=== PATIENT | female | born 1940 | race Caucasian/White ===

== ENCOUNTER 2021-07-04 08:37 | Emergency (ER) | payer MEDICARE, SELFPAY ==
[2021-07-04 08:49] VITALS: BP 135/69; PULSE 94; RESP 12; TEMP 37.2; O2SAT 96; BMI 29.0
[2021-07-04 09:03] VITALS: BP 148/67; O2SAT 93
--- NOTE | 2021-07-04 09:13 | XRR_ITS ---
PROCEDURE INFORMATION: Exam: XR Left Ribs Exam date and time: 07/04/2021 9:27 AM Age: 80 years old Clinical indication: Pain and injury or trauma; Rib area; Blunt trauma (contusions or hematomas); Chest wall pain; Injury date: 07/04/21; Injury details: Fall this morning in the bathtub, large skin tear on left forearm. Pain in left side ribs at level of axilla; Additional info: Fall, rib pain TECHNIQUE: Imaging protocol: XR Left ribs. Views: 2 views. COMPARISON: No relevant prior studies available. FINDINGS: Bones/joints: There are multiple old healed left rib fractures. No acute fractures are seen. Soft tissues: Normal. XR/XR ribs LT mn 3V w CXR1V [id number] IMPRESSION: Multiple old healed left rib fractures. No acute abnormality.
--- NOTE | 2021-07-04 09:13 | XRR_ITS ---
PROCEDURE INFORMATION: Exam: XR Left Forearm Exam date and time: 07/04/2021 9:22 AM Age: 80 years old Clinical indication: Injury or trauma; Blunt trauma (contusions or hematomas); Arm, lower; Injury date: 07/04/21; Injury details: Fall this morning in the bathtub, large skin tear on left forearm. Pain in left side ribs at level of axilla TECHNIQUE: Imaging protocol: XR Left forearm. Views: 2 views. COMPARISON: No relevant prior studies available. FINDINGS: Bones/joints: No fracture or other acute abnormalities are seen. Chronic degenerative changes are present in the elbow with spurring on the proximal radius. Soft tissues: Normal. XR/XR forearm LT 2V [id number] IMPRESSION: No acute bony abnormality.
--- NOTE | 2021-07-04 09:14 | ED_ITS ---
Documented by User: RONN Pearson 07/05/21 07:03 HPI - Fall General: Chief Complaint: Fall Stated Complaint: fall/Left arm injury Time Seen by Provider: 07/04/21 08:38 Source: patient and family () Mode of arrival: wheelchair Limitations: no limitations History of Present Illness: Patient is a 80-year-old female who presents to ED today along with her for evaluation following a fall. Patient states she had finished using the restroom and when she stood up she became dizzy and fell onto her left side. She states she struck her left forearm and sustained a skin tear there. She is also having some minor pain to her left ribs. states he heard the fall and went in to check on his . He states she was on the ground but was alert and oriented. Patient denies striking her head or LOC. She is not having any dizziness currently. She denies chest pain, shortness of breath, difficulty breathing. 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 states this does affect her gait however she normally does not experience episodes of dizziness. Patient denies CAMARENA, neck pain, back pain. MD complaint: fall Onset (ago): hour(s) Fall from: standing Fall witnessed: no Place fall occurred: home Loss of consciousness: None Prolonged down time: no Symptoms prior to fall: dizziness Associated symptoms-after fall: Reports chest pain (L lateral rib pain); Denies abdominal pain, headache(s) or neck pain Review of Systems Const: Denies: fever(s), chills or body aches Eyes: Denies: change in vision Card: Reports: chest pain (L lateral rib pain); Denies: palpitations, irregular heart rhythm, edema, swelling of feet/ankles, syncope, dyspnea on exertion or orthopnea Resp: Denies: dyspnea GI: Denies: abdominal pain, nausea, vomiting or diarrhea : Denies: flank pain, difficulty voiding or dysuria Musc: Reports: extremity pain (L forearm skin tear); Denies: neck pain, back pain, extremity swelling, joint pain or joint swelling Skin/Breast: Reports: other (skin tear left forearm) Neuro: Reports: dizziness (subsided now); Denies: headache(s), numbness in extremities, weakness in extremities or sensory changes Physical Exam Const: COMMON NORMALS: no acute distress, patient oriented x3, no limitations, alert and well nourished GENERAL APPEARANCE: cooperative ORIENTATION/CONSCIOUSNESS: Yes awake and Yes oriented to person OTHER: at mental baseline per ; slurred speech and expressive aphasia normal per HENMT: COMMON NORMALS: normocephalic and atraumatic HEAD & SCALP: normal to inspection, normocephalic and atraumatic FACE & SINUS: normal facial exam Eye: GENERAL EYE: appearance normal, both eyes and all related structures Neck/C-Spine: COMMON NORMALS: full ROM CERVICAL SPINE: Yes cervical ROM normal, No pain with cervical ROM, No Cervical spine tenderness, No step off deformity and No Paracervical muscle tenderness Chest: COMMONS NORMALS: normal inspection of the chest OTHER: mild pain along L lateral ribs; no crepitus or ecchymosis noted Resp: COMMON NORMALS: normal respiratory effort and clear to auscultation bilaterally AUSCULTATION: clear to auscultation bilaterally Cardio: COMMON NORMALS: regular rate and regular rhythm RATE: regular rate RHYTHM: regular rhythm GI: COMMON NORMALS: Normal to inspection, nondistended, normoactive bowel sounds present, Soft to palpation, non-tender, No hepatosplenomegaly present and no masses PALPATION: Yes Soft to palpation and Yes No hepatosplenomegaly present Back/Pelvis: COMMON NORMALS: thoracic and lumbar spine normal to inspection, no thoracic nor lumbar tenderness and thoraco-lumbar ROM normal Extremity: COMMON NORMALS: full ROM and capillary refill normal GENERAL: Yes normal exam except as noted LEFT UPPER EXTREMITY: Yes lower arm (L dorsal forearm skin tear) Neuro: EVA COMA SCALE: document GCS findings [place] coma scale eye opening: Spontaneous Eva coma scale verbal response: Orientated Eva coma scale motor response: Obey commands Eva coma scale total score: 15 COMMON NORMALS: patient oriented x3 and moves all extremities SENSORIUM/ORIENTATION: Yes alert and Yes oriented to person OTHER: chronic R sided deficits from previous CVA Skin: NARRATIVE SKIN EXAM: skin tear to L forearm; otherwise normal skin exam Course ED course: Care transferred to EDDI Ríos. Patient's XRs are negative. Skin tear has been cleansed and repaired. Pending lab work results. Vital Signs: Vital signs: Vital Signs Temperature 98.9 F 07/04/21 08:49 Pulse Rate 94 07/04/21 08:49 Respiratory Rate 12 07/04/21 08:49 Blood Pressure 148/76 07/04/21 11:30 Pulse Oximetry 95 07/04/21 11:30 MDM - Fall Lab Data : 07/04/21 11:50 07/04/21 11:50 Radiology Impressions Forearm X-Ray 07/04/21 09:13 IMPRESSION: No acute bony abnormality. Ribs X-Ray 07/04/21 09:13 IMPRESSION: Multiple old healed left rib fractures. No acute abnormality. Laboratory Results WBC 3.6 10^3/uL (4.0-10.0) L 07/04/21 11:50 Corrected WBC Cancelled 07/04/21 10:25 RBC 3.79 10^6/uL (4.1-5.3) L 07/04/21 11:50 Hgb 11.6 g/dL (11.5-15.3) 07/04/21 11:50 Hct 36.3 % (37.0-47.0) L 07/04/21 11:50 MCV 95.8 fl (81-99) 07/04/21 11:50 MCH 30.6 pg (28.0-34.0) 07/04/21 11:50 MCHC 32.0 g/dL (30.0-36.0) 07/04/21 11:50 RDW 14.5 % (12.1-15.1) 07/04/21 11:50 Plt Count 90 10^3/cmm (130-400) L 07/04/21 11:50 MPV 10.4 fL (7.4-10.4) 07/04/21 11:50 Gran % Cancelled 07/04/21 10:25 Neut % (Auto) 56.1 % 07/04/21 11:50 Lymph % (Auto) 29.2 % 07/04/21 11:50 [place] % (Auto) 10.5 % 07/04/21 11:50 Eos % (Auto) 3.3 % 07/04/21 11:50 Baso % (Auto) 0.3 % 07/04/21 11:50 Neut # (Auto) 2.04 10^3/uL (1.8-7.7) 07/04/21 11:50 Lymph # (Auto) 1.1 10^3/uL (0.8-4.8) 07/04/21 11:50 [place] # (Auto) 0.4 10^3/uL (0.2-0.9) 07/04/21 11:50 Eos # (Auto) 0.1 10^3/uL (0.0-0.8) 07/04/21 11:50 Baso # (Auto) 0.0 10^3/uL (0.0-0.1) 07/04/21 11:50 Absolute Gran (auto) Cancelled 07/04/21 10:25 Nucleated RBC % (auto) 0 % 07/04/21 11:50 Nucleated RBCs # 0.0 /100WBC 07/04/21 11:50 Sodium 137 mmol/L (136-145) 07/04/21 11:50 Potassium 3.9 mmol/L (3.5-5.1) 07/04/21 11:50 Chloride 101 mmol/L (98-107) 07/04/21 11:50 Carbon Dioxide 24 mmol/L (22-29) 07/04/21 11:50 Anion Gap 15.9 (5-19) 07/04/21 11:50 BUN 11 mg/dL (8-23) 07/04/21 11:50 Creatinine 0.3 mg/dL (0.5-0.9) L 07/04/21 11:50 GFR Calculation Not Reportable 07/04/21 11:50 Glucose 146 mg/dL (65-115) H 07/04/21 11:50 Calculated Osmolality 286 mOsm/kg (285-295) 07/04/21 11:50 Calcium 8.3 mg/dL (8.5-10.5) L 07/04/21 11:50 Total Bilirubin 0.8 mg/dL (0.15-1.2) 07/04/21 11:50 AST 30 U/L (0-32) 07/04/21 11:50 ALT 19 U/L (0-33) 07/04/21 11:50 Alkaline Phosphatase 49 IU/L (35-105) 07/04/21 11:50 Troponin T Baseline 13 ng/L (0-10) H 07/04/21 11:50 Troponin T 120 Minute 12.12 ng/L (0-10) H 07/04/21 13:40 Delta Troponin T -0.88 ABS# (0-10) L 07/04/21 13:40 Total Protein 6.5 g/dL (6.6-8.7) L 07/04/21 11:50 Albumin 3.7 g/dL (3.5-5.2) 07/04/21 11:50 Globulin 2.8 g/dL (1.3-4.6) 07/04/21 11:50 Urine Color Yellow (Yellow) 07/04/21 11:17 Urine Appearance Clear (CLEAR) 07/04/21 11:17 Urine pH 7 (5-7) 07/04/21 11:17 Ur Specific Carrier 1.010 (1.005-1.030) 07/04/21 11:17 Urine Protein Neg (Negative) 07/04/21 11:17 Urine Glucose (UA) Norm (Normal) 07/04/21 11:17 Urine Ketones Negative (Negative) 07/04/21 11:17 Urine Blood Neg (Negative) 07/04/21 11:17 Urine Nitrate Positive (Negative) H 07/04/21 11:17 Urine Bilirubin Neg (Negative) 07/04/21 11:17 Urine Urobilinogen 1 mg/dL (Negative) H 07/04/21 11:17 Ur Leukocyte Esterase Negative (Negative) 07/04/21 11:17 Urine RBC 0-4 /hpf (0-2) H 07/04/21 11:17 Urine WBC 0-4 /hpf (0-5) H 07/04/21 11:17 Ur Squamous Epith Cells 0-4 /hpf (0-5) H 07/04/21 11:17 Amorphous Sediment Not Reportable 07/04/21 11:17 Urine Bacteria 4+ /hpf (NONE) H 07/04/21 11:17 Urine Mucus None /hpf 07/04/21 11:17 Discharge Plan Discharge Patient Disposition: Home Clinical Impression: Acute UTI Condition: Stable Prescriptions: New Macrobid 100 mg capsule 100 mg PO BID 5 Days Qty: 10 0RF Rx Instructions: must administer with a meal/food No Action multivitamin Tablet 1 tab PO DAILY 0RF metformin 500 mg Tablet 1,000 mg PO BID 0RF pravastatin 40 mg Tablet 40 mg PO QPM 0RF Fosamax 70 mg Tablet 70 mg PO Q7D 0RF Rx Instructions: on sat Prilosec 40 mg Capsule,Delayed Release(Dr/Ec) 40 mg PO DAILY 0RF levothyroxine 100 mcg Tablet 100 mcg PO QAM 0RF amitriptyline 25 mg Tablet 25 mg PO BEDTIME 0RF Calcium 500 500 mg calcium (1,250 mg) Tablet 1,000 mg PO DAILY 0RF prednisone 1 mg Tablet See Rx Instructions .ROUTE .COMPLEX 0RF Rx Instructions: 3mg po qam and 2mg po at 13:00 iron 325 mg (65 mg iron) Tablet 325 mg PO DAILY 0RF desmopressin 0.1 mg Tablet 0.1 mg PO BID 0RF Lima 3 Capsule 1,000 mg PO DAILY 0RF PreserVision AREDS-2 250-90-40-1 mg Capsule 1 tab PO BID 0RF Discharge Orders: Discharge ED (Routine); Ordered 07/04/21 Ordered By: Vanessa Campos Patient Instructions: Opioid Safety Activity Restrictions/Additional Instructions: Follow up with PCP within the next 2 days Sign Out Sign Out Data: Patient Sign Out occurred on 07/04/21 at 12:41. Patient's care was discussed, and care was transferred from to Vanessa Campos. Coding Level of Care Code ED Solid State Tester for Chg Fwd Exam Comprehensive Documented by User: Vanessa Campos 07/04/21 15:12 HPI - Fall General: Chief Complaint: Fall Stated Complaint: fall/Left arm injury Time Seen by Provider: 07/04/21 08:38 Physical Exam Neuro: EVA COMA SCALE: document GCS findings [place] coma scale total score: 15 Course Vital Signs: Vital signs: Vital Signs Temperature 98.9 F 07/04/21 08:49 Pulse Rate 94 07/04/21 08:49 Respiratory Rate 12 07/04/21 08:49 Blood Pressure 148/76 07/04/21 11:30 Pulse Oximetry 95 07/04/21 11:30 MDM - Fall Medical Decision Making Pt UA positive nitrates. Pt trop is not trending up. She is eating well and we will proceed with DC with tx with oral antibx and close follow up with PCP. Lab Data : 07/04/21 11:50 07/04/21 11:50 Radiology Impressions Forearm X-Ray 07/04/21 09:13 IMPRESSION: No acute bony abnormality. Ribs X-Ray 07/04/21 09:13 IMPRESSION: Multiple old healed left rib fractures. No acute abnormality. Laboratory Results WBC 3.6 10^3/uL (4.0-10.0) L 07/04/21 11:50 Corrected WBC Cancelled 07/04/21 10:25 RBC 3.79 10^6/uL (4.1-5.3) L 07/04/21 11:50 Hgb 11.6 g/dL (11.5-15.3) 07/04/21 11:50 Hct 36.3 % (37.0-47.0) L 07/04/21 11:50 MCV 95.8 fl (81-99) 07/04/21 11:50 MCH 30.6 pg (28.0-34.0) 07/04/21 11:50 MCHC 32.0 g/dL (30.0-36.0) 07/04/21 11:50 RDW 14.5 % (12.1-15.1) 07/04/21 11:50 Plt Count 90 10^3/cmm (130-400) L 07/04/21 11:50 MPV 10.4 fL (7.4-10.4) 07/04/21 11:50 Gran % Cancelled 07/04/21 10:25 Neut % (Auto) 56.1 % 07/04/21 11:50 Lymph % (Auto) 29.2 % 07/04/21 11:50 [place] % (Auto) 10.5 % 07/04/21 11:50 Eos % (Auto) 3.3 % 07/04/21 11:50 Baso % (Auto) 0.3 % 07/04/21 11:50 Neut # (Auto) 2.04 10^3/uL (1.8-7.7) 07/04/21 11:50 Lymph # (Auto) 1.1 10^3/uL (0.8-4.8) 07/04/21 11:50 [place] # (Auto) 0.4 10^3/uL (0.2-0.9) 07/04/21 11:50 Eos # (Auto) 0.1 10^3/uL (0.0-0.8) 07/04/21 11:50 Baso # (Auto) 0.0 10^3/uL (0.0-0.1) 07/04/21 11:50 Absolute Gran (auto) Cancelled 07/04/21 10:25 Nucleated RBC % (auto) 0 % 07/04/21 11:50 Nucleated RBCs # 0.0 /100WBC 07/04/21 11:50 Sodium 137 mmol/L (136-145) 07/04/21 11:50 Potassium 3.9 mmol/L (3.5-5.1) 07/04/21 11:50 Chloride 101 mmol/L (98-107) 07/04/21 11:50 Carbon Dioxide 24 mmol/L (22-29) 07/04/21 11:50 Anion Gap 15.9 (5-19) 07/04/21 11:50 BUN 11 mg/dL (8-23) 07/04/21 11:50 Creatinine 0.3 mg/dL (0.5-0.9) L 07/04/21 11:50 GFR Calculation Not Reportable 07/04/21 11:50 Glucose 146 mg/dL (65-115) H 07/04/21 11:50 Calculated Osmolality 286 mOsm/kg (285-295) 07/04/21 11:50 Calcium 8.3 mg/dL (8.5-10.5) L 07/04/21 11:50 Total Bilirubin 0.8 mg/dL (0.15-1.2) 07/04/21 11:50 AST 30 U/L (0-32) 07/04/21 11:50 ALT 19 U/L (0-33) 07/04/21 11:50 Alkaline Phosphatase 49 IU/L (35-105) 07/04/21 11:50 Troponin T Baseline 13 ng/L (0-10) H 07/04/21 11:50 Troponin T 120 Minute 12.12 ng/L (0-10) H 07/04/21 13:40 Delta Troponin T -0.88 ABS# (0-10) L 07/04/21 13:40 Total Protein 6.5 g/dL (6.6-8.7) L 07/04/21 11:50 Albumin 3.7 g/dL (3.5-5.2) 07/04/21 11:50 Globulin 2.8 g/dL (1.3-4.6) 07/04/21 11:50 Urine Color Yellow (Yellow) 07/04/21 11:17 Urine Appearance Clear (CLEAR) 07/04/21 11:17 Urine pH 7 (5-7) 07/04/21 11:17 Ur Specific Carrier 1.010 (1.005-1.030) 07/04/21 11:17 Urine Protein Neg (Negative) 07/04/21 11:17 Urine Glucose (UA) Norm (Normal) 07/04/21 11:17 Urine Ketones Negative (Negative) 07/04/21 11:17 Urine Blood Neg (Negative) 07/04/21 11:17 Urine Nitrate Positive (Negative) H 07/04/21 11:17 Urine Bilirubin Neg (Negative) 07/04/21 11:17 Urine Urobilinogen 1 mg/dL (Negative) H 07/04/21 11:17 Ur Leukocyte Esterase Negative (Negative) 07/04/21 11:17 Urine RBC 0-4 /hpf (0-2) H 07/04/21 11:17 Urine WBC 0-4 /hpf (0-5) H 07/04/21 11:17 Ur Squamous Epith Cells 0-4 /hpf (0-5) H 07/04/21 11:17 Amorphous Sediment Not Reportable 07/04/21 11:17 Urine Bacteria 4+ /hpf (NONE) H 07/04/21 11:17 Urine Mucus None /hpf 07/04/21 11:17 Discharge Plan Discharge Patient Disposition: Home Clinical Impression: Acute UTI Condition: Stable Prescriptions: New Macrobid 100 mg capsule 100 mg PO BID 5 Days Qty: 10 0RF Rx Instructions: must administer with a meal/food No Action multivitamin Tablet 1 tab PO DAILY 0RF metformin 500 mg Tablet 1,000 mg PO BID 0RF pravastatin 40 mg Tablet 40 mg PO QPM 0RF Fosamax 70 mg Tablet 70 mg PO Q7D 0RF Rx Instructions: on sat Prilosec 40 mg Capsule,Delayed Release(Dr/Ec) 40 mg PO DAILY 0RF levothyroxine 100 mcg Tablet 100 mcg PO QAM 0RF amitriptyline 25 mg Tablet 25 mg PO BEDTIME 0RF Calcium 500 500 mg calcium (1,250 mg) Tablet 1,000 mg PO DAILY 0RF prednisone 1 mg Tablet See Rx Instructions .ROUTE .COMPLEX 0RF Rx Instructions: 3mg po qam and 2mg po at 13:00 iron 325 mg (65 mg iron) Tablet 325 mg PO DAILY 0RF desmopressin 0.1 mg Tablet 0.1 mg PO BID 0RF Lima 3 Capsule 1,000 mg PO DAILY 0RF PreserVision AREDS-2 250-90-40-1 mg Capsule 1 tab PO BID 0RF Discharge Orders: Discharge ED (Routine); Ordered 07/04/21 Ordered By: Vanessa Campos Patient Instructions: Opioid Safety Activity Restrictions/Additional Instructions: Follow up with PCP within the next 2 days Sign Out Sign Out Data: Patient Sign Out occurred on 07/04/21 at 12:41. Patient's care was discussed, and care was transferred from to Vanessa Campos. Coding Level of Care Code ED Solid State Tester for Hoda Fwd Exam Comprehensive
--- NOTE | 2021-07-04 09:14 | ECG_ITS ---
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 Measurements Intervals [place] Rate: 84 P: -3 MD: 155 QRS: -41 QRSD: 105 T: 61 QT: 395 QTc: 468 Interpretive Statements SINUS RHYTHM WITH OCCASIONAL SUPRAVENTRICULAR PREMATURE COMPLEXES LEFT AXIS DEVIATION [QRS AXIS < -30] LOW QRS VOLTAGE IN PRECORDIAL LEADS [QRS DEFLECTION < 1.0 mV IN CHEST LEADS] ANTEROSEPTAL MYOCARDIAL INFARCTION , PROBABLY OLD [40+ ms Q WAVE IN V1-V4] No previous ECG available for comparison Electronically Signed On 07-04-2021 17:12:32 CDT by Dusty French M.D. [id number]
[2021-07-04] MEDS: tetanus-diphtheria tox (adult) 0.5 mL SDV IM (10:02)
--- NOTE | 2021-07-04 11:14 | ECG_ITS ---
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 Measurements Intervals [place] Rate: 82 P: 22 MT: 167 QRS: -38 QRSD: 113 T: 59 QT: 415 QTc: 488 Interpretive Statements SINUS RHYTHM WITH MARKED SINUS ARRHYTHMIA LEFT AXIS DEVIATION [QRS AXIS < -30] LOW QRS VOLTAGE IN PRECORDIAL LEADS [QRS DEFLECTION < 1.0 mV IN CHEST LEADS] ANTEROSEPTAL MYOCARDIAL INFARCTION , PROBABLY OLD [40+ ms Q WAVE IN V1-V4] Compared to ECG 07/04/2021 09:46:48 No significant changes Electronically Signed On 07-04-2021 17:15:52 CDT by Dusty French M.D. [id number]
[2021-07-04 11:30] VITALS: BP 148/76; O2SAT 95
[2021-07-04 11:44] LABS: Blood Urine Neg (Negative); Glucose Urine UA Norm (Normal); Ketones Urine Negative (Negative); Nitrate Urine Positive (Negative); Protein Urine Neg (Negative); Urine Appearance Clear (CLEAR); Urine Color Yellow (Yellow); pH Urine 7 (5-7)
[2021-07-04 11:45] LABS: Add Urine Microscopic? YES; Bilirubin Urine Neg (Negative); Leukocyte Esterase Urine Negative (Negative); Urobilinogen Urine 1 mg/dL (Negative)
[2021-07-04 11:48] LABS: RBC Urine 0-4 /hpf (0-2)
[2021-07-04 11:49] LABS: Add Urine Culture? Yes; Bacteria Urine 4+ /hpf; Squamous Epithelial Cell Urine 0-4 /hpf (0-5); WBC Urine 0-4 /hpf (0-5)
[2021-07-04 12:13] LABS: Basophils % 0.3 %; Eosinophils # 0.1 10^3/uL (0.0-0.8); Eosinophils % 3.3 %; Hematocrit 36.3 % (37.0-47.0); Hemoglobin 11.6 g/dL (11.5-15.3); Lymphocytes # 1.1 10^3/uL (0.8-4.8); Lymphocytes % 29.2 %; Mean Corpuscular Hemoglobin 30.6 pg (28.0-34.0); Mean Corpuscular Volume 95.8 fl (81-99); Mean Platelet Volume 10.4 fL (7.4-10.4); Monocytes # 0.4 10^3/uL (0.2-0.9); Monocytes % 10.5 %; Neutrophils # 2.04 10^3/uL (1.8-7.7); Neutrophils % 56.1 %; Nucleated Red Blood Cells % 0 %; Platelet Count 90 10^3/cmm (130-400); Red Blood Count 3.79 10^6/uL (4.1-5.3); Red Cell Distribution Width 14.5 % (12.1-15.1); White Blood Count 3.6 10^3/uL (4.0-10.0)
[2021-07-04 12:31] LABS: Troponin(5th) Baseline 13 ng/L (0-10)
[2021-07-04 12:32] LABS: Alanine Aminotransferase 19 U/L (0-33); Albumin Level 3.7 g/dL (3.5-5.2); Alkaline Phosphatase 49 IU/L (35-105); Anion Gap 15.9 (5-19); Aspartate Amino Transferase 30 U/L (0-32); Blood Urea Nitrogen 11 mg/dL (8-23); Calcium 8.3 mg/dL (8.5-10.5); Carbon Dioxide 24 mmol/L (22-29); Chloride 101 mmol/L (98-107); Globulin 2.8 g/dL (1.3-4.6); Glucose 146 mg/dL (65-115); Osmolality Calculated 286 mOsm/kg (285-295); Potassium 3.9 mmol/L (3.5-5.1); Sodium 137 mmol/L (136-145); Total Bilirubin 0.8 mg/dL (0.15-1.2); Total Protein 6.5 g/dL (6.6-8.7)
[2021-07-04] MEDS: nitrofurantoin SR (BID) 100 mg Capsule PO (14:00)
[2021-07-04 14:13] LABS: Troponin 5 2HR 12.12 ng/L (0-10)
[2021-07-04 14:18] LABS: Troponin 5 2HR Delta -0.88 ABS# (0-10)
== END 2021-07-04 15:36 | disposition home or self-care (01) ==
PROVIDERS: Physician Assistant; Emergency Provider Nurse Practitioner Family
DX: S51.812A Laceration without foreign body of left forearm, initial encounter (principal); W19.XXXA Unspecified fall, initial encounter; N39.0 Urinary tract infection, site not specified; R07.81 Pleurodynia; R42 Dizziness and giddiness; Z23 Encounter for immunization
CPT/HCPCS: 71101; 73090; 80053; 81001; 84484; 85025; 87077; 87086; 87186; 90471; 90714; 93005; 99284

== ENCOUNTER → 2021-08-22 15:15 | Outpatient (BNVA) | payer MEDICARE, SELFPAY | PROVIDERS: Referring Provider Family Medicine; Visit Provider Internal Medicine | DX: E23.2 Diabetes insipidus (principal); E23.7 Disorder of pituitary gland, unspecified; M81.0 Age-related osteoporosis without current pathological fracture; E03.9 Hypothyroidism, unspecified; Z79.84 Long term (current) use of oral hypoglycemic drugs | CPT/HCPCS: 99204 ==

== ENCOUNTER 2021-08-28 11:39 | Outpatient (CLI) | payer MEDICARE, SELFPAY ==
[2021-08-28 13:20] LABS: Anion Gap 20.8 (5-19); Blood Urea Nitrogen 11 mg/dL (8-23); Calcium 8.3 mg/dL (8.5-10.5); Carbon Dioxide 20 mmol/L (22-29); Chloride 99 mmol/L (98-107); Free T4 Free Thyroxine 1.25 ng/dL (0.82-1.77); Glucose 239 mg/dL (65-115); Osmolality Calculated 289 mOsm/kg (285-295); Potassium 3.8 mmol/L (3.5-5.1); Sodium 136 mmol/L (136-145)
[2021-08-31 22:23] LABS: Adrenocorticotropic Hormone <5 pg/mL (6-50)
== END 2021-08-28 11:40 | disposition home or self-care (01) ==
PROVIDERS: PCP Family Medicine; Visit Provider Internal Medicine
DX: E23.7 Disorder of pituitary gland, unspecified (principal); E11.9 Type 2 diabetes mellitus without complications
CPT/HCPCS: 80048; 82024; 84439

== ENCOUNTER 2021-09-26 11:42 | Outpatient (RCR) | payer MEDICARE, SELFPAY | END 2021-10-18 23:59 | disposition home or self-care (01) | LOC: SPT 11:42 | PROVIDERS: PCP Family Medicine; Referring Provider Family Medicine; Visit Provider Family Medicine | DX: R26.81 Unsteadiness on feet (principal) | CPT/HCPCS: 97110; 97161; 97530 ==

== ENCOUNTER → 2021-09-28 10:30 | Outpatient (BNVA) | payer MEDICARE, SELFPAY | PROVIDERS: PCP Family Medicine; Visit Provider Podiatrist Foot & Ankle Surgery | DX: B35.1 Tinea unguium (principal); M79.671 Pain in right foot; M79.672 Pain in left foot; E11.8 Type 2 diabetes mellitus with unspecified complications; Z79.84 Long term (current) use of oral hypoglycemic drugs | CPT/HCPCS: 11721; 99203 ==

== ENCOUNTER → 2021-10-02 11:28 | Outpatient (BNVA) | payer MEDICARE, SELFPAY | PROVIDERS: PCP Family Medicine; Referring Provider Family Medicine; Visit Provider Specialist | DX: I69.351 Hemiplegia and hemiparesis following cerebral infarction affecting right dominant side (principal); G31.83 Neurocognitive disorder with Lewy bodies; F02.80 Dementia in other diseases classified elsewhere, unspecified severity, without behavioral disturbance, psychotic disturbance, mood disturbance, and anxiety; E27.49 Other adrenocortical insufficiency; E24.0 Pituitary-dependent Cushing's disease; Z98.2 Presence of cerebrospinal fluid drainage device | CPT/HCPCS: 36415; 82607; 82746; 99204; 99205 ==

== ENCOUNTER → 2021-10-04 14:48 | Outpatient (BNVA) | payer MEDICARE, SELFPAY | PROVIDERS: PCP Family Medicine; Referring Provider Specialist; Visit Provider Specialist | DX: G31.83 Neurocognitive disorder with Lewy bodies (principal); F02.80 Dementia in other diseases classified elsewhere, unspecified severity, without behavioral disturbance, psychotic disturbance, mood disturbance, and anxiety | CPT/HCPCS: 95816 ==

== ENCOUNTER 2021-10-19 06:00 | Outpatient (RCR) | payer MEDICARE, SELFPAY | END 2021-10-19 23:59 | disposition home or self-care (01) | LOC: SPT 06:00 | PROVIDERS: PCP Family Medicine; Visit Provider Family Medicine | DX: R26.81 Unsteadiness on feet (principal) | CPT/HCPCS: 97110 ==

== ENCOUNTER 2021-10-26 14:06 | Outpatient (CLI) | payer MEDICARE, SELFPAY ==
--- NOTE | 2021-10-26 14:30 | XR_ITS ---
WS: [id number] DEXA (DUAL ENERGY X-RAY ABSORPTIOMETRY) Bone mineral density was performed using a Finario machine. HISTORY: osteoporosis COMPARISON: None available. Lumbar spine BMD (L1-L4): 1.377 g/cm2 T score: 1.6 Z score: 2.9 Total hip BMD: Left: 0.881 g/cm2. T score: -1.0 Z score: 0.6 Right: 0.866 g/cm2. T score: -1.1 Z score: 0.5 10 year probability of a major osteoporotic fracture is 33.3%. Advanced degenerative changes in the lumbar spine. Sclerosis in the endplates most significant at L2 and L3 with degenerative disc space narrowing. XR/XR DEXA axial skeleton* [id number] IMPRESSION: OSTEOPENIA based upon the WHO classification for females.
== END 2021-10-26 14:07 | disposition home or self-care (01) ==
LOC: RAD 14:08
PROVIDERS: PCP Family Medicine; Visit Provider Internal Medicine
DX: M81.0 Age-related osteoporosis without current pathological fracture (principal)
CPT/HCPCS: 77080

== ENCOUNTER → 2021-11-29 15:13 | Outpatient (BNVA) | payer MEDICARE, SELFPAY | PROVIDERS: PCP Family Medicine; Visit Provider Specialist | DX: G31.83 Neurocognitive disorder with Lewy bodies (principal); Z98.2 Presence of cerebrospinal fluid drainage device; I69.320 Aphasia following cerebral infarction; F02.82 Dementia in other diseases classified elsewhere, unspecified severity, with psychotic disturbance; Z91.81 History of falling; E89.3 Postprocedural hypopituitarism; Z86.79 Personal history of other diseases of the circulatory system | CPT/HCPCS: 99214 ==

== ENCOUNTER 2021-12-06 18:15 | Emergency (ER) | payer MEDICARE, SELFPAY ==
[2021-12-06 18:50] VITALS: BP 96/57; PULSE 74; RESP 16; TEMP 36.7; O2SAT 93; BMI 28.3
--- NOTE | 2021-12-06 20:30 | CTR_ITS ---
PROCEDURE INFORMATION: Exam: CT Cervical Spine Without Contrast Exam date and time: 12/06/2021 8:43 PM Age: 81 years old Clinical indication: Injury or trauma; Fall; Blunt trauma TECHNIQUE: Imaging protocol: Computed tomography of the cervical spine without contrast. Radiation optimization: All CT scans at this facility use at least one of these dose optimization techniques: automated exposure control; mA and/or kV adjustment per patient size (includes targeted exams where dose is matched to clinical indication); or iterative reconstruction. COMPARISON: CT head wo con* [id number] 12/06/2021 8:39 PM RADIATION DOSE METRICS: Total DLP (mGy-cm): 270.07 FINDINGS: Bones/joints: Spinal alignment is normal. Vertebral body height is maintained. There is moderate degenerative disc disease in the cervical spine. There is mild multilevel facet spondylosis. There is moderate multilevel spinal canal stenosis. Lungs: Lung apices are clear. Vasculature: There is moderate atherosclerotic disease of the carotid arteries bilaterally. Soft tissues: Unremarkable. CT/CT cervical spin wo con* [id number] IMPRESSION: No acute findings.
--- NOTE | 2021-12-06 20:30 | CTR_ITS ---
PROCEDURE INFORMATION: Exam: CT Head Without Contrast Exam date and time: 12/06/2021 8:39 PM Age: 81 years old Clinical indication: Injury or trauma; Fall; Blunt trauma (contusions or hematomas); Without loss of consciousness; Prior surgery; Surgery date: 6+ months; Surgery type: Shunt and aneurysm TECHNIQUE: Imaging protocol: Computed tomography of the head without contrast. Radiation optimization: All CT scans at this facility use at least one of these dose optimization techniques: automated exposure control; mA and/or kV adjustment per patient size (includes targeted exams where dose is matched to clinical indication); or iterative reconstruction. COMPARISON: No relevant prior studies available. RADIATION DOSE METRICS: Total DLP (mGy-cm): 1277.38 FINDINGS: Tubes, catheters and devices: There is a right parietal approach ventriculostomy catheter. The catheter extends across midline. The tip is located in the left lateral ventricle just above the foramen of Monro. Ventricular size is normal. Brain: There is focal encephalomalacia in the left insula, frontal and temporal operculum. There is diffuse cerebral atrophy and chronic microvascular white matter disease. There is a focal hypodensity in the left caudate nucleus suggesting a chronic lacunar infarct. There is no acute intracranial hemorrhage. Cerebral ventricles: There is no significant ventricular dilation. The basal cisterns are patent. There is an aneurysm clip in the suprasellar cistern. Paranasal sinuses: The paranasal sinuses are clear. Mastoid air cells: The mastoid air cells are clear. Bones/joints: Right frontotemporal craniotomy noted. No calvarial fracture. Soft tissues: The visible extracranial soft tissues are unremarkable. CT/CT head wo con* [id number] IMPRESSION: 1. No acute intracranial abnormality. 2. Normal size ventricles with ventriculostomy catheter in the left lateral ventricle. 3. Chronic infarction in the left middle cerebral artery territory. 4. 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
--- NOTE | 2021-12-06 20:30 | XRR_ITS ---
PROCEDURE INFORMATION: Exam: XR Right Ribs with PA Chest Exam date and time: 12/06/2021 8:34 PM Age: 81 years old Clinical indication: Pain; Other: RT. Ribs; Additional info: Fall TECHNIQUE: Imaging protocol: Radiologic exam of the Right ribs with PA chest. Views: 3 views COMPARISON: No relevant prior studies available. FINDINGS: Lungs: Unremarkable. No consolidation. Pleural spaces: Unremarkable. No pleural effusion. No pneumothorax. Heart/Mediastinum: Right ventricular peritoneal shunt. Cardiomegaly. Bones/joints: Unremarkable. XR/XR ribs RT mn 3V w CXR1V [id number] IMPRESSION: 1. Negative for fracture or dislocation. 2. Right ventricular peritoneal shunt. 3. Cardiomegaly.
--- NOTE | 2021-12-06 22:35 | ED_ITS ---
HPI - Fall General: Chief Complaint: Fall Stated Complaint: fall, back pain Time Seen by Provider: 12/06/21 19:29 History of Present Illness: 81 yo female patient had a fall earlier today landing on close rack. Pt c/o right sided rib pain. Pt denies hitting her head and denies any neck pain. Pt did not have an LOC and is not on blood thinners. Pt denies SOB states it does hurt to take deep breath. Pt denies any chest pain other than right lower rib cage. Associated symptoms-after fall: Denies abdominal pain, chest pain, confusion, difficulty walking, headache(s), hematuria, lightheadedness, neck pain or vertigo Review of Systems Const: Denies: fever(s), chills, body aches, change in appetite, change in weight, fatigue, malaise or diaphoresis Eyes: Denies: change in vision, blurry vision, blind spots, photophobia, eye discomfort, eye discharge, eye redness, floaters or seeing flashes ENMT: Denies: throat pain, uvular edema, enlarged tonsils, odynophagia, hoarseness, mouth pain, swelling of lips/tongue, oral sores, bleeding gums, dental pain, dry mouth, ear or mastoid pain, ear discharge, change in hearing, tinnitus, disequilibrium, nasal discharge, nasal congestion, post nasal drip or sinus pain Card: Denies: chest pain, palpitations, irregular heart rhythm, edema, swelling of feet/ankles, lightheadedness, syncope, pre-syncope, dyspnea on exertion, orthopnea, leg pain with exertion or acrocyanosis Resp: Denies: dyspnea, productive cough, non-productive cough, wheezing, stridor, pain on inspiration, change in phlegm color, hemoptysis or chest congestion GI: Denies: abdominal pain, nausea, vomiting, hematemesis, dysphagia, diarrhea, constipation, GI cramping, change in bowel habits or rectal pain : Denies: flank pain, difficulty voiding, dysuria, urinary frequency, urinary urgency, urinary hesitancy or hematuria Musc: Denies: neck pain, back pain, extremity pain, extremity swelling, joint pain, joint swelling, joint redness, joint warmth or deformity Skin/Breast: Denies: rash, pruritus, erythema, sores, new lesions, changes in skin color or dry skin Neuro: Denies: headache(s), numbness in extremities, weakness in extremities, sensory changes, lack of coordination, difficulty walking, frequent falls, dizziness, vertigo, confusion, behavioral changes, Slurred speech present, difficulty communicating thoughts or seizure-like activity Psych: Denies: anxiety, depression, suicidal ideation or homicidal ideation Endo: Denies: polyuria, polydipsia, tired all the time, cold intolerance, excessive sweating, flushing, hot flashes or heat intolerance Braden/Lymph: Denies: easy bruising, easy bleeding, petechiae, purpura, enlarged lymph nodes or tender lymph nodes All/Imm: Denies: urticaria, throat swelling, tongue swelling, facial swelling, acute wheezing or itchy eyes PFSH ED PFSH: Medical History Aphasia Family history of aneurysm of blood vessel of brain History of hemorrhagic stroke with residual hemiparesis 1995 JACEK (obstructive sleep apnea) Pituitary Cushings syndrome Secondary adrenal insufficiency Type 2 diabetes mellitus, without long-term current use of insulin Surgical History History of brain shunt History of hysterectomy History of pituitary surgery Family History Other Cancer Dementia Denies family history of Diabetes CAD (coronary artery disease) Clotting disorder Hyperlipidemia Psychiatric illness Chronic kidney disease (CKD) Suicide Anesthesia complication Bleeding disorder Family history of premature coronary artery disease Lung disease Hypertension Stroke Social History Smoking and tobacco status: never smoked Alcohol intake: current Alcohol intake frequency: 0-2 Drinks per Day Alcohol type: wine Adopted: No Caregiver/support person: No Lives independently: Yes Household members: spouse Housing: House Marital status: Physical Exam Const: COMMON NORMALS: no acute distress, patient oriented x3, healthy appearing, alert and well nourished GENERAL APPEARANCE: cooperative, comfortable, well kempt and well developed; not ill appearing ORIENTATION/CONSCIOUSNESS: Yes awake, Yes oriented to person, Yes oriented to place and Yes oriented to time HENMT: COMMON NORMALS: normocephalic, atraumatic, hearing grossly normal bilaterally, external ears normal, EAC's normal, TM's normal bilaterally, Normal external nose present, Normal nasal mucous membranes and turbinates present and moist oral mucous membranes HEAD & SCALP: normal to inspection, normocephalic and atraumatic FACE & SINUS: normal facial exam, sinuses nontender and face symmetric NOSE: Normal external nose present, Normal nares present, Normal nasal mucous membranes and turbinates present, No nasal discharge present and Abnormal external nose present EXTERNAL EAR: Yes external ears normal and Yes mastoids normal EXTERNAL AUDITORY CANAL: EAC's normal TYMPANIC MEMBRANE: TM's normal bilaterally MOUTH: Normal oral and palatal mucosa present, lip normal, tongue normal and Normal salivary glands and ducts present THROAT: no uvular edema Eye: COMMON NORMALS: EOMs intact bilaterally Neck/C-Spine: COMMON NORMALS: full ROM, no lymphadenopathy, supple, no meningeal signs, no JVD and Thyroid normal GENERAL: Yes normal visual inspection and Yes trachea midline THYROID: Thyroid normal CERVICAL SPINE: Yes cervical ROM normal Lymph: LYMPHATIC: no lymphadenopathy noted and no lymphedema noted Chest: COMMONS NORMALS: normal inspection of the chest Resp: COMMON NORMALS: normal respiratory effort, No retractions, No use of accessory muscles and clear to auscultation bilaterally EFFORT & INSPECTION: Yes able to speak in complete sentences and Yes symmetric chest movement AUSCULTATION: clear to auscultation bilaterally Cardio: COMMON NORMALS: no JVD, regular rate and regular rhythm RATE: regular rate RHYTHM: regular rhythm Back/Pelvis: COMMON NORMALS: thoracic and lumbar spine normal to inspection, no thoracic nor lumbar tenderness, thoraco-lumbar ROM normal and straight leg raise negative bilaterally THORACIC SPINE/UPPER BACK: Yes normal to inspection LUMBAR SPINE/LOWER BACK: Yes normal to inspection Extremity: COMMON NORMALS: normal to inspection, full ROM and capillary refill normal GENERAL: Yes normal exam except as noted Neuro: COMMON NORMALS: patient oriented x3, CN's II-XII intact bilaterally, moves all extremities, no focal motor deficits, no sensory deficits noted and gait normal SENSORIUM/ORIENTATION: Yes alert, Yes oriented to person, Yes oriented to place and Yes oriented to time MENINGEAL SIGNS: Yes no meningeal signs CRANIAL NERVES: Yes CN normal except as noted SPEECH: speech normal GAIT: Yes Normal gait present SENSORY EXAM: Yes extremities MOTOR EXAM: 5/5 motor strength present throughout Psych: COMMON NORMALS: mental status grossly normal, Normal thought process present, cooperative, normal affect, speech normal, activity/motor behavior normal, denies hallucinations, denies homicidal ideation and denies suicidal ideation APPEARANCE: Yes grossly normal and Yes well kempt ATTITUDE: Yes calm ACTIVITY/MOTOR BEHAVIOR: Yes appropriate eye contact SPEECH: Yes normal speech THOUGHT PROCESS: Normal thought process present THOUGHT CONTENT: Yes Normal thought content present ATTENTION/CONCENTRATION: Yes attention grossly intact MEMORY/COGNITION: Yes memory grossly intact INSIGHT: Good insight present (Psych) JUDGEMENT: Good judgement present (P sych) Skin: COMMON NORMALS: no rashes or lesions noted, no wounds, turgor normal, no jaundice, no petechiae and no mottling GENERAL SKIN EXAM: no rashes or lesions noted and turgor normal Course Vital Signs: Vital signs: Vital Signs Temperature 98.1 F 12/06/21 18:50 Pulse Rate 74 12/06/21 18:50 Respiratory Rate 16 12/06/21 18:50 Blood Pressure 96/57 12/06/21 18:50 Pulse Oximetry 93 12/06/21 18:50 Oxygen Delivery Me thod 12/06/21 18:50 MDM - Fall Medical Decision Making Patient is well appeairng non toxic and in no acute distress. 81 yo female patient had a fall earlier today landing on close rack. Pt c/o right sided rib pain. Pt denies hitting her head and denies any neck pain. Pt did not have an LOC and is not on blood thinners. Pt denies SOB states it does hurt to take deep breath. Pt denies any chest pain other than right lower rib cage. CT head and cervical spine negative for any acute findings. chest/rib xray negative for any acute findings. 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 VSS. Lungs CTA Lab Data Radiology Impressions Cervical Spine CT 12/06/21 20:30 IMPRESSION: No acute findings. Head CT 12/06/21 20:30 IMPRESSION: 1. No acute intracranial abnormality. 2. Normal size ventricles with ventriculostomy catheter in the left lateral ventricle. 3. Chronic infarction in the left middle cerebral artery territory. 4. 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 Ribs X-Ray 12/06/21 20:30 IMPRESSION: 1. Negative for fracture or dislocation. 2. Right ventricular peritoneal shunt. 3. Cardiomegaly. Discharge Plan Discharge Patient Disposition: Home Clinical Impression: Contusion of rib Condition: Stable Prescriptions: No Action sulfamethoxazole-trimethoprim [Bactrim DS] 800-160 mg tablet 1 tab PO BID 10 Days Qty: 20 0RF mupirocin 2 % ointment 1 applic topical BID Qty: 22 0RF escitalopram oxalate 20 mg tablet 20 mg PO DAILY loratadine 10 mg tablet 10 mg PO DAILY quetiapine 100 mg tablet 100 mg PO DAILY Qty: 60 3RF quetiapine [Seroquel] 25 mg tablet 25 mg PO BID 90 Days Qty: 180 0RF Rx Instructions: Take 1-2 tablets at 8pm metformin 500 mg tablet extended release 24hr 1,000 mg PO BID 90 Days Qty: 360 3RF omeprazole 40 mg capsule,delayed release(DR/EC) 40 mg PO DAILY Qty: 90 0RF pravastatin 40 mg tablet 40 mg PO QPM Qty: 90 0RF (DME) CPAP and supplies See Rx Instructions .Route .MEDSUPPLY Qty: 1 0RF Rx Instructions: 5 cm H20 multivitamin Tablet 1 tab PO DAILY Fosamax 70 mg Tablet 70 mg PO Q7D Rx Instructions: on sat levothyroxine 100 mcg Tablet 100 mcg PO QAM amitriptyline 25 mg Tablet 25 mg PO BEDTIME Calcium 500 500 mg calcium (1,250 mg) Tablet 1,000 mg PO DAILY prednisone 1 mg Tablet See Rx Instructions .ROUTE .COMPLEX Rx Instructions: 3mg po qam and 2mg po at 13:00 iron 325 mg (65 mg iron) Tablet 325 mg PO DAILY desmopressin 0.1 mg Tablet 0.1 mg PO BID [place] 3 Capsule 1,000 mg PO DAILY PreserVision AREDS-2 250-90-40-1 mg Capsule 1 tab PO BID Discharge Orders: Discharge ED (Routine); Ordered 12/06/21 Ordered By: Ann Dobson Referrals: Zuri Castorena DO [Primary Care Provider] - Discharge Diet: Advance as tolerated Discharge Activity: Increase activity as tolerated Patient Instructions: Opioid Safety, Pain Management Activity Restrictions/Additional Instructions: PLease return to the ER with any worsening of symptoms Please splint your side and take deep breaths Continue to take Tylenol for pain if needed per label directions Coding Level of Care Code ED Service Shop Foreman for Hoda Redman
== END 2021-12-06 22:05 | disposition home or self-care (01) ==
PROVIDERS: Emergency Provider Registered Nurse; PCP Family Medicine
DX: S20.211A Contusion of right front wall of thorax, initial encounter (principal); Z79.84 Long term (current) use of oral hypoglycemic drugs; E11.9 Type 2 diabetes mellitus without complications; W19.XXXA Unspecified fall, initial encounter
CPT/HCPCS: 70450; 71101; 72125; 99284

== ENCOUNTER 2021-12-12 14:23 | Outpatient (CLI) | payer MEDICARE, SELFPAY | END 2021-12-12 14:24 | disposition home or self-care (01) | LOC: SPT 14:24 | PROVIDERS: PCP Family Medicine; Visit Provider Podiatrist Foot & Ankle Surgery | DX: Z46.89 Encounter for fitting and adjustment of other specified devices (principal); M25.572 Pain in left ankle and joints of left foot; I73.9 Peripheral vascular disease, unspecified; B35.1 Tinea unguium; M77.41 Metatarsalgia, right foot; M77.42 Metatarsalgia, left foot; M20.41 Other hammer toe(s) (acquired), right foot; M20.42 Other hammer toe(s) (acquired), left foot; M19.172 Post-traumatic osteoarthritis, left ankle and foot | CPT/HCPCS: 11721; 97760; 99213; L1902 ==

== ENCOUNTER 2021-12-14 06:00 | Outpatient (RCR) | payer MEDICARE, SELFPAY | END 2021-12-18 23:59 | disposition home or self-care (01) | LOC: SST 06:00 | PROVIDERS: PCP Family Medicine; Visit Provider Family Medicine | DX: R41.841 Cognitive communication deficit (principal) | CPT/HCPCS: 92507; 92523 ==

== ENCOUNTER 2021-12-19 06:00 | Outpatient (RCR) | payer MEDICARE, SELFPAY ==
[2021-12-22 15:55] LABS: Vitamin B12 918 pg/mL (232-1245)
== END 2022-01-17 23:59 | disposition home or self-care (01) ==
LOC: SST 06:00
PROVIDERS: PCP Family Medicine; Visit Provider Family Medicine
DX: R41.841 Cognitive communication deficit (principal)
CPT/HCPCS: 92507

== ENCOUNTER → 2021-12-21 11:41 | Outpatient (BNVA) | payer MEDICARE, SELFPAY | PROVIDERS: PCP Family Medicine; Visit Provider Family Medicine | DX: E11.9 Type 2 diabetes mellitus without complications (principal) | CPT/HCPCS: 80053; 80061; 82607; 85025 ==

== ENCOUNTER 2022-01-18 06:00 | Outpatient (RCR) | payer MEDICARE, SELFPAY | END 2022-02-17 23:59 | disposition home or self-care (01) | LOC: SST 06:00 | PROVIDERS: PCP Family Medicine; Visit Provider Family Medicine | DX: R41.841 Cognitive communication deficit (principal) | CPT/HCPCS: 92507 ==

== ENCOUNTER → 2022-02-16 10:12 | Outpatient (BNVA) | payer MEDICARE, SELFPAY | PROVIDERS: PCP Family Medicine; Visit Provider Podiatrist Foot & Ankle Surgery | DX: B35.1 Tinea unguium (principal); M77.41 Metatarsalgia, right foot; M77.42 Metatarsalgia, left foot; M20.41 Other hammer toe(s) (acquired), right foot; M20.42 Other hammer toe(s) (acquired), left foot; M19.172 Post-traumatic osteoarthritis, left ankle and foot; I73.9 Peripheral vascular disease, unspecified | CPT/HCPCS: 11721 ==

== ENCOUNTER 2022-02-18 06:00 | Outpatient (RCR) | payer MEDICARE, SELFPAY | END 2022-03-20 23:59 | disposition home or self-care (01) | LOC: SST 06:00 | PROVIDERS: PCP Family Medicine; Visit Provider Family Medicine | DX: R41.841 Cognitive communication deficit (principal) | CPT/HCPCS: 92507 ==

== ENCOUNTER → 2022-02-21 14:33 | Outpatient (BNVA) | payer MEDICARE, SELFPAY | PROVIDERS: PCP Family Medicine; Visit Provider Internal Medicine | DX: E11.9 Type 2 diabetes mellitus without complications (principal); E23.7 Disorder of pituitary gland, unspecified; M81.0 Age-related osteoporosis without current pathological fracture; F02.80 Dementia in other diseases classified elsewhere, unspecified severity, without behavioral disturbance, psychotic disturbance, mood disturbance, and anxiety; Z79.890 Hormone replacement therapy; Z79.84 Long term (current) use of oral hypoglycemic drugs | CPT/HCPCS: 80053; 82306; 82310; 83970; 84305; 84439; 99214 ==

== ENCOUNTER → 2022-02-27 15:18 | Outpatient (BNVA) | payer MEDICARE, SELFPAY | PROVIDERS: PCP Family Medicine; Visit Provider Specialist | DX: G31.83 Neurocognitive disorder with Lewy bodies (principal); R26.81 Unsteadiness on feet; Z98.2 Presence of cerebrospinal fluid drainage device; G47.33 Obstructive sleep apnea (adult) (pediatric); F02.82 Dementia in other diseases classified elsewhere, unspecified severity, with psychotic disturbance; Z86.73 Personal history of transient ischemic attack (TIA), and cerebral infarction without residual deficits | CPT/HCPCS: 99214 ==

== ENCOUNTER → 2022-04-23 11:13 | Outpatient (BNVA) | payer MEDICARE, SELFPAY | PROVIDERS: PCP Family Medicine; Visit Provider Podiatrist Foot & Ankle Surgery | DX: B35.1 Tinea unguium (principal); M77.41 Metatarsalgia, right foot; M77.42 Metatarsalgia, left foot; M20.41 Other hammer toe(s) (acquired), right foot; M20.42 Other hammer toe(s) (acquired), left foot; M19.172 Post-traumatic osteoarthritis, left ankle and foot; I73.9 Peripheral vascular disease, unspecified | CPT/HCPCS: 11721 ==

== ENCOUNTER → 2022-06-14 13:54 | Outpatient (BNVA) | payer MEDICARE, SELFPAY | PROVIDERS: PCP Family Medicine; Visit Provider Specialist | DX: G31.83 Neurocognitive disorder with Lewy bodies (principal); F02.811 Dementia in other diseases classified elsewhere, unspecified severity, with agitation; I69.320 Aphasia following cerebral infarction; I69.351 Hemiplegia and hemiparesis following cerebral infarction affecting right dominant side | CPT/HCPCS: 99214 ==

== ENCOUNTER → 2022-07-09 10:50 | Outpatient (BNVA) | payer MEDICARE, SELFPAY | PROVIDERS: PCP Family Medicine; Visit Provider Podiatrist Foot & Ankle Surgery | DX: B35.1 Tinea unguium (principal); I73.9 Peripheral vascular disease, unspecified; E11.9 Type 2 diabetes mellitus without complications; Z79.84 Long term (current) use of oral hypoglycemic drugs | CPT/HCPCS: 11721 ==

== ENCOUNTER → 2022-07-17 09:04 | Outpatient (BNVA) | payer MEDICARE, SELFPAY | PROVIDERS: PCP Family Medicine; Visit Provider Internal Medicine | DX: E23.7 Disorder of pituitary gland, unspecified (principal); M81.0 Age-related osteoporosis without current pathological fracture; E11.9 Type 2 diabetes mellitus without complications | CPT/HCPCS: 80053; 82306; 82310; 83970; 84305; 84439 ==

== ENCOUNTER → 2022-07-23 10:37 | Outpatient (BNVA) | payer MEDICARE, SELFPAY | PROVIDERS: PCP Family Medicine; Visit Provider Internal Medicine | DX: E11.9 Type 2 diabetes mellitus without complications (principal); M81.0 Age-related osteoporosis without current pathological fracture; E23.7 Disorder of pituitary gland, unspecified; Z79.84 Long term (current) use of oral hypoglycemic drugs; Z79.890 Hormone replacement therapy; E03.9 Hypothyroidism, unspecified | CPT/HCPCS: 99214 ==

== ENCOUNTER → 2022-09-17 09:59 | Outpatient (BNVA) | payer MEDICARE, SELFPAY | PROVIDERS: PCP Family Medicine; Visit Provider Podiatrist Foot & Ankle Surgery | DX: B35.1 Tinea unguium (principal); L60.8 Other nail disorders; I73.9 Peripheral vascular disease, unspecified | CPT/HCPCS: 11721 ==

== ENCOUNTER → 2022-09-25 10:41 | Outpatient (BNVA) | payer MEDICARE, SELFPAY | PROVIDERS: PCP Family Medicine; Visit Provider Specialist | DX: Z98.2 Presence of cerebrospinal fluid drainage device; I69.320 Aphasia following cerebral infarction; G31.83 Neurocognitive disorder with Lewy bodies; F02.82 Dementia in other diseases classified elsewhere, unspecified severity, with psychotic disturbance; I69.351 Hemiplegia and hemiparesis following cerebral infarction affecting right dominant side | CPT/HCPCS: 99214 ==

== ENCOUNTER 2022-11-24 15:00 | Emergency (ER) | payer MEDICARE, SELFPAY ==
[2022-11-24 15:11] VITALS: BP 164/70; PULSE 91; TEMP 36.7; O2SAT 95; BMI 29.2
--- NOTE | 2022-11-24 15:19 | ECG_ITS ---
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 Measurements Intervals [place] Rate: 83 P: 43 OH: 151 QRS: -49 QRSD: 109 T: 67 QT: 397 QTc: 467 Interpretive Statements SINUS RHYTHM WITH OCCASIONAL SUPRAVENTRICULAR PREMATURE COMPLEXES LEFT ANTERIOR FASCICULAR BLOCK [QRS AXIS <= -45, QR IN I, RS IN II] LEFT VENTRICULAR HYPERTROPHY AND ST-T CHANGE [VOLTAGE CRITERIA PLUS ST/T ABNORMALITY] POSSIBLE ANTEROSEPTAL MYOCARDIAL INFARCTION , OF INDETERMINATE AGE [30 ms Q WAVE IN V1-V4] Compared to ECG 07/04/2021 11:22:38 Left anterior fascicular block now present Left ventricular hypertrophy now present ST (T wave) deviation now present Sinus arrhythmia no longer present Left-axis deviation no longer present Myocardial infarct finding still present Electronically Signed On 11-25-2022 22:54:02 CDT by Dusty French M.D. [id number]
--- NOTE | 2022-11-24 15:28 | W.ED.ARRPALP ---
HPI - Arrhythmia/Palpitations General: Chief Complaint: Arrhythmia/Palpitations Stated Complaint: heart issues sent by Maikol Time Seen by Provider: 11/24/22 15:26 Source: patient Mode of arrival: ambulatory History of Present Illness: 82-year-old female with a history of dementia presented to outpatient clinic there is a concern about atrial fibrillation she was referred to the ER.. She showed sinus rhythm with PVCs some EKG changes associated with LVH but did not have any atrial fibrillation at any point. is with her. It is difficult to get credible history from her. states she has no known history of coronary disease she denies any chest pain or shortness of breath at this time MD complaint: rapid heart beat, heart racing and skipped beats Onset (ago): hour(s) Duration: intermittent Severity: mild Context: occurred during rest Associated symptoms: Deny nausea, sense of impending doom, short of breath, syncope or vomiting Review of Systems Const: Reports: fever(s); Denies: chills Card: Denies: syncope Resp: Denies: dyspnea GI: Denies: nausea or vomiting : Denies: dysuria Musc: Denies: neck pain or back pain Skin/Breast: Denies: pruritus Neuro: Denies: headache(s) PFSH ED PFSH: Medical History Aphasia Family history of aneurysm of blood vessel of brain History of hemorrhagic stroke with residual hemiparesis 1995 JACEK (obstructive sleep apnea) Pituitary Cushings syndrome Secondary adrenal insufficiency Type 2 diabetes mellitus, without long-term current use of insulin Surgical History History of brain shunt History of colonoscopy History of hysterectomy History of pituitary surgery Family History Other Cancer Dementia Denies family history of Diabetes CAD (coronary artery disease) Clotting disorder Hyperlipidemia Psychiatric illness Chronic kidney disease (CKD) Suicide Anesthesia complication Bleeding disorder Family history of premature coronary artery disease Lung disease Hypertension Stroke Social History Smoking and tobacco status: never smoked Alcohol intake: current Alcohol intake frequency: 0-2 Drinks per Day Alcohol type: wine Substance/Drug Use: never Adopted: No Caregiver/support person: No Lives independently: Yes Household members: spouse Housing: House Marital status: Physical Exam Const: COMMON NORMALS: no acute distress GENERAL APPEARANCE: cooperative and comfortable ORIENTATION/CONSCIOUSNESS: Yes awake, Yes oriented to person, Yes oriented to place and Yes oriented to time HENMT: COMMON NORMALS: normocephalic, atraumatic and hearing grossly normal bilaterally HEAD & SCALP: normocephalic and atraumatic Resp: COMMON NORMALS: normal respiratory effort, No retractions, No use of accessory muscles and clear to auscultation bilaterally AUSCULTATION: clear to auscultation bilaterally Cardio: COMMON NORMALS: regular rate, regular rhythm and No murmurs present (Cardio) RATE: regular rate RHYTHM: regular rhythm GI: COMMON NORMALS: Soft to palpation and No hepatosplenomegaly present AUSCULTATION: Yes normoactive bowel sounds PALPATION: Yes Soft to palpation, No Tenderness to palpation present (GI), No Guarding due to palpation present (GI) and Yes No hepatosplenomegaly present Extremity: COMMON NORMALS: normal to inspection, capillary refill normal, no clubbing, cyanosis or edema, no calf tenderness and no pedal edema Neuro: SENSORIUM/ORIENTATION: Yes oriented to person, Yes oriented to place and Yes oriented to time Skin: COMMON NORMALS: no rashes or lesions noted GENERAL SKIN EXAM: no rashes or lesions noted Course Vital Signs: Vital signs: Vital Signs Temperature 98.0 F 11/24/22 15:11 Pulse Rate 83 11/24/22 17:23 Respiratory Rate 18 11/24/22 17:23 Blood Pressure 141/83 11/24/22 17:23 Pulse Oximetry 94 11/24/22 17:23 Oxygen Delivery Me thod Room Air 11/24/22 17:21 MDM - Arrhythmia/Palpitations Medical Decision Making No atrial fibrillation noted while in the emergency room she did have a lot of PVCs and sinus arrhythmia. We will discharge patient on 48-hour Holter. Additionally incidental finding of cystitis which was treated with Macrobid. Patient does have anemia states is a chronic known issue which is reflected by her indices as well. Encouraged him to follow-up with his primary care doctor regarding this should she have atrial fibrillation that may become a concern as there is consideration of anticoagulation. Follow-up with primary care regarding the Holter monitor. Medical Records I reviewed the patient's medical records. Lab Data I reviewed the patient's lab results. 11/24/22 15:50 11/24/22 15:50 Laboratory Results WBC 4.71 10^3/uL (3.29-11.43) 11/24/22 15:50 RBC 3.55 10^6/uL (3.85-5.65) L 11/24/22 15:50 Hgb 8.40 g/dL (11.27-16.99) L 11/24/22 15:50 Hct 29.8 % (36-47) L 11/24/22 15:50 MCV 83.9 fl (85-98) L 11/24/22 15:50 MCH 23.7 pg (27-33) L 11/24/22 15:50 MCHC 28.2 g/dL (30-55) L 11/24/22 15:50 RDW 16.7 % (12.1-15.1) H 11/24/22 15:50 Plt Count 84 10^3/cmm (157-399) L 11/24/22 15:50 MPV 10.3 fL (7.4-10.4) 11/24/22 15:50 Neut % (Auto) 58.7 % 11/24/22 15:50 Lymph % (Auto) 27.8 % 11/24/22 15:50 [place] % (Auto) 10.2 % 11/24/22 15:50 Eos % (Auto) 2.5 % 11/24/22 15:50 Baso % (Auto) 0.4 % 11/24/22 15:50 Neut # (Auto) 2.76 10^3/uL (1.8-7.7) 11/24/22 15:50 Lymph # (Auto) 1.3 10^3/uL (0.8-4.8) 11/24/22 15:50 [place] # (Auto) 0.5 10^3/uL (0.2-0.9) 11/24/22 15:50 Eos # (Auto) 0.1 10^3/uL (0.0-0.8) 11/24/22 15:50 Baso # (Auto) 0.0 10^3/uL (0.0-0.1) 11/24/22 15:50 Nucleated RBC % (auto) 0 % 11/24/22 15:50 Nucleated RBCs # 0.0 /100WBC 11/24/22 15:50 Sodium 141 mmol/L (136-145) 11/24/22 15:50 Potassium 3.9 mmol/L (3.5-5.1) 11/24/22 15:50 Chloride 100 mmol/L (98-107) 11/24/22 15:50 Carbon Dioxide 28 mmol/L (22-29) 11/24/22 15:50 Anion Gap 16.9 (5-19) 11/24/22 15:50 BUN 13 mg/dL (8-23) 11/24/22 15:50 Creatinine 0.4 mg/dL (0.5-0.9) L 11/24/22 15:50 GFR Calculation Not Reportable 11/24/22 15:50 Glucose 187 mg/dL (65-115) H 11/24/22 15:50 Calculated Osmolality 297 mOsm/kg (285-295) H 11/24/22 15:50 Calcium 8.8 mg/dL (8.5-10.5) 11/24/22 15:50 Total Bilirubin 0.4 mg/dL (0.15-1.2) 11/24/22 15:50 AST 36 U/L (0-32) H 11/24/22 15:50 ALT 26 U/L (0-33) 11/24/22 15:50 Alkaline Phosphatase 44 U/L (35-105) 11/24/22 15:50 Total Protein 6.9 g/dL (6.6-8.7) 11/24/22 15:50 Albumin 4.0 g/dL (3.5-5.2) 11/24/22 15:50 Globulin 2.9 g/dL (1.3-4.6) 11/24/22 15:50 TSH 1.39 uIU/mL (0.27-4.20) 11/24/22 15:50 Urine Color Yellow (Yellow) 11/24/22 15:10 Urine Appearance Clear (CLEAR) 11/24/22 15:10 Urine pH 7 (5-7) 11/24/22 15:10 Ur Specific [place] 1.005 (1.005-1.030) 11/24/22 15:10 Urine Protein Neg (Negative) 11/24/22 15:10 Urine Glucose (UA) 2+ (Normal) H 11/24/22 15:10 Urine Ketones Negative (Negative) 11/24/22 15:10 Urine Blood Neg (Negative) 11/24/22 15:10 Urine Nitrate Negative (Negative) 11/24/22 15:10 Urine Bilirubin Neg (Negative) 11/24/22 15:10 Urine Urobilinogen 1 mg/dL (Negative) H 11/24/22 15:10 Ur Leukocyte Esterase Trace (Negative) H 11/24/22 15:10 Urine RBC 0-4 /hpf (0-2) H 11/24/22 15:10 Urine WBC 5-10 /hpf (0-5) H 11/24/22 15:10 Ur Squamous Epith Cells 0-4 /hpf (0-5) H 11/24/22 15:10 Amorphous Sediment Not Reportable 11/24/22 15:10 Urine Bacteria Trace /hpf (NONE) 11/24/22 15:10 No radiology studies performed this visit Discharge Plan Discharge Patient Disposition: Home Clinical Impression: Palpitations, Anemia, Cystitis Condition: Stable Prescriptions: New Macrobid 100 mg capsule 100 mg PO BID 7 Days Qty: 14 0RF Rx Instructions: must administer with a meal/food No Action Fosamax 70 mg tablet 70 mg PO Q7D Qty: 180 3RF Rx Instructions: on sat levothyroxine 100 mcg tablet 100 mcg PO QAM Qty: 180 3RF pravastatin 40 mg tablet 40 mg PO QPM Qty: 90 3RF loratadine 10 mg tablet 10 mg PO QAM galantamine 4 mg tablet 4 mg PO BID 90 Days Qty: 180 3RF Rx Instructions: administer with AM and PM meals (DME) CPAP and supplies See Rx Instructions .Route .MEDSUPPLY Qty: 1 0RF Rx Instructions: 5 cm H20 (DME) OneTouch Verio test strips Strip See Rx Instructions .Route Qty: 100 2RF Rx Instructions: Test Blood sugar up to twice a day E11.9 (DME) blood-glucose meter [OneTouch Verio Meter] Misc See Rx Instructions .Route Qty: 1 0RF Rx Instructions: As directed E11.9 desmopressin 0.1 mg tablet 0.1 mg PO BID Qty: 180 2RF multivitamin Tablet 1 tab PO QAM calcium carbonate [Calcium 500] 500 mg calcium (1,250 mg) Tablet 1,000 mg PO QAM ferrous sulfate [iron] 325 mg (65 mg iron) Tablet 325 mg PO QAM [place] 3 Capsule 1,000 mg PO BEDTIME PreserVision AREDS-2 250-90-40-1 mg Capsule 1 tab PO BID Seroquel 200 mg tablet 200 mg PO BEDTIME omeprazole 40 mg capsule,delayed release(DR/EC) 40 mg PO QAM prednisone 1 mg tablet See Rx Instructions .ROUTE .COMPLEX Rx Instructions: Take 3mg po in the am, and 2mg po in the evening mupirocin 2 % ointment 1 applic topical BID PRN (Reason: UNKNOWN) metformin 500 mg tablet extended release 24 hr 1,000 mg PO BID escitalopram oxalate 20 mg tablet 20 mg PO QAM Discharge Orders: Discharge ED (Routine); Ordered 11/24/22 Ordered By: Anthony Prince Referrals: Zuri Castorena DO [Primary Care Provider] - Patient Instructions: Opioid Safety, Pain Management Activity Restrictions/Additional Instructions: Case management make arrangements for an outpatient 48-hour Holter monitor to further evaluate your heart rhythm Coding Level of Care Code ED Towel Stretcher for Hoda Redman
[2022-11-24 15:53] VITALS: BP 157/82; PULSE 91; RESP 18; O2SAT 94
[2022-11-24 16:09] LABS: Basophils % 0.4 %; Eosinophils # 0.1 10^3/uL (0.0-0.8); Eosinophils % 2.5 %; Hematocrit 29.8 % (36-47); Lymphocytes # 1.3 10^3/uL (0.8-4.8); Lymphocytes % 27.8 %; Mean Corpuscular HGB Conc 28.2 g/dL (30-55); Mean Corpuscular Hemoglobin 23.7 pg (27-33); Mean Corpuscular Volume 83.9 fl (85-98); Mean Platelet Volume 10.3 fL (7.4-10.4); Monocytes # 0.5 10^3/uL (0.2-0.9); Monocytes % 10.2 %; Neutrophils # 2.76 10^3/uL (1.8-7.7); Neutrophils % 58.7 %; Nucleated Red Blood Cells % 0 %; Platelet Count 84 10^3/cmm (157-399); Red Blood Count 3.55 10^6/uL (3.85-5.65); Red Cell Distribution Width 16.7 % (12.1-15.1); White Blood Count 4.71 10^3/uL (3.29-11.43)
[2022-11-24 16:26] LABS: Alanine Aminotransferase 26 U/L (0-33); Alkaline Phosphatase 44 U/L (35-105); Anion Gap 16.9 (5-19); Aspartate Amino Transferase 36 U/L (0-32); Blood Urea Nitrogen 13 mg/dL (8-23); Calcium 8.8 mg/dL (8.5-10.5); Carbon Dioxide 28 mmol/L (22-29); Chloride 100 mmol/L (98-107); Globulin 2.9 g/dL (1.3-4.6); Glucose 187 mg/dL (65-115); Osmolality Calculated 297 mOsm/kg (285-295); Potassium 3.9 mmol/L (3.5-5.1); Sodium 141 mmol/L (136-145); Thyroid Stimulating Hormone 1.39 uIU/mL (0.27-4.20); Total Bilirubin 0.4 mg/dL (0.15-1.2); Total Protein 6.9 g/dL (6.6-8.7)
[2022-11-24 16:37] LABS: Add Urine Culture? No; Add Urine Microscopic? YES; Bacteria Urine TRACE /hpf; Bilirubin Urine Neg (Negative); Blood Urine Neg (Negative); Glucose Urine UA 2+ (Normal); Ketones Urine Negative (Negative); Leukocyte Esterase Urine Trace (Negative); Nitrate Urine Negative (Negative); Protein Urine Neg (Negative); RBC Urine 0-4 /hpf (0-2); Specific Gravity, Urine 1.005 (1.005-1.030); Squamous Epithelial Cell Urine 0-4 /hpf (0-5); Urine Appearance Clear (CLEAR); Urine Color Yellow (Yellow); Urobilinogen Urine 1 mg/dL (Negative); pH Urine 7 (5-7)
[2022-11-24 17:21] VITALS: BP 141/83; PULSE 83; RESP 18; O2SAT 94
[2022-11-24 17:23] VITALS: BP 141/83; PULSE 83; RESP 18; O2SAT 94
== END 2022-11-24 17:24 | disposition home or self-care (01) ==
PROVIDERS: Emergency Provider Family Medicine; PCP Family Medicine
DX: R00.2 Palpitations (principal); D64.9 Anemia, unspecified; N30.90 Cystitis, unspecified without hematuria; E11.9 Type 2 diabetes mellitus without complications; Z79.84 Long term (current) use of oral hypoglycemic drugs
CPT/HCPCS: 80053; 81001; 84443; 85025; 93005; 99284

== ENCOUNTER → 2022-11-26 11:08 | Outpatient (BNVA) | payer MEDICARE, SELFPAY | PROVIDERS: PCP Family Medicine; Visit Provider Podiatrist Foot & Ankle Surgery | DX: B35.1 Tinea unguium (principal); I73.9 Peripheral vascular disease, unspecified; E11.9 Type 2 diabetes mellitus without complications; G31.83 Neurocognitive disorder with Lewy bodies; F02.80 Dementia in other diseases classified elsewhere, unspecified severity, without behavioral disturbance, psychotic disturbance, mood disturbance, and anxiety; Z79.84 Long term (current) use of oral hypoglycemic drugs | CPT/HCPCS: 11721 ==

== ENCOUNTER → 2022-11-29 10:55 | Outpatient (BNVA) | payer MEDICARE, SELFPAY | PROVIDERS: PCP Family Medicine; Visit Provider Family Medicine | DX: D64.9 Anemia, unspecified (principal); R00.2 Palpitations | CPT/HCPCS: 82728; 83550 ==

== ENCOUNTER → 2022-12-14 10:26 | Outpatient (BNVA) | payer MEDICARE, SELFPAY | PROVIDERS: PCP Family Medicine; Visit Provider Nurse Practitioner Family | DX: R31.9 Hematuria, unspecified (principal); N93.9 Abnormal uterine and vaginal bleeding, unspecified | CPT/HCPCS: 81000 ==

== ENCOUNTER → 2022-12-17 10:27 | Outpatient (BNVA) | payer MEDICARE, SELFPAY | PROVIDERS: PCP Family Medicine; Referring Provider Family Medicine; Visit Provider Internal Medicine Cardiovascular Disease | DX: R00.2 Palpitations (principal); I47.19 Other supraventricular tachycardia; I49.1 Atrial premature depolarization; I49.3 Ventricular premature depolarization | CPT/HCPCS: 93225; 99232 ==

== ENCOUNTER → 2023-01-16 11:34 | Outpatient (BNVA) | payer MEDICARE, SELFPAY | PROVIDERS: PCP Family Medicine; Visit Provider Internal Medicine | DX: M81.0 Age-related osteoporosis without current pathological fracture (principal); E23.7 Disorder of pituitary gland, unspecified; E11.9 Type 2 diabetes mellitus without complications | CPT/HCPCS: 80053; 80061; 82043; 82306; 83036; 84305; 84439 ==

== ENCOUNTER → 2023-01-23 11:00 | Outpatient (BNVA) | payer MEDICARE, SELFPAY | PROVIDERS: PCP Family Medicine; Visit Provider Internal Medicine | DX: E11.9 Type 2 diabetes mellitus without complications (principal); E23.7 Disorder of pituitary gland, unspecified; M81.0 Age-related osteoporosis without current pathological fracture; Z79.84 Long term (current) use of oral hypoglycemic drugs; Z79.890 Hormone replacement therapy | CPT/HCPCS: 99214 ==

== ENCOUNTER → 2023-02-04 09:47 | Outpatient (BNVA) | payer MEDICARE, SELFPAY | PROVIDERS: PCP Family Medicine; Visit Provider Podiatrist Foot & Ankle Surgery | DX: B35.1 Tinea unguium (principal); I73.9 Peripheral vascular disease, unspecified; E11.9 Type 2 diabetes mellitus without complications; G31.83 Neurocognitive disorder with Lewy bodies; F02.80 Dementia in other diseases classified elsewhere, unspecified severity, without behavioral disturbance, psychotic disturbance, mood disturbance, and anxiety; L60.3 Nail dystrophy; Z79.84 Long term (current) use of oral hypoglycemic drugs | CPT/HCPCS: 11721 ==

== ENCOUNTER → 2023-02-14 11:29 | Outpatient (BNVA) | payer MEDICARE, SELFPAY | PROVIDERS: PCP Family Medicine; Visit Provider Family Medicine | DX: D50.9 Iron deficiency anemia, unspecified (principal); Z13.6 Encounter for screening for cardiovascular disorders; Z79.899 Other long term (current) drug therapy | CPT/HCPCS: 82728; 83550; 85025 ==

== ENCOUNTER → 2023-02-26 11:12 | Outpatient (BNVA) | payer MEDICARE, SELFPAY | PROVIDERS: PCP Family Medicine; Visit Provider Internal Medicine | DX: M81.0 Age-related osteoporosis without current pathological fracture (principal); E23.7 Disorder of pituitary gland, unspecified; E11.9 Type 2 diabetes mellitus without complications; R35.89 Other polyuria | CPT/HCPCS: 99214 ==

== ENCOUNTER → 2023-02-28 14:42 | Outpatient (BNVA) | payer MEDICARE, SELFPAY | PROVIDERS: PCP Family Medicine; Visit Provider Internal Medicine | DX: E11.9 Type 2 diabetes mellitus without complications (principal); M81.0 Age-related osteoporosis without current pathological fracture; E23.7 Disorder of pituitary gland, unspecified | CPT/HCPCS: 80048 ==

== ENCOUNTER → 2023-03-19 11:25 | Outpatient (BNVA) | payer MEDICARE, SELFPAY | PROVIDERS: PCP Family Medicine; Referring Provider Family Medicine; Visit Provider Nurse Practitioner Women's Health | DX: R35.89 Other polyuria (principal) | CPT/HCPCS: 84315; 87086 ==

== ENCOUNTER → 2023-03-26 11:35 | Outpatient (BNVA) | payer MEDICARE, SELFPAY | PROVIDERS: PCP Family Medicine; Visit Provider Specialist | DX: R29.90 Unspecified symptoms and signs involving the nervous system (principal); Z98.2 Presence of cerebrospinal fluid drainage device; I69.359 Hemiplegia and hemiparesis following cerebral infarction affecting unspecified side; I69.320 Aphasia following cerebral infarction; G31.83 Neurocognitive disorder with Lewy bodies; F02.80 Dementia in other diseases classified elsewhere, unspecified severity, without behavioral disturbance, psychotic disturbance, mood disturbance, and anxiety | CPT/HCPCS: 99214 ==

== ENCOUNTER → 2023-04-22 12:05 | Outpatient (BNVA) | payer MEDICARE, SELFPAY | PROVIDERS: PCP Family Medicine; Visit Provider Internal Medicine | DX: D50.9 Iron deficiency anemia, unspecified (principal); Z13.6 Encounter for screening for cardiovascular disorders; E11.9 Type 2 diabetes mellitus without complications; D50.8 Other iron deficiency anemias | CPT/HCPCS: 80053; 80061; 82043; 82728; 83036; 83550; 85025 ==

== ENCOUNTER → 2023-04-25 10:34 | Outpatient (BNVA) | payer MEDICARE, SELFPAY | PROVIDERS: PCP Family Medicine; Visit Provider Internal Medicine | DX: M81.0 Age-related osteoporosis without current pathological fracture (principal); E23.7 Disorder of pituitary gland, unspecified; E11.9 Type 2 diabetes mellitus without complications; R35.89 Other polyuria; Z79.890 Hormone replacement therapy; Z79.84 Long term (current) use of oral hypoglycemic drugs | CPT/HCPCS: 99214 ==

== ENCOUNTER → 2023-04-29 10:17 | Outpatient (BNVA) | payer MEDICARE, SELFPAY | PROVIDERS: PCP Family Medicine; Visit Provider Podiatrist Foot & Ankle Surgery | DX: B35.1 Tinea unguium (principal); I73.9 Peripheral vascular disease, unspecified; G31.83 Neurocognitive disorder with Lewy bodies; F02.80 Dementia in other diseases classified elsewhere, unspecified severity, without behavioral disturbance, psychotic disturbance, mood disturbance, and anxiety; E11.69 Type 2 diabetes mellitus with other specified complication | CPT/HCPCS: 11721 ==

== ENCOUNTER → 2023-07-11 11:18 | Outpatient (BNVA) | payer MEDICARE, SELFPAY | PROVIDERS: PCP Family Medicine; Visit Provider Podiatrist Foot & Ankle Surgery | DX: B35.1 Tinea unguium (principal); I73.9 Peripheral vascular disease, unspecified; E11.69 Type 2 diabetes mellitus with other specified complication; G31.83 Neurocognitive disorder with Lewy bodies; F02.80 Dementia in other diseases classified elsewhere, unspecified severity, without behavioral disturbance, psychotic disturbance, mood disturbance, and anxiety | CPT/HCPCS: 11721 ==

== ENCOUNTER 2023-08-08 13:35 | Emergency (ER) | payer MEDICARE, SELFPAY ==
[2023-08-08 14:06] VITALS: BP 133/93; PULSE 85; RESP 20; TEMP 36.6; O2SAT 90; BMI 28.5
--- NOTE | 2023-08-08 15:00 | USR_ITS ---
PROCEDURE INFORMATION: Exam: US Duplex Left Lower Extremity Veins, Limited Exam date and time: 08/08/2023 3:44 PM Age: 82 years old Clinical indication: Pain; Leg, lower; Left; Additional info: Swelling redness, travel TECHNIQUE: Imaging protocol: Real-time duplex ultrasound of the left extremity with 2-D curry scale, color Doppler flow and spectral waveform analysis including responses to compression and other maneuvers (when performed) with image documentation. Limited exam focused on the left lower extremity veins. COMPARISON: CR XR ankle LT min 3V* [id number] 08/08/2023 3:33 PM FINDINGS: Left deep veins: Unremarkable. The common femoral, femoral, proximal profunda femoral, popliteal, posterior tibial and peroneal veins are patent without thrombus. Normal compressibility, augmentation response and Doppler waveforms. Superficial veins: Greater saphenous vein at the saphenofemoral junction is patent without thrombus. Soft tissues: Subcutaneous edema in the calf. US/CV venous duplex [facility] [id number] IMPRESSION: No sonographic evidence of deep vein thrombosis.
--- NOTE | 2023-08-08 15:00 | XR_ITS ---
WS: [id number] Exam: XR ankle LT min 3V* [id number] Date/Time of Exam: 08/08/2023 3:00 PM Reason For Exam: swelling redness No acute fracture noted. The ankle mortise is intact. Soft tissue swelling about the ankle. Vascular calcifications about the ankle and foot. Calcaneal spurs. XR/XR ankle LT min 3V* [id number] IMPRESSION: 1. No acute fracture or bone destruction. 2. Soft tissue swelling about the ankle.
--- NOTE | 2023-08-08 15:11 | ED_ITS ---
HPI - Extremity Problem 2 General: Chief complaint: Extremity Problem,Nontraumatic Stated complaint: Dr. Castorena sent. swollen ankle Time Seen by Provider: 08/08/23 14:57 History of Present Illness: 82-year-old female comes in today for co ncerns of redness and swelling to the left distal ankle. Patient has a bullous lesion there with significant erythema surrounding it. Patient was on vacation in [place] when she noticed the area starting to get red and swollen and tender. Patient has a history of a crush injury to the ankle many years ago and since then has had swelling to the area at times. Patient was seen by a healthcare provider in [place] and started on Bactrim DS. Patient reports no worsening of the redness but no significant improvement for the last 2 days after initiation of antibiotic. Patient does have diabetes, osteoporosis, anemia, hypothyroidism, GERD, irritable bladder, high cholesterol, [place] syndrome and adrenal insufficiency, takes Seroquel at bedtime. Review of Systems 2 General: Reports: 10 or more systems reviewed and unremarkable except in HPI and below Musc: Reports: extremity pain and extremity swelling Skin/Breast: Reports: erythema PFSH ED 2 PFSH: Medical History Secondary adrenal insufficiency Pituitary Cushings syndrome Type 2 diabetes mellitus, without long-term current use of insulin JACEK (obstructive sleep apnea) Aphasia Family history of aneurysm of blood vessel of brain History of hemorrhagic stroke with residual hemiparesis 1995 Surgical History History of colonoscopy History of hysterectomy History of pituitary surgery History of brain shunt Family History Father Prostate cancer Hyperlipidemia Grandfather Diabetes Mother Hyperlipidemia Other Dementia Denies family history of Colon cancer Ovarian cancer CAD (coronary artery disease) Clotting disorder Heart disease Psychiatric illness Chronic kidney disease (CKD) Breast cancer Suicide Anesthesia complication Bleeding disorder Family history of premature coronary artery disease Lung disease Hypertension Uterine cancer Thyroid disease Stroke Physical Exam 2 Const: COMMON NORMALS: alert HENMT: COMMON NORMALS: normocephalic HEAD & SCALP: normocephalic Neck/C-Spine: COMMON NORMALS: full ROM Resp: COMMON NORMALS: normal respiratory effort Cardio: COMMON NORMALS: regular rate RATE: regular rate GI: COMMON NORMALS: Soft to palpation PALPATION: Yes Soft to palpation Back/Pelvis: COMMON NORMALS: thoracic and lumbar spine normal to inspection Extremity: NARRATIVE EXTREMITY EXAM: Redness and swelling noted to the left lower extremity mid calf down. Swelling extends to the ankle but not the foot. Pulses noted in the dorsal foot. Patient has a lesion is draining purulent fluid and is blistered. Neuro: SENSORIUM/ORIENTATION: Yes alert Skin: NARRATIVE SKIN EXAM: Purulent draining bulla centralized to the erythema and swelling of the left medial lower leg. Course 2 Vital Signs: Vital signs: Vital Signs Temperature 97.9 F 08/08/23 14:06 Pulse Rate 83 08/08/23 15:30 Respiratory Rate 16 08/08/23 15:30 Blood Pressure 158/78 08/08/23 15:30 Pulse Oximetry 93 08/08/23 15:30 Oxygen Delivery Me thod Room Air 08/08/23 15:30 MDM - Extremity (Nontraumatic) Medical Decision Making 82-year-old female comes in today for complaints of pain, redness, and swelling to the left lower leg. Patient been having symptoms for approximately 4 days. Patient was seen 2 days ago by a healthcare provider in [place] and started on Bactrim. Patient was seen today by Ms. Penny NP, she had spoken with Dr. Castorena, patient's PCP, who had also evaluated the extremity and recommended further evaluation in the ER for further treatment of cellulitis of lower extremity. Patient does have complications secondary to adrenal insufficiency and diabetes mellitus. Exam notes erythema from mid calf to the ankle on the left lower lateral aspect of the leg. Patient does have a bullous lesion that is draining purulent fluid from it. Bulla was further opened and irrigated and and wound culture was collected. Differential diagnosis includes cellulitis, DVT, osteomyelitis, diabetic ulcer, ulcerated varicosity, stasis ulcer. Ultrasound noted no DVT. X-ray noted no osteomyelitis. CBC and CMP was unremarkable. Lactic was 2.2. Blood cultures were sent to lab. Patient probably has an infected stasis ulcer. Will go ahead and start patient on Levaquin for broad-spectrum coverage of the wound. Patient will continue with Bactrim for next 3 days as prescribed. Recommend follow-up with marketing communications specialist for further treatment and evaluation. Discussed with family need to return to the ER for fever greater than 100.4, inability to hold fluids down, or new concerns. Lab Data 08/08/23 15:24 08/08/23 15:24 Radiology Impressions Ankle X-Ray 08/08/23 15: IMPRESSION: 1. No acute fracture or bone destruction. 2. Soft tissue swelling about the ankle. Laboratory Results WBC 4.71 10^3/uL (3.29-11.43) 08/08/23 15: RBC 4.44 10^6/uL (3.85-5.65) 08/08/23 15:24 Hgb 14.00 g/dL (11.27-16.99) 08/08/23 15: Hct 44.0 % (36-47) 08/08/23 15: MCV 99.1 fl (85-98) H 08/08/23 15:24 MCH 31.5 pg (27-33) 08/08/23: MCHC 31.8 g/dL (30-55) 08/08/23: RDW 13.7 % (12.1-15.1) 08/08/23 15: Plt Count 81 10^3/cmm (157-399) L 08/08/23 15: MPV 10.6 fL (7.4-10.4) H 08/08/23: Neut % (Auto) 73.1 % 08/08/23: Lymph % (Auto) 19.5 % 08/08/23: [place] % (Auto) 5.5 % 08/08/23: Eos % (Auto) 1.1 % 08/08/23: Baso % (Auto) 0.4 % 08/08/23: Neut # (Auto) 3.44 10^3/uL (1.8-7.7) 08/08/23: Lymph # (Auto) 0.9 10^3/uL (0.8-4.8) 08/08/23: [place] # (Auto) 0.3 10^3/uL (0.2-0.9) 08/08/23: Eos # (Auto) 0.1 10^3/uL (0.0-0.8) 06/20/24 15:24 Baso # (Auto) 0.0 10^3/uL (0.0-0.1) 08/08/23 15:24 Nucleated RBC % (auto) 0 % 08/08/23 15:24 Nucleated RBCs # 0.0 /100WBC 08/08/23 15:24 ESR 25 mm/hr (0-15) H 08/08/23 15:24 PT 15.40 SECONDS (12.1-14.9) H 08/08/23 15:24 INR 1.18 (0.8-1.2) 08/08/23 15:24 APTT 27.4 SECONDS (23.9-36.7) 08/08/23 15:24 D-Dimer 1.33 ug/mLFEU (0-0.59) H 08/08/23 15:24 Sodium 141 mmol/L (136-145) 08/08/23 15:24 Potassium 4.3 mmol/L (3.5-5.1) 08/08/23 15:24 Chloride 101 mmol/L (98-107) 08/08/23 15:24 Carbon Dioxide 28 mmol/L (22-29) 08/08/23 15:24 Anion Gap 16.3 (5-19) 08/08/23 15:24 BUN 11 mg/dL (8-23) 08/08/23 15:24 Creatinine 0.5 mg/dL (0.5-0.9) 08/08/23 15:24 GFR Calculation Not Reportable 08/08/23 15:24 Glucose 291 mg/dL (65-115) H 08/08/23 15:24 Calculated Osmolality 302 mOsm/kg (285-295) H 08/08/23 15:24 Lactic Acid 2.2 mmol/L (0.5-2.2) 08/08/23 15:24 Calcium 9.4 mg/dL (8.5-10.5) 08/08/23 15:24 Total Bilirubin 0.6 mg/dL (0.15-1.2) 08/08/23 15:24 AST 38 U/L (0-32) H 08/08/23 15:24 ALT 31 U/L (0-33) 08/08/23 15:24 Alkaline Phosphatase 64 U/L (35-105) 08/08/23 15:24 Creatine Kinase 47 U/L (26-192) 08/08/23 15:24 C-Reactive Protein 9.7 mg/L (0.0-4.9) H 08/08/23 15:24 NT-Pro-B Natriuret Pep 76 pg/mL (0-450) 08/08/23 15:24 Total Protein 7.5 g/dL (6.6-8.7) 08/08/23 15:24 Albumin 3.9 g/dL (3.5-5.2) 08/08/23 15:24 Globulin 3.6 g/dL (1.3-4.6) 08/08/23 15:24 Procalcitonin 0.07 ng/mL (0-0.5) 08/08/23 15:24 All radiology interpretation(s) finalized by discharge Discharge Plan Discharge Patient Disposition: Home Clinical Impression: Infected stasis ulcer of left lower extremity Condition: Stable Prescriptions: New levofloxacin 500 mg tablet 500 mg PO Q24H 7 Days Qty: 7 0RF No Action omeprazole 40 mg capsule,delayed release(DR/EC) See Rx Instructions .ROUTE .COMPLEX Qty: 90 3RF Dose Instruction: TAKE 1 CAPSULE BY MOUTH DAILY Rx Instructions: TAKE 1 CAPSULE BY MOUTH DAILY escitalopram oxalate 20 mg tablet 30 mg PO QAM Qty: 150 3RF PreserVision AREDS-2 250-90-40-1 mg capsule 1 tab PO BID Seroquel 200 mg tablet 200 mg PO BEDTIME Qty: 90 3RF oxybutynin chloride 10 mg tablet extended release 24hr 10 mg PO .twice a day Qty: 90 3RF loratadine 10 mg tablet 10 mg PO QAM (DME) OneTouch Verio test strips Strip See Rx Instructions .Route Qty: 100 2RF Rx Instructions: Test Blood sugar up to twice a day E11.9 (DME) blood-glucose meter [OneTouch Verio Meter] [facility] [place] .Route Qty: 1 0RF Rx Instructions: As directed E11.9 pravastatin 40 mg tablet 40 mg PO QPM Qty: 90 3RF desmopressin 0.1 mg tablet See Rx Instructions .ROUTE .COMPLEX Qty: 180 3RF Dose Instruction: TAKE 1 TABLET BY MOUTH TWICE DAILY Rx Instructions: TAKE 1 TABLET BY MOUTH TWICE DAILY quetiapine 50 mg tablet See Rx Instructions .ROUTE .COMPLEX Qty: 90 3RF Dose Instruction: TAKE 1 TABLET BY MOUTH DAILY IN THE MORNING IN ADDITION TO THE 200 MG AT BEDTIME Rx Instructions: TAKE 1 TABLET BY MOUTH DAILY IN THE MORNING IN ADDITION TO THE 200 MG AT BEDTIME prednisone 1 mg tablet See Rx Instructions .ROUTE .COMPLEX Qty: 450 0RF Dose Instruction: TAKE 3 TABLETS (3 MG) BY MOUTH IN THE MORNING AND 2 TABLETS (2 MG) AT 12:00 (TOTAL 5 MG/DAY) Rx Instructions: TAKE 3 TABLETS (3 MG) BY MOUTH IN THE MORNING AND 2 TABLETS (2 MG) AT 12:00 (TOTAL 5 MG/DAY) levothyroxine 100 mcg tablet See Rx Instructions .ROUTE .COMPLEX Qty: 90 0RF Dose Instruction: TAKE 1 TABLET BY MOUTH DAILY Rx Instructions: TAKE 1 TABLET BY MOUTH DAILY Januvia 100 mg tablet See Rx Instructions .ROUTE .COMPLEX Qty: 90 3RF Dose Instruction: TAKE 1 TABLET BY MOUTH DAILY Rx Instructions: TAKE 1 TABLET BY MOUTH DAILY alendronate 70 mg tablet 70 mg PO .QWeek 28 Days Qty: 12 3RF Rx Instructions: TAKE 1 TABLET BY MOUTH WEEKLY WITH 8 OZ OF PLAIN WATER 30 MINUTES BEFORE FIRST FOOD, DRINK OR MEDS. STAY UPRIGHT FOR 30 MINS (TAKE EVERY SATURDAY) alendronate 70 mg tablet 70 mg PO .qweek Qty: 12 0RF Rx Instructions: TAKE 1 TABLET BY MOUTH WEEKLY as directed alendronate 70 mg tablet See Rx Instructions .ROUTE .COMPLEX Qty: 12 3RF Dose Instruction: TAKE 1 TABLET BY MOUTH WEEKLY WITH 8 OZ OF PLAIN WATER 30 MINUTES BEFORE FIRST FOOD, DRINK OR MEDS. STAY UPRIGHT FOR 30 MINS (TAKE EVERY SATURDAY) Rx Instructions: TAKE 1 TABLET BY MOUTH WEEKLY WITH 8 OZ OF PLAIN WATER 30 MINUTES BEFORE FIRST FOOD, DRINK OR MEDS. STAY UPRIGHT FOR 30 MINS (TAKE EVERY SATURDAY) multivitamin Tablet 1 tab PO QAM calcium carbonate [Calcium 500] 500 mg calcium (1,250 mg) Tablet 1,000 mg PO QAM ferrous sulfate [iron] 325 mg (65 mg iron) Tablet 325 mg PO QAM [place] 3 Capsule 1,000 mg PO BEDTIME Discharge Orders: Discharge ED (Routine); Ordered 08/08/23 Ordered By: Dixon Allison Referrals: Zuri Castorena DO [Primary Care Provider] - Discharge Diet: Usual diet Discharge Activity: Increase activity as tolerated Patient Instructions: Stasis Ulcer Activity Restrictions/Additional Instructions: Home and rest. Elevate leg as much as possible. Use acetaminophen as needed for pain or discomfort. Continue with Bactrim as prescribed. Give Levaquin 500 mg daily. Follow-up with primary care as scheduled appointment. Case management will contact you regarding follow-up appointment with wound care. Return to ER for worsening symptoms such as fever greater than 100.4, inability to hold fluids down, or new concerns. 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
[2023-08-08 15:30] VITALS: BP 158/78; PULSE 83; RESP 16; O2SAT 93
[2023-08-08 15:36] LABS: Basophils % 0.4 %; Eosinophils # 0.1 10^3/uL (0.0-0.8); Eosinophils % 1.1 %; Lymphocytes # 0.9 10^3/uL (0.8-4.8); Lymphocytes % 19.5 %; Mean Corpuscular HGB Conc 31.8 g/dL (30-55); Mean Corpuscular Hemoglobin 31.5 pg (27-33); Mean Corpuscular Volume 99.1 fl (85-98); Mean Platelet Volume 10.6 fL (7.4-10.4); Monocytes # 0.3 10^3/uL (0.2-0.9); Monocytes % 5.5 %; Neutrophils # 3.44 10^3/uL (1.8-7.7); Neutrophils % 73.1 %; Nucleated Red Blood Cells % 0 %; Platelet Count 81 10^3/cmm (157-399); Red Blood Count 4.44 10^6/uL (3.85-5.65); Red Cell Distribution Width 13.7 % (12.1-15.1); White Blood Count 4.71 10^3/uL (3.29-11.43)
[2023-08-08 15:53] LABS: Erythrocyte Sedimentation Rate 25 mm/hr (0-15); INR 1.18 (0.8-1.2)
[2023-08-08 15:54] LABS: Partial Thromboplastin Time 27.4 SECONDS (23.9-36.7)
[2023-08-08 15:56] LABS: D Dimer 1.33 ug/mLFEU (0-0.59); Lactic Sepsis W/Reflex 2.2 mmol/L (0.5-2.2)
[2023-08-08 16:04] LABS: NT Pro B Type Natriuretic Pept 76 pg/mL (0-450); Procalcitonin 0.07 ng/mL (0-0.5)
[2023-08-08] MEDS: levofloxacin-dextrose 5 % 500 MG/100 ML PREMIX 100 MG IV (16:16)
[2023-08-08 16:20] LABS: Alanine Aminotransferase 31 U/L (0-33); Albumin Level 3.9 g/dL (3.5-5.2); Alkaline Phosphatase 64 U/L (35-105); Anion Gap 16.3 (5-19); Aspartate Amino Transferase 38 U/L (0-32); Blood Urea Nitrogen 11 mg/dL (8-23); C Reactive Protein 9.7 mg/L (0.0-4.9); Calcium 9.4 mg/dL (8.5-10.5); Carbon Dioxide 28 mmol/L (22-29); Chloride 101 mmol/L (98-107); Creatine Phosphokinase 47 U/L (26-192); Creatinine Clr Calc Pharmacy 61.9629; Globulin 3.6 g/dL (1.3-4.6); Glucose 291 mg/dL (65-115); Osmolality Calculated 302 mOsm/kg (285-295); Potassium 4.3 mmol/L (3.5-5.1); Sodium 141 mmol/L (136-145); Total Bilirubin 0.6 mg/dL (0.15-1.2); Total Protein 7.5 g/dL (6.6-8.7)
--- NOTE | 2023-08-08 16:43 | DCPLANNER ---
message sent to wound care for er f/u
[2023-08-08 17:00] VITALS: BP 157/94; PULSE 81; RESP 16; O2SAT 97
[2023-08-08 17:18] LABS: Reflex Lactate Order REFLEX LACTIC ORDERD
== END 2023-08-08 17:28 | disposition home or self-care (01) ==
PROVIDERS: Emergency Provider Nurse Practitioner Family; PCP Family Medicine
DX: I83.028 Varicose veins of left lower extremity with ulcer other part of lower leg (principal); L97.829 Non-pressure chronic ulcer of other part of left lower leg with unspecified severity; L08.9 Local infection of the skin and subcutaneous tissue, unspecified; E11.9 Type 2 diabetes mellitus without complications; Z86.73 Personal history of transient ischemic attack (TIA), and cerebral infarction without residual deficits
CPT/HCPCS: 73610; 80053; 82550; 83605; 83880; 84145; 85025; 85378; 85610; 85651; 85730; 86140; 87040; 87070; 87075; 87077; 87186; 87205; 93971; 96365; 99285; J1956

== ENCOUNTER → 2023-08-15 09:04 | Outpatient (BNVA) | payer MEDICARE, SELFPAY | PROVIDERS: PCP Family Medicine; Visit Provider Thoracic Surgery (Cardiothoracic Vascular Surgery) | DX: I96 Gangrene, not elsewhere classified (principal); S80.822D Blister (nonthermal), left lower leg, subsequent encounter; X58.XXXD Exposure to other specified factors, subsequent encounter | CPT/HCPCS: 97597; 99213 ==

== ENCOUNTER → 2023-08-27 12:57 | Outpatient (BNVA) | payer MEDICARE, SELFPAY | PROVIDERS: PCP Family Medicine; Visit Provider Nurse Practitioner Family | DX: E11.52 Type 2 diabetes mellitus with diabetic peripheral angiopathy with gangrene (principal); E11.622 Type 2 diabetes mellitus with other skin ulcer; L97.422 Non-pressure chronic ulcer of left heel and midfoot with fat layer exposed | CPT/HCPCS: 11042 ==

== ENCOUNTER → 2023-09-10 12:58 | Outpatient (BNVA) | payer MEDICARE, SELFPAY | PROVIDERS: PCP Family Medicine; Visit Provider Nurse Practitioner Family | DX: E11.52 Type 2 diabetes mellitus with diabetic peripheral angiopathy with gangrene (principal); E11.622 Type 2 diabetes mellitus with other skin ulcer; L97.821 Non-pressure chronic ulcer of other part of left lower leg limited to breakdown of skin | CPT/HCPCS: 97597 ==

== ENCOUNTER → 2023-09-17 13:02 | Outpatient (BNVA) | payer MEDICARE, SELFPAY | PROVIDERS: PCP Family Medicine; Visit Provider Thoracic Surgery (Cardiothoracic Vascular Surgery) | DX: E11.52 Type 2 diabetes mellitus with diabetic peripheral angiopathy with gangrene (principal); E11.622 Type 2 diabetes mellitus with other skin ulcer; L97.821 Non-pressure chronic ulcer of other part of left lower leg limited to breakdown of skin | CPT/HCPCS: 97597 ==

== ENCOUNTER → 2023-09-24 10:34 | Outpatient (BNVA) | payer MEDICARE, SELFPAY | PROVIDERS: PCP Family Medicine; Visit Provider Thoracic Surgery (Cardiothoracic Vascular Surgery) | DX: Z09 Encounter for follow-up examination after completed treatment for conditions other than malignant neoplasm (principal); Z87.2 Personal history of diseases of the skin and subcutaneous tissue | CPT/HCPCS: 99212 ==

== ENCOUNTER → 2023-09-26 15:10 | Outpatient (BNVA) | payer MEDICARE, SELFPAY | PROVIDERS: PCP Family Medicine; Visit Provider Podiatrist Foot & Ankle Surgery | DX: B35.1 Tinea unguium (principal); I73.9 Peripheral vascular disease, unspecified; G31.83 Neurocognitive disorder with Lewy bodies; F02.80 Dementia in other diseases classified elsewhere, unspecified severity, without behavioral disturbance, psychotic disturbance, mood disturbance, and anxiety; E11.69 Type 2 diabetes mellitus with other specified complication; Z79.4 Long term (current) use of insulin | CPT/HCPCS: 11721 ==

== ENCOUNTER → 2023-10-24 13:27 | Outpatient (BNVA) | payer MEDICARE, SELFPAY | PROVIDERS: PCP Family Medicine; Visit Provider Dermatology | DX: L30.9 Dermatitis, unspecified (principal); L82.1 Other seborrheic keratosis; L81.4 Other melanin hyperpigmentation; L85.3 Xerosis cutis; L98.1 Factitial dermatitis; L57.0 Actinic keratosis | CPT/HCPCS: 11102; 17000; 99204 ==

== ENCOUNTER → 2023-10-28 14:19 | Outpatient (BNVA) | payer MEDICARE, SELFPAY | PROVIDERS: PCP Family Medicine; Visit Provider Family Medicine | DX: E11.9 Type 2 diabetes mellitus without complications; M81.0 Age-related osteoporosis without current pathological fracture; E23.7 Disorder of pituitary gland, unspecified; E24.0 Pituitary-dependent Cushing's disease | CPT/HCPCS: 80053; 80061; 82043; 83036; 84439; 84443 ==

== ENCOUNTER → 2023-11-07 10:38 | Outpatient (BNVA) | payer MEDICARE, SELFPAY | PROVIDERS: PCP Family Medicine; Visit Provider Internal Medicine | DX: E11.9 Type 2 diabetes mellitus without complications (principal); R35.89 Other polyuria; E03.9 Hypothyroidism, unspecified; M81.0 Age-related osteoporosis without current pathological fracture; E23.7 Disorder of pituitary gland, unspecified; Z79.890 Hormone replacement therapy; Z79.84 Long term (current) use of oral hypoglycemic drugs | CPT/HCPCS: 99214 ==

== ENCOUNTER 2023-11-13 15:01 | Outpatient (CLI) | payer MEDICARE, SELFPAY ==
--- NOTE | 2023-11-13 15:00 | XR_ITS ---
WS: [id number] SCREENING DEXA SCAN [facility] CLINICAL INFORMATION: osteoporosis COMPARISON: 2021 FINDINGS: The L1-L4 bone mineral density measures 1.375 g/cm2. This corresponds to a T score score of 1.6 and Z score of 2.9. Left femoral neck bone mineral density measures 0.884 g/cm2. This corresponds to a T score of -1.0 an d Z score of 0.7. Right femoral neck bone mineral density measures 0.898 g/cm2. This corresponds to a T score -0.9of an d Z score of 0.8. Mean femoral neck bone mineral density measures 0.891 g/cm2. This corresponds to a T score of -0.9 an d Z score of 0.7. XR/XR DEXA axial skeleton* [id number] IMPRESSION: Normal bone mineralization lumbar spine. Osteopenia femoral necks at the lower end of the range. Patient's FRAX calculated 10 year probability for major osteoporotic fracture i s 24.2% and osteoporotic hip fracture is 7.3%. Bone mineral density lumbar spine decreased -0.1% Bone mineral density femoral necks increased 1.9%
== END 2023-11-13 15:02 | disposition home or self-care (01) ==
PROVIDERS: PCP Family Medicine; Visit Provider Internal Medicine
DX: Z13.820 Encounter for screening for osteoporosis (principal); M81.0 Age-related osteoporosis without current pathological fracture; M85.80 Other specified disorders of bone density and structure, unspecified site
CPT/HCPCS: 77080

== ENCOUNTER → 2023-11-28 14:45 | Outpatient (BNVA) | payer MEDICARE, SELFPAY | PROVIDERS: PCP Family Medicine; Visit Provider Podiatrist Foot & Ankle Surgery | DX: B35.1 Tinea unguium (principal); I73.9 Peripheral vascular disease, unspecified; G31.83 Neurocognitive disorder with Lewy bodies; F02.80 Dementia in other diseases classified elsewhere, unspecified severity, without behavioral disturbance, psychotic disturbance, mood disturbance, and anxiety; E11.69 Type 2 diabetes mellitus with other specified complication | CPT/HCPCS: 11721 ==

== ENCOUNTER 2023-12-07 21:26 | Inpatient (IN) | payer MEDICARE, SELFPAY ==
[2023-12-07 21:28] VITALS: BP 117/85; PULSE 92; RESP 20; TEMP 36.5; O2SAT 90; BMI 29.4
--- NOTE | 2023-12-07 21:35 | CTR_ITS ---
PROCEDURE INFORMATION: Exam: CT Head Without Contrast Exam date and time: 12/07/2023 9:26 PM Age: 83 years old Clinical indication: Stroke-like symptoms; Altered mental status/memory loss; Additional info: Stroke alert TECHNIQUE: Imaging protocol: Computed tomography of the head without contrast. Radiation optimization: All CT scans at this facility use at least one of these dose optimization techniques: automated exposure control; mA and/or kV adjustment per patient size (includes targeted exams where dose is matched to clinical indication); or iterative reconstruction. Other technique: STROKE PROTOCOL was implemented. COMPARISON: CT head wo con* [id number] 12/06/2021 8:39 PM RADIATION DOSE METRICS: Total DLP (mGy-cm): 1136.38 FINDINGS: Tubes, catheters and devices: Right posterior parietal approach ventriculostomy shunt catheter is present without change in position from the comparison. Brain: Negative for acute intracranial hemorrhage.There is marked cerebral atrophy. There is marked diffuse heterogeneity of the white matter attenuation, consistent with severe chronic white matter ischemic changes. Negative for midline shift of brain. Negative for space-occupying intracranial mass. Focal encephalomalacia in the left frontotemporal region. Gliosis extends in the right parietal area along the catheter tract. Surgical clip in the right middle cranial fossa consistent with prior aneurysm repair. Cerebral ventricles: Negative for hydrocephalus. No significant interval changes in the ventricular volume. Paranasal sinuses: Visualized sinuses are unremarkable. No fluid levels. Mastoid air cells: Visualized mastoid air cells are well aerated. Bones: Right temporal craniectomy surgical changes. Soft tissues: Unremarkable. CT/CT head thrombolytic [id number] IMPRESSION: 1. No acute intracranial pathology is identified. 2. Multifocal chronic ischemic brain changes redemonstrated. No significant interval change. ASSESSMENT: ASPECTS ([place] Stroke Program Early CT Score) is 10.
--- NOTE | 2023-12-07 21:48 | ECG_ITS ---
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: : 1940 Requested By: Jason Valdivia Order Number: [id number] Reading MD: BRADLY TARIQ Measurements Intervals [place] Rate: 89 P: 40 DE: 175 QRS: -54 QRSD: 114 T: 83 QT: 403 QTc: 493 Interpretive Statements SINUS RHYTHM LEFT ANTERIOR FASCICULAR BLOCK [QRS AXIS <= -45, QR IN I, RS IN II] LEFT VENTRICULAR HYPERTROPHY AND ST-T CHANGE [VOLTAGE CRITERIA PLUS ST/T ABNORMALITY] POSSIBLE ANTEROSEPTAL MYOCARDIAL INFARCTION , OF INDETERMINATE AGE [30 ms Q WAVE IN V1-V4] Compared to ECG 11/24/2022 15:19:14 No significant changes Electronically Signed On 12-10-2023 21:04:21 CDT by BRADLY TARIQ [email or web address]
[2023-12-07 21:52] VITALS: BP 117/85; PULSE 86; RESP 20; O2SAT 92
[2023-12-07 22:00] VITALS: PULSE 97
[2023-12-07 22:04] LABS: Basophils % 0.2 %; Eosinophils # 0.1 10^3/uL (0.0-0.8); Hematocrit 41.4 % (36-47); Lymphocytes # 1.8 10^3/uL (0.8-4.8); Lymphocytes % 39.3 %; Mean Corpuscular HGB Conc 32.6 g/dL (30-55); Mean Corpuscular Hemoglobin 31.6 pg (27-33); Mean Platelet Volume 10.9 fL (7.4-10.4); Monocytes # 0.3 10^3/uL (0.2-0.9); Monocytes % 6.5 %; Neutrophils # 2.32 10^3/uL (1.8-7.7); Neutrophils % 51.8 %; Nucleated Red Blood Cells % 0 %; Platelet Count 82 10^3/cmm (157-399); Red Blood Count 4.27 10^6/uL (3.85-5.65); Red Cell Distribution Width 13.8 % (12.1-15.1); White Blood Count 4.48 10^3/uL (3.29-11.43)
[2023-12-07 22:06] LABS: INR 1.11 (0.8-1.2); Partial Thromboplastin Time 24.4 SECONDS (23.9-36.7)
[2023-12-07 22:15] LABS: Alanine Aminotransferase 31 U/L (0-33); Albumin Level 3.9 g/dL (3.5-5.2); Alkaline Phosphatase 59 U/L (35-105); Anion Gap 15.7 (5-19); Aspartate Amino Transferase 37 U/L (0-32); Blood Urea Nitrogen 11 mg/dL (8-23); Calcium 8.8 mg/dL (8.5-10.5); Carbon Dioxide 26 mmol/L (22-29); Chloride 100 mmol/L (98-107); Creatinine Clr Calc Pharmacy 61.8778; Globulin 2.8 g/dL (1.3-4.6); Glucose 485 mg/dL (65-115); Osmolality Calculated 307 mOsm/kg (285-295); Potassium 3.7 mmol/L (3.5-5.1); Sodium 138 mmol/L (136-145); Total Bilirubin 0.6 mg/dL (0.15-1.2); Total Protein 6.7 g/dL (6.6-8.7)
--- NOTE | 2023-12-07 22:39 | CTR_ITS ---
PROCEDURE INFORMATION: Exam: CTA Head With Contrast, Arteriography Exam date and time: 12/07/2023 10:50 PM Age: 83 years old Clinical indication: Cognitive deficit and speech disturbance; Altered mental status; Aphasia; Prior surgery; Surgery date: 6+ months; Surgery type: Aneurysm repair. Fast Brim Pouncer shunt; Patient HX: EMS arrival for possible CVA. Per EMS, patient sustained a fall and became unresponsive/lethargic. Patient has slurred speech and transiently aphasic. History of intracranial aneurysm with repair and export agent shunt. Last known well time of 2014 hours. TECHNIQUE: Imaging protocol: Computed tomographic angiography of the head with contrast. Exam focused on the arteries. 3D rendering (Not supervised by radiologist): MIP and/or 3D reconstructed images were created by the technologist. Radiation optimization: All CT scans at this facility use at least one of these dose optimization techniques: automated exposure control; mA and/or kV adjustment per patient size (includes targeted exams where dose is matched to clinical indication); or iterative reconstruction. Contrast material: OMNI 350; Contrast volume: 100 ml; Contrast route: INTRAVENOUS (IV); COMPARISON: CT head thrombolytic [id number] 12/07/2023 9:26 PM RADIATION DOSE METRICS: Total DLP (mGy-cm): 467.12 FINDINGS: ANTERIOR CIRCULATION: Right internal carotid artery: Intracranial segment is patent with no significant stenosis. No aneurysm. Right middle cerebral artery: No occlusion or significant stenosis. No aneurysm. Right anterior cerebral artery: No occlusion or significant stenosis. No aneurysm. Left internal carotid artery: Intracranial segment is patent with no significant stenosis. No aneurysm. Left middle cerebral artery: No occlusion or significant stenosis. No aneurysm. Left anterior cerebral artery: No occlusion or significant stenosis. No aneurysm. POSTERIOR CIRCULATION: Right vertebral artery: No occlusion or significant stenosis. No aneurysm. Left vertebral artery: No occlusion or significant stenosis. No aneurysm. Basilar artery: No occlusion or significant stenosis. No aneurysm. Right posterior cerebral artery: No occlusion or significant stenosis. No aneurysm. Left posterior cerebral artery: No occlusion or significant stenosis. No aneurysm. Brain: No definite mass, mass effect, or midline shift. Aneurysm clip in the medial right middle cranial fossa. Negative for hemorrhage. Chronic ischemic brain changes. Cerebral ventricles: No ventriculomegaly. Ventriculostomy shunt catheter has unremarkable position. Bones/joints: Unremarkable. No acute fracture. Right temporal craniotomy surgical changes. Soft tissues: Unremarkable. PROCEDURE INFORMATION: Exam: CTA Neck With Contrast Exam date and time: 12/07/2023 10:50 PM Age: 83 years old Clinical indication: Cognitive deficit and speech disturbance; Altered mental status; Aphasia; Prior surgery; Surgery date: 6+ months; Surgery type: Aneurysm repair. Fast Brim Pouncer shunt; Patient HX: EMS arrival for possible CVA. Per EMS, patient sustained a fall and became unresponsive/lethargic. Patient has slurred speech and transiently aphasic. History of intracranial aneurysm with repair and export agent shunt. Last known well time of 2014 hours. TECHNIQUE: Imaging protocol: Computed tomographic angiography of the neck with contrast. Exam focused on the cervical segments of the vasculature. 3D rendering (Not supervised by radiologist): MIP and/or 3D reconstructed images were created by the technologist. Radiation optimization: All CT scans at this facility use at least one of these dose optimization techniques: automated exposure control; mA and/or kV adjustment per patient size (includes targeted exams where dose is matched to clinical indication); or iterative reconstruction. Contrast material: OMNI 350; Contrast volume: 100 ml; Contrast route: INTRAVENOUS (IV); COMPARISON: CT cervical spin wo con* [id number] 12/06/2021 8:43 PM RADIATION DOSE METRICS: Total DLP (mGy-cm): 467.12 FINDINGS: Right common carotid artery: No stenosis. No dissection or occlusion. Right internal carotid artery: Small volume focal calcified plaque of the proximal right internal carotid artery. Very mild severity stenosis. Negative for dissection. Right external carotid artery: No occlusion or stenosis of the origin. Left common carotid artery: No stenosis. No dissection or occlusion. Left internal carotid artery: Small volume of eccentric calcified wall plaque in the proximal left internal carotid artery. Mild stenosis. Negative for dissection. Left external carotid artery: No occlusion or stenosis of the origin. Right vertebral artery: No stenosis. No dissection or occlusion. Left vertebral artery: No stenosis. No dissection or occlusion. Veins: Incidental finding of vein collaterals in the neck and chest secondary to severe left innominate vein stenosis. Soft tissues: Normal. No significant soft tissue swelling. Bones/joints: No acute fracture. CT/CT angio headneck* [id number] IMPRESSION: No large vessel occlusion. IMPRESSION: Mild severity bilateral carotid artery stenosis estimated less than 50%. REFERENCES: NASCET CRITERIA. The degree of stenosis in the cervical segment of the internal carotid artery is based on NASCET criteria. Normal is no stenosis. Mild is less than 50% stenosis. Moderate is 50-69% stenosis. Severe is 70% to 99% stenosis. Total occlusion is no detectable patent lumen.
--- NOTE | 2023-12-07 22:39 | ED_ITS ---
HPI - Neuro Symptoms/Deficit 2 General: Chief Complaint: Neuro Symptoms/Deficit Stated Complaint: WEAKNESS Time Seen by Provider: 12/07/23 21:28 History of Present Illness: This patient is an 83-year-old white female brought in by EMS. Patient appears to have had a stroke. Her last known well was 8:14 PM. Patient was unable to give me history because she was aphasic. I did get the history from her when he arrived. He told me that they were watching TV and she got up and dropped a soda that she was holding in her right hand. She then tried to walk out on the back porch and she fell and he could not get her up. He called EMS. 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 states that she does have difficulty with her speech at baseline because of the dementia. Related Data Home Medications Medication Instructions Recorded Confirmed calcium carbonate 1,000 mg PO QAM 07/04/21 11/28/23 ferrous sulfate 325 mg (65 mg 325 mg PO QAM 07/04/21 11/28/23 iron) tablet (iron) omega-3 fatty acids 1,000 mg PO BEDTIME 07/04/21 11/28/23 vit C 250 mg-vit E 90 mg-zinc 40 1 tab PO BID 03/26/23 11/28/23 mg-copper 1 [id number] capsule (PreserVision AREDS-2) Previous Rx's Medication Instructions Recorded blood sugar diagnostic (OneTouch #100 ea 05/28/22 Verio test strips) blood-glucose meter (OneTouch #1 ea 05/28/22 Verio Meter) pravastatin 40 mg tablet 40 mg PO QPM #90 tabs 03/20/23 escitalopram oxalate 20 mg tablet 30 mg (1.5 x 20 mg) PO QAM #150 03/26/23 tabs quetiapine 200 mg tablet (Seroquel) 200 mg PO BEDTIME #90 tabs 03/26/23 omeprazole 40 mg capsule,delayed See Rx Instructions .Route 04/30/23 release .COMPLEX #90 caps desmopressin 0.1 mg tablet See Rx Instructions .Route 05/20/23 .COMPLEX #180 tabs quetiapine 50 mg tablet See Rx Instructions .Route 06/10/23 .COMPLEX #90 tabs prednisone 1 mg tablet See Rx Instructions .Route 06/19/23 .COMPLEX #450 tabs alendronate 70 mg tablet See Rx Instructions .Route 07/16/23 .COMPLEX #12 tabs levothyroxine 100 mcg tablet See Rx Instructions .Route 10/29/23 .COMPLEX #90 tabs sitagliptin phosphate 100 mg See Rx Instructions .Route 11/07/23 tablet (Januvia) .COMPLEX #90 tabs Allergies Allergy/AdvReac Type Severity Reaction Status Date / Time Penicillins Allergy ALGY-Hives Verified 11/28/23 14:57 propoxyphene [From Darvon] Allergy ALGY-Hives Verified 11/28/23 14:57 Review of Systems 2 General: Reports: ROS unobtainable due to medical condition PFSH ED 2 PFSH: Medical History Hypothyroidism Hallucinations Moderate major depression Urge incontinence of urine Iron deficiency anemia GERD (gastroesophageal reflux disease) Aphasia as late effect of stroke Lewy body dementia Pituitary abnormality Osteoporosis Secondary adrenal insufficiency Pituitary Cushings syndrome Type 2 diabetes mellitus, without long-term current use of insulin JACEK (obstructive sleep apnea) Aphasia Family history of aneurysm of blood vessel of brain History of hemorrhagic stroke with residual hemiparesis 1995 Surgical History History of colonoscopy History of hysterectomy History of pituitary surgery History of brain shunt Family History Father Prostate cancer Hyperlipidemia Grandfather Diabetes Mother Hyperlipidemia Other Dementia Denies family history of Colon cancer Ovarian cancer CAD (coronary artery disease) Clotting disorder Heart disease Psychiatric illness Chronic kidney disease (CKD) Breast cancer Suicide Anesthesia complication Bleeding disorder Family history of premature coronary artery disease Lung disease Hypertension Uterine cancer Thyroid disease Stroke Social History Smoking and tobacco/nicotine status: never used tobacco/nicotine Physical Exam 2 Const: COMMON NORMALS: no acute distress GENERAL APPEARANCE: cooperative ORIENTATION/CONSCIOUSNESS: Yes awake HENMT: COMMON NORMALS: normocephalic, atraumatic, Normal nasal mucous membranes and turbinates present, moist oral mucous membranes and oropharynx normal HEAD & SCALP: normal to inspection, normocephalic and atraumatic F MADHURI & SINUS: normal facial exam NOSE: Normal nasal mucous membranes and turbinates present Eye: COMMON NORMALS: Equal, round and reactive pupils present, EOMs intact bilaterally and conjunctivae normal GENERAL EYE: appearance normal, both eyes and all related structures CONJUNCTIVA: Yes conjunctivae normal PUPIL: Yes Equal, round and reactive pupils present Neck/C-Spine: COMMON NORMALS: supple and no JVD Chest: COMMONS NORMALS: normal inspection of the chest Resp: COMMON NORMALS: normal respiratory effort and clear to auscultation bilaterally AUSCULTATION: clear to auscultation bilaterally Cardio: COMMON NORMALS: no JVD, regular rate, regular rhythm, No gallops present (Cardio), No murmurs present (Cardio) and No rub (Cardio) RATE: r egular rate RHYTHM: regular rhythm GI: COMMON NORMALS: Normal to inspection, nondistended, normoactive bowel sounds present, Soft to palpation and non-tender AUSCULTATION: Yes normoactive bowel sounds PALPATION: Yes Soft to palpation : COMMON NORMALS: Yes no CVA tenderness BLADDER/KIDNEY EXAM: Yes no CVA tenderness Back/Pelvis: COMMON NORMALS: no CVA tenderness and thoracic and lumbar spine normal to inspection Extremity: COMMON NORMALS: normal to inspection Neuro: OTHER: My quick assessment on the neuroexam revealed expressive aphasia and right upper extremity weakness. Please see the neurologist note regarding the complete neurological assessment. He did get an NIH stroke scale of 11. Psych: COMMON NORMALS: cooperative Skin: COMMON NORMALS: no rashes or lesions noted, turgor normal and no jaundice GENERAL SKIN EXAM: no rashes or lesions noted and turgor normal Course 2 Vital Signs: Vital signs: Vital Signs Temperature 97.7 F 12/07/23 21:28 Pulse Rate 86 12/07/23 21:52 Respiratory Rate 20 H 12/07/23 21:52 Blood Pressure 117/85 12/07/23 21:52 Pulse Oximetry 92 12/07/23 21:52 Oxygen Delivery Me thod Room Air 12/07/23 21:52 MDM - Neuro Symptoms/Deficit Medical Decision Making EKG revealed sinus rhythm with no ST segment abnormalities. Head CT was read by the radiologist as normal. CBC was normal except for platelet count of 82. CMP revealed blood sugar of 45. CT angiogram of the head and neck revealed no large vessel occlusions per radiologist. We did initiate code stroke upon her arrival. Dr. Martinez, neurologist from [facility] is the stroke neurologist on-call tonight he did help with this patient's care. Discussed the case initially with him at 10:08 PM. After his assessment he does not recommend thrombolytic due to her history of Lewy body dementia and the prior CVA with ruptured aneurysm and clip. He recommended a CT angiogram and if there were no large vessel occlusion he recommended we admit the patient here. I then discussed the case with Dr. Bradford, hospitalist and she did accept the patient. Patient will be sent to the floor here soon as the bed is available. She is stable. Lab Data 12/07/23 21:40 12/07/23 21:[address] 12/07/23 21:35 IMPRESSION: 1. No acute intracranial pathology is identified. 2. Multifocal chronic ischemic brain changes redemonstrated. No significant interval change. ASSESSMENT: ASPECTS ([place] Stroke Program Early CT Score) is 10. Head/Neck CTA 12/07/23 22:39 IMPRESSION: No large vessel occlusion. IMPRESSION: Mild severity bilateral carotid artery stenosis estimated less than 50%. REFERENCES: NASCET CRITERIA. The degree of stenosis in the cervical segment of the internal carotid artery is based on NASCET criteria. Normal is no stenosis. Mild is less than 50% stenosis. Moderate is 50-69% stenosis. Severe is 70% to 99% stenosis. Total occlusion is no detectable patent lumen. Laboratory Results WBC 4.48 10^3/uL (3.29-11.43) 12/07/23 21:40 RBC 4.27 10^6/uL (3.85-5.65) 12/07/23 21:40 Hgb 13.50 g/dL (11.27-16.99) 12/07/23 21:40 Hct 41.4 % (36-47) 12/07/23 21:40 MCV 97.0 fl (85-98) 12/07/23 21:40 MCH 31.6 pg (27-33) 12/07/23 21:40 MCHC 32.6 g/dL (30-55) 12/07/23 21:40 RDW 13.8 % (12.1-15.1) 12/07/23 21:40 Plt Count 82 10^3/cmm (157-399) L 12/07/23 21:40 MPV 10.9 fL (7.4-10.4) H 12/07/23 21:40 Neut % (Auto) 51.8 % 12/07/23 21:40 Lymph % (Auto) 39.3 % 12/07/23 21:40 [place] % (Auto) 6.5 % 12/07/23 21:40 Eos % (Auto) 2.0 % 12/07/23 21:40 Baso % (Auto) 0.2 % 12/07/23 21:40 Neut # (Auto) 2.32 10^3/uL (1.8-7.7) 12/07/23 21:40 Lymph # (Auto) 1.8 10^3/uL (0.8-4.8) 12/07/23 21:40 [place] # (Auto) 0.3 10^3/uL (0.2-0.9) 12/07/23 21:40 Eos # (Auto) 0.1 10^3/uL (0.0-0.8) 12/07/23 21:40 Baso # (Auto) 0.0 10^3/uL (0.0-0.1) 12/07/23 21:40 Nucleated RBC % (auto) 0 % 12/07/23 21:40 Nucleated RBCs # 0.0 /100WBC 12/07/23 21:40 PT 14.70 SECONDS (12.1-14.9) 12/07/23 21:40 INR 1.11 (0.8-1.2) 12/07/23 21:40 APTT 24.4 SECONDS (23.9-36.7) 12/07/23 21:40 Sodium 138 mmol/L (136-145) 12/07/23 21:40 Potassium 3.7 mmol/L (3.5-5.1) 12/07/23 21:40 Chloride 100 mmol/L (98-107) 12/07/23 21:40 Carbon Dioxide 26 mmol/L (22-29) 12/07/23 21:40 Anion Gap 15.7 (5-19) 12/07/23 21:40 BUN 11 mg/dL (8-23) 12/07/23 21:40 Creatinine 0.7 mg/dL (0.5-0.9) 12/07/23 21:40 GFR Calculation Not Reportable 12/07/23 21:40 Glucose 485 mg/dL (65-115) H 12/07/23 21:40 Calculated Osmolality 307 mOsm/kg (285-295) H 12/07/23 21:40 Calcium 8.8 mg/dL (8.5-10.5) 12/07/23 21:40 Total Bilirubin 0.6 mg/dL (0.15-1.2) 12/07/23 21:40 AST 37 U/L (0-32) H 12/07/23 21:40 ALT 31 U/L (0-33) 12/07/23 21:40 Alkaline Phosphatase 59 U/L (35-105) 12/07/23 21:40 Total Protein 6.7 g/dL (6.6-8.7) 12/07/23 21:40 Albumin 3.9 g/dL (3.5-5.2) 12/07/23 21:40 Globulin 2.8 g/dL (1.3-4.6) 12/07/23 21:40 Amorphous Sediment Not Reportable 12/08/23 00:13 Urine Opiates Screen Negative ng/mL (Negative) 12/08/23 00:13 Ur Barbiturates Screen Negative ng/mL (Negative) 12/08/23 00:13 Ur Phencyclidine Scrn Negative ng/mL (Negative) 12/08/23 00:13 Ur Amphetamines Screen Negative ng/mL (Negative) 12/08/23 00:13 U Benzodiazepines Scrn Negative ng/mL (Negative) 12/08/23 00:13 Urine Cocaine Screen Negative ng/mL (Negative) 12/08/23 00:13 U Marijuana (THC) Screen Negative ng/mL (Negative) 12/08/23 00:13 All radiology interpretation(s) finalized by discharge Discharge Plan Discharge Clinical Impression: Cerebrovascular accident Condition: Stable Prescriptions: No Action omeprazole 40 mg capsule,delayed release(DR/EC) See Rx Instructions .ROUTE .COMPLEX Qty: 90 3RF Dose Instruction: TAKE 1 CAPSULE BY MOUTH DAILY Rx Instructions: TAKE 1 CAPSULE BY MOUTH DAILY escitalopram oxalate 20 mg tablet 30 mg PO QAM Qty: 150 3RF PreserVision AREDS-2 250-90-40-1 mg capsule 1 tab PO BID Seroquel 200 mg tablet 200 mg PO BEDTIME Qty: 90 3RF Januvia 100 mg tablet See Rx Instructions .ROUTE .COMPLEX Qty: 90 3RF Dose Instruction: TAKE 1 TABLET BY MOUTH DAILY Rx Instructions: TAKE 1 TABLET BY MOUTH DAILY (DME) OneTouch Verio test strips Strip See Rx Instructions .Route Qty: 100 2RF Rx Instructions: Test Blood sugar up to twice a day E11.9 (DME) blood-glucose meter [OneTouch Verio Meter] [facility] See Rx Instructions .Route Qty: 1 0RF Rx Instructions: As directed E11.9 pravastatin 40 mg tablet 40 mg PO QPM Qty: 90 3RF desmopressin 0.1 mg tablet See Rx Instructions .ROUTE .COMPLEX Qty: 180 3RF Dose Instruction: TAKE 1 TABLET BY MOUTH TWICE DAILY Rx Instructions: TAKE 1 TABLET BY MOUTH TWICE DAILY quetiapine 50 mg tablet See Rx Instructions .ROUTE .COMPLEX Qty: 90 3RF Dose Instruction: TAKE 1 TABLET BY MOUTH DAILY IN THE MORNING IN ADDITION TO THE 200 MG AT BEDTIME Rx Instructions: TAKE 1 TABLET BY MOUTH DAILY IN THE MORNING IN ADDITION TO THE 200 MG AT BEDTIME prednisone 1 mg tablet See Rx Instructions .ROUTE .COMPLEX Qty: 450 0RF Dose Instruction: TAKE 3 TABLETS (3 MG) BY MOUTH IN THE MORNING AND 2 TABLETS (2 MG) AT 12:00 (TOTAL 5 MG/DAY) Rx Instructions: TAKE 3 TABLETS (3 MG) BY MOUTH IN THE MORNING AND 2 TABLETS (2 MG) AT 12:00 (TOTAL 5 MG/DAY) alendronate 70 mg tablet See Rx Instructions .ROUTE .COMPLEX Qty: 12 3RF Dose Instruction: TAKE 1 TABLET BY MOUTH WEEKLY WITH 8 OZ OF PLAIN WATER 30 MINUTES BEFORE FIRST FOOD, DRINK OR MEDS. STAY UPRIGHT FOR 30 MINS (TAKE EVERY SATURDAY) Rx Instructions: TAKE 1 TABLET BY MOUTH WEEKLY WITH 8 OZ OF PLAIN WATER 30 MINUTES BEFORE FIRST FOOD, DRINK OR MEDS. STAY UPRIGHT FOR 30 MINS (TAKE EVERY SATURDAY) levothyroxine 100 mcg tablet See Rx Instructions .ROUTE .COMPLEX Qty: 90 0RF Dose Instruction: TAKE 1 TABLET BY MOUTH DAILY Rx Instructions: TAKE 1 TABLET BY MOUTH DAILY calcium carbonate [Calcium 500] 500 mg calcium (1,250 mg) Tablet 1,000 mg PO QAM ferrous sulfate [iron] 325 mg (65 mg iron) Tablet 325 mg PO QAM [place] 3 Capsule 1,000 mg PO BEDTIME Referrals: Marshal Trivedi MD [Primary Care Provider] - Coding Level of Care Code ED [employer] for Hoda Redman
[2023-12-07] MEDS: iohexol 350 mg/mL 500 mL Btl (per mL) IV (22:53)
[2023-12-08] VITALS (24 sets, daily range): BP systolic 128–207; BP diastolic 72–104; PULSE 71–92; RESP 15–28; TEMP 36.5–37.4; O2SAT 90–94
[2023-12-08 00:22] LABS: Bilirubin Urine Negative (Negative); Blood Urine Trace (Negative); Glucose Urine UA 3+ (Normal); Ketones Urine Negative (Negative); Leukocyte Esterase Urine Negative (Negative); Nitrate Urine Negative (Negative); Protein Urine Negative (Negative); Urine Appearance Clear (CLEAR); Urine Color Yellow (Yellow)
[2023-12-08 00:27] LABS: Add Urine Microscopic? YES; Bacteria Urine Trace /hpf; Hyaline Casts Urine 0-4 /lpf; RBC Urine 0-2 /hpf (0-2); Squamous Epithelial Cell Urine 0-5 /hpf (0-5); Universal Test for UA Present (0); WBC Urine 0-5 /hpf (0-5)
[2023-12-08 00:29] LABS: Amphetamines Screen Urine Negative (Negative); Barbiturates Screen Urine Negative (Negative); Benzodiazepines Screen Urine Negative (Negative); Cocaine Screen Urine Negative (Negative); Opiate Screen Urine Negative (Negative); PCP Screen Urine Negative (Negative); THC Screen Urine Negative (Negative)
[2023-12-08 00:36] LABS: Specific Gravity, Urine 1.054 (1.005-1.030)
[2023-12-08 01:28] LABS: Glucose Point of Care 345 mg/dL (70-110)
--- NOTE | 2023-12-08 01:38 | P.HP_ITS ---
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 History is obtained by talking to ER physician and reviewing the chart. Patient unable to contribute in her history at this time. She was in her usual state of health until 8:15 PM when she was watching TV and could no longer hold the remote. She got up to get a soda but dropped the can from her right hand. She tried to walk out to the back porch and fell but could not get up anymore. 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 She has had recent issues with diabetes control due to unable to be afford Januvia. Stroke code was called in the emergency room. She was evaluated by telestroke service at [facility], not considered to be a tPA candidate given Lewy body dementia, history of prior ruptured aneurysm and clip, chronic longstanding thrombocytopenia. , Review of Systems 2 General: Reports: ROS unobtainable due to medical condition and ROS unobtainable due to mental status Medications/Allergies Home Medications Medication Instructions Recorded Confirmed Last Taken Type calcium carbonate 1,000 mg PO QAM 07/04/21 12/08/23 12/07/23 10:00 History ferrous sulfate 325 mg (65 mg 325 mg PO QAM 07/04/21 12/08/23 12/07/23 10:00 History iron) tablet (iron) omega-3 fatty acids 1,000 mg PO BEDTIME 07/04/21 12/08/23 12/06/23 20:00 History blood sugar diagnostic (OneTouch #100 ea 05/28/22 12/08/23 Unknown Rx Verio test strips) blood-glucose meter (OneTouch #1 ea 05/28/22 12/08/23 Unknown Rx Verio Meter) pravastatin 40 mg tablet 40 mg PO QPM #90 tabs 03/20/23 12/08/23 12/06/23 20:00 Rx escitalopram oxalate 20 mg tablet 30 mg (1.5 x 20 mg) PO QAM #150 03/26/23 12/08/23 12/07/23 10:00 Rx tabs quetiapine 200 mg tablet (Seroquel) 200 mg PO BEDTIME #90 tabs 03/26/23 12/08/23 12/06/23 20:00 Rx vit C 250 mg-vit E 90 mg-zinc 40 1 tab PO BID 03/26/23 12/08/23 12/07/23 10:00 History mg-copper 1 [id number]-[id number] capsule (PreserVision AREDS-2) omeprazole 40 mg capsule,delayed See Rx Instructions .Route 04/30/23 12/08/23 12/07/23 10:00 Rx release .COMPLEX #90 caps desmopressin 0.1 mg tablet See Rx Instructions .Route 05/20/23 12/08/23 12/07/23 10:00 Rx .COMPLEX #180 tabs quetiapine 50 mg tablet See Rx Instructions .Route 06/10/23 12/08/23 12/07/23 10:00 Rx .COMPLEX #90 tabs prednisone 1 mg tablet See Rx Instructions .Route 06/19/23 12/08/23 12/07/23 10:00 Rx .COMPLEX #450 tabs levothyroxine 100 mcg tablet See Rx Instructions .Route 10/29/23 12/08/23 12/07/23 10:00 Rx .COMPLEX #90 tabs sitagliptin phosphate 100 mg See Rx Instructions .Route 11/07/23 12/08/23 12/07/23 10:00 Rx tablet (Januvia) .COMPLEX #90 tabs cholecalciferol (vitamin D3) 50 50 mcg PO DAILY 12/08/23 12/08/23 12/07/23 10:00 History mcg (2,000 unit) tablet (Vitamin D3) Allergies Allergy/AdvReac Type Severity Reaction Status Date / Time Penicillins Allergy ALGY-Hives Verified 11/28/23 14:57 propoxyphene [From Darvon] Allergy ALGY-Hives Verified 11/28/23 14:57 PFSH Acute 2 PFSH: Medical History Hypothyroidism Hallucinations Moderate major depression Urge incontinence of urine Iron deficiency anemia GERD (gastroesophageal reflux disease) Aphasia as late effect of stroke Lewy body dementia Pituitary abnormality Osteoporosis Secondary adrenal insufficiency Pituitary Cushings syndrome Type 2 diabetes mellitus, without long-term current use of insulin JACEK (obstructive sleep apnea) Aphasia Family history of aneurysm of blood vessel of brain History of hemorrhagic stroke with residual hemiparesis 1995 Surgical History History of colonoscopy History of hysterectomy History of pituitary surgery History of brain shunt Family History Father Prostate cancer Hyperlipidemia Grandfather Diabetes Mother Hyperlipidemia Other Dementia Denies family history of Colon cancer Ovarian cancer CAD (coronary artery disease) Clotting disorder Heart disease Psychiatric illness Chronic kidney disease (CKD) Breast cancer Suicide Anesthesia complication Bleeding disorder Family history of premature coronary artery disease Lung disease Hypertension Uterine cancer Thyroid disease Stroke Social History Smoking and tobacco/nicotine status: never used tobacco/nicotine Vitals/I&O/Wt Last Vital Signs Temp 97.7 F 12/07/23 21:28 Pulse 77 12/08/23 00:47 Resp 20 H 12/08/23 00:47 BP 132/77 12/08/23 00:47 Pulse Ox 94 12/08/23 00:47 O2 Del Method Room Air 12/08/23 01:16 Weight last 48 hrs Weight 85.275 kg Physical Exam 2 Narrative: General: No acute distress, AO x3 HEENT: PERRLA, pupils bilaterally equal and reactive, pallors not present Chest: Normal vesicular breath sounds, no added sounds, equal good air entry bilaterally CVS: S1-S2 regular, no murmurs, no tachycardia, no gallops, no rubs Abdomen: Soft, nontender, no organomegaly, bowel sounds present Neuro: NIH stroke scale of 11. Expressive aphasia, though uncertain regarding her baseline of the same. + dysarthria, + Right upper and lower extremity weakness. Data 12/07/23 21:40 12/07/23 21:40 Other Labs: Radiology Impressions Head CT 12/07/23 21:35 IMPRESSION: 1. No acute intracranial pathology is identified. 2. Multifocal chronic ischemic brain changes redemonstrated. No significant interval change. ASSESSMENT: ASPECTS ([place] Stroke Program Early CT Score) is 10. Head/Neck CTA 12/07/23 22:39 IMPRESSION: No large vessel occlusion. IMPRESSION: Mild severity bilateral carotid artery stenosis estimated less than 50%. REFERENCES: NASCET CRITERIA. The degree of stenosis in the cervical segment of the internal carotid artery is based on NASCET criteria. Normal is no stenosis. Mild is less than 50% stenosis. Moderate is 50-69% stenosis. Severe is 70% to 99% stenosis. Total occlusion is no detectable patent lumen. Laboratory Results WBC 4.48 10^3/uL (3.29-11.43) 12/07/23 21:40 RBC 4.27 10^6/uL (3.85-5.65) 12/07/23 21:40 Hgb 13.50 g/dL (11.27-16.99) 12/07/23 21:40 Hct 41.4 % (36-47) 12/07/23 21:40 MCV 97.0 fl (85-98) 12/07/23 21:40 MCH 31.6 pg (27-33) 12/07/23 21:40 MCHC 32.6 g/dL (30-55) 12/07/23 21:40 RDW 13.8 % (12.1-15.1) 12/07/23 21:40 Plt Count 82 10^3/cmm (157-399) L 12/07/23 21:40 MPV 10.9 fL (7.4-10.4) H 12/07/23 21:40 Neut % (Auto) 51.8 % 12/07/23 21:40 Lymph % (Auto) 39.3 % 12/07/23 21:40 [place] % (Auto) 6.5 % 12/07/23 21:40 Eos % (Auto) 2.0 % 12/07/23 21:40 Baso % (Auto) 0.2 % 12/07/23 21:40 Neut # (Auto) 2.32 10^3/uL (1.8-7.7) 12/07/23 21:40 Lymph # (Auto) 1.8 10^3/uL (0.8-4.8) 12/07/23 21:40 [place] # (Auto) 0.3 10^3/uL (0.2-0.9) 12/07/23 21:40 Eos # (Auto) 0.1 10^3/uL (0.0-0.8) 12/07/23 21:40 Baso # (Auto) 0.0 10^3/uL (0.0-0.1) 12/07/23 21:40 Nucleated RBC % (auto) 0 % 12/07/23 21:40 Nucleated RBCs # 0.0 /100WBC 12/07/23 21:40 PT 14.70 SECONDS (12.1-14.9) 12/07/23 21:40 INR 1.11 (0.8-1.2) 12/07/23 21:40 APTT 24.4 SECONDS (23.9-36.7) 12/07/23 21:40 Sodium 138 mmol/L (136-145) 12/07/23 21:40 Potassium 3.7 mmol/L (3.5-5.1) 12/07/23 21:40 Chloride 100 mmol/L (98-107) 12/07/23 21:40 Carbon Dioxide 26 mmol/L (22-29) 12/07/23 21:40 Anion Gap 15.7 (5-19) 12/07/23 21:40 BUN 11 mg/dL (8-23) 12/07/23 21:40 Creatinine 0.7 mg/dL (0.5-0.9) 12/07/23 21:40 GFR Calculation Not Reportable 12/07/23 21:40 Glucose 485 mg/dL (65-115) H 12/07/23 21:40 POC Glucose 323 mg/dL (70-110) H 12/08/23 06:32 Calculated Osmolality 307 mOsm/kg (285-295) H 12/07/23 21:40 Calcium 8.8 mg/dL (8.5-10.5) 12/07/23 21:40 Total Bilirubin 0.6 mg/dL (0.15-1.2) 12/07/23 21:40 AST 37 U/L (0-32) H 12/07/23 21:40 ALT 31 U/L (0-33) 12/07/23 21:40 Alkaline Phosphatase 59 U/L (35-105) 12/07/23 21:40 Total Protein 6.7 g/dL (6.6-8.7) 12/07/23 21:40 Albumin 3.9 g/dL (3.5-5.2) 12/07/23 21:40 Globulin 2.8 g/dL (1.3-4.6) 12/07/23 21:40 Urine Color Yellow (Yellow) 12/08/23 00:13 Urine Appearance Clear (CLEAR) 12/08/23 00:13 Urine pH 5.0 (5-7) 12/08/23 00:13 Ur Specific [place] 1.054 (1.005-1.030) H 12/08/23 00:13 Urine Protein Negative (Negative) 12/08/23 00:13 Urine Glucose (UA) 3+ (Normal) H 12/08/23 00:13 Urine Ketones Negative (Negative) 12/08/23 00:13 Urine Blood Trace (Negative) A 12/08/23 00:13 Urine Nitrate Negative (Negative) 12/08/23 00:13 Urine Bilirubin Negative (Negative) 12/08/23 00:13 Urine Urobilinogen 1.0 mg/dL (Negative) 12/08/23 00:13 Ur Leukocyte Esterase Negative (Negative) 12/08/23 00:13 Urine RBC 0-2 /hpf (0-2) 12/08/23 00:13 Urine WBC 0-5 /hpf (0-5) 12/08/23 00:13 Ur Squamous Epith Cells 0-5 /hpf (0-5) 12/08/23 00:13 Amorphous Sediment Not Reportable 12/08/23 00:13 Urine Bacteria Trace /hpf (NONE) 12/08/23 00:13 Hyaline Casts 0-4 /lpf H 12/08/23 00:13 Urine Opiates Screen Negative ng/mL (Negative) 12/08/23 00:13 Ur Barbiturates Screen Negative ng/mL (Negative) 12/08/23 00:13 Ur Phencyclidine Scrn Negative ng/mL (Negative) 12/08/23 00:13 Ur Amphetamines Screen Negative ng/mL (Negative) 12/08/23 00:13 U Benzodiazepines Scrn Negative ng/mL (Negative) 12/08/23 00:13 Urine Cocaine Screen Negative ng/mL (Negative) 12/08/23 00:13 U Marijuana (THC) Screen Negative ng/mL (Negative) 12/08/23 00:13 A&P Assessment and plan (1) CVA (cerebral vascular accident): Ad[facility] the [facility] for close neuro monitoring She is not a thrombolytic candidate due to multiple reasons listed above telemetry monitoring to evaluate for underlying arrhythmias. CT head with chronic changes CTA head and neck without any major vessel occlusion. Echocardiogram ordered and pending Start aspirin 81 mg daily Atorvastatin 40 mg daily allow for permissive hypertension PT OT speech therapy assessment Plan Continue home dose of prednisone, quetapine, desmopressin, levothyroxine Continue Quetapine at home dosing DM: insulin sliding scale DVT ppx: Scds, No a/c due to thrombocytopenia Attestations 2 Medical Necessity Statement*: > 2 midnight stay is anticipated Coding Level of Care Code Acute Code for Chg Fwd Moderate MDM includes number and complexity of problems actively addressed during encounter, amount and/or complexity of data reviewed/ordered and described risk of complication, morbidity or mortality of management as documented Diagnoses CVA (cerebral vascular accident) I63.9
--- NOTE | 2023-12-08 01:42 | USCV_ITS ---
Precious Ruiz Age: 83 Gender: F : 1940 Exam Date: 12/08/2023 09:46 Ordering Phys: Laura Bradford MD Technologist: Bentley Portillo Exam Location: [facility] [place] Indication: stroke BP: 154 / 78 HR: 94 Rhythm: Sinus Technical Quality: Adequate MEASUREMENTS (Male / Female) Normal Values 2D ECHO LV Diastolic Diameter PLAX 4.3 cm 4.2 - 5.9 / 3.9 - 5.3 cm IVS Diastolic Thickness 1.5 cm 0.6 - 1.0 / 0.6 - 0.9 cm IVS Systolic Thickness 1.6 cm LVPW Diastolic Thickness 1.7 cm 0.6 - 1.0 / 0.6 - 0.9 cm LVPW Systolic Thickness 2.3 cm LVOT Diameter 2.0 cm LV Ejection Fraction 2D Teich 68.0 % LV Ejection Fraction MOD 4C 71.6 % LV Ejection Fraction MOD 2C 64.1 % LV Ejection Fraction 2C AL 64.8 % LA Diameter 3.2 cm RA Systolic Volume 4C AL 23.3 ml RA Systolic Volume 4C MOD 23.0 ml LA Sys Volume AL 35.8 cm cubed LA Sys Volume Index AL 17.8 cm cubed/m squared Aorta at Sinotubular Diameter 2.0 cm M-MODE LA Ao Ratio MM 1.5 AV Cusp Separation MM 1.2 cm DOPPLER AV Peak Velocity 268.0 cm/s LVOT Peak Velocity 104.0 cm/s AV Area Cont Eq vti 1.2 cm squared AV Area Cont Eq pk 1.2 cm squared MV Peak Velocity 100.0 cm/s MV Area PHT 3.2 cm squared Mitral E to A Ratio 0.7 TV Peak Velocity 245.0 cm/s TR Peak Velocity 258.0 cm/s TR Peak Gradient 26.6 mmHg TR Mean Velocity 203.0 cm/s TR Mean Gradient 18.4 mmHg TR Velocity Time Integral 69.5 cm PV Peak Velocity 144.0 cm/s RV Ejection Time 0.2 s FINDINGS Left Ventricle Normal left ventricular size, systolic function and wall thickness, with no regional wall motion abnormalities. Left ventricular ejection fraction is estimated at 60 %. Grade I/IV diastolic dysfunction (abnormal relaxation filling pattern), normal to mildly elevated filling pressures. Right Ventricle The right ventricle is normal in size and function. RVSP could not be calculated due to incomplete tricuspid regurgitation velocity profile. Right Atrium The right atrium is normal in size. Left Atrium The left atrium is normal in size. Mitral Valve Thickened mitral valve. Moderate mitral annular calcification. No mitral valve stenosis. Trace mitral valve regurgitation. Aortic Valve Severe aortic valve calcification. Moderate aortic valve stenosis, mean gradient 19.2 mmHg, CHRISTOPHER 1.2 cm squared. Trace aortic valve regurgitation. Tricuspid Valve Structurally normal tricuspid valve without significant stenosis or regurgitation. Pulmonary artery systolic pressure is normal. Pulmonic Valve Structurally normal pulmonic valve without significant stenosis. There is no pulmonic regurgitation. Pericardium Normal pericardium without effusion. Aorta Normal ascending aorta dimension. IVC The inferior vena cava appears normal. CONCLUSIONS Normal left ventricular size, systolic function and wall thickness, with no regional wall motion abnormalities. Left ventricular ejection fraction is estimated at 60 %. Grade I/IV diastolic dysfunction (abnormal relaxation filling pattern), normal to mildly elevated filling pressures. Severe aortic valve calcification. Moderate aortic valve stenosis, mean gradient 19.2 mmHg, CHRISTOPHER 1.2 cm squared. Trace aortic valve regurgitation. There is no pericardial effusion. The right ventricle is normal in size and function. RVSP could not be calculated due to incomplete tricuspid regurgitation velocity profile. Right atrial pressure is around 5 mm of mercury. Lina Ford MD (Electronically Signed) Final Date: 08 December 2023 16:29 S
[2023-12-08] MEDS: atorvastatin 40 mg Tablet PO ×2 (02:42→20:58)
[2023-12-08 06:40] LABS: Glucose Point of Care 323 mg/dL (70-110)
[2023-12-08] MEDS: escitalopram 10 mg Tablet 30 MG PO (06:43)
[2023-12-08] MEDS: levothyroxine 100 mcg Tablet PO (06:44)
[2023-12-08] MEDS: predniSONE 1 mg Tablet 3 MG PO (09:01)
[2023-12-08] MEDS: aspirin 81 mg EC Tablet PO (09:01)
[2023-12-08] MEDS: quetiapine 25 mg Tablet 50 MG PO (09:01)
--- NOTE | 2023-12-08 10:31 | PC.NURSE ---
Notified Dr. Bradford at 0852 (Doctor listed for patient on Apr this am), patient does not have a diet order. Patient passed nursing bedside swallow study. Patient has been drinking water per spouse all night. Patient took pills just fine. Patient was not given insulin this am due to no diet order. Blood sugar 323. Message was read at 0859 no new orders.
--- NOTE | 2023-12-08 11:43 | ECG_ITS ---
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
[2023-12-08 11:44] LABS: Glucose Point of Care 326 mg/dL (70-110)
[2023-12-08 12:07] LABS: Basophils % 0.5 %; Eosinophils # 0.1 10^3/uL (0.0-0.8); Eosinophils % 2.1 %; Hematocrit 40.5 % (36-47); Lymphocytes % 23.6 %; Mean Corpuscular HGB Conc 33.6 g/dL (30-55); Mean Corpuscular Hemoglobin 32.1 pg (27-33); Mean Corpuscular Volume 95.5 fl (85-98); Mean Platelet Volume 10.2 fL (7.4-10.4); Monocytes # 0.3 10^3/uL (0.2-0.9); Monocytes % 6.5 %; Neutrophils # 2.87 10^3/uL (1.8-7.7); Neutrophils % 67.1 %; Nucleated Red Blood Cells % 0 %; Platelet Count 72 10^3/cmm (157-399); Red Blood Count 4.24 10^6/uL (3.85-5.65); White Blood Count 4.28 10^3/uL (3.29-11.43)
[2023-12-08] MEDS: insulin lispro 100 unit/1 mL SUBCUT ×3 (12:19→23:00)
[2023-12-08 12:29] LABS: Alanine Aminotransferase 32 U/L (0-33); Albumin Level 3.9 g/dL (3.5-5.2); Alkaline Phosphatase 54 U/L (35-105); Aspartate Amino Transferase 39 U/L (0-32); Blood Urea Nitrogen 9 mg/dL (8-23); Calcium 8.5 mg/dL (8.5-10.5); Carbon Dioxide 29 mmol/L (22-29); Chloride 102 mmol/L (98-107); Creatinine Clr Calc Pharmacy 61.2777; Globulin 2.9 g/dL (1.3-4.6); Glucose 324 mg/dL (65-115); Osmolality Calculated 301 mOsm/kg (285-295); Sodium 140 mmol/L (136-145); Total Bilirubin 0.8 mg/dL (0.15-1.2); Total Protein 6.8 g/dL (6.6-8.7)
--- NOTE | 2023-12-08 14:21 | W.PM.EVENTAC ---
Event Note Event Note: Admitted overnight. Appreciate H&P. Seen with at bedside. As per the patient has been having worsening weakness, difficulty in forming words and confusion with fall in last 24 hours. 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 On examination patient is awake, alert to self, able to tell me her name but has slurred speech and not able to have complete conversation. Spouse at bedside. Blood sugars have been elevated. Encouraged nurse to give the insulin. Advance diet as per speech evaluation. For now patient seen to have done well with bedside nursing swallow evaluation. Start on clear liquid carb consistent diet. Permissible hypertension. Follow PT/OT. Continue other oral home medications.
[2023-12-08 16:24] LABS: Glucose Point of Care 252 mg/dL (70-110)
[2023-12-08] MEDS: predniSONE 1 mg Tablet 2 MG PO (20:58)
[2023-12-08] MEDS: quetiapine 100 mg Tablet 200 MG PO (20:58)
[2023-12-08 21:26] LABS: Glucose Point of Care 287 mg/dL (70-110)
[2023-12-09] VITALS (9 sets, daily range): BP systolic 115–146; BP diastolic 62–80; PULSE 72–83; RESP 17–20; TEMP 36.4–37.4; O2SAT 90–95
[2023-12-09] MEDS: insulin lispro 100 unit/1 mL SUBCUT ×4 (06:11→23:13)
[2023-12-09] MEDS: escitalopram 10 mg Tablet 30 MG PO (06:11)
[2023-12-09] MEDS: levothyroxine 100 mcg Tablet PO (06:11)
[2023-12-09 06:22] LABS: Glucose Point of Care 296 mg/dL (70-110)
[2023-12-09] MEDS: aspirin 81 mg EC Tablet PO (08:55)
[2023-12-09] MEDS: quetiapine 25 mg Tablet 50 MG PO (08:55)
[2023-12-09] MEDS: predniSONE 1 mg Tablet 3 MG PO (09:01)
[2023-12-09 09:54] LABS: Basophils % 0.2 %; Eosinophils # 0.1 10^3/uL (0.0-0.8); Eosinophils % 2.5 %; Hematocrit 40.2 % (36-47); Lymphocytes # 1.6 10^3/uL (0.8-4.8); Lymphocytes % 39.6 %; Mean Corpuscular HGB Conc 32.6 g/dL (30-55); Mean Corpuscular Hemoglobin 31.7 pg (27-33); Mean Corpuscular Volume 97.3 fl (85-98); Mean Platelet Volume 10.4 fL (7.4-10.4); Monocytes # 0.3 10^3/uL (0.2-0.9); Monocytes % 8.2 %; Neutrophils # 1.98 10^3/uL (1.8-7.7); Neutrophils % 49.3 %; Nucleated Red Blood Cells % 0 %; Platelet Count 65 10^3/cmm (157-399); Red Blood Count 4.13 10^6/uL (3.85-5.65); Red Cell Distribution Width 14.2 % (12.1-15.1); White Blood Count 4.02 10^3/uL (3.29-11.43)
--- NOTE | 2023-12-09 09:54 | PC.SOCIAL ---
IMM Updated Updated pt's on IMM. No questions voiced. Provided pt a copy. Initialed, dated, & timed a copy & placed in chart.
[2023-12-09 10:20] LABS: Alanine Aminotransferase 27 U/L (0-33); Albumin Level 3.5 g/dL (3.5-5.2); Alkaline Phosphatase 51 U/L (35-105); Anion Gap 14.6 (5-19); Aspartate Amino Transferase 41 U/L (0-32); Blood Urea Nitrogen 13 mg/dL (8-23); Calcium 8.1 mg/dL (8.5-10.5); Carbon Dioxide 27 mmol/L (22-29); Chloride 98 mmol/L (98-107); Creatinine Clr Calc Pharmacy 60.6616; Globulin 2.7 g/dL (1.3-4.6); Glucose 322 mg/dL (65-115); Osmolality Calculated 295 mOsm/kg (285-295); Potassium 3.6 mmol/L (3.5-5.1); Sodium 136 mmol/L (136-145); Total Bilirubin 0.8 mg/dL (0.15-1.2); Total Protein 6.2 g/dL (6.6-8.7)
--- NOTE | 2023-12-09 10:57 | PC.CHAP ---
Pastoral Care Encounter/Spiritual Assessment Type of Contact [] Declined taste tester visit [] Patient/Family/Request visit [] Outpatient visit [] Follow-up visit [] Physician referral [] Code/Alert [x] Routine visit [] Staff referral [] Actively dying [] Patient sleeping [x] Family support [] [] Out of room [] Palliative care [] [] Receiving care in room [] Pre-surgical visit [] Trauma [] Long length of stay [] ICU visit [] Other: Relational/Emotional Strength [] Patient feels connected with others/family/visitors/staff [] Distress [] Loneliness/isolation [] Abandonment Spirituality of Patient [] Person of Johana [] Attends Christianity of their Johana [] Believes in Prayer [] Reads Bible or Orthodox materials [] There are Spiritual issues to be addressed Continuity Tester Interventions [x] Prayer [] Active listening [] Non-anxious presence [] Spiritual/emotional support [] Crisis/trauma care [] Spiritual counseling [] Bereavement support [] Provided bereavement packet [] Provided Bible/devotional materials [] Provided toy/stuffed animal, coloring book to patient or family member [] Provided Communion [] Anointing/University [] Salvation [x] Completed spiritual assessment [] Other: Impact on Illness or Injury [] Angry [] Fearful [] Anxious [] Often cries [] Exhaustion [] Unable to work [] Unable to attend christianity [] Unable to walk/stand [] Unable to read [] Unable to drive [] Unable to eat/drink [] Unable to sleep [] Unable to be with family [] Patient intubated [] Other: Summary non-responsive Time spent with patient 5 min
--- NOTE | 2023-12-09 10:58 | XR_ITS ---
WS: [email or web address] Exam: XR KUB portable [id number] Date/Time of Exam: 12/09/2023 11:11 AM Reason For Exam: distentino No sign of bowel obstruction or pneumoperitoneum. Organ margins are obscured. Moderate amount of stoo l in the sigmoid and LEFT colon. Moderate degenerative change and scoliosis of the lumbar spine. Nume keshawn surgical clips in the central and RIGHT pelvis. There are links of opaque tubing superimposing t he abdomen. Significance is undetermined. XR/XR KUB portable [id number] IMPRESSION: 1. No acute abdominal process.
--- NOTE | 2023-12-09 10:59 | CT_ITS ---
WS: [email or web address] Exam: CT head wo con* [id number] Date/Time of Exam: 12/09/2023 10:59 AM Reason For Exam: ams DLP: 1271.[address] scans at [facility] use at least one of these dose optimization techniques: automated e xposure control; mA and/or kV adjustment per patient size (includes targeted exams where dose is matc hed to clinical indication); or iterative reconstruction. Comparison 12/07/2023. There is no sign of acute intracranial bleed or space-occupying mass. Diffuse atrophy and microvascul ar ischemic changes. No extra-axial fluid collections noted. A CSF shunt catheter ends in the frontal horn the LEFT lateral ventricle. RIGHT temporal craniotomy defect. Surgical aneurysm clip seen in th e RIGHT middle cranial fossa. Focal encephalomalacia involving the LEFT frontal temporal lobe. Mastoi ds and facial sinuses are clear. Extensive atherosclerotic disease of the intracranial internal carot id arteries. CT/CT head wo con* [id number] IMPRESSION: 1. No acute intracranial process identified. 2. Microvascular ischemic change and chronic changes of the brain as detailed a ana laura. CSF shunt catheter enters from the RIGHT parietal region and ends in the frontal horn of the LEFT lateral ventricle. Left-sided craniotomy defect.
[2023-12-09] MEDS: sodium chloride 0.9% 1,000 ML 75 ML IV ×2 (11:01→23:13)
[2023-12-09 11:22] LABS: Bilirubin Urine 1+ (Negative); Blood Urine 2+ (Negative); Glucose Urine UA 3+ (Normal); Ketones Urine Negative (Negative); Leukocyte Esterase Urine Trace (Negative); Nitrate Urine Negative (Negative); Protein Urine 1+ (Negative); Urine Appearance Cloudy (CLEAR)
[2023-12-09 11:27] LABS: Add Urine Microscopic? YES
[2023-12-09 11:30] LABS: Glucose Point of Care 327 mg/dL (70-110)
[2023-12-09 11:42] LABS: Urine Color Orange (Yellow)
[2023-12-09 11:43] LABS: RBC Urine 21-50 /hpf (0-2); Squamous Epithelial Cell Urine 0-4 /hpf (0-5); UA Manual Slide Review YES; UA Slide Review UA Slide Review Perf
[2023-12-09 11:44] LABS: Add Urine Culture? Yes; Bacteria Urine TRACE /hpf; Hyaline Casts Urine 0-4 /lpf; Mucus Urine 2+ /hpf; Transitional Epi Cells Urine RARE /hpf
[2023-12-09] MEDS: cefTRIAXone 1,000 mg SDV 1000 MG IVP (12:52)
--- NOTE | 2023-12-09 15:37 | P.PN_ITS ---
Subjective 2 Subjective: - Patient was seen this morning -Her and daughter are at bedside -Patient has Lewy body dementia ginoin g to at bedside she can ambulate, no recent significant falls, she can carry out conversations, but her sentences and the conversations are short, most recently they had traveled up to [place] to see her daughter, she can feed herself, she does require assistance at times -Currently she is alert to person, not t o place, not to time, has slurring of her words, has word finding difficulty -Will say a couple words here and there, but continues to have generalized encephalopathy -She can follow some commands, but edy coates to have generalized encephalopathy, difficult for her to follow complex commands -Discussed with family members at bedsid e -Her abdomen is a bit distended, she had a bowel movement the day that she came here into the hospital, she has had issues with bowel obstructions in the past will order KUB -Repeat a UA, CT of the head -Cannot do MRI of the brain given her hi story of endovascular clipping -Continue to monitor mentation, allow fo r permissive hypertension start IV fluids -Patient's family voiced understanding, all questions answered Vitals/I&O/Wt Last Vital Signs Temp 99.3 F 12/09/23 12:00 Pulse 74 12/09/23 14:00 Resp 18 12/09/23 12:00 BP 135/76 12/09/23 12:00 Pulse Ox 95 12/09/23 12:00 O2 Del Method Nasal Cannula 12/09/23 12:00 O2 Flow Rate 2 12/08/23 21:11 12/09/23 12/09/23 12/09/23 06:59 14:59 22:59 Intake Total 240 / 240 Output Total 40 / 990 40 / 40 Balance -40 / -750 200 / 200 Weight last 48 hrs Weight 81.783 kg Weight 83.552 kg Weight 85.275 kg Physical Exam 2 Const: COMMON NORMALS: no acute distress Eye: COMMON NORMALS: Equal, round and reactive pupils present PUPIL: Yes Equal, round and reactive pupils present OTHER: Difficult to assess extraocular movement due to encephalopathy Resp: COMMON NORMALS: normal respiratory effort, No retractions, No use of accessory muscles and clear to auscultation bilaterally AUSCULTATION: clear to auscultation bilaterally Cardio: COMMON NORMALS: regular rate, regular rhythm, S1 normal heart sound present and S2 normal heart sound present RATE: regular rate RHYTHM: r egular rhythm HEART SOUNDS: S1 normal heart sound present and S2 normal heart sound present GI: COMMON NORMALS: Normal to inspection, nondistended, normoactive bowel sounds present and non-tender Extremity: COMMON NORMALS: no pedal edema Neuro: OTHER: Follow neurologic testing significantly given encephalopathy Urinary Catheter Management: Guerrero Latex: Cath Placed During This Visit: yes Reason for Continuing Indwelling Catheter: Acute Urinary Retention or Obstruction Urinary Catheter Date of Insertion: 12/08/23 Urinary Catheter Time of Insertion: 03:09 Data 12/09/23 09:38 12/09/23 09:38 A&P Assessment and plan (1) CVA (cerebral vascular accident): Seen by telestroke at [facility], not a candidate for tPA CT head CT/CT head thrombolytic [id number] IMPRESSION: 1. No acute intracranial pathology is identified. 2. Multifocal chronic ischemic brain changes redemonstrated. No significant interval change. CTA head and neck CT/CT angio headneck* [id number] IMPRESSION: No large vessel occlusion. IMPRESSION: Mild severity bilateral carotid artery stenosis estimated less than 50%. Echocardiogram CONCLUSIONS Normal left ventricular size, systolic function and wall thickness, with no regional wall motion abnormalities. Left ventricular ejection fraction is estimated at 60 %. Grade I/IV diastolic dysfunction (abnormal relaxation filling pattern), normal to mildly elevated filling pressures. Severe aortic valve calcification. Moderate aortic valve stenosis, mean gradient 19.2 mmHg, CHRISTOPHER 1.2 cm squared. Trace aortic valve regurgitation. There is no pericardial effusion. The right ventricle is normal in size and function. RVSP could not be calculated due to incomplete tricuspid regurgitation velocity profile. Right atrial pressure is around 5 mm of mercury. aspirin 81 mg daily Atorvastatin 40 mg daily allow for permissive hypertension PT OT speech therapy assessment Generalized encephalopathy -Has evidence of encephalopathy this morning -Continues to have slurred speech, word finding difficulty -UA with evidence of a UTI -Start Rocephin -Does have a history of CSF shunt, will consider send shunt series -History of seizures, will consider seizure medication such as Keppra based on clinical progress (2) Encephalopathy: Plan Continue home dose of prednisone, quetapine, desmopressin, levothyroxine Continue Quetapine at home dosing DM: insulin sliding scale 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
--- NOTE | 2023-12-09 15:41 | PC.OT ---
OT EVALUATION ATTEMPTED 3X TODAY: 1. MULTIPLE FAMILY MEMBERS IN ROOM @1050 2. SLEEPING SOUNDLY @1355 3. SLEEPING SOUNDLY @ 1535
--- NOTE | 2023-12-09 15:57 | XRR_ITS ---
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 COMPARISON: CT head wo con* [id number] 12/09/2023 11:34 AM FINDINGS: Tubes, catheters and devices: Ventriculoperitoneal catheter is present. Catheter is seen on the posterior right. The catheter is seen coursing through the neck and chest. The distal catheter tip in the left abdomen. No kinking. No breakage. Sinuses: Visualized paranasal sinuses are well aerated. Lungs: No consolidations. Gastrointestinal tract: Bowel is unremarkable. Bones/joints: Normal. No fracture. No dislocation. Soft tissues: Unremarkable. 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
[2023-12-09 16:41] LABS: Glucose Point of Care 286 mg/dL (70-110)
[2023-12-09] MEDS: predniSONE 1 mg Tablet 2 MG PO (20:21)
[2023-12-09] MEDS: quetiapine 100 mg Tablet 200 MG PO (20:21)
[2023-12-09] MEDS: atorvastatin 40 mg Tablet PO (20:21)
[2023-12-09 23:06] LABS: Glucose Point of Care 250 mg/dL (70-110)
[2023-12-10] VITALS (10 sets, daily range): BP systolic 126–157; BP diastolic 69–84; PULSE 67–80; RESP 14–18; TEMP 36.4–36.8; O2SAT 91–95
[2023-12-10 05:34] LABS: Glucose Point of Care 264 mg/dL (70-110)
[2023-12-10] MEDS: escitalopram 10 mg Tablet 30 MG PO (06:00)
[2023-12-10] MEDS: insulin lispro 100 unit/1 mL SUBCUT ×4 (06:00→21:18)
[2023-12-10] MEDS: levothyroxine 100 mcg Tablet PO (06:01)
[2023-12-10 06:36] LABS: Basophils % 0.6 %; Eosinophils # 0.1 10^3/uL (0.0-0.8); Eosinophils % 2.6 %; Hematocrit 39.8 % (36-47); Lymphocytes # 1.3 10^3/uL (0.8-4.8); Lymphocytes % 36.8 %; Mean Corpuscular HGB Conc 32.2 g/dL (30-55); Mean Corpuscular Hemoglobin 31.5 pg (27-33); Mean Platelet Volume 10.3 fL (7.4-10.4); Monocytes # 0.3 10^3/uL (0.2-0.9); Monocytes % 7.2 %; Neutrophils # 1.83 10^3/uL (1.8-7.7); Neutrophils % 52.5 %; Nucleated Red Blood Cells % 0 %; Platelet Count 60 10^3/cmm (157-399); Red Blood Count 4.06 10^6/uL (3.85-5.65); Red Cell Distribution Width 13.8 % (12.1-15.1); White Blood Count 3.48 10^3/uL (3.29-11.43)
[2023-12-10 06:54] LABS: Anion Gap 12.9 (5-19); Blood Urea Nitrogen 15 mg/dL (8-23); Calcium 7.7 mg/dL (8.5-10.5); Carbon Dioxide 26 mmol/L (22-29); Chloride 104 mmol/L (98-107); Cortisol Random 1.46 ug/dL (2.47-19.5); Creatinine Clr Calc Pharmacy 61.3251; Glucose 285 mg/dL (65-115); Osmolality Calculated 299 mOsm/kg (285-295); Potassium 3.9 mmol/L (3.5-5.1); Sodium 139 mmol/L (136-145)
[2023-12-10] MEDS: predniSONE 1 mg Tablet 3 MG PO (08:45)
[2023-12-10] MEDS: quetiapine 25 mg Tablet 50 MG PO (08:46)
[2023-12-10] MEDS: aspirin 81 mg EC Tablet PO (08:47)
[2023-12-10] MEDS: sodium chloride 0.9% 1,000 ML 75 ML IV (12:07)
[2023-12-10] MEDS: cefTRIAXone 1,000 mg SDV 1000 MG IVP (12:08)
[2023-12-10 12:21] LABS: Glucose Point of Care 325 mg/dL (70-110)
--- NOTE | 2023-12-10 15:19 | PM.PN ---
Subjective Subjective: Patient was seen this morning, patient's is at bedside, she is alert to person, not to place, not to time, she is much more alert awake she can follow commands she can squeeze my fingers she can wiggle her toes she does have right-sided upper and lower extremity weakness tells me that this is chronic from her last stroke continues to have word finding difficulty, episodes of receptive aphasia but family tells me that she is significantly improved compared to yesterday Vitals/I&O/Wt Last Vital Signs Temp 98.2 F 12/10/23 12:00 Pulse 77 12/10/23 14:00 Resp 16 12/10/23 12:00 BP 137/79 12/10/23 12:00 Pulse Ox 92 12/10/23 12:00 O2 Del Method Room Air 12/10/23 12:00 O2 Flow Rate 2 12/08/23 21:11 12/10/23 12/10/23 12/10/23 06:59 14:59 22:59 Intake Total 915 / 1635 1447.5 / 1447.5 Output Total 300 / 1190 700 / 700 Balance 615 / 445 1447.5 / 1447.5 -700 / 747.5 Weight last 48 hrs Weight 83.688 kg Weight 81.783 kg Physical Exam Const: COMMON NORMALS: no acute distress ORIENTATION/CONSCIOUSNESS: Yes awake, Yes oriented to person and Yes oriented to place; not oriented to time Resp: COMMON NORMALS: normal respiratory effort, No retractions, No use of accessory muscles and clear to auscultation bilaterally AUSCULTATION: clear to auscultation bilaterally Cardio: COMMON NORMALS: regular rate, regular rhythm, S1 normal heart sound present and S2 normal heart sound present RATE: regular rate RHYTHM: regular rhythm HEART SOUNDS: S1 normal heart sound present and S2 normal heart sound present GI: COMMON NORMALS: Normal to inspection, nondistended, normoactive bowel sounds present and non-tender Extremity: COMMON NORMALS: no pedal edema Neuro: SENSORIUM/ORIENTATION: Yes oriented to person, Yes oriented to place and No oriented to time OTHER: Has right upper right lower extremity weakness, 4 out of 5, compared to5/ 5 on the left, family tells me that this is chronically from a prior stroke, slurring of her words, word finding difficulty Urinary Catheter Management: Guerrero Latex: Cath Placed During This Visit: yes Reason for Continuing Indwelling Catheter: Acute Urinary Retention or Obstruction Urinary Catheter Date of Insertion: 12/08/23 Urinary Catheter Time of Insertion: 03:09 Data 12/10/23 05:55 12/10/23 05:55 Micro: Microbiology 12/09/23 11:15 Urine Culture - Preliminary Urine,Clean Catch Yeast species A&P Assessment and plan (1) CVA (cerebral vascular accident): Seen by tel[facility]roke at [facility], not a candidate for tPA CT head CT/CT head thrombolytic [id number] IMPRESSION: 1. No acute intracranial pathology is identified. 2. Multifocal chronic ischemic brain changes redemonstrated. No significant interval change. CTA head and neck CT/CT angio headneck* [id number] IMPRESSION: No large vessel occlusion. IMPRESSION: Mild severity bilateral carotid artery stenosis estimated less than 50%. Echocardiogram CONCLUSIONS Normal left ventricular size, systolic function and wall thickness, with no regional wall motion abnormalities. Left ventricular ejection fraction is estimated at 60 %. Grade I/IV diastolic dysfunction (abnormal relaxation filling pattern), normal to mildly elevated filling pressures. Severe aortic valve calcification. Moderate aortic valve stenosis, mean gradient 19.2 mmHg, CHRISTOPHER 1.2 cm squared. Trace aortic valve regurgitation. There is no pericardial effusion. The right ventricle is normal in size and function. RVSP could not be calculated due to incomplete tricuspid regurgitation velocity profile. Right atrial pressure is around 5 mm of mercury. aspirin 81 mg daily Atorvastatin 40 mg daily allow for permissive hypertension PT OT speech therapy assessment Generalized encephalopathy -Generalized encephalopathy improved -Continues to have slurred speech, word finding difficulty -UA with evidence of a UTI, started on Rocephin -Does have a history of CSF shunt, shunt series no acute findings -History of seizures, will consider seizure medication such as Keppra based on clinical progress (2) Encephalopathy: Plan Continue home dose of prednisone, quetapine, desmopressin, levothyroxine Continue Quetapine at home dosing DM: insulin sliding scale 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
[2023-12-10 17:02] LABS: Glucose Point of Care 301 mg/dL (70-110)
[2023-12-10] MEDS: fluconazole 100 mg Tablet PO (17:18)
[2023-12-10 20:11] LABS: Glucose Point of Care 273 mg/dL (70-110)
[2023-12-10] MEDS: predniSONE 1 mg Tablet 2 MG PO (21:17)
[2023-12-10] MEDS: atorvastatin 40 mg Tablet PO (21:18)
[2023-12-10] MEDS: quetiapine 100 mg Tablet 200 MG PO (21:18)
[2023-12-11] VITALS: BP 133/78; PULSE 69; RESP 19; TEMP 36.4; O2SAT 95
[2023-12-11] MEDS: sodium chloride 0.9% 1,000 ML 75 ML IV (01:55)
[2023-12-11 04:00] VITALS: BP 139/83; PULSE 76; RESP 18; TEMP 36.3; O2SAT 94
[2023-12-11 05:10] VITALS: PULSE 65
[2023-12-11 06:09] LABS: Basophils % 0.6 %; Eosinophils # 0.1 10^3/uL (0.0-0.8); Eosinophils % 2.8 %; Hematocrit 40.2 % (36-47); Lymphocytes # 1.2 10^3/uL (0.8-4.8); Lymphocytes % 36.5 %; Mean Corpuscular HGB Conc 32.1 g/dL (30-55); Mean Corpuscular Hemoglobin 31.7 pg (27-33); Mean Corpuscular Volume 98.8 fl (85-98); Monocytes # 0.2 10^3/uL (0.2-0.9); Monocytes % 7.1 %; Neutrophils % 52.7 %; Nucleated Red Blood Cells % 0 %; Platelet Count 54 10^3/cmm (157-399); Red Blood Count 4.07 10^6/uL (3.85-5.65); Red Cell Distribution Width 13.5 % (12.1-15.1); White Blood Count 3.23 10^3/uL (3.29-11.43)
[2023-12-11] MEDS: levothyroxine 100 mcg Tablet PO (06:11)
[2023-12-11] MEDS: escitalopram 10 mg Tablet 30 MG PO (06:11)
[2023-12-11 06:17] LABS: Glucose Point of Care 223 mg/dL (70-110)
[2023-12-11 06:27] LABS: Anion Gap 12.8 (5-19); Blood Urea Nitrogen 11 mg/dL (8-23); Calcium 7.5 mg/dL (8.5-10.5); Carbon Dioxide 26 mmol/L (22-29); Chloride 103 mmol/L (98-107); Creatinine Clr Calc Pharmacy 61.7357; Glucose 232 mg/dL (65-115); Osmolality Calculated 293 mOsm/kg (285-295); Potassium 3.8 mmol/L (3.5-5.1); Sodium 138 mmol/L (136-145)
[2023-12-11] MEDS: insulin lispro 100 unit/1 mL SUBCUT ×2 (07:43→12:37)
[2023-12-11 08:00] VITALS: BP 146/83; PULSE 73; RESP 16; TEMP 36.7; O2SAT 92
[2023-12-11] MEDS: quetiapine 25 mg Tablet 50 MG PO (08:39)
[2023-12-11] MEDS: predniSONE 1 mg Tablet 3 MG PO (08:39)
[2023-12-11] MEDS: fluconazole 100 mg Tablet PO (08:39)
[2023-12-11] MEDS: aspirin 81 mg EC Tablet PO (08:40)
--- NOTE | 2023-12-11 10:45 | PC.SOCIAL ---
IMM Updated Updated pt's on IMM. No questions voiced. Provided pt a copy. Initialed, dated, & timed copy in chart.
--- NOTE | 2023-12-11 10:53 | PM.DCS ---
Discharge Providers Date of Admission: 12/08/23 00:32 Date of Discharge: December 11, 2023 Attending Provider at Admission: Laura Bradford MD Attending Provider at Discharge: Gus Nguyen MD Primary Care Provider: Marshal Trivedi MD Diagnoses at Discharge Discharge Diagnosis (1) CVA (cerebral vascular accident): Status: Acute (2) Encephalopathy: Status: Acute Reason for Visit Reason for Visit: WEAKNESS Hospital Course Hospital Course This is a 83-year-old female with past medical history of CVA with minimal residual right-sided deficits, recently has been had decline in her cognitive level of functioning from Lewy body dementia with speech problems with expressive speech difficulties (myoclonic stuttering speech), history of Lewy body dementia, history of pituitary surgery for Lakeshia's disease, 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 Upon evaluation to the ER [facility] was consulted, not a tPA candidate, CT head no acute findings, CTA head and neck no large vessel occlusion, managed on aspirin, statin, permissive hypertension, inpatient PT AND OT and speech therapy evaluation. Overall patient's symptoms have improved however patient continues to have word finding difficulty, slurring of her words, although improved compared to admission my opinion and according to family members. However according to family at times her stroke symptoms are difficult to distinguish from her more recent decline in her expressive speech from her underlying Lewy body dementia. And her her right-sided weakness has improved; But again continues to have right hand and right leg weakness which is certainly more reduced from her chronic right-sided minor chronic deficits from her previous cerebral artery aneurysm rupture. She is able to participate with physical therapy, discharged to nursing home home for rehab. Patient's hospitalization was complicated by generalized encephalopathy, likely related to UTI, managed on Rocephin discharged on cefdinir. She does have a history of seizures, no seizure-like episodes during hospitalization, but due to persistent slurred speech, word finding difficulty at times the there is a possibility this could be from subclinical seizures. Patient has significantly improved nonetheless, we will have her follow-up with neurology as outpatient, consideration of EEG, although she has had a normal EEG in the past for similar concerns. For her history of central diabetes insipidus and central hypothyroidism, her cortisol levels were on the lower end of please follow-up with Dr. Arreola as outpatient continue her home prednisone and desmopressin. Physical Exam Const: COMMON NORMALS: no acute distress and patient oriented x3 Resp: COMMON NORMALS: normal respiratory effort, No retractions, No use of accessory muscles and clear to auscultation bilaterally AUSCULTATION: clear to auscultation bilaterally Cardio: COMMON NORMALS: regular rate, regular rhythm, S1 normal heart sound present and S2 normal heart sound present RATE: regular rate RHYTHM: regular rhythm HEART SOUNDS: S1 normal heart sound present and S2 normal heart sound present GI: COMMON NORMALS: Normal to inspection, nondistended, normoactive bowel sounds present and non-tender Extremity: COMMON NORMALS: no pedal edema Neuro: COMMON NORMALS: patient oriented x3 Psych: COMMON NORMALS: mental status grossly normal Urinary Catheter Management: Guerrero Latex: Cath Placed During This Visit: yes Reason for Continuing Indwelling Catheter: Acute Urinary Retention or Obstruction Urinary Catheter Date of Insertion: 12/08/23 Urinary Catheter Time of Insertion: 03:09 Discharge Data Studies Completed and Pending Completed Studies During Hospitalization Category Date Time Status CT head thrombolytic 08933 Stat Cat Scan 12/07/23 21:[address] head wo con* [id number] Routine Cat Scan 12/09/23 10:59 Completed CTA head neck [CT angio headneck* [id number]] Stat Cat Scan 12/07/23 22:39 Completed XR KUB portable [id number] Routine Exams 12/09/23 10:58 Completed XR shunt series Routine Exams 12/09/23 15:57 Completed CV. echo complete* [id number] Routine Ultrasound 12/08/23 01:42 Completed Pending at discharge Category Date Time Status Basic Metabolic Panel AM LABS Lab 12/12/23 04:00 Ordered Complete Blood Count w/Auto AM LABS Lab 12/12/23 04:00 Ordered SARS Covid-2 Antigen Stat Lab 12/11/23 10:41 Uncollected Urine Culture Routine Lab 12/09/23 11:15 Results Radiology Impressions Head/Neck CTA 12/07/23 22:39 IMPRESSION: No large vessel occlusion. IMPRESSION: Mild severity bilateral carotid artery stenosis estimated less than 50%. REFERENCES: NASCET CRITERIA. The degree of stenosis in the cervical segment of the internal carotid artery is based on NASCET criteria. Normal is no stenosis. Mild is less than 50% stenosis. Moderate is 50-69% stenosis. Severe is 70% to 99% stenosis. Total occlusion is no detectable patent lumen. KUB X-Ray 12/09/23 10:58 IMPRESSION: 1. No acute abdominal process. Head CT 12/09/23 10:59 IMPRESSION: 1. No acute intracranial process identified. 2. Microvascular ischemic change and chronic changes of the brain as detailed above. CSF shunt catheter enters from the RIGHT parietal region and ends in the frontal horn of the LEFT lateral ventricle. Left-sided craniotomy defect. Imaging Shunt Series 12/09/23 15:57 IMPRESSION: [employer] shunt in satisfactory position as described. Laboratory Results WBC 3.23 10^3/uL (3.29-11.43) L 12/11/23 05:47 RBC 4.07 10^6/uL (3.85-5.65) 12/11/23 05:47 Hgb 12.90 g/dL (11.27-16.99) 12/11/23 05:47 Hct 40.2 % (36-47) 12/11/23 05:47 MCV 98.8 fl (85-98) H 12/11/23 05:47 MCH 31.7 pg (27-33) 12/11/23 05:47 MCHC 32.1 g/dL (30-55) 12/11/23 05:47 RDW 13.5 % (12.1-15.1) 12/11/23 05:47 Plt Count 54 10^3/cmm (157-399) L 12/11/23 05:47 MPV 10.0 fL (7.4-10.4) 12/11/23 05:47 Neut % (Auto) 52.7 % 12/11/23 05:47 Lymph % (Auto) 36.5 % 12/11/23 05:47 Hart % (Auto) 7.1 % 12/11/23 05:47 Eos % (Auto) 2.8 % 12/11/23 05:47 Baso % (Auto) 0.6 % 12/11/23 05:47 Neut # (Auto) 1.70 10^3/uL (1.8-7.7) L 12/11/23 05:47 Lymph # (Auto) 1.2 10^3/uL (0.8-4.8) 12/11/23 05:47 Hart # (Auto) 0.2 10^3/uL (0.2-0.9) 12/11/23 05:47 Eos # (Auto) 0.1 10^3/uL (0.0-0.8) 12/11/23 05:47 Baso # (Auto) 0.0 10^3/uL (0.0-0.1) 12/11/23 05:47 Nucleated RBC % (auto) 0 % 12/11/23 05:47 Nucleated RBCs # 0.0 /100WBC 12/11/23 05:47 PT 14.70 SECONDS (12.1-14.9) 12/07/23 21:40 INR 1.11 (0.8-1.2) 12/07/23 21:40 APTT 24.4 SECONDS (23.9-36.7) 12/07/23 21:40 Sodium 138 mmol/L (136-145) 12/11/23 05:47 Potassium 3.8 mmol/L (3.5-5.1) 12/11/23 05:47 Chloride 103 mmol/L (98-107) 12/11/23 05:47 Carbon Dioxide 26 mmol/L (22-29) 12/11/23 05:47 Anion Gap 12.8 (5-19) 12/11/23 05:47 BUN 11 mg/dL (8-23) 12/11/23 05:47 Creatinine 0.3 mg/dL (0.5-0.9) L 12/11/23 05:47 GFR Calculation Not Reportable 12/11/23 05:47 Glucose 232 mg/dL (65-115) H 12/11/23 05:47 POC Glucose 223 mg/dL (70-110) H 12/11/23 06:10 Calculated Osmolality 293 mOsm/kg (285-295) 12/11/23 05:47 Calcium 7.5 mg/dL (8.5-10.5) L 12/11/23 05:47 Total Bilirubin 0.8 mg/dL (0.15-1.2) 12/09/23 09:38 AST 41 U/L (0-32) H 12/09/23 09:38 ALT 27 U/L (0-33) 12/09/23 09:38 Alkaline Phosphatase 51 U/L (35-105) 12/09/23 09:38 Total Protein 6.2 g/dL (6.6-8.7) L 12/09/23 09:38 Albumin 3.5 g/dL (3.5-5.2) 12/09/23 09:38 Globulin 2.7 g/dL (1.3-4.6) 12/09/23 09:38 Random Cortisol 1.46 ug/dL (2.47-19.5) L 12/10/23 05:55 Urine Color [place] (Yellow) A 12/09/23 11:15 Urine Appearance Cloudy (CLEAR) A 12/09/23 11:15 Urine pH 5.0 (5-7) 12/09/23 11:15 Ur Specific [place] 1.040 (1.005-1.030) H 12/09/23 11:15 Urine Protein 1+ (Negative) A 12/09/23 11:15 Urine Glucose (UA) 3+ (Normal) H 12/09/23 11:15 Urine Ketones Negative (Negative) 12/09/23 11:15 Urine Blood 2+ (Negative) A 12/09/23 11:15 Urine Nitrate Negative (Negative) 12/09/23 11:15 Urine Bilirubin 1+ (Negative) H 12/09/23 11:15 Urine Urobilinogen 1.0 mg/dL (Negative) 12/09/23 11:15 Ur Leukocyte Esterase Trace (Negative) A 12/09/23 11:15 Urine RBC 21-50 /hpf (0-2) H 12/09/23 11:15 Urine WBC 11-20 /hpf (0-5) H 12/09/23 11:15 Ur Squamous Epith Cells 0-4 /hpf (0-5) H 12/09/23 11:15 Ur Transition Epith Cell Rare /hpf 12/09/23 11:15 Amorphous Sediment Not Reportable 12/09/23 11:15 Urine Bacteria Trace /hpf (NONE) 12/09/23 11:15 Hyaline Casts 0-4 /lpf H 12/09/23 11:15 Urine Mucus 2+ /hpf 12/09/23 11:15 Urine Yeast 2+ /hpf H 12/09/23 11:15 Urine Opiates Screen Negative ng/mL (Negative) 12/08/23 00:13 Ur Barbiturates Screen Negative ng/mL (Negative) 12/08/23 00:13 Ur Phencyclidine Scrn Negative ng/mL (Negative) 12/08/23 00:13 Ur Amphetamines Screen Negative ng/mL (Negative) 12/08/23 00:13 U Benzodiazepines Scrn Negative ng/mL (Negative) 12/08/23 00:13 Urine Cocaine Screen Negative ng/mL (Negative) 12/08/23 00:13 U Marijuana (THC) Screen Negative ng/mL (Negative) 12/08/23 00:13 Vitals Last Vital Signs Temp 98.0 F 12/11/23 08:00 Pulse 73 12/11/23 08:00 Resp 16 12/11/23 08:00 BP 146/83 12/11/23 08:00 Pulse Ox 92 12/11/23 08:00 O2 Del Method Room Air 12/10/23 21:05 O2 Flow Rate 2 12/08/23 21:11 Discharge Plan Discharge Patient Disposition: Xfer SNF Condition: Stable Prescriptions: New aspirin 81 mg Tablet,Delayed Release (Dr/Ec) 81 mg PO DAILY 30 Days Qty: 30 0RF fluconazole 100 mg Tablet 100 mg PO DAILY 3 Days Qty: 3 0RF insulin lispro [Humalog U-100 Insulin] 100 unit/mL Solution See Rx Instructions .ROUTE .COMPLEX Qty: 10 0RF Rx Instructions: Inject, subcut, 3 times daily, after meals, based on low-dose sliding scale cefdinir 300 mg capsule 300 mg PO BID 5 Days Qty: 10 0RF Continued omeprazole 40 mg capsule,delayed release(DR/EC) See Rx Instructions .ROUTE .COMPLEX Qty: 90 3RF Dose Instruction: TAKE 1 CAPSULE BY MOUTH DAILY Rx Instructions: TAKE 1 CAPSULE BY MOUTH DAILY escitalopram oxalate 20 mg tablet 30 mg PO QAM Qty: 150 3RF PreserVision AREDS-2 250-90-40-1 mg capsule 1 tab PO BID Seroquel 200 mg tablet 200 mg PO BEDTIME Qty: 90 3RF Januvia 100 mg tablet See Rx Instructions .ROUTE .COMPLEX Qty: 90 3RF Dose Instruction: TAKE 1 TABLET BY MOUTH DAILY Rx Instructions: TAKE 1 TABLET BY MOUTH DAILY (DME) OneTouch Verio test strips Strip See Rx Instructions .Route Qty: 100 2RF Rx Instructions: Test Blood sugar up to twice a day E11.9 (DME) blood-glucose meter [OneTouch Verio Meter] [facility] [place] .Route Qty: 1 0RF Rx Instructions: As directed E11.9 pravastatin 40 mg tablet 40 mg PO QPM Qty: 90 3RF desmopressin 0.1 mg tablet See Rx Instructions .ROUTE .COMPLEX Qty: 180 3RF Dose Instruction: TAKE 1 TABLET BY MOUTH TWICE DAILY Rx Instructions: TAKE 1 TABLET BY MOUTH TWICE DAILY quetiapine 50 mg tablet See Rx Instructions .ROUTE .COMPLEX Qty: 90 3RF Dose Instruction: TAKE 1 TABLET BY MOUTH DAILY IN THE MORNING IN ADDITION TO THE 200 MG AT BEDTIME Rx Instructions: TAKE 1 TABLET BY MOUTH DAILY IN THE MORNING IN ADDITION TO THE 200 MG AT BEDTIME prednisone 1 mg tablet See Rx Instructions .ROUTE .COMPLEX Qty: 450 0RF Dose Instruction: TAKE 3 TABLETS (3 MG) BY MOUTH IN THE MORNING AND 2 TABLETS (2 MG) AT 12:00 (TOTAL 5 MG/DAY) Rx Instructions: TAKE 3 TABLETS (3 MG) BY MOUTH IN THE MORNING AND 2 TABLETS (2 MG) AT 12:00 (TOTAL 5 MG/DAY) levothyroxine 100 mcg tablet See Rx Instructions .ROUTE .COMPLEX Qty: 90 0RF Dose Instruction: TAKE 1 TABLET BY MOUTH DAILY Rx Instructions: TAKE 1 TABLET BY MOUTH DAILY calcium carbonate 500 mg calcium (1,250 mg) Tablet 1,000 mg PO QAM ferrous sulfate [iron] 325 mg (65 mg iron) Tablet 325 mg PO QAM omega-3 fatty acids Capsule 1,000 mg PO BEDTIME cholecalciferol (vitamin D3) [Vitamin D3] 50 mcg (2,000 unit) Tablet 50 mcg PO DAILY Discharge Orders: Discharge Order (Routine); Ordered 12/11/23 Ordered By: Gus Nguyen Referrals: [facility] [Outside] J[facility] Baird [Outside] Ashley Nava MD [Physician] - 2 weeks (We have notified your physician's clinic of the need for a follow-up appointment to be scheduled. If you have not heard from them within the next 2 business days, please call them directly. ) Eduardo Arreola MD [Physician] - 1 month (We have notified your physician's clinic of the need for a follow-up appointment to be scheduled. If you have not heard from them within the next 2 business days, please call them directly. ) Marshal Trivedi MD [Primary Care Provider] - Discharge Diet: Advance as tolerated Discharge Activity: Increase activity as tolerated Patient Instructions: Fluconazole (By mouth), Cefdinir (By mouth), Opioid Safety, Stroke Stoplight Activity Restrictions/Additional Instructions: - If you have recurrent strokelike symptoms please call 911 -Please monitor your blood sugars closely -Monitor your blood sugars 3 times daily as after meals -Please record your blood sugars, and a blood sugar log -For your HUmalog -Please inject blood sugar after meals based on sliding scale provided -Do not inject insulin if you do not eat as hypoglycemia kills -This is a Humalog sliding scale -Insulin sliding ?fingerstick? Insulin ?141-180?0 units/sq 181-220?2 units/sq ?221-260?4 units/sq ?261-300 6 units/sq ?301-350?8 units/sq ?351-400 10 units/sq ?401-450?12 units/sq >450? 14units/sq -If your blood sugar is greater than 500 go to the emergency room -If your blood sugar is less than 60 or at anytime you feel lightheaded or dizzy or diaphoretic or have chest palpitations check your blood sugar, and eat a hard candy or drink orange juice and go immediately to the emergency room -Remember hypoglycemia kills, so if his blood sugar is less than 60 we have to increase it by taking in a sugary meal such as a hard candy or orange juice and go to the emergency room -If you have any questions please call us where here to help -for secondary adremal insufficiemcy follow up with dr arreola Discharge Attestations Time Spent in Discharge Care*: greater than 30 min Quality Metrics Clinical Quality Measures [ No reported AMI, CVA or VTE this stay] Coding Level of Care Code 10397 Total time (in minutes) for Discharge: 45 Diagnoses CVA (cerebral vascular accident) I63.9 Encephalopathy G93.40
--- NOTE | 2023-12-11 10:58 | PC.OT ---
OT TREATMENT ATTEMPTED IN A.M. PATIENT FALLS ASLEEP DURING CONVERSATION. FAMILY PRESENT STATING THAT THE PATIENT IS TO D/C TO SNF TODAY.
[2023-12-11 11:49] LABS: Glucose Point of Care 230 mg/dL (70-110)
[2023-12-11 11:55] LABS: SARS Covid-2 Antigen Negative (Negative)
[2023-12-11 12:00] VITALS: BP 128/82; PULSE 84; RESP 17; TEMP 36.4; O2SAT 91
[2023-12-11 13:46] VITALS: BP 128/82; PULSE 84; RESP 17; TEMP 36.4; O2SAT 91
== END 2023-12-11 14:55 | disposition skilled nursing facility (03) | DRG 65 ==
LOC: ER 12-08 00:39 → MEDSURG 12-08 00:44
PROVIDERS: Student in an Organized Health Care Education/Training Program; Admitting Provider Student in an Organized Health Care Education/Training Program; Emergency Provider Emergency Medicine; PCP Family Medicine; Visit Provider Family Medicine
DX: I63.9 Cerebral infarction, unspecified (principal); E23.2 Diabetes insipidus; G81.91 Hemiplegia, unspecified affecting right dominant side; G93.49 Other encephalopathy; N39.0 Urinary tract infection, site not specified; R47.01 Aphasia; R47.81 Slurred speech; R26.2 Difficulty in walking, not elsewhere classified; G31.83 Neurocognitive disorder with Lewy bodies; F02.80 Dementia in other diseases classified elsewhere, unspecified severity, without behavioral disturbance, psychotic disturbance, mood disturbance, and anxiety; I69.823 Fluency disorder following other cerebrovascular disease; E03.8 Other specified hypothyroidism; G47.33 Obstructive sleep apnea (adult) (pediatric); K21.9 Gastro-esophageal reflux disease without esophagitis; F32.9 Major depressive disorder, single episode, unspecified; D75.839 Thrombocytosis, unspecified; Z66 Do not resuscitate; Z79.52 Long term (current) use of systemic steroids; Z98.2 Presence of cerebrospinal fluid drainage device
CPT/HCPCS: 36415; 36416; 51702; 70250; 70450; 70496; 70498; 71046; 72040; 74018; 74019; 80048; 80053; 80306; 81001; 82533; 82962; 85025; 85610; 85730; 87086; 87106; 87426; 92507; 92523; 92526; 92610; 93005; 93306; 96372; 97116; 97161; 97167; 97530; 97535; 99285; 99291; 99292; J0696; J1815; J7030; J7512

== ENCOUNTER → 2024-01-15 09:36 | Outpatient (BNVA) | payer MEDICARE, SELFPAY | PROVIDERS: PCP Family Medicine; Visit Provider Internal Medicine | DX: Z09 Encounter for follow-up examination after completed treatment for conditions other than malignant neoplasm (principal); M81.0 Age-related osteoporosis without current pathological fracture; E23.7 Disorder of pituitary gland, unspecified; E11.9 Type 2 diabetes mellitus without complications; R35.89 Other polyuria; E03.9 Hypothyroidism, unspecified; Z79.84 Long term (current) use of oral hypoglycemic drugs; Z79.890 Hormone replacement therapy | CPT/HCPCS: 99214 ==

== ENCOUNTER → 2024-01-30 14:58 | Outpatient (BNVA) | payer MEDICARE, SELFPAY | PROVIDERS: PCP Family Medicine; Visit Provider Podiatrist Foot & Ankle Surgery | DX: B35.1 Tinea unguium (principal); I73.9 Peripheral vascular disease, unspecified; E11.9 Type 2 diabetes mellitus without complications; G31.83 Neurocognitive disorder with Lewy bodies; F02.80 Dementia in other diseases classified elsewhere, unspecified severity, without behavioral disturbance, psychotic disturbance, mood disturbance, and anxiety; E11.69 Type 2 diabetes mellitus with other specified complication; Z79.4 Long term (current) use of insulin | CPT/HCPCS: 11721 ==

== ENCOUNTER → 2024-03-25 12:02 | Outpatient (BNVA) | payer MEDICARE, SELFPAY | PROVIDERS: PCP Family Medicine; Visit Provider Specialist | DX: R29.90 Unspecified symptoms and signs involving the nervous system (principal); Z98.2 Presence of cerebrospinal fluid drainage device; I69.320 Aphasia following cerebral infarction; G31.83 Neurocognitive disorder with Lewy bodies | CPT/HCPCS: 99214 ==

== ENCOUNTER → 2024-04-15 10:02 | Outpatient (BNVA) | payer MEDICARE, SELFPAY | PROVIDERS: PCP Family Medicine; Visit Provider Podiatrist Foot & Ankle Surgery | DX: E11.69 Type 2 diabetes mellitus with other specified complication (principal); B35.1 Tinea unguium; I73.9 Peripheral vascular disease, unspecified; G31.83 Neurocognitive disorder with Lewy bodies; F02.80 Dementia in other diseases classified elsewhere, unspecified severity, without behavioral disturbance, psychotic disturbance, mood disturbance, and anxiety; Z79.4 Long term (current) use of insulin; Z79.84 Long term (current) use of oral hypoglycemic drugs | CPT/HCPCS: 11721 ==

== ENCOUNTER → 2024-05-01 10:18 | Outpatient (BNVA) | payer MEDICARE, SELFPAY | PROVIDERS: PCP Family Medicine; Visit Provider Internal Medicine | DX: E11.9 Type 2 diabetes mellitus without complications (principal); R35.89 Other polyuria; E03.9 Hypothyroidism, unspecified | CPT/HCPCS: 80053; 80061; 83036; 84439; 84443 ==

== ENCOUNTER → 2024-05-02 10:04 | Outpatient (BNVA) | payer MEDICARE, SELFPAY | PROVIDERS: PCP Family Medicine; Visit Provider Internal Medicine | DX: E11.9 Type 2 diabetes mellitus without complications (principal); R35.89 Other polyuria; E03.9 Hypothyroidism, unspecified | CPT/HCPCS: 82043 ==

== ENCOUNTER → 2024-05-06 10:50 | Outpatient (BNVA) | payer MEDICARE, SELFPAY | PROVIDERS: PCP Family Medicine; Visit Provider Internal Medicine | DX: E11.9 Type 2 diabetes mellitus without complications (principal); Z09 Encounter for follow-up examination after completed treatment for conditions other than malignant neoplasm; M81.0 Age-related osteoporosis without current pathological fracture; E23.7 Disorder of pituitary gland, unspecified; R35.89 Other polyuria | CPT/HCPCS: 99214 ==

== ENCOUNTER → 2024-06-17 10:35 | Outpatient (BNVA) | payer MEDICARE, SELFPAY | PROVIDERS: PCP Family Medicine; Visit Provider Podiatrist Foot & Ankle Surgery | DX: E11.69 Type 2 diabetes mellitus with other specified complication (principal); B35.1 Tinea unguium; I73.9 Peripheral vascular disease, unspecified; G31.83 Neurocognitive disorder with Lewy bodies; F02.80 Dementia in other diseases classified elsewhere, unspecified severity, without behavioral disturbance, psychotic disturbance, mood disturbance, and anxiety; Z79.4 Long term (current) use of insulin; Z79.84 Long term (current) use of oral hypoglycemic drugs | CPT/HCPCS: 11721 ==

== ENCOUNTER 2024-07-30 15:00 | Outpatient (RCR) | payer MEDICARE, SELFPAY | END 2024-08-17 23:59 | disposition home or self-care (01) | LOC: SPT 15:00 | PROVIDERS: PCP Family Medicine; Visit Provider Family Medicine | DX: I63.9 Cerebral infarction, unspecified (principal) | CPT/HCPCS: 97110; 97161 ==

== ENCOUNTER → 2024-08-19 10:35 | Outpatient (BNVA) | payer MEDICARE, SELFPAY | PROVIDERS: PCP Family Medicine; Visit Provider Podiatrist Foot & Ankle Surgery | DX: E11.69 Type 2 diabetes mellitus with other specified complication (principal); B35.1 Tinea unguium; Z79.84 Long term (current) use of oral hypoglycemic drugs; I73.9 Peripheral vascular disease, unspecified; F02.80 Dementia in other diseases classified elsewhere, unspecified severity, without behavioral disturbance, psychotic disturbance, mood disturbance, and anxiety; Z79.4 Long term (current) use of insulin | CPT/HCPCS: 11721 ==

== ENCOUNTER 2024-08-30 12:20 | Inpatient (IN) | payer MEDICARE, SELFPAY ==
[2024-08-30] VITALS (15 sets, daily range): BP systolic 115–147; BP diastolic 54–84; PULSE 77–98; RESP 16–24; TEMP 36.4–36.9; O2SAT 90–100; BMI 29.3; BMI 29.9
--- NOTE | 2024-08-30 12:23 | XRR_ITS ---
PROCEDURE INFORMATION: Exam: XR Chest Exam date and time: 08/30/2024 12:36 PM Age: 83 years old Clinical indication: Pain; Chest pressure; Additional info: Chest pain TECHNIQUE: Imaging protocol: Radiologic exam of the chest. Views: 1 view. COMPARISON: CR XR ribs RT mn 3V w CXR1V [id number] 12/06/2021 8:34 PM FINDINGS: Tubes, catheters and devices: A right-sided [employer] shunt is noted. Lungs: Both lungs demonstrate diffuse interstitial coarsening which is felt to be chronic. No lung mass or infiltrate. Pleural spaces: Unremarkable. No pleural effusion. No pneumothorax. Heart/Mediastinum: Mild cardiomegaly is noted. Bones/joints: Unremarkable. XR/XR chest 1V portable [id number] IMPRESSION: No acute findings.
--- NOTE | 2024-08-30 12:23 | ECG_ITS ---
[employer] [employer] Test Date: 2024-08-30 Pat Name: Precious Ruiz Department: Room: 276 Gender: Female Boot Turner: : 1940 Requested By: Lori Bowles Order Number: [id number] Rosanne MD: Rio Wheatley M.D. Measurements Intervals [place] Rate: 85 P: 5 WV: 144 QRS: -50 QRSD: 102 T: 68 QT: 404 QTc: 481 Interpretive Statements SINUS RHYTHM WITH SINUS ARRHYTHMIA LEFT AXIS DEVIATION [QRS AXIS < -30] LOW QRS VOLTAGE IN PRECORDIAL LEADS [QRS DEFLECTION < 1.0 mV IN CHEST LEADS] ANTEROSEPTAL MYOCARDIAL INFARCTION , PROBABLY OLD [40+ ms Q WAVE IN V1-V4] Compared to ECG 12/08/2023 13:34:47 Left-axis deviation now present Low QRS voltage now present Left anterior fascicular block no longer present Left ventricular hypertrophy no longer present ST (T wave) deviation no longer present Myocardial infarct finding still present Electronically Signed On 09-01-2024 10:04:52 CDT by Rio Wheatley M.D. [email or web address]
[2024-08-30 12:56] LABS: Mean Corpuscular HGB Conc 24.2 g/dL (30-55); Mean Corpuscular Hemoglobin 20.3 pg (27-33); Mean Corpuscular Volume 83.7 fl (85-98); Nucleated Red Blood Cells % 0 %; Platelet Count 115 10^3/cmm (157-399); Red Blood Count 2.27 10^6/uL (3.85-5.65); White Blood Count 3.95 10^3/uL (3.29-11.43)
[2024-08-30 13:03] LABS: ABG PCO2 44.8 mmHg (35-45); ABG PH Result 7.40 (7.35-7.45); Alveolar-Arterial Oxygen Gradi 3.5 mmHg (5-10); Arterial Blood Gas Hematocrit 14.6 % (37-47); Blood Gas Sample Site Brachial, right; Blood Gas Sample Type Arterial; Carboxyhemoglobin 2.8 %THgb (0.4-20.1); Glucose Level-ABG 163.0 mg/dL (70-115); HCO3 ABG 27.4 mmol/L (22-26); Ionized Calcium Level - ABG 1.1 mmol/L (1.1-1.4); Methemoglobin 1.2 % (0.4-1.5); Oxygen Saturation ABG 94.5; PO2 ABG 68.0 mmHg (80.0-100.0); PO2 FiO2 Ratio Arterial Blood 323; Potassium Level - ABG 4.1 mmol/L (3.5-5.0); Sodium Level - ABG 143.0 mmol/L (131-143)
--- NOTE | 2024-08-30 13:05 | W.ED.CHESTPA ---
HPI - Chest Pain General: Chief Complaint: Chest Pain Stated Complaint: chest pain Time Seen by Provider: 08/30/24 12:23 History of Present Illness: 83-year-old female with a history of Lewy body dementia, depression, aphasia secondary to a previous CVA, type 2 diabetes, obstructive sleep apnea and a hemorrhagic stroke with residual hemiparesis who presents the emergency room by ambulance from urgent care. She had had a complaint of left sided chest pain. Currently she was requiring some oxygen there and they were concerned for pulmonary embolism. Unable to obtain much other history from the patient. is not here yet Related Data Home Medications ?Medication ?Instructions ?Recorded ?Confirmed calcium carbonate 1,000 mg PO QAM 07/04/21 08/30/24 ferrous sulfate 325 mg (65 mg 325 mg PO QAM 07/04/21 08/30/24 iron) tablet (iron) vit C 250 mg-vit E 90 mg-zinc 40 1 tab PO BID 03/26/23 08/30/24 mg-copper 1 [id number] capsule (PreserVision AREDS-2) cholecalciferol (vitamin D3) 50 50 mcg PO DAILY 12/08/23 08/30/24 mcg (2,000 unit) tablet (Vitamin D3) aspirin 81 mg tablet,delayed 81 mg PO DAILY 08/30/24 08/30/24 release (Adult Aspirin Regimen) desmopressin 0.1 mg tablet 0.1 mg PO BID 08/30/24 08/30/24 levothyroxine 100 mcg tablet 100 mcg PO DAILY 08/30/24 08/30/24 metformin 500 mg tablet 1,000 mg PO BID 08/30/24 08/30/24 olanzapine 10 mg tablet 20 mg PO BEDTIME 08/30/24 08/30/24 omeprazole 40 mg capsule,delayed 40 mg PO DAILY 08/30/24 08/30/24 release sitagliptin phosphate 100 mg 100 mg PO DAILY 08/30/24 08/30/24 tablet (Januvia) Previous Rx's ?Medication ?Instructions ?Recorded blood-glucose meter (OneTouch #1 ea 05/28/22 Verio Meter) blood sugar diagnostic (OneTouch #100 ea 01/15/24 Verio test strips) lancets 31 gauge (Comfort Touch #100 ea 01/15/24 Ultra Thin Lancets) pen needle, diabetic 31 gauge x #100 ea 05/15/24 5/16 (Comfort EZ Pen [place]) escitalopram oxalate 20 mg tablet 30 mg (1.5 x 20 mg) PO QAM #150 05/18/24 tabs pravastatin 40 mg tablet 40 mg PO QPM #90 tabs 05/25/24 pen needle, diabetic 31 gauge x #100 ea 05/26/24 1/ (CareFine Pen Needle) insulin lispro 100 unit/mL 8 unit (0.08 mL) SUBCUT TID #15 mL 06/19/24 subcutaneous pen (Humalog KwikPen (U-100) Insulin) Allergies Allergy/AdvReac Type Severity Reaction Status Date / Time Penicillins Allergy ALGY-Hives Verified 08/19/24 07:14 propoxyphene (From Darvon) Allergy ALGY-Hives Verified 08/19/24 07:14 Review of Systems General: Reports: ROS unobtainable due to medical condition PFS ED PFSH: Medical History (Updated 08/30/24 @ 15:20 by Lori Dasilva MD) Hallucinations Moderate major depression Urge incontinence of urine Iron deficiency anemia GERD (gastroesophageal reflux disease) Aphasia as late effect of stroke Lewy body dementia Pituitary abnormality Osteoporosis Secondary adrenal insufficiency Pituitary Cushings syndrome Type 2 diabetes mellitus, without long-term current use of insulin JACEK (obstructive sleep apnea) Aphasia Family history of aneurysm of blood vessel of brain History of hemorrhagic stroke with residual hemiparesis 1995 Surgical History History of colonoscopy History of hysterectomy History of pituitary surgery History of brain shunt Family History Father Prostate cancer Hyperlipidemia Grandfather Diabetes Mother Hyperlipidemia Other Dementia Denies family history of Colon cancer Ovarian cancer CAD (coronary artery disease) Clotting disorder Heart disease Psychiatric illness Chronic kidney disease (CKD) Breast cancer Suicide Anesthesia complication Bleeding disorder Family history of premature coronary artery disease Lung disease Hypertension Uterine cancer Thyroid disease Stroke Social History Smoking and tobacco/nicotine status: never used tobacco/nicotine Physical Exam Narrative: EXAM NARRATIVE: General: Alert, no acute distress. Skin: Warm, dry. Head: Normocephalic, atraumatic. Neck: Supple, trachea midline. Eye: Extraocular movements are intact. Ears, nose, mouth and throat: mucosa moist. Cardiovascular: Regular, Normal peripheral perfusion. Respiratory: Lungs are clear to auscultation, respirations are non-labored, breath sounds are equal, Symmetrical chest wall expansion. Gastrointestinal: Soft, Nontender, Non distended Musculoskeletal: Normal ROM, no deformity. Neurological: Patient is oriented to her only, No focal neurological deficit observed. Psychiatric: Cooperative Course Vital Signs: Vital signs: Vital Signs Temperature 98.4 F 08/30/24 12:21 Pulse Rate 83 08/30/24 13:08 Respiratory Rate 20 H 08/30/24 13:08 Blood Pressure 133/78 08/30/24 13:08 Pulse Oximetry 92 08/30/24 13:08 Oxygen Delivery Me thod Room Air 08/30/24 13:08 MDM - Chest Pain Medical Decision Making Differential diagnosis for patient with chest pain includes but is not limited to and based on the above HPI, review of systems and physical exam: Pneumonia. unstable angina. angina. Acute coronary syndrome / SD. Pulmonary embolism. Costochondritis / musculoskeletal. Pleurisy. Pericarditis. Esophageal spasm. Pancreatis. Cholecystitis. Orders placed to evaluate differential diagnosis based on the above differential, HPI and physical exam EKG: Time 1225. Rate 85. Normal sinus rhythm, No ST-T changes, no ectopy, normal MN & QRS intervals, This was reviewed and interpreted by myself the ER physician at 1230 Chest x-ray: No acute process. No infiltrate. No pneumothorax. Films were interpreted by myself the emergency room provider and pending final radiology review. Lab Review: Laboratory results were reviewed and interpreted by myself the emergency room physician. No leukocytosis. Severe anemia with a hemoglobin of 4.6. BUN and creatinine are normal at 17 and 0.6. Liver enzymes are normal. Bilirubin is normal. All of this would indicate that if she has had an upper GI bleed it would have been somewhat remote and with the bili being normal she is likely not hemolyzing actively. I have added anemia studies. I reviewed the patient's medical record. 83-year-old female with a history of Lewy body dementia, depression, aphasia secondary to a previous CVA, type 2 diabetes, obstructive sleep apnea and a hemorrhagic stroke with residual hemiparesis Reexamination: I spoke with the once he arrived. He says the patient has not had any dark stools that he knows of. He tells me that what happened overnight was she woke up several times in with complaint of chest pain going into her arm and he would check her heart rate with a monitor and it showed that it was irregular. Her only anticoagulation is a baby aspirin. Consultation: I spoke with Dr. Nguyen who is on-call for the hospital service who agrees to admission. Assessment and plan: Anemia Chest pain ?Type and screen, 2 units PRBCs. ?IV Protonix. -I discussed the patient with the hospitalist on-call who is admitting the patient. - Discussed findings and plan with patient. Answered any questions. - All laboratory values were reviewed and interpreted personally by myself, the ER physician - All imaging was reviewed and interpreted personally by myself, the ER physician. - Evaluation and treatment of this problem were appropriate in the emergency setting Lab Data 08/30/24 12:45 08/30/24 12:45 Laboratory Results WBC 3.95 10^3/uL (3.29-11.43) 08/30/24 12:45 RBC 2.27 10^6/uL (3.85-5.65) L 08/30/24 12:45 Hgb 4.60 g/dL (11.27-16.99) L* 08/30/24 12:45 Hct 19.0 % (36-47) L* 08/30/24 12:45 MCV 83.7 fl (85-98) L 08/30/24 12:45 MCH 20.3 pg (27-33) L 08/30/24 12:45 MCHC 24.2 g/dL (30-55) L 08/30/24 12:45 RDW 21.4 % (12.1-15.1) H 08/30/24 12:45 Plt Count 115 10^3/cmm (157-399) L 08/30/24 12:45 MPV 10.2 fL (7.4-10.4) 08/30/24 12:45 Neut % (Auto) 67.6 % 08/30/24 12:45 Lymph % (Auto) 22.3 % 08/30/24 12:45 [place] % (Auto) 6.8 % 08/30/24 12:45 Eos % (Auto) 2.5 % 08/30/24 12:45 Baso % (Auto) 0.3 % 08/30/24 12:45 Reticulocyte % (Auto) 3.3 % (0.5-2.0) H 08/30/24 12:45 Neut # (Auto) 2.67 10^3/uL (1.8-7.7) 08/30/24 12:45 Lymph # (Auto) 0.9 10^3/uL (0.8-4.8) 08/30/24 12:45 [place] # (Auto) 0.3 10^3/uL (0.2-0.9) 08/30/24 12:45 Eos # (Auto) 0.1 10^3/uL (0.0-0.8) 08/30/24 12:45 Baso # (Auto) 0.0 10^3/uL (0.0-0.1) 08/30/24 12:45 Nucleated RBC % (auto) 0 % 08/30/24 12:45 Nucleated RBCs # 0.0 /100WBC 08/30/24 12:45 Haptoglobin 104.0 mg/L (30-200) 08/30/24 12:45 Specimen Type Arterial 08/30/24 12:45 Sample Site Brachial, right 08/30/24 12:45 ABG pH 7.40 (7.35-7.45) 08/30/24 12:45 ABG pCO2 44.8 mmHg (35-45) 08/30/24 12:45 ABG pO2 68.0 mmHg (80.0-100.0) L 08/30/24 12:45 ABG PO2/FiO2 Ratio 323 08/30/24 12:45 ABG HCO3 27.4 mmol/L (22-26) H 08/30/24 12:45 ABG O2 Saturation 94.5 08/30/24 12:45 ABG Base Excess 2.4 mmol/L (-2.0-2.0) H 08/30/24 12:45 Jimmie Test N/a 08/30/24 12:45 A-a O2 Gradient 3.5 mmHg (5-10) L 08/30/24 12:45 Hematocrit 14.6 % (37-47) L 08/30/24 12:45 Hgb O2 Saturation 90.6 % (95-100) L 08/30/24 12:45 Carboxyhemoglobin 2.8 %THgb (0.4-20.1) 08/30/24 12:45 Methemoglobin 1.2 % (0.4-1.5) 08/30/24 12:45 Total Hemoglobin < 5.0 g/dL (12-16) L 08/30/24 12:45 Sodium 143.0 mmol/L (131-143) 08/30/24 12:45 Potassium 4.1 mmol/L (3.5-5.0) 08/30/24 12:45 Glucose 163.0 mg/dL (70-115) H 08/30/24 12:45 Ionized Calcium 1.1 mmol/L (1.1-1.4) 08/30/24 12:45 O2 Delivery Device Room air 08/30/24 12:45 FiO2 21.0 % 08/30/24 12:45 Automation Manager ID [email or web address] 08/30/24 12:45 Sodium 142 mmol/L (136-145) 08/30/24 12:45 Potassium 4.4 mmol/L (3.5-5.1) 08/30/24 12:45 Chloride 101 mmol/L (98-107) 08/30/24 12:45 Carbon Dioxide 25 mmol/L (22-29) 08/30/24 12:45 Anion Gap 20.4 (5-19) H 08/30/24 12:45 BUN 17 mg/dL (8-23) 08/30/24 12:45 Creatinine 0.6 mg/dL (0.5-0.9) 08/30/24 12:45 GFR Calculation Not Reportable 08/30/24 12:45 Glucose 151 mg/dL (65-115) H 08/30/24 12:45 Calculated Osmolality 298 mOsm/kg (285-295) H 08/30/24 12:45 Lactic Acid 4.2 mmol/L (0.5-2.2) H* 08/30/24 12:45 Calcium 8.5 mg/dL (8.5-10.5) 08/30/24 12:45 Iron 16 ug/dL (37-145) L 08/30/24 12:45 TIBC 381 mcg/dl 08/30/24 12:45 % Saturation 4.1 % (20-50) L 08/30/24 12:45 Unsat Iron Binding 365 ug/dL (112-347) H 08/30/24 12:45 Ferritin 8 ng/mL (15-150) L 08/30/24 12:45 Total Bilirubin 0.5 mg/dL (0.15-1.2) 08/30/24 12:45 AST 21 U/L (0-32) 08/30/24 12:45 ALT 12 U/L (0-33) 08/30/24 12:45 Alkaline Phosphatase 41 U/L (35-105) 08/30/24 12:45 Lactate Dehydrogenase 202 U/L (135-214) 08/30/24 12:45 Troponin T Baseline 17 ng/L (0-10) H 08/30/24 12:45 NT-Pro-B Natriuret Pep 797 pg/mL (0-450) H 08/30/24 12:45 Total Protein 6.5 g/dL (6.6-8.7) L 08/30/24 12:45 Albumin 3.9 g/dL (3.5-5.2) 08/30/24 12:45 Globulin 2.6 g/dL (1.3-4.6) 08/30/24 12:45 Vitamin B12 667 pg/mL (232-1245) 08/30/24 12:45 Blood Type A Negative 08/30/24 13:55 Rho(D) Type Rh negative 08/30/24 13:55 Antibody Screen Negative 08/30/24 13:55 Crossmatch See Detail 08/30/24 13:55 XR interpretation done by ED provider, pending radiology final review Discharge Plan Discharge Patient Disposition: Admitted As Inpatient Clinical Impression: Anemia, Chest pain Condition: Stable Coding Level of Care Code ED Video Library Assistant for Hoda Redman
[2024-08-30 13:13] LABS: Troponin(5th) Baseline 17 ng/L (0-10)
[2024-08-30 13:23] LABS: Alanine Aminotransferase 12 U/L (0-33); Albumin Level 3.9 g/dL (3.5-5.2); Alkaline Phosphatase 41 U/L (35-105); Anion Gap 20.4 (5-19); Aspartate Amino Transferase 21 U/L (0-32); Blood Urea Nitrogen 17 mg/dL (8-23); Calcium 8.5 mg/dL (8.5-10.5); Carbon Dioxide 25 mmol/L (22-29); Chloride 101 mmol/L (98-107); Creatinine Clr Calc Pharmacy 61.7991; Globulin 2.6 g/dL (1.3-4.6); Glucose 151 mg/dL (65-115); NT Pro B Type Natriuretic Pept 797 pg/mL (0-450); Osmolality Calculated 298 mOsm/kg (285-295); Potassium 4.4 mmol/L (3.5-5.1); Sodium 142 mmol/L (136-145); Total Protein 6.5 g/dL (6.6-8.7)
[2024-08-30 13:39] LABS: Hemoglobin 4.60 g/dL (11.27-16.99)
[2024-08-30 13:40] LABS: Hematocrit 19.0 % (36-47); Lactic Sepsis W/Reflex 4.2 mmol/L (0.5-2.2)
--- NOTE | 2024-08-30 13:54 | PC.PHAR ---
Spouse states he has stopped pts' insulin and Januvia due to low bs readings below 40.
[2024-08-30 14:26] LABS: Ferritin 8 ng/mL (15-150); Iron 16 ug/dL (37-145); Total Iron Binding Capacity 381 mcg/dl; Unsaturated Iron Binding 365 ug/dL (112-347)
[2024-08-30 14:40] LABS: Reflex Lactate Order REFLEX LACTIC ORDERD; Vitamin B12 667 pg/mL (232-1245)
--- NOTE | 2024-08-30 15:06 | CTR_ITS ---
PROCEDURE INFORMATION: Exam: CT Abdomen And Pelvis With Contrast Exam date and time: 08/30/2024 4:57 PM Age: 83 years old Clinical indication: Other: Anemia, abdominal distention; Iv went bad contrast in arm; Additional info: Anemia, abdominal distentio TECHNIQUE: Imaging protocol: Computed tomography of the abdomen and pelvis with contrast. Radiation optimization: All CT scans at this facility use at least one of these dose optimization techniques: automated exposure control; mA and/or kV adjustment per patient size (includes targeted exams where dose is matched to clinical indication); or iterative reconstruction. Contrast material: OMNI 350; Contrast volume: 100 ml; Contrast route: INTRAVENOUS (IV); COMPARISON: CR XR KUB portable [id number] 12/09/2023 11:21 AM RADIATION DOSE METRICS: Total DLP (mGy-cm): 928.63 FINDINGS: Tubes, catheters and devices: A MATERIAL STRESS TESTER shunt is noted in the upper abdomen. Lungs: Lung bases are clear. No pleural effusion. Pleural spaces: Small bilateral pleural effusions are noted. Heart: Mild cardiomegaly is noted along with a tiny pericardial effusion. Liver: There is evidence of hepatic cirrhosis and a 4.5 cm rounded solid nodule lies within the posterior segment of the right hepatic lobe. Gallbladder and biliary ducts: Multiple gallstones are noted in the gallbladder but the gallbladder does not appear inflamed and demonstrates normal wall thickness. Pancreas: Normal. No ductal dilation. Spleen: Moderate splenomegaly is noted. Adrenal glands: Normal. No mass. Kidneys and ureters: Normal. No hydronephrosis. Stomach and bowel: Unremarkable. No obstruction. No mucosal thickening. Appendix: No evidence of appendicitis. Intraperitoneal space: Mild ascites is noted throughout the abdomen and pelvis. Vasculature: Unremarkable. No abdominal aortic aneurysm. Lymph nodes: Multiple enlarged lymph nodes are noted throughout the periaortic space of the abdomen. The largest node measures 2.6 cm in diameter. Urinary bladder: Unremarkable as visualized. Reproductive: Unremarkable as visualized. Bones/joints: Unremarkable. No acute fracture. Soft tissues: Diffuse body wall edema is noted. CT/CT abdomen pelvis w con* [id number] IMPRESSION: 1. Hepatic cirrhosis with 4.5 cm hepatic nodule suspicious for primary hepatic neoplasm. Further workup with MRI is needed. 2. Moderate ascites with splenomegaly 3. Cardiomegaly with small pleural effusions 4. Cholelithiasis 5. Periaortic adenopathy raising some suspicion for metastatic disease
--- NOTE | 2024-08-30 15:16 | PM.HP ---
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 Currently patient is alert to person, to place, not to time she can follow commands, most of the history was provided by at bedside, who tells me that she has been feeling weak recently she had a fall a few days ago, no significant head trauma, she has had some near misses, near falls, today, she had episode of left-sided chest pain radiating down left arm, she did have breakfast this morning, she presented to urgent care who sent her to [facility], she does report shortness of breath, does have abdominal distention, no diarrhea, no bloody black stools no history of blood transfusions, no history of iron fusions,, cannot remember if she has ever had a EGD or colonoscopy, Review of Systems Const: Reports: fatigue and malaise; Denies: fever(s) or chills Card: Reports: chest pain Resp: Denies: non-productive cough GI: Reports: abdominal pain : Denies: flank pain Medications/Allergies Home Medications ?Medication ?Instructions ?Recorded ?Confirmed ?Last Taken ?Type calcium carbonate 1,000 mg PO QAM 07/04/21 08/30/24 08/30/24 History ferrous sulfate 325 mg (65 mg 325 mg PO QAM 07/04/21 08/30/24 12/07/23 10:00 History iron) tablet (iron) blood-glucose meter ([place]u [place] #1 ea 05/28/22 08/30/24 Unknown Rx Verio Meter) vit C 250 mg-vit E 90 mg-zinc 40 1 tab PO BID 03/26/23 08/30/24 08/30/24 History mg-copper 1 [id number] capsule (PreserVision AREDS-2) cholecalciferol (vitamin D3) 50 50 mcg PO DAILY 12/08/23 08/30/24 08/30/24 History mcg (2,000 unit) tablet (Vitamin D3) blood sugar diagnostic (OneTouch #100 ea 01/15/24 08/30/24 Unknown Rx Verio test strips) lancets 31 gauge (Comfort Touch #100 ea 01/15/24 08/30/24 Unknown Rx Ultra Thin Lancets) pen needle, diabetic 31 gauge x #100 ea 05/15/24 08/30/24 Unknown Rx 5/16 (Comfort EZ Pen [place]) escitalopram oxalate 20 mg tablet 30 mg (1.5 x 20 mg) PO QAM #150 05/18/24 08/30/24 08/30/24 Rx tabs pravastatin 40 mg tablet 40 mg PO QPM #90 tabs 05/25/24 08/30/24 08/28/24 Rx pen needle, diabetic 31 gauge x #100 ea 05/26/24 08/30/24 Unknown Rx 1/ (CareFine Pen Needle) insulin lispro 100 unit/mL 8 unit (0.08 mL) SUBCUT TID #15 mL 06/19/24 08/30/24 1 Month Ago Rx subcutaneous pen (Humalog KwikPen ~07/31/24 (U-100) Insulin) aspirin 81 mg tablet,delayed 81 mg PO DAILY 08/30/24 08/30/24 08/30/24 History release (Adult Aspirin Regimen) desmopressin 0.1 mg tablet 0.1 mg PO BID 08/30/24 08/30/24 08/30/24 History levothyroxine 100 mcg tablet 100 mcg PO DAILY 08/30/24 08/30/24 08/30/24 History metformin 500 mg tablet 1,000 mg PO BID 08/30/24 08/30/24 08/30/24 History olanzapine 10 mg tablet 20 mg PO BEDTIME 08/30/24 08/30/24 08/29/24 History omeprazole 40 mg capsule,delayed 40 mg PO DAILY 08/30/24 08/30/24 08/30/24 History release sitagliptin phosphate 100 mg 100 mg PO DAILY 08/30/24 08/30/24 Unknown History tablet (Januvia) Allergies Allergy/AdvReac Type Severity Reaction Status Date / Time Penicillins Allergy ALGY-Hives Verified 08/19/24 07:14 propoxyphene (From Darvon) Allergy ALGY-Hives Verified 08/19/24 07:14 PFSH Acute PFSH: Medical History Hallucinations Moderate major depression Urge incontinence of urine Iron deficiency anemia GERD (gastroesophageal reflux disease) Aphasia as late effect of stroke Lewy body dementia Pituitary abnormality Osteoporosis Secondary adrenal insufficiency Pituitary Cushings syndrome Type 2 diabetes mellitus, without long-term current use of insulin JACEK (obstructive sleep apnea) Aphasia Family history of aneurysm of blood vessel of brain History of hemorrhagic stroke with residual hemiparesis 1995 Surgical History History of colonoscopy History of hysterectomy History of pituitary surgery History of brain shunt Family History Father Prostate cancer Hyperlipidemia Grandfather Diabetes Mother Hyperlipidemia Other Dementia Denies family history of Colon cancer Ovarian cancer CAD (coronary artery disease) Clotting disorder Heart disease Psychiatric illness Chronic kidney disease (CKD) Breast cancer Suicide Anesthesia complication Bleeding disorder Family history of premature coronary artery disease Lung disease Hypertension Uterine cancer Thyroid disease Stroke Social History Smoking and tobacco/nicotine status: never used tobacco/nicotine Vitals/I&O/Wt Last Vital Signs Temp 98.4 F 08/30/24 12:21 Pulse 83 08/30/24 13:08 Resp 20 H 08/30/24 13:08 BP 133/78 08/30/24 13:08 Pulse Ox 92 08/30/24 13:08 O2 Del Method Room Air 08/30/24 13:08 Weight last 48 hrs Weight 85.049 kg Physical Exam Const: COMMON NORMALS: no acute distress ORIENTATION/CONSCIOUSNESS: Yes awake, Yes oriented to person and Yes oriented to place; not oriented to time OTHER: Has conjunctival pallor Stuttering speech, word finding difficulty, at times aphasia, reports chronic HENMT: COMMON NORMALS: normocephalic HEAD & SCALP: normocephalic Eye: COMMON NORMALS: Equal, round and reactive pupils present Neck/C-Spine: COMMON NORMALS: no JVD Resp: COMMON NORMALS: normal respiratory effort, No retractions and No use of accessory muscles AUSCULTATION: crackles and wheezes OTHER: Particularly left lung field Cardio: COMMON NORMALS: no JVD, regular rate, regular rhythm, S1 normal heart sound present and S2 normal heart sound present RATE: regular rate RHYTHM: regular rhythm HEART SOUNDS: S1 normal heart sound present and S2 normal heart sound present GI: OTHER: Abdomen is soft, slightly distended, no guarding, no rebound, rigidity, does have diffuse tenderness Extremity: COMMON NORMALS: no calf tenderness NARRATIVE EXTREMITY EXAM: Nonpitting edema Neuro: COMMON NORMALS: moves all extremities Data 08/30/24 12:45 08/30/24 12:45 Micro: Microbiology 08/30/24 12:47 Blood Culture - Preliminary Blood SPECIMEN COLLECTED 08/30/24 12:45 Blood Culture - Preliminary Blood SPECIMEN COLLECTED A&P Assessment and plan 1. Acute anemia: 2. Iron deficiency: 3. Type 2 diabetes mellitus, without long-term current use of insulin: 4. Anemia: 5. Pneumonia: 6. Thrombocytopenia: 7. Lactic acidosis: Plan: Left lower lobe pneumonia - Concern for left lower lobe pneumonia on chest x-ray - Rocephin - Azithromycin - Blood cultures -DuoNeb, budesonide - Inflammatory markers - Aspiration precaution, speech therapy eval left-sided chest pain - Serial EKGs, serial troponins, telemetry monitoring Acute anemia - Concerns for iron deficiency anemia - Concerns for slow GI bleed - Reticulocyte count 3.3 Plan -Hemodynamically stable - No active GI bleed, or bloody black stools - Protonix - Carafate - Order placed for 3 units PRBC -Monitor hemoglobin every 6 hours -Monitor hemodynamics - IV Venofer - Lasix order placed for between 2nd and 3rd unit of blood - Will keep on clear liquids for now - Plans on n.p.o. midnight for possible EGD tomorrow Type 2 diabetes mellitus, low-dose sliding scale History of CVA, history of Lewy body dementia - History of aphasia Lactic acidosis, likely multifactorial from acute anemia, left lower lobe pneumonia History of pituitary surgery, Lumberton's disease, on chronic prednisone -Diabetes insipidus- - Will stress dose steroids - Continue home prednisone, continue desmopressin DNR/DNI, spoke to patient's , he tells me that Precious and he have had multiple discussions, and it is her wish to be DNR/DNI SCDs for DVT prophylaxis PDMP PDMP Reviewed: Not Reviewed Attestations Medical Necessity Statement*: Patient requires hospitalization, inpatient, given the demands for left lower lobe pneumonia, left-sided chest pain, acute anemia, inpatient, greater than 2 midnights Diagnoses Acute anemia D64.9 Iron deficiency E61.1 Type 2 diabetes mellitus, without long-term current use of insulin E11.9 Anemia D64.9 Pneumonia J18.9 Thrombocytopenia D69.6 Lactic acidosis E87.20
[2024-08-30 15:33] LABS: Lactic Acid level (Lactate) 3.8 mmol/L (0.5-2.2)
[2024-08-30 15:34] LABS: Troponin 5 2HR 16.19 ng/L (0-10); Troponin 5 2HR Delta -0.81 ABS# (0-10)
[2024-08-30 16:28] LABS: INR 1.35 (0.8-1.2); Prothrombin Time 17.60 SECONDS (12.1-14.9)
[2024-08-30 16:29] LABS: Partial Thromboplastin Time 25.2 SECONDS (23.9-36.7)
--- NOTE | 2024-08-30 16:50 | ECG_ITS ---
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 Measurements Intervals [place] Rate: 81 P: 70 ID: [id number] QRS: -72 QRSD: 104 T: 61 QT: 405 QTc: 471 Interpretive Statements SINUS RHYTHM LEFT AXIS DEVIATION [QRS AXIS < -30] LOW QRS VOLTAGE IN PRECORDIAL LEADS [QRS DEFLECTION < 1.0 mV IN CHEST LEADS] ANTEROSEPTAL MYOCARDIAL INFARCTION , PROBABLY OLD [40+ ms Q WAVE IN V1-V4] Compared to ECG 08/30/2024 12:25:14 Sinus arrhythmia no longer present Myocardial infarct finding still present Electronically Signed On 09-02-2024 00:28:57 CDT by Rio Wheatley M.D. [email or web address]
--- NOTE | 2024-08-30 18:21 | ECG_ITS ---
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 Measurements Intervals [place] Rate: 80 P: 64 CO: 168 QRS: -57 QRSD: 109 T: 69 QT: 426 QTc: 492 Interpretive Statements SINUS RHYTHM LOW QRS VOLTAGE IN PRECORDIAL LEADS [QRS DEFLECTION < 1.0 mV IN CHEST LEADS] INCOMPLETE RIGHT BUNDLE BRANCH BLOCK [90+ ms QRS DURATION, TERMINAL R IN V1/V2, 40+ ms S IN I/aVL/V4/V5/V6] LEFT ANTERIOR FASCICULAR BLOCK [QRS AXIS <= -45, QR IN I, RS IN II] ANTEROSEPTAL MYOCARDIAL INFARCTION , OF INDETERMINATE AGE [40+ ms Q WAVE IN V1-V4] Compared to ECG 08/30/2024 16:50:39 Incomplete right bundle-branch block now present Left anterior fascicular block now present Left-axis deviation no longer present Myocardial infarct finding still present Electronically Signed On 09-02-2024 00:27:57 CDT by Rio Wheatley M.D. [email or web address]
[2024-08-30 19:06] LABS: Cancer Antigen 19 9 11.38 U/mL (0-35); Thyroid Stimulating Hormone 2.89 uIU/mL (0.27-4.20)
[2024-08-30 20:05] LABS: Troponin 5 6HR 17.10 ng/L (0-10); Troponin 5 6HR Delta 0.10 ng/L (0-12)
[2024-08-30] MEDS: sucralfate 1 gm/10 mL Oral Liq UDC PO (20:34)
[2024-08-30] MEDS: ATORVASTATIN 10 MG TABLET 20 MG PO (20:34)
[2024-08-30 20:49] LABS: Hepatitis B Surface Antigen Non-Reactive (Nonreactive)
[2024-08-30 20:50] LABS: Tumor Marker Alpha Fetoprotein 6.8 ng/mL (0-8.3)
[2024-08-30] MEDS: FUROsemide 10 mg/mL SDV 2mL 20 MG IVP (21:21)
[2024-08-30] MEDS: hydrocortisone 100 mg/2 mL SDV 50 MG IVP (21:23)
[2024-08-30] MEDS: iron sucrose 200 MG in sodium chloride 0.9% (100 ml) 100 ML 220 MG IV (21:25)
[2024-08-30] MEDS: cefTRIAXone 1,000 mg SDV 1000 MG IVP (21:32)
[2024-08-30 22:54] LABS: Add Urine Microscopic? YES; Glucose Urine UA Negative (Normal); Nitrate Urine Positive (Negative); Specific Gravity, Urine 1.012 (1.005-1.030)
[2024-08-30 23:22] LABS: Hematocrit 20.5 % (36-47); Hemoglobin 5.50 g/dL (11.27-16.99)
--- NOTE | 2024-08-30 23:26 | PC.NURSE ---
pt to receive another unit of blood that is already ordered.
[2024-08-31] VITALS (23 sets, daily range): BP systolic 114–165; BP diastolic 60–90; PULSE 76–95; RESP 16–19; TEMP 36.3–36.8; O2SAT 90–97
[2024-08-31] MEDS: FUROsemide 10 mg/mL SDV 2mL 20 MG IVP (03:05)
[2024-08-31] MEDS: pantoprazole 40 mg SDV IVP ×2 (05:23→17:50)
[2024-08-31 05:28] LABS: Hematocrit 24.6 % (36-47); Hemoglobin 6.90 g/dL (11.27-16.99); Mean Corpuscular HGB Conc 28.0 g/dL (30-55); Mean Corpuscular Hemoglobin 23.3 pg (27-33); Mean Corpuscular Volume 83.1 fl (85-98); Nucleated Red Blood Cells % 0.5 %; Platelet Count 125 10^3/cmm (157-399); Red Blood Count 2.96 10^6/uL (3.85-5.65); White Blood Count 4.28 10^3/uL (3.29-11.43)
[2024-08-31 05:49] LABS: Alanine Aminotransferase 12 U/L (0-33); Albumin Level 3.8 g/dL (3.5-5.2); Alkaline Phosphatase 43 U/L (35-105); Anion Gap 15.7 (5-19); Aspartate Amino Transferase 21 U/L (0-32); Blood Urea Nitrogen 13 mg/dL (8-23); Calcium 8.3 mg/dL (8.5-10.5); Carbon Dioxide 30 mmol/L (22-29); Chloride 101 mmol/L (98-107); Creatinine Clr Calc Pharmacy 61.7831; Globulin 2.9 g/dL (1.3-4.6); Glucose 165 mg/dL (65-115); Magnesium 1.9 mg/dL (1.7-2.3); Osmolality Calculated 300 mOsm/kg (285-295); Potassium 3.7 mmol/L (3.5-5.1); Sodium 143 mmol/L (136-145); Total Protein 6.7 g/dL (6.6-8.7)
[2024-08-31] MEDS: sucralfate 1 gm/10 mL Oral Liq UDC PO ×4 (07:01→20:57)
--- NOTE | 2024-08-31 08:12 | USCV_ITS ---
Precious Ruiz Age: 83 Gender: F : 1940 Exam Date: 08/31/2024 08:47 Ordering Phys: Gus Nguyen MD Technologist: Exam [place] [facility] [place]: cp sob BP: 120 / 70 HR: 80 Rhythm: Sinus Technical Quality: Adequate MEASUREMENTS (Male / Female) Normal Values 2D ECHO LV Diastolic Diameter PLAX 5.7 cm 4.2 - 5.9 / 3.9 - 5.3 cm IVS Diastolic Thickness 1.6 cm 0.6 - 1.0 / 0.6 - 0.9 cm IVS Systolic Thickness 1.7 cm LVPW Diastolic Thickness 1.6 cm 0.6 - 1.0 / 0.6 - 0.9 cm LVPW Systolic Thickness 1.2 cm LVOT Diameter 2.1 cm LV Ejection Fraction 2D Teich 66.6 % LV Ejection Fraction MOD 4C 66.1 % LV Ejection Fraction MOD 2C 68.1 % LV Ejection Fraction 2C AL 68.9 % LA Diameter 4.1 cm RA Systolic Volume 4C AL 41.9 ml RA Systolic Volume 4C MOD 39.4 ml IVC Diameter 1.7 cm M-MODE LA Ao Ratio MM 1.6 AV Cusp Separation MM 1.7 cm DOPPLER AV Peak Velocity 292.3 cm/s LVOT Peak Velocity 103.0 cm/s AV Area Cont Eq vti 1.3 cm squared AV Area Cont Eq pk 1.2 cm squared MV Peak Velocity 164.0 cm/s MV Area PHT 5.7 cm squared Mitral E to A Ratio 1.1 TV Peak Velocity 319.5 cm/s TR Peak Velocity 353.0 cm/s TR Peak Gradient 49.8 mmHg TV Peak E Velocity 87.0 cm/s PV Peak Velocity 136.0 cm/s FINDINGS Left Ventricle Normal left ventricular size and systolic function, EF 66%.mild left ventricular hypertrophy. No regional wall motion abnormalities. Grade II/IV diastolic dysfunction, moderately elevated filling pressures. Right Ventricle The right ventricle is normal in size and function. Right Atrium The right atrium is normal in size. Left Atrium Mildly increased left atrial size. Mitral Valve Mild mitral annular calcification. Mild-moderate mitral valve regurgitation. Aortic Valve Moderate aortic valve stenosis, CHRISTOPHER 1.3 cm squared. Moderate aortic valve calcification. The peak velocity was 2.99 m/s with a peak gradient of 36 and a mean gradient of 18 mmHg. Tricuspid Valve Mild tricuspid valve regurgitation. Pulmonic Valve Mild pulmonary valve regurgitation. Pericardium No pericardial effusion. Aorta Normal ascending aorta dimension. IVC Inferior vena cava not visualized. CONCLUSIONS Normal left ventricular size and systolic function, EF 66%.mild left ventricular hypertrophy. No regional wall motion abnormalities. Grade II/IV diastolic dysfunction, moderately elevated filling pressures. Mildly increased left atrial size. Mild mitral annular calcification. Mild-moderate mitral valve regurgitation. Moderate aortic valve stenosis, CHRISTOPHER 1.3 cm squared. Moderate aortic valve calcification. The peak velocity was 2.99 m/s with a peak gradient of 36 and a mean gradient of 18 mmHg. Mild tricuspid valve regurgitation. Mild pulmonary valve regurgitation. There is no pericardial effusion. There are no intracardiac masses. Compared to the study from 12/08/2023, there may not be a significant change Dr Rio Wheatley MD [facility] (Electronically Signed) Final Date: 31 August 2024 12:40 S
--- NOTE | 2024-08-31 09:15 | PM.CONSULT ---
Providers/Reason For Consult Consulting Physician/Specialty*: dr kearns gen surg Reason for Consult*: GIB Attending Physician: Gus Nguyen MD Primary Care Provider: Zuri Castorena DO History of Present Illness History of Present Illness Precious Ruiz is a 83 year old female whom surgery was consulted for anemia. No melena/hematochezia. Medications/Allergies Home Medications ?Medication ?Instructions ?Recorded ?Confirmed ?Last Taken ?Type calcium carbonate 1,000 mg PO QAM 07/04/21 08/30/24 08/30/24 History ferrous sulfate 325 mg (65 mg 325 mg PO QAM 07/04/21 08/30/24 12/07/23 10:00 History iron) tablet (iron) blood-glucose meter (OneTouch #1 ea 05/28/22 08/30/24 Unknown Rx Verio Meter) vit C 250 mg-vit E 90 mg-zinc 40 1 tab PO BID 03/26/23 08/30/24 08/30/24 History mg-copper 1 [id number] capsule (PreserVision AREDS-2) cholecalciferol (vitamin D3) 50 50 mcg PO DAILY 12/08/23 08/30/24 08/30/24 History mcg (2,000 unit) tablet (Vitamin D3) blood sugar diagnostic (OneTouch #100 ea 01/15/24 08/30/24 Unknown Rx Verio test strips) lancets 31 gauge (Comfort Touch #100 ea 01/15/24 08/30/24 Unknown Rx Ultra Thin Lancets) pen needle, diabetic 31 gauge x #100 ea 05/15/24 08/30/24 Unknown Rx 5/16 (Comfort EZ Pen Stanton) escitalopram oxalate 20 mg tablet 30 mg (1.5 x 20 mg) PO QAM #150 05/18/24 08/30/24 08/30/24 Rx tabs pravastatin 40 mg tablet 40 mg PO QPM #90 tabs 05/25/24 08/30/24 08/28/24 Rx pen needle, diabetic 31 gauge x #100 ea 05/26/24 08/30/24 Unknown Rx 1/4 (CareFine Pen Needle) insulin lispro 100 unit/mL 8 unit (0.08 mL) SUBCUT TID #15 mL 06/19/24 08/30/24 1 Month Ago Rx subcutaneous pen (Humalog KwikPen ~07/31/24 (U-100) Insulin) aspirin 81 mg tablet,delayed 81 mg PO DAILY 08/30/24 08/30/24 08/30/24 History release (Adult Aspirin Regimen) desmopressin 0.1 mg tablet 0.1 mg PO BID 08/30/24 08/30/24 08/30/24 History levothyroxine 100 mcg tablet 100 mcg PO DAILY 08/30/24 08/30/24 08/30/24 History metformin 500 mg tablet 1,000 mg PO BID 08/30/24 08/30/24 08/30/24 History olanzapine 10 mg tablet 20 mg PO BEDTIME 08/30/24 08/30/24 08/29/24 History omeprazole 40 mg capsule,delayed 40 mg PO DAILY 08/30/24 08/30/24 08/30/24 History release sitagliptin phosphate 100 mg 100 mg PO DAILY 08/30/24 08/30/24 Unknown History tablet (Januvia) Allergies Allergy/AdvReac Type Severity Reaction Status Date / Time Penicillins Allergy ALGY-Hives Verified 08/19/24 07:14 propoxyphene (From Darvon) Allergy ALGY-Hives Verified 08/19/24 07:14 Current Medications Generic Name Dose Route Start Last Admin Trade Name Jhoana PRN Reason Stop Dose Admin Albuterol/Ipratropium 3 ml 08/30/24 18:07 08/31/24 08:11 Ipratropium-Albuterol 3 Ml Neb INHALATION 3 ml QID.RESPIRATORY ALEX Administration Atorvastatin Calcium 20 mg 08/30/24 18:45 08/30/24 20:34 Atorvastatin 10 Mg Tablet PO 20 mg QPM ALEX Administration Budesonide 0.5 mg 08/30/24 20:00 08/31/24 08:10 Budesonide 0.5 Mg/2 Ml Neb INHALATION 0.5 mg BID.RESPIRATORY ALEX Administration Ceftriaxone Sodium 1,000 mg 08/30/24 19:00 08/30/24 21:32 Ceftriaxone 1,000 Mg Sdv IVP 1,000 mg Q24H ALEX Administration Protocol Desmopressin Acetate 0.1 mg 08/30/24 18:45 08/30/24 23:19 Desmopressin 0.2 Mg Tablet PO Not Given BID ALEX Iron Sucrose 200 mg/ Sodium 110 mls @ 220 mls/hr 08/30/24 16:00 08/30/24 22:19 Chloride IV 09/03/24 16:29 Infused Q24H ALEX Infusion Azithromycin 500 mg/ Sodium 250 mls @ 250 mls/hr 08/30/24 19:00 08/30/24 23:14 Chloride IV Infused Q24H ALEX Infusion Protocol Insulin Human Lispro 0 unit 08/30/24 18:07 08/30/24 19:10 Insulin Lispro 100 Unit/1 Ml SUBCUT Not Given TIDWM LAEX Protocol Levothyroxine Sodium 100 mcg 08/31/24 06:00 08/31/24 05:22 Levothyroxine 100 Mcg Tablet PO 100 mcg DAILY@0600 ALEX Administration Olanzapine 20 mg 08/30/24 21:00 08/30/24 20:34 Olanzapine 10 Mg Tablet PO 20 mg BEDTIME ALEX Administration Pantoprazole Sodium 40 mg 08/31/24 06:00 08/31/24 05:23 Pantoprazole 40 Mg Sdv IVP 40 mg Q12H ALEX Administration Prednisone 3 mg 08/31/24 06:00 08/31/24 05:22 Prednisone 1 Mg Tablet PO 3 mg QAM ALEX Administration Sucralfate 1 gm 08/30/24 21:00 08/31/24 07:01 Sucralfate 1 Gm/10 Ml Oral Liq Udc PO 1 gm AC&BEDTIME ALEX Administration PFSH Acute PFSH: Medical History (Updated 08/31/24 @ 16:03 by Gus Nguyen MD) Hallucinations Moderate major depression Urge incontinence of urine Iron deficiency anemia GERD (gastroesophageal reflux disease) Aphasia as late effect of stroke Lewy body dementia Pituitary abnormality Osteoporosis Secondary adrenal insufficiency Pituitary Cushings syndrome Type 2 diabetes mellitus, without long-term current use of insulin JACEK (obstructive sleep apnea) Aphasia Family history of aneurysm of blood vessel of brain History of hemorrhagic stroke with residual hemiparesis 1995 Surgical History History of colonoscopy History of hysterectomy History of pituitary surgery History of brain shunt Family History Father Prostate cancer Hyperlipidemia Grandfather Diabetes Mother Hyperlipidemia Other Dementia Denies family history of Colon cancer Ovarian cancer CAD (coronary artery disease) Clotting disorder Heart disease Psychiatric illness Chronic kidney disease (CKD) Breast cancer Suicide Anesthesia complication Bleeding disorder Family history of premature coronary artery disease Lung disease Hypertension Uterine cancer Thyroid disease Stroke Social History Smoking and tobacco/nicotine status: never used tobacco/nicotine Vitals/I&O/Wt Last Vital Signs Temp 97.5 F L 08/31/24 08:21 Pulse 82 08/31/24 08:21 Resp 16 08/31/24 08:21 BP 120/70 08/31/24 08:21 Pulse Ox 97 08/31/24 08:05 O2 Del Method Nasal Cannula 08/31/24 08:05 O2 Flow Rate 3 08/31/24 08:05 08/30/24 08/31/24 08/31/24 22:59 06:59 14:59 Intake Total 110 / 110 600 / 710 Output Total 300 / 300 1674 / 1974 Balance -190 / -190 -1075 / -1265 Weight last 48 hrs Weight 187 lb 6.4 oz Weight 191 lb 9.6 oz Weight 187 lb 8 oz Physical Exam Narrative: rrr unlabored breathing ra abdomen soft, nt, nd Urinary Catheter Management: Guerrero: Cath Placed During This Visit: yes Reason for Continuing Indwelling Catheter: Other Urinary Catheter Date of Insertion: 08/31/24 Urinary Catheter Time of Insertion: 04:02 Data 09/02/24 05:40 09/02/24 05:40 Micro: Microbiology 08/30/24 12:47 Blood Culture - Preliminary Blood SPECIMEN COLLECTED 08/30/24 12:45 Blood Culture - Preliminary Blood SPECIMEN COLLECTED A&P Assessment and plan 1. Acute anemia: Plan: 83 yo female whom surgery was consulted for anemia. Will plan to scope after getting prep for colonoscopy part. PDMP PDMP Reviewed: Not Reviewed Coding Level of Care Code 26191 Diagnoses Acute anemia D64.9
[2024-08-31 09:41] LABS: NT Pro B Type Natriuretic Pept 970 pg/mL (0-450)
--- NOTE | 2024-08-31 10:08 | PC.CHAP ---
Pastoral Care Encounter/Spiritual Assessment Type of Contact [] Declined mapper visit [] Patient/Family/Request visit [] Outpatient visit [] Follow-up visit [] Physician referral [] Code/Alert [] Routine visit [] Staff referral [] Actively dying [x] Patient sleeping [] Family support [] [] Out of room [] Palliative care [] [] Receiving care in room [] Pre-surgical visit [] Trauma [] Long length of stay [] ICU visit [] Other: Relational/Emotional Strength [] Patient feels connected with others/family/visitors/staff [] Distress [] Loneliness/isolation [] Abandonment Spirituality of Patient [] Person of Johana [] Attends Advent of their Johana [] Believes in Prayer [] Reads Bible or Confucianism materials [] There are Spiritual issues to be addressed Senior 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 Sales Consultant Interventions [] Prayer [] Active listening [] Non-anxious presence [] Spiritual/emotional support [] Crisis/trauma care [] Spiritual counseling [] Bereavement support [] Provided bereavement packet [] Provided Bible/devotional materials [] Provided toy/stuffed animal, coloring book to patient or family member [] Provided Communion [] Anointing/[place] [] Salvation [] Completed spiritual assessment [] Other: Impact on Illness or Injury [] Angry [] Fearful [] Anxious [] Often cries [] Exhaustion [] Unable to work [] Unable to attend muslim [] Unable to walk/stand [] Unable to read [] Unable to drive [] Unable to eat/drink [] Unable to sleep [] Unable to be with family [] Patient intubated [] Other: Summary Time spent with patient
--- NOTE | 2024-08-31 10:49 | PC.NURSE ---
Blood transfusion finished at 0945. Lab had an 0815 stat draw. It was retimed for 1200 due to transfusing.
[2024-08-31 11:11] LABS: Hepatitis A Antibody IgM Non-Reactive (Nonreactive)
--- NOTE | 2024-08-31 11:12 | XRR_ITS ---
PROCEDURE INFORMATION: Exam: XR Chest Exam date and time: 08/31/2024 12:51 PM Age: 83 years old Clinical indication: Shortness of breath; Additional info: SOB TECHNIQUE: Imaging protocol: Radiologic exam of the chest. Views: 1 view. COMPARISON: CR (CHEST, ) 08/30/2024 12:36 PM FINDINGS: Tubes, catheters and devices: A right-sided COMPOUNDING PHARMACY TECHNICIAN shunt is noted. Lungs: There has been a reduced inspiratory effort. Moderate increased density is noted in the left retrocardiac region. No other evidence for infiltrate. Pleural spaces: Slight left costophrenic angle blunting could represent a small amount of pleural fluid . Heart/Mediastinum: Cardiac silhouette enlargement is unchanged. The mediastinum is prominent, which likely relates to AP projection suboptimal lung inflation. Bones/joints: Unremarkable. XR/XR chest 1V portable [id number] IMPRESSION: 1. Left retrocardiac consolidation which could represent atelectasis or pneumonia. PA and lateral radiograph evaluation is recommended. 2. Cardiomegaly. 3. A small amount of left pleural fluid is likely.
--- NOTE | 2024-08-31 11:22 | PM.MISC ---
Miscellaneous Note Note: Full consult note to follow. Consulted to rule out GI bleed. No melena or hematochezia. Will plan for EGD and colonoscopy 09/01/2024. Prep ordered.
[2024-08-31 12:05] LABS: Hematocrit 27.6 % (36-47); Hemoglobin 8.10 g/dL (11.27-16.99); Mean Corpuscular HGB Conc 29.3 g/dL (30-55); Mean Corpuscular Hemoglobin 24.8 pg (27-33); Mean Corpuscular Volume 84.4 fl (85-98); Nucleated Red Blood Cells % 0.7 %; Platelet Count 127 10^3/cmm (157-399); Red Blood Count 3.27 10^6/uL (3.85-5.65); White Blood Count 5.79 10^3/uL (3.29-11.43)
[2024-08-31 12:26] LABS: Lactate (Lactic Acid level) 1.6 mmol/L (0.5-2.2)
[2024-08-31] MEDS: FUROsemide 10 mg/mL SDV 4mL 40 MG IVP ×2 (12:49→20:54)
[2024-08-31] MEDS: magnesium citrate Btl 296 mL 150 ML PO (12:50)
--- NOTE | 2024-08-31 15:57 | P.PN_ITS ---
Subjective 2 Subjective: - Patient was seen this morning, current ly alert oriented x 2, following all commands, she does report shortness of breath she is actively wheezing on 1 L, - at bedside - Her hemoglobin 6.9 she is receiving 1 more unit of PRBC - Denies any active bloody or black stoo ls - Discussed fluid overload after blood t herapy further doses of Lasix based on clinical progress, chest x-ray continue IV antibiotics, cardiac echo, patient's is in agreement - Discussed plans on EGD and colonoscopy will consult with general surgery - Discussed CT scan findings evidence of hepatic cirrhosis with a 4.5 cm hepatic nodule suspicious for primary hepatic neoplasm, with moderate ascites, splenomegaly, periaortic adenopathy - Discussed the possibility of malignanc y versus benign lesion versus hemangioma - Discussed outpatient follow-up with GI - Patient's tells me that she young d a liver biopsy many years ago had [facility] in [place], they said it was benign, but this was quite sometime ago, he is not sure if this is related or not -During my conversation with patient and patient's , she listens attentively, but has expressive speech difficulties after stroke, has Lewy body dementia she had no questions - Spoke to general surgery, Dr. Jay, plans on EGD and colonoscopy, bowel prep ordered - - Spoke to patient's this aftern oon, he tells me that patient had a colonoscopy a few years ago, he had issues with during the first turn/bend during colonoscopy, so they had to stop the procedure, she had to follow-up with the GI surgeon in [place] for colonoscopy and they had to use a pediatric scope - Discussed this with Dr. Jay, for no w colonoscopy will be canceled, will proceed with EGD tomorrow morning Vitals/I&O/Wt Last Vital Signs Temp 97.7 F 08/31/24 11:38 Pulse 76 08/31/24 15:56 Resp 16 08/31/24 15:56 BP 126/65 08/31/24 11:38 Pulse Ox 95 08/31/24 15:56 O2 Del Method Nasal Cannula 08/31/24 15:56 O2 Flow Rate 1 08/31/24 15:56 08/31/24 08/31/24 08/31/24 06:59 14:59 22:59 Intake Total 600 / 710 120 / 120 Output Total 1675 / 1975 1400 / 1400 Balance -1075 / -1265 120 / 120 -1400 / -1280 Weight last 48 hrs Weight 85.003 kg Weight 86.908 kg Weight 85.049 kg Physical Exam 2 Const: COMMON NORMALS: no acute distress ORIENTATION/CONSCIOUSNESS: Yes awake, Yes oriented to person and Yes oriented to place; not oriented to time Neck/C-Spine: COMMON NORMALS: no JVD Resp: COMMON NORMALS: normal respiratory effort, No retractions and No use of accessory muscles AUSCULTATION: crackles and wheezes Cardio: COMMON NORMALS: no JVD, regular rate, regular rhythm, S1 normal heart sound present and S2 normal heart sound present RATE: regular rate RHYTHM: regular rhythm HEART SOUNDS: S1 normal heart sound present and S2 normal heart sound present GI: COMMON NORMALS: Normal to inspection, nondistended, normoactive bowel sounds present and non-tender Extremity: COMMON NORMALS: no pedal edema Neuro: SENSORIUM/ORIENTATION: Yes oriented to person, Yes oriented to place and No oriented to time Psych: COMMON NORMALS: mental status grossly normal Urinary Catheter Management: Guerrero: Cath Placed During This Visit: yes Reason for Continuing Indwelling Catheter: Other Urinary Catheter Date of Insertion: 08/31/24 Urinary Catheter Time of Insertion: 04:02 Data 08/31/24 11:58 08/31/24 05:09 Micro: Microbiology 08/30/24 12:47 Blood Culture - Preliminary Blood NEGATIVE TO DATE 08/30/24 12:45 Blood Culture - Preliminary Blood NEGATIVE TO DATE A&P Assessment and plan 1. Acute anemia: 2. Iron deficiency: 3. Type 2 diabetes mellitus, without long-term current use of insulin: 4. Anemia: 5. Pneumonia: 6. Thrombocytopenia: 7. Lactic acidosis: 8. Diastolic CHF: Plan: Left lower lobe pneumonia - Concern for left lower lobe pneumonia on chest x-ray - Rocephin - Azithromycin - Blood cultures -DuoNeb, budesonide - Inflammatory markers - Aspiration precaution, speech therapy eval left-sided chest pain - Serial EKGs, serial troponins, telemetry monitoring CONCLUSIONS Normal left ventricular size and systolic function, EF 66%.mild left ventricular hypertrophy. No regional wall motion abnormalities. Grade II/IV diastolic dysfunction, moderately elevated filling pressures. Mildly increased left atrial size. Mild mitral annular calcification. Mild-moderate mitral valve regurgitation. Moderate aortic valve stenosis, CHRISTOPHER 1.3 cm squared. Moderate aortic valve calcification. The peak velocity was 2.99 m/s with a peak gradient of 36 and a mean gradient of 18 mmHg. Mild tricuspid valve regurgitation. Mild pulmonary valve regurgitation. There is no pericardial effusion. There are no intracardiac masses. Compared to the study from 12/08/2023, there may not be a significant change Acute anemia - Concerns for iron deficiency anemia - Concerns for slow GI bleed - Reticulocyte count 3.3 - Hemoglobin 6.9, requiring another unit of PRBC this morning Plan -Hemodynamically stable - No active GI bleed, or bloody black stools - Protonix - Carafate - Order placed for 3 units PRBC, completed, will be receiving fourth unit this morning -Monitor hemoglobin every 6 hours -Monitor hemodynamics - IV Venofer - Lasix order placed for between 2nd and 3rd unit of blood - Will keep on clear liquids for now - Plans on n.p.o. midnight for possible EGD tomorrow Diastolic CHF exacerbation - Wheezing in all lung hall - Lasix 40 IV twice daily Type 2 diabetes mellitus, low-dose sliding scale History of CVA, history of Lewy body dementia - History of aphasia Lactic acidosis, likely multifactorial from acute anemia, left lower lobe pneumonia History of pituitary surgery, Lakeshia's disease, on chronic prednisone -Diabetes insipidus- - Will stress dose steroids - Continue home prednisone, continue desmopressin DNR/DNI, spoke to patient's , he tells me that Precious and he have had multiple discussions, and it is her wish to be DNR/DNI SCDs for DVT prophylaxis Plan for today, IV Lasix twice daily IV antibiotics transfused 1 unit PRBC monitor hemoglobin, monitor hemodynamics monitor clinical status PDMP PDMP Reviewed: Not Reviewed Attestations 2 Medical Necessity Statement*: Patient requires hospitalization for pneumonia, fluid overload, acute anemia, proceeding with EGD Diagnoses Acute anemia D64.9 Iron deficiency E61.1 Type 2 diabetes mellitus, without long-term current use of insulin E11.9 Anemia D64.9 Pneumonia J18.9 Thrombocytopenia D69.6 Lactic acidosis E87.20 Diastolic CHF I50.30
[2024-08-31] MEDS: iron sucrose 200 MG in sodium chloride 0.9% (100 ml) 100 ML 220 MG IV (16:30)
[2024-08-31] MEDS: ATORVASTATIN 10 MG TABLET 20 MG PO (17:50)
--- NOTE | 2024-08-31 19:34 | PC.NURSE ---
Notified Dr. Nguyen of patients abdomen appears distended this afternoon. Dr. Nguyen stated it could be ascities just monitor.
[2024-08-31 19:57] LABS: Hematocrit 25.1 % (36-47); Hemoglobin 7.30 g/dL (11.27-16.99)
[2024-08-31] MEDS: cefTRIAXone 1,000 mg SDV 1000 MG IVP (20:53)
[2024-09-01] VITALS (17 sets, daily range): BP systolic 107–132; BP diastolic 59–70; PULSE 68–86; RESP 8–20; TEMP 36.5–36.8; O2SAT 92–97
[2024-09-01] MEDS: pantoprazole 40 mg SDV IVP (05:00)
[2024-09-01 08:36] LABS: Alanine Aminotransferase 11 U/L (0-33); Albumin Level 3.3 g/dL (3.5-5.2); Alkaline Phosphatase 39 U/L (35-105); Anion Gap 14.5 (5-19); Aspartate Amino Transferase 20 U/L (0-32); Blood Urea Nitrogen 9 mg/dL (8-23); Calcium 7.9 mg/dL (8.5-10.5); Carbon Dioxide 32 mmol/L (22-29); Chloride 102 mmol/L (98-107); Creatinine Clr Calc Pharmacy 61.0879; Globulin 2.7 g/dL (1.3-4.6); Glucose 124 mg/dL (65-115); Magnesium 2.0 mg/dL (1.7-2.3); Osmolality Calculated 300 mOsm/kg (285-295); Potassium 3.5 mmol/L (3.5-5.1); Sodium 145 mmol/L (136-145); Total Protein 6.0 g/dL (6.6-8.7)
--- NOTE | 2024-09-01 12:10 | CT_ITS ---
WS: [id number] CT HEAD TECHNIQUE: Noncontrast CT of the head obtained from the skullbase to the vertex. CLINICAL INFORMATION: ams COMPARISON: CT 2023 DLP: 944.[address] scans at [facility] use at least one of these dose optimization techniques: automated exposure control; mA and/or kV adjustment per patient size (includes targeted exams where dose is matched to clinical indication); or iterative reconstruction. FINDINGS: No evidence of intracranial hemorrhage or mass effect. Ventricular system and basal cisterns are patent. Advanced small vessel changes with mild parenchymal volume loss. Prior postoperative changes RIGHT frontotemporal craniotomy. RIGHT parietal shunt catheter with tip in the LEFT lateral ventricle appears stable. Ventricular size is unchanged. No hydrocephalus. Few small foci of fat attenuation along the falx likely small lipomas unchanged since 2021 Chronic encephalomalacia involving the LEFT frontal parietal and temporal lobes unchanged in appearance. Dense vascular calcification. Surgical aneurysm clips about the sella. Paranasal sinuses and mastoid air cells are well aerated. CT/CT head wo con* [id number] IMPRESSION: 1. No evidence of intracranial hemorrhage or mass effect. 2. No significant changes compared to previous
--- NOTE | 2024-09-01 12:11 | ECG_ITS ---
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 Measurements Intervals [place] Rate: 83 P: 32 MT: 163 QRS: -50 QRSD: 108 T: 74 QT: 408 QTc: 482 Interpretive Statements SINUS RHYTHM LOW QRS VOLTAGE IN PRECORDIAL LEADS [QRS DEFLECTION < 1.0 mV IN CHEST LEADS] LEFT ANTERIOR FASCICULAR BLOCK [QRS AXIS <= -45, QR IN I, RS IN II] ANTEROSEPTAL MYOCARDIAL INFARCTION , PROBABLY OLD [40+ ms Q WAVE IN V1-V4] Compared to ECG 08/30/2024 18:21:56 Incomplete right bundle-branch block no longer present Myocardial infarct finding still present Electronically Signed On 09-01-2024 14:57:55 CDT by Dusty French M.D. [email or web address]
[2024-09-01 12:15] LABS: ABG PH Result 7.32 (7.35-7.45); Alveolar-Arterial Oxygen Gradi 6.6 mmHg (5-10); Arterial Blood Gas Hematocrit 26.6 % (37-47); Blood Gas Allen Test Pos; Blood Gas LPM 2.0 %; Blood Gas Operator Identificat glc; Blood Gas Sample Site Radial, right; Blood Gas Sample Type Arterial; Carboxyhemoglobin 2.5 %THgb (0.4-20.1); Glucose Level-ABG 136.0 mg/dL (70-115); HCO3 ABG 32.1 mmol/L (22-26); Ionized Calcium Level - ABG 1.1 mmol/L (1.1-1.4); Methemoglobin 0.3 % (0.4-1.5); Oxygen Saturation ABG 93.7; PO2 ABG 72.3 mmHg (80.0-100.0); PO2 FiO2 Ratio Arterial Blood 258; Potassium Level - ABG 3.6 mmol/L (3.5-5.0); Sodium Level - ABG 147.0 mmol/L (131-143)
--- NOTE | 2024-09-01 12:18 | P.PN_ITS ---
Subjective 2 Subjective: No melena hematochezia Altered Vitals/I&O/Wt Last Vital Signs Temp 98.0 F 09/01/24 11:18 Pulse 77 09/01/24 11:18 Resp 15 09/01/24 11:18 BP 109/59 09/01/24 11:18 Pulse Ox 92 09/01/24 11:18 O2 Del Method Nasal Cannula 09/01/24 11:18 O2 Flow Rate 1 09/01/24 08:00 08/31/24 09/01/24 09/01/24 22:59 06:59 14:59 Intake Total 350 / 470 250 / 720 Output Total 2400 / 2400 300 / 2700 Balance -2049 / -1929 -50 / -1979 Weight last 48 hrs Weight 183 lb Weight 187 lb 6.4 oz Weight 191 lb 9.6 oz Weight 187 lb 8 oz Physical Exam 2 Narrative: Chest: Unlabored breathing room air. No lymphadenopathy. Heart: Regular rate and rhythm. Abdomen: Soft, nontender, nondistended. No masses or lymphadenopathy. Urinary Catheter Management: Guerrero: Cath Placed During This Visit: yes Reason for Continuing Indwelling Catheter: Other Urinary Catheter Date of Insertion: 08/31/24 Urinary Catheter Time of Insertion: 04:02 Data 08/31/24 19:43 09/01/24 08:06 Micro: Microbiology 08/31/24 21:52 Occult Blood (FIT) - Final Stool Routine Collection 08/30/24 12:47 Blood Culture - Preliminary Blood NEGATIVE TO DATE 08/30/24 12:45 Blood Culture - Preliminary Blood NEGATIVE TO DATE A&P Assessment and plan 1. Acute anemia: Plan: 83-year-old female consulted to rule out GI bleed. No clinical evidence of GI bleed. This morning she is altered. Holding off on scope for now. Will plan for 09/02/2024 tentatively. PDMP PDMP Reviewed: Not Reviewed Attestations 2 Medical Necessity Statement*: N/A Coding Level of Care Code 52176 Diagnoses Acute anemia D64.9
[2024-09-01] MEDS: levETIRAcetam 1,000 MG/100 ML PREMIX 400 MG IV (13:35)
[2024-09-01 14:28] LABS: ABG PCO2 63.1 mmHg (35-45)
--- NOTE | 2024-09-01 15:49 | PC.NURSE ---
Nursing students giving patient a bath getting ready for procedure later. One of the students comes out stating the patient is just shaking. This nurse went in, try to get the patient to respond. This nurse got the hardwood floor finisher which was right outside the door and the charge nurse. Dr. Nguyen was notified. Dr. Nguyen ordered an ABG. Patients vitals: BP 125/62, HR 90, 98% RA, Temp 98.3, Blood Sugar was 138. Dr. Nguyen did come to the room to check on the patient and ordered a Stat CT and an EKG.
--- NOTE | 2024-09-01 15:54 | PC.NURSE ---
NIH Stoke Scale cannot be completed due to patient sedated. Patient cannot participated at this time.
--- NOTE | 2024-09-01 17:37 | P.PN_ITS ---
Subjective 2 Subjective: - Patient was examined this morning, thi s morning she does awaken but easily falls back asleep, did not receive any sedating medications overnight except her Zyprexa and her Seroquel - Spoke to recently she was star hudson on Zyprexa 20 mg at bedtime to help with agitation, to allow her to sleep during the night, and prevent agitation during the day, tells me that she just started it, - Discussed possibility of polypharmacy as the etiology behind her encephalopathy will watch her throughout the morning there is plans on doing an EGD on her today for acute anemia her hemoglobin 7.3 I am waiting on her blood work this morning - Nursing staff at about noon time patricio d me to evaluate patient as patient is lethargic, she had an episode in which she started shaking and her eyes rolled backwards - Spoke to patient's , he is at [facility], he tells me that she had an episode in which she had diffuse shaking and her eyes rolled backwards, he is not sure if it is a seizure she has had a history of seizure when she had an intracranial bleed but this was many years ago she is never had any seizures since then she has never been on seizure medications - She does not take BuSpar anymore, she does not take Cymbalta anymore but she is on Lexapro - Discussed holding Zyprexa, holding Ser oquel until her mentation gets better - Precious does awaken with sternal rub, s he does awaken with her name but easily falls back asleep - ABG reveals hypercarbic respiratory fa ilure, hypercarbia, discussed with nursing staff placing patient on ABG - CT head ordered, -Discussed with the possibility of seizure episode, with her eyes rolling back or shaking episodes we will do a trial of Keppra -Discussed with the patient's an d the review mortality associate with underlying condition, he voices understanding, all questions answered. Certainly agrees to proceed with medical interventions for now -Patient is DNR/DNI, pupils equal round reactive to light, responds to sternal rub, localizes pain, her GCS score 9 - Repeat chest x-ray ordered, blood suga rs reasonable - Discussed with patient's her g oals of care she remains a DNR/DNI - Discussed was have not been that I thi nk that the likelihood of her encephalopathy, her at times lethargy is a combination of Seroquel, Zyprexa, hypercarbia, prolonged hospitalization, but we will have to monitor her mentation closely for now the EGD has been canceled we will try again tomorrow based upon how her mentation progresses, he is understandable, agrees -But did discuss we will rule out other causes, CT head, .-I spoke to the lab, they cannot do rep eat CBC, will have nursing staff try Vitals/I&O/Wt Last Vital Signs Temp 97.7 F 09/01/24 15:30 Pulse 76 09/01/24 16:00 Resp 18 09/01/24 16:00 BP 107/64 09/01/24 15:30 Pulse Ox 96 09/01/24 16:00 O2 Del Method BiPAP 09/01/24 16:00 O2 Flow Rate 1 09/01/24 12:00 FiO2 28 09/01/24 16:00 09/01/24 09/01/24 09/01/24 06:59 14:59 22:59 Intake Total 250 / 720 Output Total 300 / 2700 Balance -50 / -1980 Weight last 48 hrs Weight 83.007 kg Weight 85.003 kg Weight 86.908 kg Physical Exam 2 Const: COMMON NORMALS: no acute distress Eye: COMMON NORMALS: Equal, round and reactive pupils present PUPIL: Yes Equal, round and reactive pupils present Neck/C-Spine: COMMON NORMALS: no JVD Resp: COMMON NORMALS: normal respiratory effort, No retractions, No use of accessory muscles and clear to auscultation bilaterally AUSCULTATION: clear to auscultation bilaterally Cardio: COMMON NORMALS: no JVD, regular rate, regular rhythm, S1 normal heart sound present and S2 normal heart sound present RATE: regular rate RHYTHM: regular rhythm HEART SOUNDS: S1 normal heart sound present and S2 normal heart sound present GI: COMMON NORMALS: Normal to inspection, nondistended, normoactive bowel sounds present and non-tender Extremity: COMMON NORMALS: no pedal edema Urinary Catheter Management: Guerrero: Cath Placed During This Visit: yes Reason for Continuing Indwelling Catheter: Other Urinary Catheter Date of Insertion: 08/31/24 Urinary Catheter Time of Insertion: 04:02 Data 08/31/24 19:43 09/01/24 08:06 Micro: Microbiology 08/31/24 21:52 Occult Blood (FIT) - Final Stool Routine Collection 08/30/24 12:47 Blood Culture - Preliminary Blood NEGATIVE TO DATE 08/30/24 12:45 Blood Culture - Preliminary Blood NEGATIVE TO DATE A&P Assessment and plan 1. Acute anemia: 2. Iron deficiency: 3. Type 2 diabetes mellitus, without long-term current use of insulin: 4. Anemia: 5. Pneumonia: 6. Thrombocytopenia: 7. Lactic acidosis: 8. Diastolic CHF: Plan: Acute encephalopathy - Polypharmacy - Zyprexa, Seroquel -Hypercarbic respiratory failure, hypercarbia - Neurochecks, NIH stroke scale -Possible seizure-like episode - Seizure precautions, neurochecks, and a stroke scale - Keppra 1000 mg IV once - BiPAP therapy Hypercarbic respiratory failure - Continue BiPAP - Monitor mentation Left lower lobe pneumonia - Concern for left lower lobe pneumonia on chest x-ray - Rocephin - Azithromycin - Blood cultures -DuoNeb, budesonide - Inflammatory markers - Aspiration precaution, speech therapy eval left-sided chest pain - Serial EKGs, serial troponins, telemetry monitoring CONCLUSIONS Normal left ventricular size and systolic function, EF 66%.mild left ventricular hypertrophy. No regional wall motion abnormalities. Grade II/IV diastolic dysfunction, moderately elevated filling pressures. Mildly increased left atrial size. Mild mitral annular calcification. Mild-moderate mitral valve regurgitation. Moderate aortic valve stenosis, CHRISTOPHER 1.3 cm squared. Moderate aortic valve calcification. The peak velocity was 2.99 m/s with a peak gradient of 36 and a mean gradient of 18 mmHg. Mild tricuspid valve regurgitation. Mild pulmonary valve regurgitation. There is no pericardial effusion. There are no intracardiac masses. Compared to the study from 12/08/2023, there may not be a significant change Acute anemia - Concerns for iron deficiency anemia - Concerns for slow GI bleed - Reticulocyte count 3.3 - Hemoglobin 7.3 Plan -Hemodynamically stable - No active GI bleed, or bloody black stools - Protonix - Carafate - Status post 4 units PRBC -Monitor hemoglobin every 6 hours -Monitor hemodynamics - IV Venofer - Lasix order placed for between 2nd and 3rd unit of blood - Will keep on clear liquids for now - Plans on n.p.o. midnight for possible EGD tomorrow Diastolic CHF exacerbation - Wheezing in all lung hall - Lasix 40 IV twice daily, completed looks euvolemic hold off of further diuresis Type 2 diabetes mellitus, low-dose sliding scale History of CVA, history of Lewy body dementia - History of aphasia Lactic acidosis, likely multifactorial from acute anemia, left lower lobe pneumonia History of pituitary surgery, Chepachet's disease, on chronic prednisone -Diabetes insipidus- - Will stress dose steroids - Continue home prednisone, continue desmopressin DNR/DNI, spoke to patient's , he tells me that Precious and he have had multiple discussions, and it is her wish to be DNR/DNI SCDs for DVT prophylaxis Plan for today, as above PDMP PDMP Reviewed: Not Reviewed Attestations 2 Medical Necessity Statement*: Patient requires hospitalization for acute encephalopathy, hypercarbic respiratory failure Diagnoses Acute anemia D64.9 Iron deficiency E61.1 Type 2 diabetes mellitus, without long-term current use of insulin E11.9 Anemia D64.9 Pneumonia J18.9 Thrombocytopenia D69.6 Lactic acidosis E87.20 Diastolic CHF I50.30
[2024-09-01 17:58] LABS: Hematocrit 24.3 % (36-47); Hemoglobin 6.80 g/dL (11.27-16.99); Mean Corpuscular HGB Conc 28.0 g/dL (30-55); Mean Corpuscular Hemoglobin 23.9 pg (27-33); Mean Corpuscular Volume 85.3 fl (85-98); Nucleated Red Blood Cells % 1.1 %; Platelet Count 100 10^3/cmm (157-399); Red Blood Count 2.85 10^6/uL (3.85-5.65); White Blood Count 4.52 10^3/uL (3.29-11.43)
[2024-09-01 18:22] LABS: Ammonia 39 umol/L (11-51)
[2024-09-01 18:29] LABS: Alanine Aminotransferase 11 U/L (0-33); Albumin Level 3.1 g/dL (3.5-5.2); Alkaline Phosphatase 36 U/L (35-105); Anion Gap 14.3 (5-19); Aspartate Amino Transferase 24 U/L (0-32); Blood Urea Nitrogen 9 mg/dL (8-23); Calcium 7.3 mg/dL (8.5-10.5); Carbon Dioxide 30 mmol/L (22-29); Chloride 106 mmol/L (98-107); Creatinine Clr Calc Pharmacy 61.0879; Globulin 2.4 g/dL (1.3-4.6); Glucose 96 mg/dL (65-115); NT Pro B Type Natriuretic Pept 899 pg/mL (0-450); Osmolality Calculated 303 mOsm/kg (285-295); Potassium 3.3 mmol/L (3.5-5.1); Sodium 147 mmol/L (136-145); Total Protein 5.5 g/dL (6.6-8.7)
[2024-09-01] MEDS: iron sucrose 200 MG in sodium chloride 0.9% (100 ml) 100 ML 220 MG IV (18:46)
[2024-09-01] MEDS: cefTRIAXone 1,000 mg SDV 1000 MG IVP (20:07)
[2024-09-01] MEDS: FUROsemide 10 mg/mL SDV 4mL 40 MG IVP (21:13)
[2024-09-01] MEDS: lidocaine 1% 5 ML in potassium chloride premix 100 ML 52.5 ML IV (21:14)
--- NOTE | 2024-09-01 23:11 | PC.NURSE ---
Spoke with pts Anisha to update him on pt transfer to ICU. He verbalized understanding.
--- NOTE | 2024-09-01 23:52 | PC.NURSE ---
Pt was found to have seizure like activity during the afternoon of 09/01/24 during dayshift. All day (09/01/24) pt is found to be minimally responsive per dayshift nurse reports, this nurse also finds the prior findings when assessing the pt as well. Pt is also on acute BiPap. Pt keeps requiring frequent blood transfusion and now Platelets. Vascular access was limited to one 18 gauge PIV. was contacted to see the pt and also assess for possible central line access. Upon review of the pt. the decision to transfer to ICU was made for closer monitoring.
[2024-09-02] VITALS (161 sets, daily range): BP systolic 70–183; BP diastolic 46–120; PULSE 69–94; RESP 12–33; TEMP 36.3–37.1; O2SAT 78–99
[2024-09-02 05:46] LABS: ABG PCO2 52.3 mmHg (35-45); ABG PH Result 7.45 (7.35-7.45); Arterial Blood Gas Hematocrit 28.5 % (37-47); Blood Gas Allen Test Pos; Blood Gas Operator Identificat SAM; Blood Gas Sample Site Radial, left; Blood Gas Sample Type Arterial; HCO3 ABG 36.3 mmol/L (22-26); PO2 ABG 79.0 mmHg (80.0-100.0); PO2 FiO2 Ratio Arterial Blood 263
[2024-09-02 05:55] LABS: Hematocrit 30.3 % (36-47); Hemoglobin 8.60 g/dL (11.27-16.99); Mean Corpuscular HGB Conc 28.4 g/dL (30-55); Mean Corpuscular Hemoglobin 24.5 pg (27-33); Mean Corpuscular Volume 86.3 fl (85-98); Nucleated Red Blood Cells % 1.6 %; Platelet Count 113 10^3/cmm (157-399); Red Blood Count 3.51 10^6/uL (3.85-5.65); White Blood Count 4.32 10^3/uL (3.29-11.43)
[2024-09-02 06:15] LABS: Alanine Aminotransferase 12 U/L (0-33); Albumin Level 3.4 g/dL (3.5-5.2); Alkaline Phosphatase 45 U/L (35-105); Anion Gap 15.5 (5-19); Aspartate Amino Transferase 26 U/L (0-32); Blood Urea Nitrogen 8 mg/dL (8-23); Calcium 8.4 mg/dL (8.5-10.5); Carbon Dioxide 33 mmol/L (22-29); Chloride 102 mmol/L (98-107); Creatinine Clr Calc Pharmacy 61.0879; Globulin 2.7 g/dL (1.3-4.6); Glucose 94 mg/dL (65-115); Magnesium 2.0 mg/dL (1.7-2.3); Osmolality Calculated 302 mOsm/kg (285-295); Potassium 3.5 mmol/L (3.5-5.1); Sodium 147 mmol/L (136-145); Total Protein 6.1 g/dL (6.6-8.7)
[2024-09-02] MEDS: pantoprazole 40 mg SDV IVP ×2 (06:27→17:22)
--- NOTE | 2024-09-02 08:56 | P.PN_ITS ---
Subjective 2 Subjective: No melena, hematochezia On bipap Vitals/I&O/Wt Last Vital Signs Temp 97.7 F 09/02/24 02:35 Pulse 81 09/02/24 08:50 Resp 20 H 09/02/24 08:50 BP 145/120 09/02/24 08:50 Pulse Ox 95 09/02/24 08:50 O2 Del Method BiPAP 09/02/24 07:35 O2 Flow Rate 1 09/01/24 12:00 FiO2 30 09/02/24 07:45 09/01/24 09/02/24 09/02/24 22:59 06:59 14:59 Intake Total 210 / 210 942 / 1152 105 / 105 Output Total 1400 / 1400 1100 / 2500 Balance -1190 / -1190 -158 / -1348 105 / 105 Weight last 48 hrs Weight 182 lb 15.739 oz Weight 183 lb Physical Exam 2 Narrative: rrr tachypneic on bipap abdomen soft, nt, nd Urinary Catheter Management: Guerrero: Cath Placed During This Visit: yes Reason for Continuing Indwelling Catheter: Accurate Measurement of Urinary Output in Critically Ill Patients Urinary Catheter Date of Insertion: 08/31/24 Urinary Catheter Time of Insertion: 04:02 Data 09/02/24 05:40 09/02/24 05:40 A&P Assessment and plan 1. Acute anemia: Plan: 83 yo female whom surgery was consulted to rule out GIB. No clinical evidence of GIB. Will hold off on scope since patient is altered and ongoing workup for this. PDMP PDMP Reviewed: Not Reviewed Attestations 2 Medical Necessity Statement*: NA Coding Level of Care Code 46202 Diagnoses Acute anemia D64.9
[2024-09-02] MEDS: artificial tears Op Oint 3.5 gm 1 APPLIC EYE-BOTH (10:37)
--- NOTE | 2024-09-02 14:50 | PC.SOCIAL ---
IMM updated IMM dated and initialed, copy given to patient and copy placed in chart.
[2024-09-02] MEDS: ATORVASTATIN 10 MG TABLET 20 MG PO (17:20)
[2024-09-02] MEDS: sucralfate 1 gm/10 mL Oral Liq UDC PO ×2 (17:20→20:06)
[2024-09-02] MEDS: iron sucrose 200 MG in sodium chloride 0.9% (100 ml) 100 ML 220 MG IV (17:25)
--- NOTE | 2024-09-02 17:35 | P.PN_ITS ---
Subjective 2 Subjective: - Patient was examined this morning, she is on BiPAP, she does awaken, can follow some commands but falls back asleep discussed with we will continue to monitor her throughout the morning plans on weaning her off BiPAP trying a oral diet - Patient was taken off BiPAP, sat up in a chair, she ambulated with physical therapy around ICU - She was seen this afternoon having caroline , family members at bedside she is alert to person, to place, not to time she follows commands, she has no complaints - I had a detailed discussion with isauro tommy's she is status post 4 units PRBC, 1 unit FFP, her Hemoccult stool was positive but she does not have any active bloody black stools - Discussed the risks and benefits of EG D, is agreeable to proceed -Discussed making her n.p.o. over midnig ht, planning on EGD tomorrow morning - Discussed risk of benefits, he voiced understanding, all questions answered, agreed to proceed - We also discussed the possibility of t ransfusion dependent anemia if no source of bleeding was found, discussed the possibility of bone marrow biopsy, and outpatient follow-up with hematology oncology Vitals/I&O/Wt Last Vital Signs Temp 97.7 F 09/02/24 02:35 Pulse 79 09/02/24 15:56 Resp 23 H 09/02/24 16:05 BP 183/101 09/02/24 13:30 Pulse Ox 91 09/02/24 16:05 O2 Del Method Room Air 09/02/24 15:45 O2 Flow Rate 1 09/01/24 12:00 FiO2 30 09/02/24 07:45 09/02/24 09/02/24 09/02/24 06:59 14:59 22:59 Intake Total 942 / 1152 105 / 105 Output Total 1100 / 2500 150 / 150 Balance -158 / -1348 105 / 105 -150 / -45 Weight last 48 hrs Weight 83 kg Weight 83.007 kg Physical Exam 2 Const: COMMON NORMALS: no acute distress ORIENTATION/CONSCIOUSNESS: Yes awake and Yes oriented to person; not oriented to place and not oriented to time Eye: COMMON NORMALS: Equal, round and reactive pupils present PUPIL: Yes Equal, round and reactive pupils present Resp: COMMON NORMALS: normal respiratory effort, No retractions, No use of accessory muscles and clear to auscultation bilaterally AUSCULTATION: clear to auscultation bilaterally Cardio: COMMON NORMALS: regular rate, regular rhythm, S1 normal heart sound present and S2 normal heart sound present RATE: regular rate RHYTHM: r egular rhythm HEART SOUNDS: S1 normal heart sound present and S2 normal heart sound present GI: COMMON NORMALS: Normal to inspection, nondistended, normoactive bowel sounds present and non-tender Extremity: COMMON NORMALS: no calf tenderness and no pedal edema Neuro: COMMON NORMALS: CN's II-XII intact bilaterally, moves all extremities and no focal motor deficits SENSORIUM/ORIENTATION: Yes oriented to person, No oriented to place and No oriented to time Urinary Catheter Management: Guerrero: Cath Placed During This Visit: yes Reason for Continuing Indwelling Catheter: Accurate Measurement of Urinary Output in Critically Ill Patients Urinary Catheter Date of Insertion: 08/31/24 Urinary Catheter Time of Insertion: 04:02 Data 09/02/24 05:40 09/02/24 05:40 A&P Assessment and plan 1. Acute anemia: 2. Iron deficiency: 3. Type 2 diabetes mellitus, without long-term current use of insulin: 4. Anemia: 5. Pneumonia: 6. Thrombocytopenia: 7. Lactic acidosis: 8. Diastolic CHF: Plan: Acute encephalopathy - Polypharmacy - Zyprexa, Seroquel -Hypercarbic respiratory failure, hypercarbia - Neurochecks, NIH stroke scale -Possible seizure-like episode, did not respond to Keppra - Seizure precautions, neurochecks, and a stroke scale - Likely combination of polypharmacy, hypercarbia, now resolved - Continue to monitor mentation, hold Seroquel, hold Zyprexa History of CVA for which she is on aspirin, has history of intermittent residual right-sided deficits, history of cognitive decline secondarily by dementia, with expressive speech difficulties, myoclonic stuttering speech, Hypercarbic respiratory failure - Continue BiPAP. When - Monitor mentation Left lower lobe pneumonia - Concern for left lower lobe pneumonia on chest x-ray - Rocephin - Azithromycin - Blood cultures -DuoNeb, budesonide - Inflammatory markers - Aspiration precaution, speech therapy eval left-sided chest pain - Serial EKGs, serial troponins, telemetry monitoring CONCLUSIONS Normal left ventricular size and systolic function, EF 66%.mild left ventricular hypertrophy. No regional wall motion abnormalities. Grade II/IV diastolic dysfunction, moderately elevated filling pressures. Mildly increased left atrial size. Mild mitral annular calcification. Mild-moderate mitral valve regurgitation. Moderate aortic valve stenosis, CHRISTOPHER 1.3 cm squared. Moderate aortic valve calcification. The peak velocity was 2.99 m/s with a peak gradient of 36 and a mean gradient of 18 mmHg. Mild tricuspid valve regurgitation. Mild pulmonary valve regurgitation. There is no pericardial effusion. There are no intracardiac masses. Compared to the study from 12/08/2023, there may not be a significant change Acute anemia - Concerns for iron deficiency anemia - Concerns for slow GI bleed - Reticulocyte count 3.3 - Hemoglobin 8.6, status post 4 units PBC, 1 unit FFP Plan -Hemodynamically stable - No active GI bleed, or bloody black stools - Protonix - Carafate - Status post 4 units PRBC, 1 unit FFP -Monitor hemoglobin -Monitor hemodynamics - IV Venofer - Advance diet as tolerated - Plans on n.p.o. midnight for possible EGD tomorrow Diastolic CHF exacerbation - Wheezing in all lung hall - 1 dose IV Lasix today Type 2 diabetes mellitus, low-dose sliding scale History of CVA, history of Lewy body dementia - History of aphasia Lactic acidosis, likely multifactorial from acute anemia, left lower lobe pneumonia History of pituitary surgery, Archbold's disease, on chronic prednisone -Diabetes insipidus- -has received stress dose steroids - Continue home prednisone, continue desmopressin DNR/DNI, spoke to patient's , he tells me that Precious and he have had multiple discussions, and it is her wish to be DNR/DNI SCDs for DVT prophylaxis Plan for today, as above PDMP PDMP Reviewed: Not Reviewed Attestations 2 Medical Necessity Statement*: Patient requires hospitalization for acute encephalopathy, acute anemia, Diagnoses Acute anemia D64.9 Iron deficiency E61.1 Type 2 diabetes mellitus, without long-term current use of insulin E11.9 Anemia D64.9 Pneumonia J18.9 Thrombocytopenia D69.6 Lactic acidosis E87.20 Diastolic CHF I50.30
[2024-09-02] MEDS: cefTRIAXone 1,000 mg SDV 1000 MG IVP (18:02)
[2024-09-02 19:04] LABS: Hematocrit 33.3 % (36-47); Hemoglobin 9.60 g/dL (11.27-16.99)
[2024-09-03] VITALS (23 sets, daily range): BP systolic 120–159; BP diastolic 54–109; PULSE 66–90; RESP 13–22; TEMP 36.7–37.1; O2SAT 90–100
[2024-09-03] MEDS: pantoprazole 40 mg SDV IVP ×2 (05:09→17:13)
[2024-09-03 05:33] LABS: Blood Urea Nitrogen 11 mg/dL (8-23); Calcium 8.4 mg/dL (8.5-10.5); Carbon Dioxide 27 mmol/L (22-29); Chloride 103 mmol/L (98-107); Creatinine Clr Calc Pharmacy 60.8511; Glucose 116 mg/dL (65-115); Osmolality Calculated 294 mOsm/kg (285-295); Sodium 142 mmol/L (136-145)
[2024-09-03 05:35] LABS: Anion Gap 15.6 (5-19); Potassium 3.6 mmol/L (3.5-5.1)
[2024-09-03] MEDS: sucralfate 1 gm/10 mL Oral Liq UDC PO ×4 (07:54→21:23)
--- NOTE | 2024-09-03 11:07 | P.PN_ITS ---
Subjective 2 Subjective: NAEON No melena/hematochezia Vitals/I&O/Wt Last Vital Signs Temp 98.1 F 09/03/24 04:00 Pulse 73 09/03/24 10:00 Resp 18 09/03/24 10:00 BP 159/81 09/03/24 10:00 Pulse Ox 95 09/03/24 10:00 O2 Del Method BiPAP 09/03/24 07:43 O2 Flow Rate 2 09/03/24 02:00 FiO2 30 09/03/24 07:45 09/02/24 09/03/24 09/03/24 22:59 06:59 14:59 Intake Total 110 / 215 250 / 465 Output Total 150 / 150 250 / 400 Balance -40 / 65 0 / 65 Weight last 48 hrs Weight 181 lb 8 oz Weight 182 lb 15.739 oz Physical Exam 2 Narrative: rrr unlabored breathing ra abdomen soft, nt, nd Urinary Catheter Management: Guerrero: Cath Placed During This Visit: yes Reason for Continuing Indwelling Catheter: Accurate Measurement of Urinary Output in Critically Ill Patients Urinary Catheter Date of Insertion: 08/31/24 Urinary Catheter Time of Insertion: 04:02 Data 09/03/24 10:58 09/03/24 04:47 A&P Assessment and plan 1. Anemia: Plan: 83yo female whom surgery was consulted for anemia. Discussed risks and benefits and patient agreed to proceed with EGD. PDMP PDMP Reviewed: Not Reviewed Attestations 2 Medical Necessity Statement*: NA Coding Level of Care Code 42932 Diagnoses Anemia D64.9
[2024-09-03 11:11] LABS: Hematocrit 35.5 % (36-47); Hemoglobin 9.70 g/dL (11.27-16.99); Mean Corpuscular HGB Conc 27.3 g/dL (30-55); Mean Corpuscular Hemoglobin 25.0 pg (27-33); Mean Corpuscular Volume 91.5 fl (85-98); Nucleated Red Blood Cells % 0.7 %; Platelet Count 81 10^3/cmm (157-399); Red Blood Count 3.88 10^6/uL (3.85-5.65); White Blood Count 4.14 10^3/uL (3.29-11.43)
[2024-09-03 11:15] LABS: Slide Review Slide Review Perform
--- NOTE | 2024-09-03 11:51 | ANES.PREANE2 ---
Pre-Anesthetic Assessment Height/Weight: Height 5 ft 7 in Weight 181 lb 8 oz Temp Pulse Resp BP Pulse Ox O2 Del Method O2 Flow Rate 98.1 F 69 18 159/81 96 Nasal Cannula 2 09/03/24 04:00 09/03/24 11:32 09/03/24 11:32 09/03/24 10:00 09/03/24 11:32 09/03/24 11:32 09/03/24 11:32 FiO2 30 09/03/24 07:45 Preop Diagnosis: Concern for GI bleed Operation Date: 09/02/24 09:30 Proposed Procedures p EGD(Not Applicable) - Yordy aJy MD Operation Date: 09/03/24 12:25 Proposed Procedures p EGD(Not Applicable) - Yordy Jay MD Was Beta Raymond taken within 24 hours: N/A Was Clonidine taken within 24 hours: N/A Last intake: Intake Last Liquid Date 08/31/24 Last Liquid Time 20:00 Last Solid Date 08/30/24 Last Solid Time 09:00 Social No alcohol and No tobacco Exam alert, oriented x 3 and regular rate & rhythm Airway Mallampati: Class IV Dentition: full Comments: Comments: Minimal effort, denies any loose teeth Anesthetic Plan ASA status: 4 Anesthesia: MAC Other: Patient initially admitted on 08/30/2024 with left-sided chest pain, weakness and following. Patient is alert to person and place but not time currently Patient's is at bedside. 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 Patient had concerning symptoms yesterday for seizure activity. However this was thought to be secondary to hypercapnia. Patient was placed on BiPAP and appears much better today. Currently on 2 L O2 Patient is on chronic desmopressin for central diabetes insipidus. BS 136 Labs reviewed from today and assessable for procedure. Hemoglobin 9.7. EKG sinus rhythm with left anterior fascicular block Echo during hospitalization showing EF of 66% Plan for MAC anesthesia Medications/Allergies Home Medications ?Medication ?Instructions ?Recorded ?Confirmed ?Last Taken ?Type calcium carbonate 1,000 mg PO QAM 07/04/21 08/30/24 08/30/24 History ferrous sulfate 325 mg (65 mg 325 mg PO QAM 07/04/21 08/30/24 12/07/23 10:00 History iron) tablet (iron) blood-glucose meter (OneTouch #1 ea 05/28/22 08/30/24 Unknown Rx Verio Meter) vit C 250 mg-vit E 90 mg-zinc 40 1 tab PO BID 03/26/23 08/30/24 08/30/24 History mg-copper 1 [id number] capsule (PreserVision AREDS-2) cholecalciferol (vitamin D3) 50 50 mcg PO DAILY 12/08/23 08/30/24 08/30/24 History mcg (2,000 unit) tablet (Vitamin D3) blood sugar diagnostic (OneTouch #100 ea 01/15/24 08/30/24 Unknown Rx Verio test strips) lancets 31 gauge (Comfort Touch #100 ea 01/15/24 08/30/24 Unknown Rx Ultra Thin Lancets) pen needle, diabetic 31 gauge x #100 ea 05/15/24 08/30/24 Unknown Rx 5/16 (Comfort EZ Pen [place]) escitalopram oxalate 20 mg tablet 30 mg (1.5 x 20 mg) PO QAM #150 05/18/24 08/30/24 08/30/24 Rx tabs pravastatin 40 mg tablet 40 mg PO QPM #90 tabs 05/25/24 08/30/24 08/28/24 Rx pen needle, diabetic 31 gauge x #100 ea 05/26/24 08/30/24 Unknown Rx 1/4 (CareFine Pen Needle) insulin lispro 100 unit/mL 8 unit (0.08 mL) SUBCUT TID #15 mL 06/19/24 08/30/24 1 Month Ago Rx subcutaneous pen (Humalog KwikPen ~07/31/24 (U-100) Insulin) aspirin 81 mg tablet,delayed 81 mg PO DAILY 08/30/24 08/30/24 08/30/24 History release (Adult Aspirin Regimen) desmopressin 0.1 mg tablet 0.1 mg PO BID 08/30/24 08/30/24 08/30/24 History levothyroxine 100 mcg tablet 100 mcg PO DAILY 08/30/24 08/30/24 08/30/24 History metformin 500 mg tablet 1,000 mg PO BID 08/30/24 08/30/24 08/30/24 History olanzapine 10 mg tablet 20 mg PO BEDTIME 08/30/24 08/30/24 08/29/24 History omeprazole 40 mg capsule,delayed 40 mg PO DAILY 08/30/24 08/30/24 08/30/24 History release sitagliptin phosphate 100 mg 100 mg PO DAILY 08/30/24 08/30/24 Unknown History tablet (Januvia) Allergies Allergy/AdvReac Type Severity Reaction Status Date / Time Penicillins Allergy ALGY-Hives Verified 08/19/24 07:14 propoxyphene (From Darvon) Allergy ALGY-Hives Verified 08/19/24 07:14 Current Medications Generic Name Dose Route Start Last Admin Trade Name Freq PRN Reason Stop Dose Admin Albuterol/Ipratropium 3 ml 08/30/24 18:07 09/03/24 11:29 Ipratropium-Albuterol 3 Ml Neb INHALATION 3 ml QID.RESPIRATORY ALEX Administration Artificial Tears 1 applic 09/02/24 10:30 09/02/24 10:37 Artificial Tears Op Oint 3.5 Gm EYE-BOTH 1 applic BEDTIME PRN Administration Dry eyes Atorvastatin Calcium 20 mg 08/30/24 18:45 09/02/24 17:20 Atorvastatin 10 Mg Tablet PO 20 mg QPM ALEX Administration Budesonide 0.5 mg 08/30/24 20:00 09/03/24 07:43 Budesonide 0.5 Mg/2 Ml Neb INHALATION 0.5 mg BID.RESPIRATORY ALEX Administration Ceftriaxone Sodium 1,000 mg 08/30/24 19:00 09/02/24 18:02 Ceftriaxone 1,000 Mg Sdv IVP 1,000 mg Q24H ALEX Administration Protocol Desmopressin Acetate 0.1 mg 08/30/24 18:45 09/03/24 09:06 Desmopressin 0.2 Mg Tablet PO 0.1 mg BID ALEX Administration Azithromycin 500 mg/ Sodium 250 mls @ 250 mls/hr 08/30/24 19:00 09/03/24 00:30 Chloride IV Infused Q24H ALEX Infusion Protocol Iron Sucrose 200 mg/ Sodium 110 mls @ 220 mls/hr 09/01/24 18:00 09/02/24 17:56 Chloride IV 09/03/24 18:29 Infused Q24H ALEX Infusion Insulin Human Lispro 0 unit 08/30/24 18:07 09/03/24 08:00 Insulin Lispro 100 Unit/1 Ml SUBCUT Not Given TIDWM [facility] Protocol Levothyroxine Sodium 100 mcg 08/31/24 06:00 09/03/24 05:08 Levothyroxine 100 Mcg Tablet PO Not Given DAILY@0600 ALEX Pantoprazole Sodium 40 mg 08/31/24 06:00 09/03/24 05:09 Pantoprazole 40 Mg Sdv IVP 40 mg Q12H ALEX Administration Prednisone 3 mg 08/31/24 06:00 09/03/24 05:09 Prednisone 1 Mg Tablet PO Not Given QAM ALEX Prednisone 2 mg 08/31/24 12:00 09/03/24 11:33 Prednisone 1 Mg Tablet PO 2 mg QNOON ALEX Administration Quetiapine Fumarate 50 mg 08/31/24 11:15 09/01/24 05:59 Quetiapine 25 Mg Tablet PO Not Given On Hold: 09/01/24 12:11 QAM ALEX Quetiapine Fumarate 250 mg 08/31/24 21:00 08/31/24 20:56 Quetiapine 100 Mg Tablet PO 250 mg On Hold: 09/01/24 12:11 BEDTIME ALEX Administration Sucralfate 1 gm 08/30/24 21:00 09/03/24 11:32 Sucralfate 1 Gm/10 Ml Oral Liq Udc PO 1 gm AC&BEDTIME ALEX Administration PFSH Anesthesia Medical History (Updated 08/31/24 @ 16:03 by Gus Nguyen MD) Hallucinations Moderate major depression Urge incontinence of urine Iron deficiency anemia GERD (gastroesophageal reflux disease) Aphasia as late effect of stroke Lewy body dementia Pituitary abnormality Osteoporosis Secondary adrenal insufficiency Pituitary Cushings syndrome Type 2 diabetes mellitus, without long-term current use of insulin JACEK (obstructive sleep apnea) Aphasia Family history of aneurysm of blood vessel of brain History of hemorrhagic stroke with residual hemiparesis 1995 Surgical History History of colonoscopy History of hysterectomy History of pituitary surgery History of brain shunt Family History Father Prostate cancer Hyperlipidemia Grandfather Diabetes Mother Hyperlipidemia Other Dementia Denies family history of Colon cancer Ovarian cancer CAD (coronary artery disease) Clotting disorder Heart disease Psychiatric illness Chronic kidney disease (CKD) Breast cancer Suicide Anesthesia complication Bleeding disorder Family history of premature coronary artery disease Lung disease Hypertension Uterine cancer Thyroid disease Stroke Social History Smoking and tobacco/nicotine status: never used tobacco/nicotine Data Anesthesia 09/03/24 10:58 09/03/24 04:47 Short CBC 09/01/24 09/02/24 09/02/24 Range/Units 17:44 05:40 18:39 WBC 4.52 4.32 (3.29-11.43) 10^3/uL Hgb 6.80 L 8.60 L 9.60 L (11.27-16.99) g/dL Hct 24.3 L 30.3 L 33.3 L (36-47) % MCV 85.3 86.3 (85-98) fl Plt Count 100 L 113 L (157-399) 10^3/cmm Neut % (Auto) 64.1 61.8 % Neut # (Auto) 2.90 2.67 (1.8-7.7) 10^3/uL 09/03/24 Range/Units 10:58 WBC 4.14 (3.29-11.43) 10^3/uL Hgb 9.70 L (11.27-16.99) g/dL Hct 35.5 L (36-47) % MCV 91.5 (85-98) fl Plt Count 81 L (157-399) 10^3/cmm Neut % (Auto) 62.8 % Neut # (Auto) 2.60 (1.8-7.7) 10^3/uL BMP 09/01/24 09/02/24 09/03/24 17:44 05:40 04:47 Sodium 147 H 147 H 142 Potassium 3.3 L 3.5 3.6 Chloride 106 102 103 Carbon Dioxide 30 H 33 H 27 BUN 9 8 11 Creatinine 0.4 L 0.5 0.4 L Glucose 96 94 116 H Calcium 7.3 L 8.4 L 8.4 L Cardiac Enzymes 09/01/24 Range/Units 17:44 NT-Pro-B Natriuret Pep 899 H (0-450) pg/mL Liver Function 09/01/24 09/02/24 Range/Units 17:44 05:40 Total Bilirubin 0.6 0.8 (0.15-1.2) mg/dL AST 24 26 (0-32) U/L ALT 11 12 (0-33) U/L Alkaline Phosphatase 36 45 (35-105) U/L Albumin 3.1 L 3.4 L (3.5-5.2) g/dL Blood Bank 08/30/24 13:55 Blood Type A Negative Rho(D) Type Rh negative Antibody Screen Negative ABG 09/01/24 09/02/24 12:03 05:34 Specimen Type Arterial Arterial Sample Site Radial, right Radial, left ABG pH 7.32 L 7.45 ABG pCO2 63.1 H* 52.3 H ABG pO2 72.3 L 79.0 L ABG PO2/FiO2 Ratio 258 263 ABG HCO3 32.1 H 36.3 H ABG O2 Saturation 93.7 ABG Base Excess 4.9 H 10.9 H A-a O2 Gradient 6.6 O2 Delivery Device Nc Bipap O2 Liters/Min 2.0 FiO2 28.0 30.0 Cardiac Studies: Echocardiogram 08/31/24 Holter Monitor 12/17/22
--- NOTE | 2024-09-03 12:05 | P.PN_ITS ---
Subjective 2 Subjective: Patient was seen this morning, she is alert to person, to place, not to time she follows commands she is sitting up in the chair, and has no complaints is at bedside, feels that she is best she has looked in the last few weeks, discussed risk and benefits of EGD, he voices understanding, all questions answered, agrees to proceed with EGD Vitals/I&O/Wt Last Vital Signs Temp 98.1 F 09/03/24 04:00 Pulse 69 09/03/24 11:32 Resp 18 09/03/24 11:32 BP 159/81 09/03/24 10:00 Pulse Ox 96 09/03/24 11:32 O2 Del Method Nasal Cannula 09/03/24 11:32 O2 Flow Rate 2 09/03/24 11:32 FiO2 30 09/03/24 07:45 09/02/24 09/03/24 09/03/24 22:59 06:59 14:59 Intake Total 110 / 215 250 / 465 Output Total 150 / 150 250 / 400 Balance -40 / 65 0 / 65 Weight last 48 hrs Weight 82.327 kg Weight 83 kg Physical Exam 2 Const: COMMON NORMALS: no acute distress ORIENTATION/CONSCIOUSNESS: Yes awake, Yes oriented to person and Yes oriented to place; not oriented to time Resp: COMMON NORMALS: normal respiratory effort, No retractions, No use of accessory muscles and clear to auscultation bilaterally AUSCULTATION: clear to auscultation bilaterally Cardio: COMMON NORMALS: regular rate, regular rhythm, S1 normal heart sound present and S2 normal heart sound present RATE: regular rate RHYTHM: r egular rhythm HEART SOUNDS: S1 normal heart sound present and S2 normal heart sound present GI: COMMON NORMALS: Normal to inspection, nondistended, normoactive bowel sounds present and non-tender Extremity: COMMON NORMALS: no pedal edema Neuro: SENSORIUM/ORIENTATION: Yes oriented to person, Yes oriented to place and No oriented to time Psych: COMMON NORMALS: mental status grossly normal Urinary Catheter Management: Guerrero: Cath Placed During This Visit: yes Reason for Continuing Indwelling Catheter: Accurate Measurement of Urinary Output in Critically Ill Patients Urinary Catheter Date of Insertion: 08/31/24 Urinary Catheter Time of Insertion: 04:02 Data 09/03/24 10:58 09/03/24 04:47 A&P Assessment and plan 1. Acute anemia: 2. Iron deficiency: 3. Type 2 diabetes mellitus, without long-term current use of insulin: 4. Anemia: 5. Pneumonia: 6. Thrombocytopenia: 7. Lactic acidosis: 8. Diastolic CHF: Plan: Acute encephalopathy, resolving - Polypharmacy - Zyprexa, Seroquel -Hypercarbic respiratory failure, hypercarbia - Neurochecks, NIH stroke scale -Possible seizure-like episode, did not respond to Keppra - Seizure precautions, neurochecks, and a stroke scale - Likely combination of polypharmacy, hypercarbia, now resolved - Continue to monitor mentation, hold Seroquel, hold Zyprexa History of CVA for which she is on aspirin, has history of intermittent residual right-sided deficits, history of cognitive decline secondarily by dementia, with expressive speech difficulties, myoclonic stuttering speech, Hypercarbic respiratory failure - Continue BiPAP. When - Monitor mentation Left lower lobe pneumonia - Concern for left lower lobe pneumonia on chest x-ray -De-escalate to cefdinir - Blood cultures -DuoNeb, budesonide - Inflammatory markers - Aspiration precaution, speech therapy eval left-sided chest pain - Serial EKGs, serial troponins, telemetry monitoring CONCLUSIONS Normal left ventricular size and systolic function, EF 66%.mild left ventricular hypertrophy. No regional wall motion abnormalities. Grade II/IV diastolic dysfunction, moderately elevated filling pressures. Mildly increased left atrial size. Mild mitral annular calcification. Mild-moderate mitral valve regurgitation. Moderate aortic valve stenosis, CHRISTOPHER 1.3 cm squared. Moderate aortic valve calcification. The peak velocity was 2.99 m/s with a peak gradient of 36 and a mean gradient of 18 mmHg. Mild tricuspid valve regurgitation. Mild pulmonary valve regurgitation. There is no pericardial effusion. There are no intracardiac masses. Compared to the study from 12/08/2023, there may not be a significant change Acute anemia - Concerns for iron deficiency anemia - Concerns for slow GI bleed - Reticulocyte count 3.3 - Hemoglobin 9.7, status post 4 units PBC, 1 unit FFP Plan -Hemodynamically stable - No active GI bleed, or bloody black stools - Protonix - Carafate - Status post 4 units PRBC, 1 unit FFP -Monitor hemoglobin -Monitor hemodynamics - IV Venofer - Advance diet as tolerated - Plans on n.p.o. midnight for possible EGD today Diastolic CHF exacerbation -Hold diuresis for today Type 2 diabetes mellitus, low-dose sliding scale History of CVA, history of Lewy body dementia - History of aphasia Lactic acidosis, likely multifactorial from acute anemia, left lower lobe pneumonia History of pituitary surgery, Lakeshia's disease, on chronic prednisone -Diabetes insipidus- -has received stress dose steroids - Continue home prednisone, continue desmopressin DNR/DNI, spoke to patient's , he tells me that Precious and he have had multiple discussions, and it is her wish to be DNR/DNI SCDs for DVT prophylaxis Plan for today, as above PDMP PDMP Reviewed: Not Reviewed Attestations 2 Medical Necessity Statement*: Patient requires hospice of encephalopathy, acute anemia, diastolic CHF Coding Level of Care Code Acute Code for Chg Fwd Diagnoses Acute anemia D64.9 Iron deficiency E61.1 Type 2 diabetes mellitus, without long-term current use of insulin E11.9 Anemia D64.9 Pneumonia J18.9 Thrombocytopenia D69.6 Lactic acidosis E87.20 Diastolic CHF I50.30
[2024-09-03] MEDS: ATORVASTATIN 10 MG TABLET 20 MG PO (17:13)
[2024-09-03] MEDS: iron sucrose 200 MG in sodium chloride 0.9% (100 ml) 100 ML 220 MG IV (17:13)
--- NOTE | 2024-09-03 18:18 | PC.NURSE ---
uneventful shift, tolerated being up to chair, EGD per report, no complaints as of this time
--- NOTE | 2024-09-03 23:42 | PC.NURSE ---
BP: 2300 automatic cuff pressure 78/42 on monitor, obtained multiple automatic cuff pressures with little improvement. Obtained manual blood pressure of 90/50, radial pulses 3+ to palpation, HR 86. Notified Dr. Martinez, new order for 500 cc NS bolus ONCE.
[2024-09-04] VITALS (33 sets, daily range): BP systolic 86–153; BP diastolic 38–92; PULSE 67–87; RESP 11–27; TEMP 36.2–37.3; O2SAT 92–99
[2024-09-04 02:47] LABS: Hematocrit 30.7 % (36-47); Hemoglobin 8.70 g/dL (11.27-16.99); Mean Corpuscular HGB Conc 28.3 g/dL (30-55); Mean Corpuscular Hemoglobin 25.1 pg (27-33); Mean Corpuscular Volume 88.7 fl (85-98); Nucleated Red Blood Cells % 0.5 %; Platelet Count 100 10^3/cmm (157-399); Red Blood Count 3.46 10^6/uL (3.85-5.65); White Blood Count 4.04 10^3/uL (3.29-11.43)
[2024-09-04 03:09] LABS: Anion Gap 13.4 (5-19); Blood Urea Nitrogen 9 mg/dL (8-23); Calcium 8.3 mg/dL (8.5-10.5); Carbon Dioxide 30 mmol/L (22-29); Chloride 104 mmol/L (98-107); Creatinine Clr Calc Pharmacy 60.8511; Glucose 107 mg/dL (65-115); Osmolality Calculated 297 mOsm/kg (285-295); Potassium 3.4 mmol/L (3.5-5.1); Sodium 144 mmol/L (136-145)
[2024-09-04] MEDS: pantoprazole 40 mg SDV IVP ×2 (06:15→18:37)
[2024-09-04] MEDS: sucralfate 1 gm/10 mL Oral Liq UDC PO ×4 (06:15→21:44)
--- NOTE | 2024-09-04 08:00 | PC.NURSE ---
Assessment: Pt resting so soundly with eyes closed she will barely open then calling her name and gently shaking her. She was awake for good portion of nightclub manager. Will let her rest for another half hour to hour and attempt again.
--- NOTE | 2024-09-04 08:42 | P.PN_ITS ---
Subjective 2 Subjective: no melena hematochezia Vitals/I&O/Wt Last Vital Signs Temp 99.1 F 09/04/24 07:30 Pulse 72 09/04/24 08:30 Resp 19 H 09/04/24 08:30 BP 140/65 09/04/24 08:30 Pulse Ox 92 09/04/24 08:30 O2 Del Method Room Air 09/04/24 08:30 O2 Flow Rate 2 09/04/24 08:00 FiO2 30 09/04/24 04:00 09/03/24 09/04/24 09/04/24 22:59 06:59 14:59 Intake Total 410 / 410 1000 / 1410 Output Total 300 / 300 Balance 410 / 410 700 / 1110 Weight last 48 hrs Weight 185 lb 3.013 oz Weight 181 lb 8 oz Physical Exam 2 Narrative: rrr On bipap abdomen soft, nt, nd Urinary Catheter Management: Guerrero: Cath Placed During This Visit: yes Reason for Continuing Indwelling Catheter: Accurate Measurement of Urinary Output in Critically Ill Patients Urinary Catheter Date of Insertion: 08/31/24 Urinary Catheter Time of Insertion: 04:02 Data 09/05/24 04:26 09/05/24 04:26 A&P Assessment and plan 1. Acute anemia: Plan: 83yo female with anemia. No evidence of GIB. Rest of care per hospitalist. PDMP PDMP Reviewed: Not Reviewed Attestations 2 Medical Necessity Statement*: NA Coding Level of Care Code 99903 Diagnoses Acute anemia D64.9
--- NOTE | 2024-09-04 09:15 | PC.SLP ---
Nursing attempting to arouse pt. Therapist will attempt later today when pt is more alert/awake.
--- NOTE | 2024-09-04 10:43 | PC.SLP ---
Spoke with CRISTY Malik. She recommended coming around noon or a little after, due to the patient having difficulty awaking up/being alert enough.
--- NOTE | 2024-09-04 12:09 | P.PN_ITS ---
Subjective 2 Subjective: Patient was seen this morning, currently alert to person, to place, not to time she is a bit drowsy is at bedside trying to feed her, discussed potentially hypercarbia, will place her on BiPAP monitor mentation, hopefully can discharge her once her mentation is better I want her to ambulate will have her have a bowel movement plan to discharge in the next 24 hours, he is in agreement Vitals/I&O/Wt Last Vital Signs Temp 99.1 F 09/04/24 07:30 Pulse 69 09/04/24 11:31 Resp 16 09/04/24 11:30 BP 140/65 09/04/24 08:30 Pulse Ox 94 09/04/24 11:31 O2 Del Method BiPAP 09/04/24 11:30 O2 Flow Rate 2 09/04/24 08:00 FiO2 30 09/04/24 11:31 09/03/24 09/04/24 09/04/24 22:59 06:59 14:59 Intake Total 410 / 410 1000 / 1410 Output Total 300 / 300 Balance 410 / 410 700 / 1110 Weight last 48 hrs Weight 84 kg Weight 82.327 kg Physical Exam 2 Const: COMMON NORMALS: no acute distress ORIENTATION/CONSCIOUSNESS: Yes awake, Yes oriented to person and Yes oriented to place; not oriented to time Resp: COMMON NORMALS: normal respiratory effort, No retractions, No use of accessory muscles and clear to auscultation bilaterally AUSCULTATION: clear to auscultation bilaterally Cardio: COMMON NORMALS: regular rate, regular rhythm, S1 normal heart sound present and S2 normal heart sound present RATE: regular rate RHYTHM: r egular rhythm HEART SOUNDS: S1 normal heart sound present and S2 normal heart sound present GI: COMMON NORMALS: Normal to inspection, nondistended, normoactive bowel sounds present and non-tender Extremity: COMMON NORMALS: no pedal edema Neuro: SENSORIUM/ORIENTATION: Yes oriented to person, Yes oriented to place and No oriented to time Psych: COMMON NORMALS: mental status grossly normal Urinary Catheter Management: Guerrero: Cath Placed During This Visit: yes Reason for Continuing Indwelling Catheter: Accurate Measurement of Urinary Output in Critically Ill Patients Urinary Catheter Date of Insertion: 08/31/24 Urinary Catheter Time of Insertion: 04:02 Data 09/04/24 02:36 09/04/24 02:36 A&P Assessment and plan 1. Acute anemia: 2. Iron deficiency: 3. Type 2 diabetes mellitus, without long-term current use of insulin: 4. Anemia: 5. Pneumonia: 6. Thrombocytopenia: 7. Lactic acidosis: 8. 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, has history of intermittent residual right-sided deficits, history of cognitive decline secondarily by dementia, with expressive speech difficulties, myoclonic stuttering speech, Hypercarbic respiratory failure - Continue BiPAP. Today - Monitor mentation Left lower lobe pneumonia - Concern for left lower lobe pneumonia on chest x-ray -De-escalate to cefdinir - Blood cultures -DuoNeb, budesonide - Inflammatory markers - Aspiration precaution, speech therapy eval left-sided chest pain - Serial EKGs, serial troponins, telemetry monitoring CONCLUSIONS Normal left ventricular size and systolic function, EF 66%.mild left ventricular hypertrophy. No regional wall motion abnormalities. Grade II/IV diastolic dysfunction, moderately elevated filling pressures. Mildly increased left atrial size. Mild mitral annular calcification. Mild-moderate mitral valve regurgitation. Moderate aortic valve stenosis, CHRISTOPHER 1.3 cm squared. Moderate aortic valve calcification. The peak velocity was 2.99 m/s with a peak gradient of 36 and a mean gradient of 18 mmHg. Mild tricuspid valve regurgitation. Mild pulmonary valve regurgitation. There is no pericardial effusion. There are no intracardiac masses. Compared to the study from 12/08/2023, there may not be a significant change Acute anemia - Concerns for iron deficiency anemia - Concerns for slow GI bleed - Reticulocyte count 3.3 - Hemoglobin 9.7, status post 4 units PBC, 1 unit FFP -EGD within normal limits Plan -Hemodynamically stable - No active GI bleed, or bloody black stools - Protonix - Carafate - Status post 4 units PRBC, 1 unit FFP -Monitor hemoglobin -Monitor hemodynamics - IV Venofer completed - Advance diet as tolerated - Will have to arrange outpatient follow-up with hematology oncology for iron infusions, and hemoglobin monitoring and transfusion dependent anemia Diastolic CHF exacerbation -Hold diuresis for today Type 2 diabetes mellitus, low-dose sliding scale History of CVA, history of Lewy body dementia - History of aphasia Lactic acidosis, likely multifactorial from acute anemia, left lower lobe pneumonia History of pituitary surgery, Lakeshia's disease, on chronic prednisone -Diabetes insipidus- -has received stress dose steroids - Continue home prednisone, continue desmopressin DNR/DNI, spoke to patient's , he tells me that Precious and he have had multiple discussions, and it is her wish to be DNR/DNI SCDs for DVT prophylaxis Plan for today, BiPAP therapy of hypercarbia, monitor mentation, ambulate, bowel regimen, plan on discharging in next 24 hours PDMP PDMP Reviewed: Not Reviewed Attestations 2 Medical Necessity Statement*: patient acute encephalopathy, shortness of breath, acute anemia Diagnoses Acute anemia D64.9 Iron deficiency E61.1 Type 2 diabetes mellitus, without long-term current use of insulin E11.9 Anemia D64.9 Pneumonia J18.9 Thrombocytopenia D69.6 Lactic acidosis E87.20 Diastolic CHF I50.30
[2024-09-04] MEDS: polyethylene glycol 3350 Pkt 17 gm PO (12:14)
--- NOTE | 2024-09-04 13:34 | PC.SOCIAL ---
IMM updated IMM dated and initialed, copy placed in chart and copy given to patient
[2024-09-04] MEDS: ATORVASTATIN 10 MG TABLET 20 MG PO (18:33)
--- NOTE | 2024-09-04 20:41 | PC.NURSE ---
shift summary: Pt has been more confused and sleepy today. Up to chair at lunch time, she seemed awake but did not respond well verbally . She did follow cues/ command during transfer well. She had difficulty with speech therapy at noon, was going to be NPO due to her lethargic, then she woke up and started feeding herself without any coughing noted. This evening she asked this nurse are you going to bake me a cake? then she starting talking about Momma and Daddy. BiPap utilized for approx 2 hours before lunch then again for aout 2 hours this afternoon unril she decided she wanted up to chair. She Pulled out her right upper arm IV with her fidgeting fingers. was sitting at bedside. Urine out put of 200 ml this hsift.
[2024-09-05] VITALS (32 sets, daily range): BP systolic 109–148; BP diastolic 53–91; PULSE 69–100; RESP 13–28; TEMP 36.6–36.9; O2SAT 89–99
[2024-09-05 05:19] LABS: Hematocrit 31.4 % (36-47); Hemoglobin 8.70 g/dL (11.27-16.99); Mean Corpuscular HGB Conc 27.7 g/dL (30-55); Mean Corpuscular Hemoglobin 25.1 pg (27-33); Mean Corpuscular Volume 90.8 fl (85-98); Nucleated Red Blood Cells % 0 %; Platelet Count 85 10^3/cmm (157-399); Red Blood Count 3.46 10^6/uL (3.85-5.65); White Blood Count 3.57 10^3/uL (3.29-11.43)
[2024-09-05 05:41] LABS: Anion Gap 14.5 (5-19); Blood Urea Nitrogen 12 mg/dL (8-23); Calcium 8.6 mg/dL (8.5-10.5); Carbon Dioxide 30 mmol/L (22-29); Chloride 103 mmol/L (98-107); Creatinine Clr Calc Pharmacy 61.4338; Glucose 110 mg/dL (65-115); Osmolality Calculated 298 mOsm/kg (285-295); Potassium 3.5 mmol/L (3.5-5.1); Sodium 144 mmol/L (136-145)
[2024-09-05] MEDS: sucralfate 1 gm/10 mL Oral Liq UDC PO ×4 (06:22→21:03)
[2024-09-05] MEDS: pantoprazole 40 mg SDV IVP ×2 (06:23→17:52)
[2024-09-05] MEDS: polyethylene glycol 3350 Pkt 17 gm PO (09:12)
--- NOTE | 2024-09-05 10:50 | XRR_ITS ---
PROCEDURE INFORMATION: Exam: XR Abdomen Exam date and time: 09/05/2024 4:00 PM Age: 83 years old Clinical indication: Abdominal pain; Additional info: Abd pain, PT in chair now, will do XR after dinner when PT is transferred back to bed TECHNIQUE: Imaging protocol: Radiologic exam of the abdomen. Views: Frontal supine view of the abdomen. 1 View. COMPARISON: 1. CT abdomen pelvis w con* [id number] 08/30/2024 4:57 PM 2. CR XR KUB portable [id number] 12/09/2023 11:21 AM FINDINGS: Tubes, catheters and devices: Partially visualized right-sided peritoneal catheter. Gastrointestinal tract: Relative paucity of bowel gas with prominent gas-filled bowel loop at the left abdomen possibly representing colon. Bones/joints: Degenerative change along the spine. Other findings: Postsurgical material projects over the pelvis. XR/XR KUB portable [id number] IMPRESSION: Relative paucity of bowel gas with prominent gas-filled bowel loop in the left abdomen possibly representing colon.
--- NOTE | 2024-09-05 12:57 | P.PN_ITS ---
Subjective 2 Subjective: No melena hematochezia HDs acceptable Vitals/I&O/Wt Last Vital Signs Temp 98.1 F 09/05/24 04:00 Pulse 71 09/05/24 12:00 Resp 14 09/05/24 11:08 BP 143/73 09/05/24 11:00 Pulse Ox 94 09/05/24 12:00 O2 Del Method Nasal Cannula 09/05/24 11:08 O2 Flow Rate 2 09/05/24 11:08 FiO2 30 09/05/24 02:36 09/04/24 09/05/24 09/05/24 22:59 06:59 14:59 Intake Total 160 / 560 500 / 500 Output Total 200 / 200 200 / 400 Balance -40 / 360 -200 / 160 500 / 500 Weight last 48 hrs Weight 184 lb 1.376 oz Weight 185 lb 3.013 oz Physical Exam 2 Narrative: rrr on bipap on and off abdomen soft, nt, nd Urinary Catheter Management: Guerrero: Cath Placed During This Visit: yes Reason for Continuing Indwelling Catheter: Accurate Measurement of Urinary Output in Critically Ill Patients Urinary Catheter Date of Insertion: 08/31/24 Urinary Catheter Time of Insertion: 04:02 Data 09/05/24 04:26 09/05/24 04:26 Micro: Microbiology 08/30/24 12:47 Blood Culture - Final Blood NO GROWTH AFTER 5 DAYS 08/30/24 12:45 Blood Culture - Final Blood NO GROWTH AFTER 5 DAYS A&P Assessment and plan 1. Acute anemia: Plan: 83yo female whom surgery was conuslted to r/o GIB. No evidence of GIB at this time. Rest of care per hospitalist. PDMP PDMP Reviewed: Not Reviewed Attestations 2 Medical Necessity Statement*: NA Coding Level of Care Code 10374 Diagnoses Acute anemia D64.9
--- NOTE | 2024-09-05 15:14 | P.PN_ITS ---
Subjective 2 Subjective: Patient was seen this morning, she is alert to person, to place, not to time, can follow commands, her appetite is improving, she has good alertness, has no complaints Vitals/I&O/Wt Last Vital Signs Temp 98 F 09/05/24 14:00 Pulse 82 09/05/24 14:00 Resp 28 H 09/05/24 14:00 BP 141/74 09/05/24 14:00 Pulse Ox 97 09/05/24 14:00 O2 Del Method Nasal Cannula 09/05/24 11:08 O2 Flow Rate 2 09/05/24 11:08 FiO2 30 09/05/24 02:36 09/05/24 09/05/24 09/05/24 06:59 14:59 22:59 Intake Total 500 / 500 Output Total 200 / 400 Balance -200 / 160 500 / 500 Weight last 48 hrs Weight 83.5 kg Weight 84 kg Physical Exam 2 Const: COMMON NORMALS: no acute distress ORIENTATION/CONSCIOUSNESS: Yes awake, Yes oriented to person and Yes oriented to place; not oriented to time Resp: COMMON NORMALS: normal respiratory effort, No retractions, No use of accessory muscles and clear to auscultation bilaterally AUSCULTATION: clear to auscultation bilaterally Cardio: COMMON NORMALS: regular rate, regular rhythm, S1 normal heart sound present and S2 normal heart sound present RATE: regular rate RHYTHM: r egular rhythm HEART SOUNDS: S1 normal heart sound present and S2 normal heart sound present GI: COMMON NORMALS: Normal to inspection, nondistended, normoactive bowel sounds present and non-tender Extremity: COMMON NORMALS: no pedal edema Neuro: SENSORIUM/ORIENTATION: Yes oriented to person, Yes oriented to place and No oriented to time Psych: COMMON NORMALS: mental status grossly normal Urinary Catheter Management: Guerrero: Cath Placed During This Visit: yes Reason for Continuing Indwelling Catheter: Accurate Measurement of Urinary Output in Critically Ill Patients Urinary Catheter Date of Insertion: 08/31/24 Urinary Catheter Time of Insertion: 04:02 Data 09/05/24 04:26 09/05/24 04:26 Micro: Microbiology 08/30/24 12:47 Blood Culture - Final Blood NO GROWTH AFTER 5 DAYS 08/30/24 12:45 Blood Culture - Final Blood NO GROWTH AFTER 5 DAYS A&P Assessment and plan 1. Acute anemia: 2. Iron deficiency: 3. Type 2 diabetes mellitus, without long-term current use of insulin: 4. Anemia: 5. Pneumonia: 6. Thrombocytopenia: 7. Lactic acidosis: 8. 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, has history of intermittent residual right-sided deficits, history of cognitive decline secondarily by dementia, with expressive speech difficulties, myoclonic stuttering speech, Hypercarbic respiratory failure - Continue BiPAP - Monitor mentation Left lower lobe pneumonia - Concern for left lower lobe pneumonia on chest x-ray -De-escalate to cefdinir - Blood cultures -DuoNeb, budesonide - Inflammatory markers - Aspiration precaution, speech therapy eval left-sided chest pain - Serial EKGs, serial troponins, telemetry monitoring CONCLUSIONS Normal left ventricular size and systolic function, EF 66%.mild left ventricular hypertrophy. No regional wall motion abnormalities. Grade II/IV diastolic dysfunction, moderately elevated filling pressures. Mildly increased left atrial size. Mild mitral annular calcification. Mild-moderate mitral valve regurgitation. Moderate aortic valve stenosis, CHRISTOPHER 1.3 cm squared. Moderate aortic valve calcification. The peak velocity was 2.99 m/s with a peak gradient of 36 and a mean gradient of 18 mmHg. Mild tricuspid valve regurgitation. Mild pulmonary valve regurgitation. There is no pericardial effusion. There are no intracardiac masses. Compared to the study from 12/08/2023, there may not be a significant change Acute anemia - Concerns for iron deficiency anemia - Concerns for slow GI bleed - Reticulocyte count 3.3 - Hemoglobin 9.7, status post 4 units PBC, 1 unit FFP -EGD within normal limits Plan -Hemodynamically stable - No active GI bleed, or bloody black stools - Protonix - Carafate - Status post 4 units PRBC, 1 unit FFP -Monitor hemoglobin -Monitor hemodynamics - IV Venofer completed - Advance diet as tolerated - Will have to arrange outpatient follow-up with hematology oncology for iron infusions, and hemoglobin monitoring and transfusion dependent anemia Diastolic CHF exacerbation -Hold diuresis for today Type 2 diabetes mellitus, low-dose sliding scale History of CVA, history of Lewy body dementia - History of aphasia Lactic acidosis, likely multifactorial from acute anemia, left lower lobe pneumonia History of pituitary surgery, [place]'s disease, on chronic prednisone -Diabetes insipidus- -has received stress dose steroids - Continue home prednisone, continue desmopressin Physical deconditioning, protein calorie malnutrition DNR/DNI, spoke to patient's , he tells me that Precious and he have had multiple discussions, and it is her wish to be DNR/DNI SCDs for DVT prophylaxis Plan for today, PT OT, monitor hemoglobin PDMP PDMP Reviewed: Not Reviewed Attestations 2 Medical Necessity Statement*: Patient requires hospitalization physical deconditioning, vertigo monitoring, acute anemia Diagnoses Acute anemia D64.9 Iron deficiency E61.1 Type 2 diabetes mellitus, without long-term current use of insulin E11.9 Anemia D64.9 Pneumonia J18.9 Thrombocytopenia D69.6 Lactic acidosis E87.20 Diastolic CHF I50.30
--- NOTE | 2024-09-05 17:15 | PC.NURSE ---
up in chair most of shift tolerated well no difficulty swallowing , to bsc had large soft bm ,osborne removed whole intact no distress noted abdomen xray done
[2024-09-05] MEDS: ATORVASTATIN 10 MG TABLET 20 MG PO (17:52)
[2024-09-06] VITALS (34 sets, daily range): BP systolic 102–141; BP diastolic 40–79; PULSE 68–98; RESP 14–23; TEMP 36.6–37.4; O2SAT 90–99
[2024-09-06] MEDS: sucralfate 1 gm/10 mL Oral Liq UDC PO ×4 (06:26→20:44)
[2024-09-06] MEDS: pantoprazole 40 mg SDV IVP ×2 (06:27→17:35)
[2024-09-06 09:21] LABS: Hematocrit 33.6 % (36-47); Hemoglobin 9.60 g/dL (11.27-16.99); Mean Corpuscular HGB Conc 28.6 g/dL (30-55); Mean Corpuscular Hemoglobin 25.9 pg (27-33); Mean Corpuscular Volume 90.8 fl (85-98); Nucleated Red Blood Cells % 0 %; Platelet Count 75 10^3/cmm (157-399); Red Blood Count 3.70 10^6/uL (3.85-5.65); White Blood Count 3.27 10^3/uL (3.29-11.43)
[2024-09-06 09:40] LABS: Alanine Aminotransferase 14 U/L (0-33); Albumin Level 3.4 g/dL (3.5-5.2); Alkaline Phosphatase 49 U/L (35-105); Anion Gap 14.4 (5-19); Aspartate Amino Transferase 33 U/L (0-32); Blood Urea Nitrogen 14 mg/dL (8-23); Calcium 8.3 mg/dL (8.5-10.5); Carbon Dioxide 28 mmol/L (22-29); Chloride 103 mmol/L (98-107); Creatinine Clr Calc Pharmacy 61.4338; Globulin 2.9 g/dL (1.3-4.6); Glucose 131 mg/dL (65-115); Osmolality Calculated 296 mOsm/kg (285-295); Potassium 3.4 mmol/L (3.5-5.1); Sodium 142 mmol/L (136-145); Total Protein 6.3 g/dL (6.6-8.7)
--- NOTE | 2024-09-06 12:07 | P.DS_ITS ---
Discharge Providers Date of Admission: 08/30/24 14:35 Date of Discharge: September 06, 2024 Attending Provider at Admission: Gus Nguyen MD Attending Provider at Discharge: Gus Nguyen MD Primary Care Provider: Zuri Castorena DO Diagnoses at Discharge Discharge Diagnosis 1. Acute anemia: 2. Iron deficiency: 3. Type 2 diabetes mellitus without complication, without long-term current use of insulin: 4. Anemia: 5. Pneumonia: 6. Thrombocytopenia: 7. Lactic acidosis: 8. 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 Currently patient is alert to person, to place, not to time she can follow commands, most of the history was provided by at bedside, who tells me that she has been feeling weak recently she had a fall a few days ago, no significant head trauma, she has had some near misses, near falls, today, she had episode of left-sided chest pain radiating down left arm, she did have breakfast this morning, she presented to urgent care who sent her to [facility], she does report shortness of breath, does have abdominal distention, no diarrhea, no bloody black stools no history of blood transfusions, no history of iron fusions,, cannot remember if she has ever had a EGD or colonoscopy, Patient was admitted to [facility] for acute anemia, concerns for iron deficiency anemia, received and completed IV Venofer during hospitalization. During the hospitalization required 4 units of blood 1 unit FFP, status post EGD no acute findings, hemoglobin stable at 9.6, will discharge with close follow-up with hematology as outpatient for iron deficiency anemia and transfusion dependent anemia. - Discussed with patient's about doing a colonoscopy, for now patient does not want to have a colonoscopy done, but if in the future plans change, it would have to be done in [place] as in the past she required a pediatric scope - Discussed with about monitor hemoglobin as outpatient, possibility of bone marrow biopsy, and transfusion dependent anemia, patient will follow-up with hematology Left lower lobe pneumonia managed with IV antibiotics discharged on p.o. antibiotics Hypercarbic respiratory failure requiring BiPAP, resolved on discharge Acute encephalopathy, polypharmacy from Zyprexa, Seroquel, hypercarbic respiratory failure. Will be discharged on a reduced dose of Seroquel, Zyprexa has been stopped on discharge Diastolic CHF, requiring IV diuresis during hospitalization Follow-up with primary care provider as outpatient On discharge patient is deconditioning, she has increased needs, episodes of encephalopathy, patient's wants to take her home, will work on home health care for her, discussed with that she is at increased risk of rehospitalization, further deconditioning Physical Exam Const: COMMON NORMALS: no acute distress ORIENTATION/CONSCIOUSNESS: Yes awake, Yes oriented to person and Yes oriented to place; not oriented to time Resp: COMMON NORMALS: normal respiratory effort, No retractions, No use of accessory muscles and clear to auscultation bilaterally AUSCULTATION: clear to auscultation bilaterally Cardio: COMMON NORMALS: regular rate, regular rhythm, S1 normal heart sound present and S2 normal heart sound present RATE: regular rate RHYTHM: regular rhythm HEART SOUNDS: S1 normal heart sound present and S2 normal heart sound present GI: COMMON NORMALS: Normal to inspection, nondistended, normoactive bowel sounds present and non-tender Extremity: COMMON NORMALS: no pedal edema Neuro: SENSORIUM/ORIENTATION: Yes oriented to person, Yes oriented to place and No oriented to time Urinary Catheter Management: Guerrero: Cath Placed During This Visit: yes, but has since been removed by the nurse Reason for Continuing Indwelling Catheter: Accurate Measurement of Urinary Output in Critically Ill Patients Urinary Catheter Date of Insertion: 08/31/24 Urinary Catheter Time of Insertion: 04:02 Date Urinary Catheter Removed: 09/05/24 Time Urinary Catheter Discontinued: 14:00 Discharge Data Studies Completed and Pending Completed Studies During Hospitalization Category Date Time Status CT abdomen pelvis w con* [id number] Stat Cat Scan 08/30/24 15:[address] head wo con* [id number] Routine Cat Scan 09/01/24 12:10 Completed XR KUB portable [id number] Routine Exams 09/05/24 10:50 Completed XR chest 1V portable [id number] Routine Exams 08/31/24 11:12 Completed XR chest 1V portable [id number] Stat Exams 08/30/24 12:23 Completed CV. echo complete* [id number] Routine Ultrasound 08/31/24 08:12 Completed Pending at discharge Category Date Time Status Occult Blood Stool [Immunochemical Fecal OCB] Routine Lab 08/30/24 18:07 Uncollected Sputum Culture and Gram Stain Stat Lab 08/30/24 15:30 Uncollected Radiology Impressions Abdomen/Pelvis CT 08/30/24 15:06 IMPRESSION: 1. Hepatic cirrhosis with 4.5 cm hepatic nodule suspicious for primary hepatic neoplasm. Further workup with MRI is needed. 2. Moderate ascites with splenomegaly 3. Cardiomegaly with small pleural effusions 4. Cholelithiasis 5. Periaortic adenopathy raising some suspicion for metastatic disease Chest X-Ray 08/31/24 11:12 IMPRESSION: 1. Left retrocardiac consolidation which could represent atelectasis or pneumonia. PA and lateral radiograph evaluation is recommended. 2. Cardiomegaly. 3. A small amount of left pleural fluid is likely. Head CT 09/01/24 12:10 IMPRESSION: 1. No evidence of intracranial hemorrhage or mass effect. 2. No significant changes compared to previous KUB X-Ray 09/05/24 10:50 IMPRESSION: Relative paucity of bowel gas with prominent gas-filled bowel loop in the left abdomen possibly representing colon. Laboratory Results WBC 3.27 10^3/uL (3.29-11.43) L 09/06/24 09:05 Corrected WBC Cancelled 09/01/24 08:06 RBC 3.70 10^6/uL (3.85-5.65) L 09/06/24 09:05 Hgb 9.60 g/dL (11.27-16.99) L 09/06/24 09:05 Hct 33.6 % (36-47) L 09/06/24 09:05 MCV 90.8 fl (85-98) 09/06/24 09:05 MCH 25.9 pg (27-33) L 09/06/24 09:05 MCHC 28.6 g/dL (30-55) L 09/06/24 09:05 RDW 23.7 % (12.1-15.1) H 09/06/24 09:05 Plt Count 75 10^3/cmm (157-399) L 09/06/24 09:05 MPV 9.8 fL (7.4-10.4) 09/06/24 09:05 Gran % Cancelled 09/01/24 08:06 Neut % (Auto) 55.4 % 09/06/24 09:05 Lymph % (Auto) 33.0 % 09/06/24 09:05 [place] % (Auto) 6.7 % 09/06/24 09:05 Eos % (Auto) 4.0 % 09/06/24 09:05 Baso % (Auto) 0.6 % 09/06/24 09:05 Reticulocyte % (Auto) 3.3 % (0.5-2.0) H 08/30/24 12:45 Neut # (Auto) 1.81 10^3/uL (1.8-7.7) 09/06/24 09:05 Lymph # (Auto) 1.1 10^3/uL (0.8-4.8) 09/06/24 09:05 [place] # (Auto) 0.2 10^3/uL (0.2-0.9) 09/06/24 09:05 Eos # (Auto) 0.1 10^3/uL (0.0-0.8) 09/06/24 09:05 Baso # (Auto) 0.0 10^3/uL (0.0-0.1) 09/06/24 09:05 Absolute Gran (auto) Cancelled 09/01/24 08:06 Nucleated RBC % (auto) 0 % 09/06/24 09:05 Nucleated RBCs # 0.0 /100WBC 09/06/24 09:05 Haptoglobin 104.0 mg/L (30-200) 08/30/24 12:45 Haptoglobin Cancelled 08/30/24 12:45 PT 17.60 SECONDS (12.1-14.9) H 08/30/24 12:45 INR 1.35 (0.8-1.2) H 08/30/24 12:45 APTT 25.2 SECONDS (23.9-36.7) 08/30/24 12:45 Specimen Type Arterial 09/02/24 05:34 Sample Site Radial, left 09/02/24 05:34 ABG pH 7.45 (7.35-7.45) 09/02/24 05:34 ABG pCO2 52.3 mmHg (35-45) H 09/02/24 05:34 ABG pO2 79.0 mmHg (80.0-100.0) L 09/02/24 05:34 ABG PO2/FiO2 Ratio 263 09/02/24 05:34 ABG HCO3 36.3 mmol/L (22-26) H 09/02/24 05:34 ABG O2 Saturation 93.7 09/01/24 12:03 ABG Base Excess 10.9 mmol/L (-2.0-2.0) H 09/02/24 05:34 Jimmie Test Pos 09/02/24 05:34 A-a O2 Gradient 6.6 mmHg (5-10) 09/01/24 12:03 Hematocrit 28.5 % (37-47) L 09/02/24 05:34 Hgb O2 Saturation 91.1 % (95-100) L 09/01/24 12:03 Carboxyhemoglobin 2.5 %THgb (0.4-20.1) 09/01/24 12:03 Methemoglobin 0.3 % (0.4-1.5) L 09/01/24 12:03 Total Hemoglobin 8.7 g/dL (12-16) L 09/01/24 12:03 Sodium 147.0 mmol/L (131-143) H 09/01/24 12:03 Potassium 3.6 mmol/L (3.5-5.0) 09/01/24 12:03 Glucose 136.0 mg/dL (70-115) H 09/01/24 12:03 Ionized Calcium 1.1 mmol/L (1.1-1.4) 09/01/24 12:03 O2 Delivery Device Bipap 09/02/24 05:34 O2 Liters/Min 2.0 % 09/01/24 12:03 FiO2 30.0 % 09/02/24 05:34 Hand Frame Surgical Elastic Knitter ID Wiley 09/02/24 05:34 Sodium 142 mmol/L (136-145) 09/06/24 09:05 Potassium 3.4 mmol/L (3.5-5.1) L 09/06/24 09:05 Chloride 103 mmol/L (98-107) 09/06/24 09:05 Carbon Dioxide 28 mmol/L (22-29) 09/06/24 09:05 Anion Gap 14.4 (5-19) 09/06/24 09:05 BUN 14 mg/dL (8-23) 09/06/24 09:05 Creatinine 0.4 mg/dL (0.5-0.9) L 09/06/24 09:05 GFR Calculation Not Reportable 09/06/24 09:05 Glucose 131 mg/dL (65-115) H 09/06/24 09:05 POC Glucose 155 mg/dL (70-110) H 09/06/24 11:28 Calculated Osmolality 296 mOsm/kg (285-295) H 09/06/24 09:05 Lactic Acid 4.2 mmol/L (0.5-2.2) H* 08/30/24 12:45 Lactic Acid (Sepsis) 3.8 mmol/L (0.5-2.2) H 08/30/24 15:11 Lactate 1.6 mmol/L (0.5-2.2) 08/31/24 11:58 Calcium 8.3 mg/dL (8.5-10.5) L 09/06/24 09:05 Phosphorus 3.9 mg/dL (2.5-4.5) 09/02/24 05:40 Magnesium 2.0 mg/dL (1.7-2.3) 09/02/24 05:40 Iron 16 ug/dL (37-145) L 08/30/24 12:45 TIBC 381 mcg/dl 08/30/24 12:45 % Saturation 4.1 % (20-50) L 08/30/24 12:45 Unsat Iron Binding 365 ug/dL (112-347) H 08/30/24 12:45 Ferritin 8 ng/mL (15-150) L 08/30/24 12:45 Total Bilirubin 1.0 mg/dL (0.15-1.2) 09/06/24 09:05 AST 33 U/L (0-32) H 09/06/24 09:05 ALT 14 U/L (0-33) 09/06/24 09:05 Alkaline Phosphatase 49 U/L (35-105) 09/06/24 09:05 Ammonia 39 umol/L (11-51) 09/01/24 17:44 Lactate Dehydrogenase 202 U/L (135-214) 08/30/24 12:45 Lactate Dehydrogenase Cancelled 08/30/24 12:45 Troponin T Baseline 17 ng/L (0-10) H 08/30/24 12:45 Troponin T 120 Minute 16.19 ng/L (0-10) H 08/30/24 15:11 Delta Troponin T -0.81 ABS# (0-10) L 08/30/24 15:11 Troponin T Hi Sens 6Hr 17.10 ng/L (0-10) H 08/30/24 19:35 Troponin T Hi Sens 6Hr Delta 0.10 ng/L (0-12) 08/30/24 19:35 NT-Pro-B Natriuret Pep 899 pg/mL (0-450) H 09/01/24 17:44 Total Protein 6.3 g/dL (6.6-8.7) L 09/06/24 09:05 Albumin 3.4 g/dL (3.5-5.2) L 09/06/24 09:05 Globulin 2.9 g/dL (1.3-4.6) 09/06/24 09:05 Tumor Marker AFP 6.8 ng/mL (0-8.3) 08/30/24 15:11 CA 19-9 Antigen 11.38 U/mL (0-35) 08/30/24 12:45 Vitamin B12 667 pg/mL (232-1245) 08/30/24 12:45 Folate > 20.0 ng/mL (4.8-37.3) 08/30/24 12:45 Procalcitonin Cancelled 08/30/24 12:45 TSH 2.89 uIU/mL (0.27-4.20) 08/30/24 12:45 Urine Color Yellow (Yellow) 08/30/24 22:25 Urine Appearance Clear (CLEAR) 08/30/24 22: Urine pH 6.0 (5-7) 08/30/24 22:25 Ur Specific [place] 1.012 (1.005-1.030) 08/30/24 22:25 Urine Protein Negative (Negative) 08/30/24 22:25 Urine Glucose (UA) Negative (Normal) 08/30/24 22: Urine Ketones Negative (Negative) 08/30/24 22:25 Urine Blood Negative (Negative) 08/30/24 22:25 Urine Nitrate Positive (Negative) A 08/30/24 22:25 Urine Bilirubin Negative (Negative) 08/30/24 22:25 Urine Urobilinogen 0.2 mg/dL (Negative) 08/30/24 22:25 Ur Leukocyte Esterase Negative (Negative) 08/30/24 22:25 Urine RBC 0-2 /hpf (0-2) 08/30/24 22:25 Urine WBC 0-5 /hpf (0-5) 08/30/24 22:25 Ur Squamous Epith Cells 0-5 /hpf (0-5) 08/30/24 22: Amorphous Sediment Not Reportable 08/30/24 22:25 Urine Bacteria None seen /hpf (NONE) 08/30/24 22: Hyaline Casts 1.21 /lpf 08/30/24 22:25 Hepatitis A IgM Ab Non-reactive (Nonreactive) 08/30/24 12:45 Hep Bs Antigen Non-reactive (Nonreactive) 08/30/24 12:45 Hep B Core IgM Ab Non-reactive (Nonreactive) 08/30/24 12:45 Hepatitis C Antibody Non-reactive (Nonreactive) 08/30/24 12:45 Blood Type A Negative 08/30/24 13:55 Rho(D) Type Rh negative 08/30/24 13:55 Antibody Screen Negative 08/30/24 13:55 RENA, Poly Interpret Negative 08/30/24 13:55 Crossmatch See Detail 08/30/24 13:55 Vitals Last Vital Signs Temp 98 F 09/06/24 12:00 Pulse 89 09/06/24 12:00 Resp 22 H 09/06/24 12:00 BP 126/56 09/06/24 12:00 Pulse Ox 96 09/06/24 12:00 O2 Del Method Nasal Cannula 09/06/24 11:02 O2 Flow Rate 2 09/06/24 11:02 FiO2 30 09/06/24 00:10 Discharge Plan Discharge Patient Disposition: Home Health Service Condition: Stable Prescriptions: New quetiapine 25 mg Tablet 25 mg PO QAM 30 Days Qty: 30 0RF quetiapine 300 mg Tablet 150 mg PO BEDTIME 30 Days Qty: 150 0RF cefdinir 300 mg Capsule 300 mg PO BID 5 Days Qty: 10 0RF sucralfate [Carafate] 1 gram tablet 1 g PO BID 28 Days Qty: 56 0RF prednisone 1 mg Tablet 2 mg PO QNOON 30 Days Qty: 60 0RF prednisone 1 mg Tablet 3 mg PO QAM 30 Days Qty: 90 0RF polyethylene glycol 3350 17 gram Powder In Packet 17 g PO DAILY 30 Days Qty: 30 0RF pantoprazole [Protonix] 40 mg tablet,delayed release (DR/EC) 40 mg PO BID 30 Days Qty: 60 0RF Continued PreserVision AREDS-2 250-90-40-1 mg capsule 1 tab PO BID aspirin [Adult Aspirin Regimen] 81 mg tablet,delayed release (DR/EC) 81 mg PO DAILY (DME) OneTouch Verio test strips Strip See Rx Instructions .Route Qty: 100 2RF Rx Instructions: Test Blood sugar up to twice a day E11.9 (DME) Comfort Touch Ult Thin Lancets 31 gauge misc See Rx Instructions .Route Qty: 100 1RF Rx Instructions: As directed (DME) blood-glucose meter [OneTouch Verio Meter] Misc See Rx Instructions .Route Qty: 1 0RF Rx Instructions: As directed E11.9 (DME) pen needle, diabetic [Comfort EZ Pen [place]] 31 gauge x 5/16 needle See Rx Instructions .Route Qty: 100 0RF Rx Instructions: As directed escitalopram oxalate 20 mg tablet 30 mg PO QAM Qty: 150 3RF pravastatin 40 mg tablet 40 mg PO QPM Qty: 90 3RF (DME) pen needle, diabetic [CareFine Pen Needle] 31 gauge x 1/4 needle See Rx Instructions .Route Qty: 100 0RF Rx Instructions: As directed calcium carbonate 500 mg calcium (1,250 mg) Tablet 1,000 mg PO QAM ferrous sulfate [iron] 325 mg (65 mg iron) Tablet 325 mg PO QAM cholecalciferol (vitamin D3) [Vitamin D3] 50 mcg (2,000 unit) Tablet 50 mcg PO DAILY metformin 500 mg tablet 1,000 mg PO BID levothyroxine 100 mcg tablet 100 mcg PO DAILY desmopressin 0.1 mg tablet 0.1 mg PO BID Januvia 100 mg tablet 100 mg PO DAILY Discontinued insulin lispro [Humalog KwikPen Insulin] 100 unit/mL insulin pen 8 unit SUBCUT TID Qty: 15 0RF olanzapine 10 mg tablet 20 mg PO BEDTIME omeprazole 40 mg capsule,delayed release(DR/EC) 40 mg PO DAILY Discharge Order = DC NOW: Discharge Order (Routine); Ordered 09/06/24 Ordered By: Gus Nguyen Referrals: [facility] [Outside] Yordy Jay MD [Physician, General Surgery] Zuri Castorena DO [Primary Care Provider, Family Practice] Rivera Travis MD [Hospitalist, Oncology] - 1-3 days Referral Note: Transfusion dependent anemia Discharge Diet: Cardiac Discharge Activity: Resume usual activity Patient Instructions: GI Post Discharge Instructions w/ Anesthesia, Opioid S afety, Patient Portal & Frances Instructions Activity Restrictions/Additional Instructions: - Transfusion dependent anemia - Recheck hemoglobin next week - Follow-up with oncology Discharge Attestations Time Spent in Discharge Care*: greater than 30 min Quality Metrics Clinical Quality Measures [ No reported AMI, CVA or VTE this stay] Coding Level of Care Code 92766 Total time (in minutes) for Discharge: 45 Diagnoses Acute anemia D64.9 Iron deficiency E61.1 Type 2 diabetes mellitus without complication, without long-term current use of insulin E11.9 Diabetes mellitus complication status: without complication Anemia D64.9 Pneumonia J18.9 Thrombocytopenia D69.6 Lactic acidosis E87.20 Diastolic CHF I50.30
--- NOTE | 2024-09-06 13:19 | P.PN_ITS ---
Subjective 2 Subjective: Patient was seen this morning, she is alert to person, to place, not to time she sitting up in a chair, she has had episodes of confusion this morning, she did sleep during the night, discussed with that I do not believe that I will get her mentation back to what her baseline is here in the hospital, with her underlying dementia, history of CVA, her mentation has fluctuated, she has had delirious episodes, some of it related to Zyprexa, hypercarbia, but despite all that she continues to have delirious episodes, I feel that getting her back into her regular home environment will help her, but she continue to have significant deconditioning, increased needs, Vitals/I&O/Wt Last Vital Signs Temp 98 F 09/06/24 12:00 Pulse 89 09/06/24 12:00 Resp 22 H 09/06/24 12:00 BP 126/56 09/06/24 12:00 Pulse Ox 96 09/06/24 12:00 O2 Del Method Nasal Cannula 09/06/24 11:02 O2 Flow Rate 2 09/06/24 11:02 FiO2 30 09/06/24 00:10 09/05/24 09/06/24 09/06/24 22:59 06:59 14:59 Intake Total 760 / 1260 0 / 1260 200 / 200 Balance 760 / 1260 0 / 1260 200 / 200 Weight last 48 hrs Weight 84 kg Weight 83.5 kg Physical Exam 2 Const: COMMON NORMALS: no acute distress ORIENTATION/CONSCIOUSNESS: Yes awake, Yes oriented to person and Yes oriented to place; not oriented to time Resp: COMMON NORMALS: normal respiratory effort, No retractions, No use of accessory muscles and clear to auscultation bilaterally AUSCULTATION: clear to auscultation bilaterally Cardio: COMMON NORMALS: regular rate, regular rhythm, S1 normal heart sound present and S2 normal heart sound present RATE: regular rate RHYTHM: r egular rhythm HEART SOUNDS: S1 normal heart sound present and S2 normal heart sound present GI: COMMON NORMALS: Normal to inspection, nondistended, normoactive bowel sounds present and non-tender Extremity: COMMON NORMALS: no pedal edema Neuro: SENSORIUM/ORIENTATION: Yes oriented to person, Yes oriented to place and No oriented to time Urinary Catheter Management: Guerrero: Cath Placed During This Visit: yes, but has since been removed by the nurse Reason for Continuing Indwelling Catheter: Accurate Measurement of Urinary Output in Critically Ill Patients Urinary Catheter Date of Insertion: 08/31/24 Urinary Catheter Time of Insertion: 04:02 Date Urinary Catheter Removed: 09/05/24 Time Urinary Catheter Discontinued: 14:00 Data 09/06/24 09:05 09/06/24 09:05 A&P Assessment and plan 1. Acute anemia: 2. Iron deficiency: 3. Type 2 diabetes mellitus, without long-term current use of insulin: 4. Anemia: 5. Pneumonia: 6. Thrombocytopenia: 7. Lactic acidosis: 8. Diastolic CHF: Plan: Acute encephalopathy, continues to have delirium episodes - Polypharmacy - Zyprexa, Seroquel -Hypercarbic respiratory failure, hypercarbia - Neurochecks, NIH stroke scale -Possible seizure-like episode, did not respond to Keppra - Seizure precautions, neurochecks, and a stroke scale - Likely combination of polypharmacy, hypercarbia, now resolved - Continue to monitor mentation, resume Seroquel at reduced dose, BiPAP History of CVA for which she is on aspirin, has history of intermittent residual right-sided deficits, history of cognitive decline secondarily by dementia, with expressive speech difficulties, myoclonic stuttering speech, Hypercarbic respiratory failure - Continue BiPAP - Monitor mentation Left lower lobe pneumonia - Concern for left lower lobe pneumonia on chest x-ray -De-escalate to cefdinir - Blood cultures -DuoNeb, budesonide - Inflammatory markers - Aspiration precaution, speech therapy eval left-sided chest pain - Serial EKGs, serial troponins, telemetry monitoring CONCLUSIONS Normal left ventricular size and systolic function, EF 66%.mild left ventricular hypertrophy. No regional wall motion abnormalities. Grade II/IV diastolic dysfunction, moderately elevated filling pressures. Mildly increased left atrial size. Mild mitral annular calcification. Mild-moderate mitral valve regurgitation. Moderate aortic valve stenosis, CHRISTOPHER 1.3 cm squared. Moderate aortic valve calcification. The peak velocity was 2.99 m/s with a peak gradient of 36 and a mean gradient of 18 mmHg. Mild tricuspid valve regurgitation. Mild pulmonary valve regurgitation. There is no pericardial effusion. There are no intracardiac masses. Compared to the study from 12/08/2023, there may not be a significant change Acute anemia - Concerns for iron deficiency anemia - Concerns for slow GI bleed - Reticulocyte count 3.3 - Hemoglobin 9.7, status post 4 units PBC, 1 unit FFP -EGD within normal limits Plan -Hemodynamically stable - No active GI bleed, or bloody black stools - Protonix - Carafate - Status post 4 units PRBC, 1 unit FFP -Monitor hemoglobin -Monitor hemodynamics - IV Venofer completed - Advance diet as tolerated - Will have to arrange outpatient follow-up with hematology oncology for iron infusions, and hemoglobin monitoring and transfusion dependent anemia Diastolic CHF exacerbation -Hold diuresis for today Type 2 diabetes mellitus, low-dose sliding scale History of CVA, history of Lewy body dementia - History of aphasia Lactic acidosis, likely multifactorial from acute anemia, left lower lobe pneumonia History of pituitary surgery, Lakeshia's disease, on chronic prednisone -Diabetes insipidus- -has received stress dose steroids - Continue home prednisone, continue desmopressin Physical deconditioning, protein calorie malnutrition DNR/DNI, spoke to patient's , he tells me that Precious and he have had multiple discussions, and it is her wish to be DNR/DNI SCDs for DVT prophylaxis Plan for today, PT OT, monitor hemoglobin PDMP PDMP Reviewed: Not Reviewed Attestations 2 Medical Necessity Statement*: Patient requires hospitalization for persistent delirium Diagnoses Acute anemia D64.9 Iron deficiency E61.1 Type 2 diabetes mellitus, without long-term current use of insulin E11.9 Anemia D64.9 Pneumonia J18.9 Thrombocytopenia D69.6 Lactic acidosis E87.20 Diastolic CHF I50.30
--- NOTE | 2024-09-06 13:46 | PC.NURSE ---
lethargic this am but not slept well last noc up in chair this am and am breakfast given with good appitite , speech here and increased diet, prepaing for discharge this pm talked with about will be taking her home and not to nursking home reviewed orders and attempt call home health, did reach after several calls and attempt talk about medication
--- NOTE | 2024-09-06 14:14 | PC.NURSE ---
continue attempt discharge unsucessful , at bedside about oxygen no home o2 set up or bipap, has has sleep study by Dr Castorena in [place] and has order for bipap but not set up, after discussion with doctor and home health will be discharged in am
[2024-09-06] MEDS: ATORVASTATIN 10 MG TABLET 20 MG PO (17:34)
[2024-09-07] VITALS (24 sets, daily range): BP systolic 103–145; BP diastolic 44–76; PULSE 66–86; RESP 10–20; TEMP 36.5–37; O2SAT 87–98
[2024-09-07] MEDS: albumin 25 G/100 ML BAG 60 G IV (04:03)
--- NOTE | 2024-09-07 06:24 | PC.NURSE ---
PO medications Received permission from Dr Shaffer to wait for administration of patient's morning PO medications due to lethargy and inability to take PO medications safely.
[2024-09-07 06:25] LABS: Hematocrit 30.6 % (36-47); Hemoglobin 8.60 g/dL (11.27-16.99); Mean Corpuscular HGB Conc 28.1 g/dL (30-55); Mean Corpuscular Hemoglobin 25.7 pg (27-33); Mean Corpuscular Volume 91.6 fl (85-98); Nucleated Red Blood Cells % 0 %; Platelet Count 63 10^3/cmm (157-399); Red Blood Count 3.34 10^6/uL (3.85-5.65); White Blood Count 2.58 10^3/uL (3.29-11.43)
[2024-09-07 06:41] LABS: Anion Gap 13.4 (5-19); Blood Urea Nitrogen 15 mg/dL (8-23); Calcium 8.4 mg/dL (8.5-10.5); Carbon Dioxide 30 mmol/L (22-29); Chloride 101 mmol/L (98-107); Creatinine Clr Calc Pharmacy 61.8628; Glucose 108 mg/dL (65-115); Osmolality Calculated 293 mOsm/kg (285-295); Potassium 3.4 mmol/L (3.5-5.1); Sodium 141 mmol/L (136-145)
[2024-09-07] MEDS: pantoprazole 40 mg SDV IVP (06:57)
--- NOTE | 2024-09-07 08:07 | PC.SOCIAL ---
IMM Update Pg. 2 of IMM updated and reviewed with patient, who verbalized understanding. Copy provided.
[2024-09-07 09:18] LABS: Procalcitonin 0.12 ng/mL (0-0.5)
[2024-09-07 13:44] LABS: Glucose Urine UA Negative (Normal); Nitrate Urine Negative (Negative); Specific Gravity, Urine 1.021 (1.005-1.030)
[2024-09-07 13:47] LABS: Add Urine Microscopic? YES
--- NOTE | 2024-09-07 13:59 | PM.DCS ---
Discharge Providers Date of Admission: 08/30/24 14:35 Date of Discharge: September 07, 2024 Attending Provider at Admission: Gus Nguyen MD Attending Provider at Discharge: Gus Nguyen MD Primary Care Provider: Zuri Castorena DO Diagnoses at Discharge Discharge Diagnosis 1. Acute anemia: 2. Iron deficiency: 3. Type 2 diabetes mellitus without complication, without long-term current use of insulin: 4. Anemia: 5. Pneumonia: 6. Thrombocytopenia: 7. Lactic acidosis: 8. 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 Currently patient is alert to person, to place, not to time she can follow commands, most of the history was provided by at bedside, who tells me that she has been feeling weak recently she had a fall a few days ago, no significant head trauma, she has had some near misses, near falls, today, she had episode of left-sided chest pain radiating down left arm, she did have breakfast this morning, she presented to urgent care who sent her to [facility], she does report shortness of breath, does have abdominal distention, no diarrhea, no bloody black stools no history of blood transfusions, no history of iron fusions,, cannot remember if she has ever had a EGD or colonoscopy, Patient was admitted to [facility] for acute anemia, concerns for iron deficiency anemia, received and completed IV Venofer during hospitalization. During the hospitalization required 4 units of blood 1 unit FFP, status post EGD no acute findings, hemoglobin stable at 9.6, will discharge with close follow-up with hematology as outpatient for iron deficiency anemia and transfusion dependent anemia. - Discussed with patient's about doing a colonoscopy, for now patient does not want to have a colonoscopy done, but if in the future plans change, it would have to be done in [place] as in the past she required a pediatric scope - Discussed with about monitor hemoglobin as outpatient, possibility of bone marrow biopsy, and transfusion dependent anemia, patient will follow-up with hematology Left lower lobe pneumonia managed with IV antibiotics discharged on p.o. antibiotics Hypercarbic respiratory failure requiring BiPAP, resolved on discharge Acute encephalopathy, polypharmacy from Zyprexa, Seroquel, hypercarbic respiratory failure. Will be discharged on a reduced dose of Seroquel, Zyprexa has been stopped on discharge Diastolic CHF, requiring IV diuresis during hospitalization Follow-up with primary care provider as outpatient On discharge patient is deconditioning, she has increased needs, episodes of encephalopathy, patient's wants to take her home, will work on home health care for her, discussed with that she is at increased risk of rehospitalization, further deconditioning Physical Exam Const: COMMON NORMALS: no acute distress ORIENTATION/CONSCIOUSNESS: Yes awake, Yes oriented to person and Yes oriented to place; not oriented to time Resp: COMMON NORMALS: normal respiratory effort, No retractions, No use of accessory muscles and clear to auscultation bilaterally AUSCULTATION: clear to auscultation bilaterally Cardio: COMMON NORMALS: regular rate, regular rhythm, S1 normal heart sound present and S2 normal heart sound present RATE: regular rate RHYTHM: regular rhythm HEART SOUNDS: S1 normal heart sound present and S2 normal heart sound present GI: COMMON NORMALS: Normal to inspection, nondistended, normoactive bowel sounds present and non-tender Extremity: COMMON NORMALS: no pedal edema Neuro: SENSORIUM/ORIENTATION: Yes oriented to person, Yes oriented to place and No oriented to time Urinary Catheter Management: Guerrero: Cath Placed During This Visit: yes, but has since been removed by the nurse Reason for Continuing Indwelling Catheter: Accurate Measurement of Urinary Output in Critically Ill Patients Urinary Catheter Date of Insertion: 08/31/24 Urinary Catheter Time of Insertion: 04:02 Date Urinary Catheter Removed: 09/05/24 Time Urinary Catheter Discontinued: 14:00 Discharge Data Studies Completed and Pending Completed Studies During Hospitalization Category Date Time Status CT abdomen pelvis w con* [id number] Stat Cat Scan 08/30/24 15:[address] head wo con* [id number] Routine Cat Scan 09/01/24 12:10 Completed XR KUB portable [id number] Routine Exams 09/05/24 10:50 Completed XR chest 1V portable [id number] Routine Exams 08/31/24 11:12 Completed XR chest 1V portable [id number] Stat Exams 08/30/24 12:23 Completed CV. echo complete* [id number] Routine Ultrasound 08/31/24 08:12 Completed Pending at discharge Category Date Time Status Basic Metabolic Panel AM LABS Lab 09/08/24 04:00 Ordered Basic Metabolic Panel AM LABS Lab 09/09/24 04:00 Ordered Complete Blood Count w/Auto AM LABS Lab 09/08/24 04:00 Ordered Complete Blood Count w/Auto AM LABS Lab 09/09/24 04:00 Ordered Occult Blood Stool [Immunochemical Fecal OCB] Routine Lab 08/30/24 18:07 Uncollected Sputum Culture and Gram Stain Stat Lab 08/30/24 15:30 Uncollected Urinalysis Routine Lab 09/07/24 13:09 Received Radiology Impressions Abdomen/Pelvis CT 08/30/24 15:06 IMPRESSION: 1. Hepatic cirrhosis with 4.5 cm hepatic nodule suspicious for primary hepatic neoplasm. Further workup with MRI is needed. 2. Moderate ascites with splenomegaly 3. Cardiomegaly with small pleural effusions 4. Cholelithiasis 5. Periaortic adenopathy raising some suspicion for metastatic disease Chest X-Ray 08/31/24 11:12 IMPRESSION: 1. Left retrocardiac consolidation which could represent atelectasis or pneumonia. PA and lateral radiograph evaluation is recommended. 2. Cardiomegaly. 3. A small amount of left pleural fluid is likely. Head CT 09/01/24 12:10 IMPRESSION: 1. No evidence of intracranial hemorrhage or mass effect. 2. No significant changes compared to previous KUB X-Ray 09/05/24 10:50 IMPRESSION: Relative paucity of bowel gas with prominent gas-filled bowel loop in the left abdomen possibly representing colon. Laboratory Results WBC 2.58 10^3/uL (3.29-11.43) L 09/07/24 05:45 Corrected WBC Cancelled 09/01/24 08:06 RBC 3.34 10^6/uL (3.85-5.65) L 09/07/24 05:45 Hgb 8.60 g/dL (11.27-16.99) L 09/07/24 05:45 Hct 30.6 % (36-47) L 09/07/24 05:45 MCV 91.6 fl (85-98) 09/07/24 05:45 MCH 25.7 pg (27-33) L 09/07/24 05:45 MCHC 28.1 g/dL (30-55) L 09/07/24 05:45 RDW 23.9 % (12.1-15.1) H 09/07/24 05:45 Plt Count 63 10^3/cmm (157-399) L 09/07/24 05:45 MPV 10.8 fL (7.4-10.4) H 09/07/24 05:45 Gran % Cancelled 09/01/24 08:06 Neut % (Auto) 56.9 % 09/07/24 05:45 Lymph % (Auto) 30.6 % 09/07/24 05:45 [place] % (Auto) 7.8 % 09/07/24 05:45 Eos % (Auto) 3.9 % 09/07/24 05:45 Baso % (Auto) 0.4 % 09/07/24 05:45 Reticulocyte % (Auto) 3.3 % (0.5-2.0) H 08/30/24 12:45 Neut # (Auto) 1.47 10^3/uL (1.8-7.7) L 09/07/24 05:45 Lymph # (Auto) 0.8 10^3/uL (0.8-4.8) 09/07/24 05:45 [place] # (Auto) 0.2 10^3/uL (0.2-0.9) 09/07/24 05:45 Eos # (Auto) 0.1 10^3/uL (0.0-0.8) 09/07/24 05:45 Baso # (Auto) 0.0 10^3/uL (0.0-0.1) 09/07/24 05:45 Absolute Gran (auto) Cancelled 09/01/24 08:06 Nucleated RBC % (auto) 0 % 09/07/24 05:45 Nucleated RBCs # 0.0 /100WBC 09/07/24 05:45 Haptoglobin 104.0 mg/L (30-200) 08/30/24 12:45 Haptoglobin Cancelled 08/30/24 12:45 PT 17.60 SECONDS (12.1-14.9) H 08/30/24 12:45 INR 1.35 (0.8-1.2) H 08/30/24 12:45 APTT 25.2 SECONDS (23.9-36.7) 08/30/24 12:45 Specimen Type Arterial 09/02/24 05:34 Sample Site Radial, left 09/02/24 05:34 ABG pH 7.45 (7.35-7.45) 09/02/24 05:34 ABG pCO2 52.3 mmHg (35-45) H 09/02/24 05:34 ABG pO2 79.0 mmHg (80.0-100.0) L 09/02/24 05:34 ABG PO2/FiO2 Ratio 263 09/02/24 05:34 ABG HCO3 36.3 mmol/L (22-26) H 09/02/24 05:34 ABG O2 Saturation 93.7 09/01/24 12:03 ABG Base Excess 10.9 mmol/L (-2.0-2.0) H 09/02/24 05:34 Jimmie Test Pos 09/02/24 05:34 A-a O2 Gradient 6.6 mmHg (5-10) 09/01/24 12:03 Hematocrit 28.5 % (37-47) L 09/02/24 05:34 Hgb O2 Saturation 91.1 % (95-100) L 09/01/24 12:03 Carboxyhemoglobin 2.5 %THgb (0.4-20.1) 09/01/24 12:03 Methemoglobin 0.3 % (0.4-1.5) L 09/01/24 12:03 Total Hemoglobin 8.7 g/dL (12-16) L 09/01/24 12:03 Sodium 147.0 mmol/L (131-143) H 09/01/24 12:03 Potassium 3.6 mmol/L (3.5-5.0) 09/01/24 12:03 Glucose 136.0 mg/dL (70-115) H 09/01/24 12:03 Ionized Calcium 1.1 mmol/L (1.1-1.4) 09/01/24 12:03 O2 Delivery Device Bipap 09/02/24 05:34 O2 Liters/Min 2.0 % 09/01/24 12:03 FiO2 30.0 % 09/02/24 05:34 Enrollment Counselor ID Wiley 09/02/24 05:34 Sodium 141 mmol/L (136-145) 09/07/24 05:45 Potassium 3.4 mmol/L (3.5-5.1) L 09/07/24 05:45 Chloride 101 mmol/L (98-107) 09/07/24 05:45 Carbon Dioxide 30 mmol/L (22-29) H 09/07/24 05:45 Anion Gap 13.4 (5-19) 09/07/24 05:45 BUN 15 mg/dL (8-23) 09/07/24 05:45 Creatinine 0.4 mg/dL (0.5-0.9) L 09/07/24 05:45 GFR Calculation Not Reportable 09/07/24 05:45 Glucose 108 mg/dL (65-115) 09/07/24 05:45 POC Glucose 120 mg/dL (70-110) H 09/07/24 11:40 Calculated Osmolality 293 mOsm/kg (285-295) 09/07/24 05:45 Lactic Acid 4.2 mmol/L (0.5-2.2) H* 08/30/24 12:45 Lactic Acid (Sepsis) 3.8 mmol/L (0.5-2.2) H 08/30/24 15:11 Lactate 1.6 mmol/L (0.5-2.2) 08/31/24 11:58 Calcium 8.4 mg/dL (8.5-10.5) L 09/07/24 05:45 Phosphorus 3.9 mg/dL (2.5-4.5) 09/02/24 05:40 Magnesium 2.0 mg/dL (1.7-2.3) 09/02/24 05:40 Iron 16 ug/dL (37-145) L 08/30/24 12:45 TIBC 381 mcg/dl 08/30/24 12:45 % Saturation 4.1 % (20-50) L 08/30/24 12:45 Unsat Iron Binding 365 ug/dL (112-347) H 08/30/24 12:45 Ferritin 8 ng/mL (15-150) L 08/30/24 12:45 Total Bilirubin 1.0 mg/dL (0.15-1.2) 09/06/24 09:05 AST 33 U/L (0-32) H 09/06/24 09:05 ALT 14 U/L (0-33) 09/06/24 09:05 Alkaline Phosphatase 49 U/L (35-105) 09/06/24 09:05 Ammonia 39 umol/L (11-51) 09/01/24 17:44 Lactate Dehydrogenase 202 U/L (135-214) 08/30/24 12:45 Lactate Dehydrogenase Cancelled 08/30/24 12:45 Troponin T Baseline 17 ng/L (0-10) H 08/30/24 12:45 Troponin T 120 Minute 16.19 ng/L (0-10) H 08/30/24 15:11 Delta Troponin T -0.81 ABS# (0-10) L 08/30/24 15:11 Troponin T Hi Sens 6Hr 17.10 ng/L (0-10) H 08/30/24 19:35 Troponin T Hi Sens 6Hr Delta 0.10 ng/L (0-12) 08/30/24 19:35 C-Reactive Protein 7.4 mg/L (0.0-4.9) H 09/07/24 05:45 NT-Pro-B Natriuret Pep 899 pg/mL (0-450) H 09/01/24 17:44 Total Protein 6.3 g/dL (6.6-8.7) L 09/06/24 09:05 Albumin 3.4 g/dL (3.5-5.2) L 09/06/24 09:05 Globulin 2.9 g/dL (1.3-4.6) 09/06/24 09:05 Tumor Marker AFP 6.8 ng/mL (0-8.3) 08/30/24 15:11 CA 19-9 Antigen 11.38 U/mL (0-35) 08/30/24 12:45 Vitamin B12 667 pg/mL (232-1245) 08/30/24 12:45 Folate > 20.0 ng/mL (4.8-37.3) 08/30/24 12:45 Procalcitonin 0.12 ng/mL (0-0.5) 09/07/24 05:45 TSH 2.89 uIU/mL (0.27-4.20) 08/30/24 12:45 Urine Color Yellow (Yellow) 08/30/24 22:25 Urine Appearance Clear (CLEAR) 08/30/24 22:25 Urine pH 6.0 (5-7) 08/30/24 22:25 Ur Specific [place] 1.012 (1.005-1.030) 08/30/24 22:25 Urine Protein Negative (Negative) 08/30/24 22:25 Urine Glucose (UA) Negative (Normal) 08/30/24 22: Urine Ketones Negative (Negative) 08/30/24 22: Urine Blood Negative (Negative) 08/30/24 22: Urine Nitrate Positive (Negative) A 08/30/24 22: Urine Bilirubin Negative (Negative) 08/30/24 22: Urine Urobilinogen 0.2 mg/dL (Negative) 08/30/24 22:25 Ur Leukocyte Esterase Negative (Negative) 08/30/24 22:25 Urine RBC 0-2 /hpf (0-2) 08/30/24 22:25 Urine WBC 0-5 /hpf (0-5) 08/30/24 22:25 Ur Squamous Epith Cells 0-5 /hpf (0-5) 08/30/24 22:25 Amorphous Sediment Not Reportable 09/07/24 13:09 Urine Bacteria None seen /hpf (NONE) 08/30/24 22: Hyaline Casts 1.21 /lpf 08/30/24 22:25 Hepatitis A IgM Ab Non-reactive (Nonreactive) 08/30/24 12:45 Hep Bs Antigen Non-reactive (Nonreactive) 08/30/24 12:45 Hep B Core IgM Ab Non-reactive (Nonreactive) 08/30/24 12:45 Hepatitis C Antibody Non-reactive (Nonreactive) 08/30/24 12:45 Blood Type A Negative 08/30/24 13:55 Rho(D) Type Rh negative 08/30/24 13:55 Antibody Screen Negative 08/30/24 13:55 RENA, Poly Interpret Negative 08/30/24 13:55 Crossmatch See Detail 08/30/24 13:55 Vitals Last Vital Signs Temp 98.3 F 09/07/24 12:00 Pulse 83 09/07/24 13:05 Resp 16 09/07/24 12:50 BP 134/73 09/07/24 12:00 Pulse Ox 87 L 09/07/24 13:04 O2 Del Method Nasal Cannula 09/07/24 12:50 O2 Flow Rate 2 09/07/24 13:04 FiO2 30 09/07/24 09:55 Discharge Plan Discharge Patient Disposition: Home Health Service Condition: Stable Prescriptions: New quetiapine 25 mg Tablet 25 mg PO QAM 30 Days Qty: 30 0RF polyethylene glycol 3350 17 gram Powder In Packet 17 g PO DAILY 30 Days Qty: 30 0RF prednisone 1 mg Tablet 2 mg PO QNOON 30 Days Qty: 60 0RF prednisone 1 mg Tablet 3 mg PO QAM 30 Days Qty: 90 0RF cefdinir 300 mg Capsule 300 mg PO BID 5 Days Qty: 10 0RF pantoprazole [Protonix] 40 mg tablet,delayed release (DR/EC) 40 mg PO BID 30 Days Qty: 60 0RF sucralfate [Carafate] 1 gram tablet 1 g PO BID 28 Days Qty: 56 0RF quetiapine [Seroquel] 50 mg tablet 75 mg PO DAILY 30 Days Qty: 45 0RF Continued PreserVision AREDS-2 250-90-40-1 mg capsule 1 tab PO BID aspirin [Adult Aspirin Regimen] 81 mg tablet,delayed release (DR/EC) 81 mg PO DAILY (DME) OneTouch Verio test strips Strip See Rx Instructions .Route Qty: 100 2RF Rx Instructions: Test Blood sugar up to twice a day E11.9 (DME) Comfort Touch Ult Thin Lanc[facility] See Rx Instructions .Route Qty: 100 1RF Rx Instructions: As directed (DME) blood-glucose meter [OneTouch Verio Meter] [facility] [place] [facility] See Rx Instructions .Route Qty: 1 0RF Rx Instructions: As directed E11.9 (DME) pen needle, diabetic [Comfort EZ Pen [place]] 31 gauge x 5/16 needle See Rx Instructions .Route Qty: 100 0RF Rx Instructions: As directed escitalopram oxalate 20 mg tablet 30 mg PO QAM Qty: 150 3RF pravastatin 40 mg tablet 40 mg PO QPM Qty: 90 3RF (DME) pen needle, diabetic [CareFine Pen Needle] 31 gauge x 1/4 needle See Rx Instructions .Route Qty: 100 0RF Rx Instructions: As directed calcium carbonate 500 mg calcium (1,250 mg) Tablet 1,000 mg PO QAM ferrous sulfate [iron] 325 mg (65 mg iron) Tablet 325 mg PO QAM cholecalciferol (vitamin D3) [Vitamin D3] 50 mcg (2,000 unit) Tablet 50 mcg PO DAILY metformin 500 mg tablet 1,000 mg PO BID levothyroxine 100 mcg tablet 100 mcg PO DAILY desmopressin 0.1 mg tablet 0.1 mg PO BID Januvia 100 mg tablet 100 mg PO DAILY Discontinued insulin lispro [Humalog KwikPen Insulin] 100 unit/mL insulin pen 8 unit SUBCUT TID Qty: 15 0RF olanzapine 10 mg tablet 20 mg PO BEDTIME omeprazole 40 mg capsule,delayed release(DR/EC) 40 mg PO DAILY Discharge Order = DC NOW: Discharge Order (Routine); Ordered 09/07/24 Ordered By: Gus Nguyen Other Ambulatory Orders: DME: Oxygen (Order) Location: None Selected Ordered By: Gus Nguyen Referrals: [facility] [place] [Outside] [facility] [place] [facility] [place]] Yordy Jay MD [Physician, General Surgery] - 09/21/24 11:20 am Zuri Castorena DO [Primary Care Provider, Family Practice] - 09/17/24 9:00 am Rivera Travis MD [Hospitalist, Oncology] - 1-3 days Referral Note: Transfusion dependent anemia has been sched with Discharge Diet: Cardiac Discharge Activity: Resume usual activity Patient Instructions: Sucralfate (By mouth), Prednisone (By mouth), Quetiapine (By mouth), Cefdinir (By mouth), Pantoprazole (By mouth), Polyethylene Glycol 3350 (By mouth), Heart Failure (DC), Heart Healthy Diet (DC), Immune Thrombocytopenia (DC), Community Acquired Pneumonia (DC), GI Post Discharge Instructions w/ Anesthesia, Opioid Safety, Patient Portal & Frances Instructions Activity Restrictions/Additional Instructions: - Transfusion dependent anemia - Recheck hemoglobin next week - Follow-up with oncology Discharge Attestations Time Spent in Discharge Care*: greater than 30 min Quality Metrics Clinical Quality Measures [ No reported AMI, CVA or VTE this stay] Coding Level of Care Code 11812 Total time (in minutes) for Discharge: 45 Diagnoses Acute anemia D64.9 Iron deficiency E61.1 Type 2 diabetes mellitus without complication, without long-term current use of insulin E11.9 Diabetes mellitus complication status: without complication Anemia D64.9 Pneumonia J18.9 Thrombocytopenia D69.6 Lactic acidosis E87.20 Diastolic CHF I50.30
[2024-09-07 14:17] LABS: UA Slide Review UA Slide Review Perf
== END 2024-09-07 14:43 | disposition home or self-care (01) | DRG 811 ==
LOC: ER 15:45 → MEDSURG 16:12 → ICU 09-01 23:36
PROVIDERS: Internal Medicine; Student in an Organized Health Care Education/Training Program; Admitting Provider Family Medicine; Emergency Provider Emergency Medicine; PCP Family Medicine; Visit Provider Family Medicine
PROC: 0DJ08ZZ Inspection of Upper Intestinal Tract, Via Natural or Artificial Opening Endoscopic (ICD-10-PCS; principal; 2024-09-03 12:25)
DX: D50.9 Iron deficiency anemia, unspecified (principal); G92.8 Other toxic encephalopathy; J18.9 Pneumonia, unspecified organism; I50.33 Acute on chronic diastolic (congestive) heart failure; J96.92 Respiratory failure, unspecified with hypercapnia; E23.2 Diabetes insipidus; E24.9 Cushing's syndrome, unspecified; E11.9 Type 2 diabetes mellitus without complications; D69.6 Thrombocytopenia, unspecified; I69.920 Aphasia following unspecified cerebrovascular disease; I69.998 Other sequelae following unspecified cerebrovascular disease; G31.83 Neurocognitive disorder with Lewy bodies; F02.80 Dementia in other diseases classified elsewhere, unspecified severity, without behavioral disturbance, psychotic disturbance, mood disturbance, and anxiety; T43.595A Adverse effect of other antipsychotics and neuroleptics, initial encounter; Y92.239 Unspecified place in hospital as the place of occurrence of the external cause; Z66 Do not resuscitate; K21.9 Gastro-esophageal reflux disease without esophagitis; F32.9 Major depressive disorder, single episode, unspecified; R07.9 Chest pain, unspecified; Z79.82 Long term (current) use of aspirin; Z79.84 Long term (current) use of oral hypoglycemic drugs; Z79.4 Long term (current) use of insulin; Z79.52 Long term (current) use of systemic steroids
CPT/HCPCS: 36415; 36416; 36430; 36600; 43235; 51702; 70450; 71045; 74018; 74177; 80048; 80051; 80053; 80074; 81001; 82105; 82140; 82274; 82330; 82607; 82728; 82746; 82803; 82805; 82962; 83010; 83540; 83550; 83605; 83615; 83735; 83880; 84100; 84145; 84443; 84484; 85014; 85018; 85025; 85045; 85610; 85730; 86140; 86301; 86850; 86880; 86900; 86920; 86927; 87040; 87086; 87106; 92507; 92523; 92526; 92610; 93005; 93306; 94640; 94660; 94760; 96365; 96372; 96374; 96375; 96376; 97116; 97162; 97530; 99285; J0456; J0696; J1720; J1756; J1815; J1938; J1953; J2470; J3480; J7040; J7050; J7120; J7512; J7626; J9999; P9016; P9017; P9046

== ENCOUNTER 2024-09-15 15:16 | Oncology outpatient (recurring) (ONCR) | payer MEDICARE, SELFPAY | END 2024-09-17 23:59 | disposition home or self-care (01) | PROVIDERS: PCP Family Medicine; Visit Provider Family Medicine | DX: K76.9 Liver disease, unspecified (principal); K74.60 Unspecified cirrhosis of liver; D50.9 Iron deficiency anemia, unspecified | CPT/HCPCS: 99205 ==

== ENCOUNTER → 2024-09-17 15:27 | Outpatient (BNVA) | payer MEDICARE, SELFPAY | PROVIDERS: PCP Family Medicine; Visit Provider Family Medicine | DX: Z13.6 Encounter for screening for cardiovascular disorders (principal); D64.9 Anemia, unspecified | CPT/HCPCS: 85025 ==

== ENCOUNTER → 2024-09-21 11:11 | Outpatient (BNVA) | payer MEDICARE, SELFPAY | PROVIDERS: PCP Family Medicine; Visit Provider Student in an Organized Health Care Education/Training Program | DX: Z09 Encounter for follow-up examination after completed treatment for conditions other than malignant neoplasm (principal) | CPT/HCPCS: 99213 ==

== ENCOUNTER → 2024-10-22 10:21 | Outpatient (BNVA) | payer MEDICARE, SELFPAY | PROVIDERS: PCP Family Medicine; Visit Provider Nurse Practitioner Family | DX: L85.3 Xerosis cutis (principal); L98.1 Factitial dermatitis; L81.4 Other melanin hyperpigmentation | CPT/HCPCS: 99213 ==

== ENCOUNTER → 2024-10-26 14:20 | Outpatient (BNVA) | payer MEDICARE, SELFPAY | PROVIDERS: PCP Family Medicine | DX: Z13.6 Encounter for screening for cardiovascular disorders (principal); D50.8 Other iron deficiency anemias; D50.9 Iron deficiency anemia, unspecified; Z09 Encounter for follow-up examination after completed treatment for conditions other than malignant neoplasm; M81.0 Age-related osteoporosis without current pathological fracture; E23.7 Disorder of pituitary gland, unspecified; E11.9 Type 2 diabetes mellitus without complications; R35.89 Other polyuria | CPT/HCPCS: 80053; 80061; 82043; 82306; 82728; 83036; 83550; 84439; 84443; 85025 ==

== ENCOUNTER → 2024-10-28 10:10 | Outpatient (BNVA) | payer MEDICARE, SELFPAY | PROVIDERS: PCP Family Medicine | DX: E11.9 Type 2 diabetes mellitus without complications (principal); R35.89 Other polyuria; E03.9 Hypothyroidism, unspecified | CPT/HCPCS: 82043 ==

== ENCOUNTER 2024-11-03 11:00 | Oncology outpatient (recurring) (ONCR) | payer MEDICARE, SELFPAY ==
--- NOTE | 2024-10-29 10:00 | CTR_ITS ---
PROCEDURE INFORMATION: Exam: CT Abdomen And Pelvis Without And With Contrast Exam date and time: 10/29/2024 10:44 AM Age: 84 years old Clinical indication: Condition or disease; Liver condition; Lesion; Prior surgery; Surgery date: 6+ months; Surgery type: Shunt, stomach, appy; Additional info: Liver lesion, liver gay TECHNIQUE: Imaging protocol: Computed tomography of the abdomen and pelvis without and with contrast. Radiation optimization: All CT scans at this facility use at least one of these dose optimization techniques: automated exposure control; mA and/or kV adjustment per patient size (includes targeted exams where dose is matched to clinical indication); or iterative reconstruction. Contrast material: OMNI 300; Contrast volume: 100 ml; Contrast route: INTRAVENOUS (IV); COMPARISON: CT abdomen pelvis w con* [id number] 08/30/2024 4:57 PM RADIATION DOSE METRICS: Total DLP (mGy-cm): 2491.21 FINDINGS: Lungs: Mild left lung base atelectasis. Trace left pleural effusion. Heart: Trace pericardial effusion. Liver: Cirrhotic liver. A 4.1 cm heterogeneously hypodense enhancing lesion with central hypoenhancement in the posterior right hepatic lobe. Gallbladder and biliary ducts: Cholelithiasis and distended gallbladder. No biliary ductal dilation. Pancreas: Normal. Spleen: Splenomegaly measuring 16.1 cm in greatest dimension. Adrenal glands: Normal. Kidneys and ureters: Symmetrically enhancing kidneys. No hydronephrosis. No urolithiasis. Stomach and bowel: No dilated or inflamed bowel. Colonic diverticulosis without diverticulitis. Appendix: Not visualized. Intraperitoneal space: No free air. Moderate volume ascites. Vasculature: Portal vein is patent. Recanalized paraumbilical vein. Prominent collateral vessels in the left upper quadrant and prominent esophageal varices. Prominent perirectal varices.Mild atherosclerotic calcifications of the normal-caliber abdominal aorta. Lymph nodes: Multiple prominent and enlarged retroperitoneal lymph nodes, above and below the level of the renal arteries, and bilateral common and external iliac chain nodes. For example, largest retroperitoneal lymph node measures 1.8 x 3.2 cm on image 82 of series 5. Urinary bladder: Unremarkable as visualized. Reproductive: Surgically absent uterus. No adnexal mass. Bones/joints: Multilevel chronic degenerative changes of the spine. Hemangioma in L4 vertebral body. Diffusely decreased bone density. Soft tissues: Multiple midline surgical frank along the anterior abdominal wall musculature. A shunt is present traversing the subcutaneous fat in the anterior chest wall and entering the peritoneum in the right upper quadrant, with catheter coursing leftward and tip terminating lateral to the spleen. CT/CT abdomen pelvis wo/w [id number] IMPRESSION: 1. No definite acute finding. 2. Cholelithiasis and distended gallbladder. If there is clinical concern for acute cholecystitis, right upper quadrant ultrasound can be performed. 3. Cirrhotic liver. A 4.1 cm heterogeneously hypodense enhancing lesion with central hypoenhancement in the posterior right hepatic lobe, highly concerning for hepatocellular carcinoma. Further evaluation with MRI abdomen with and without contrast is advised. 4. Retroperitoneal lymphadenopathy, concerning for metastatic disease versus lymphoproliferative disorder. 5. Stigmata of portal hypertension, with moderate volume ascites.
[2024-10-29] MEDS: iohexol 350 mg/mL 500 mL Btl (per mL) IV (11:01)
[2024-11-02 14:51] LABS: Hematocrit 27.4 % (36-47); Hemoglobin 7.50 g/dL (11.27-16.99)
[2024-11-03] VITALS (14 sets, daily range): BP systolic 121–154; BP diastolic 65–74; PULSE 79–94; RESP 17–18; TEMP 36.4–37.1; O2SAT 93–95
== END 2024-11-17 23:59 | disposition home or self-care (01) ==
PROVIDERS: PCP Family Medicine; Visit Provider Internal Medicine Medical Oncology
DX: Z53.9 Procedure and treatment not carried out, unspecified reason; D64.9 Anemia, unspecified; Z79.899 Other long term (current) drug therapy
CPT/HCPCS: 36415; 36430; 74178; 85014; 85018; 86850; 86900; 86920; 99214; J7050; J9999; P9016; P9040

== ENCOUNTER → 2024-11-04 10:45 | Outpatient (BNVA) | payer MEDICARE, SELFPAY | PROVIDERS: PCP Family Medicine; Visit Provider Internal Medicine | DX: Z09 Encounter for follow-up examination after completed treatment for conditions other than malignant neoplasm (principal); M81.0 Age-related osteoporosis without current pathological fracture; E23.7 Disorder of pituitary gland, unspecified; E11.9 Type 2 diabetes mellitus without complications; R35.89 Other polyuria; K76.89 Other specified diseases of liver | CPT/HCPCS: 99214 ==

== ENCOUNTER → 2024-11-10 14:01 | Outpatient (BNVA) | payer MEDICARE, SELFPAY | PROVIDERS: PCP Family Medicine; Visit Provider Family Medicine | DX: Z13.6 Encounter for screening for cardiovascular disorders (principal); E61.1 Iron deficiency | CPT/HCPCS: 85025 ==

== ENCOUNTER 2024-12-08 10:26 | Oncology outpatient (recurring) (ONCR) | payer MEDICARE, SELFPAY ==
[2024-12-08 11:06] LABS: Hematocrit 30.5 % (36-47); Hemoglobin 8.60 g/dL (11.27-16.99); Mean Corpuscular HGB Conc 28.2 g/dL (30-55); Mean Corpuscular Hemoglobin 25.4 pg (27-33); Mean Corpuscular Volume 90.0 fl (85-98); Nucleated Red Blood Cells % 0 %; Platelet Count 102 10^3/cmm (157-399); Red Blood Count 3.39 10^6/uL (3.85-5.65); White Blood Count 3.43 10^3/uL (3.29-11.43)
[2024-12-08 11:22] LABS: Alanine Aminotransferase 14 U/L (0-33); Albumin Level 3.7 g/dL (3.5-5.2); Alkaline Phosphatase 56 U/L (35-105); Anion Gap 15.9 (5-19); Aspartate Amino Transferase 27 U/L (0-32); Blood Urea Nitrogen 18 mg/dL (8-23); Calcium 9.1 mg/dL (8.5-10.5); Carbon Dioxide 27 mmol/L (22-29); Chloride 104 mmol/L (98-107); Globulin 3.4 g/dL (1.3-4.6); Glucose 179 mg/dL (65-115); Osmolality Calculated 302 mOsm/kg (285-295); Potassium 3.9 mmol/L (3.5-5.1); Sodium 143 mmol/L (136-145); Total Protein 7.1 g/dL (6.6-8.7)
[2024-12-08 11:46] LABS: Slide Review Slide Review Perform
== END 2024-12-18 23:59 | disposition home or self-care (01) ==
PROVIDERS: PCP Family Medicine; Visit Provider Internal Medicine Medical Oncology
DX: K76.9 Liver disease, unspecified (principal); K74.60 Unspecified cirrhosis of liver; K74.69 Other cirrhosis of liver; D64.9 Anemia, unspecified; K92.2 Gastrointestinal hemorrhage, unspecified; Z53.9 Procedure and treatment not carried out, unspecified reason; K80.20 Calculus of gallbladder without cholecystitis without obstruction; R93.3 Abnormal findings on diagnostic imaging of other parts of digestive tract; R93.2 Abnormal findings on diagnostic imaging of liver and biliary tract; R59.0 Localized enlarged lymph nodes; J98.11 Atelectasis; I31.39 Other pericardial effusion (noninflammatory); D73.89 Other diseases of spleen; K57.30 Diverticulosis of large intestine without perforation or abscess without bleeding; R18.8 Other ascites; R93.89 Abnormal findings on diagnostic imaging of other specified body structures; I86.8 Varicose veins of other specified sites; Z98.890 Other specified postprocedural states; M47.9 Spondylosis, unspecified; D18.09 Hemangioma of other sites; M85.80 Other specified disorders of bone density and structure, unspecified site; Z96.89 Presence of other specified functional implants; D50.9 Iron deficiency anemia, unspecified
CPT/HCPCS: 36415; 80053; 85025; 86850; 86900; 99214

== ENCOUNTER → 2025-01-06 14:02 | Outpatient (BNVA) | payer MEDICARE, SELFPAY | PROVIDERS: PCP Family Medicine; Visit Provider Podiatrist Foot & Ankle Surgery | DX: E11.8 Type 2 diabetes mellitus with unspecified complications (principal); B35.1 Tinea unguium; I73.9 Peripheral vascular disease, unspecified; G31.83 Neurocognitive disorder with Lewy bodies; F02.80 Dementia in other diseases classified elsewhere, unspecified severity, without behavioral disturbance, psychotic disturbance, mood disturbance, and anxiety; Z79.84 Long term (current) use of oral hypoglycemic drugs | CPT/HCPCS: 11721 ==

== ENCOUNTER 2025-01-07 09:00 | Oncology outpatient (recurring) (ONCR) | payer MEDICARE, SELFPAY ==
[2025-01-04 13:31] LABS: Hematocrit 26.1 % (36-47); Hemoglobin 7.30 g/dL (11.27-16.99); Mean Corpuscular HGB Conc 28.0 g/dL (30-55); Mean Corpuscular Hemoglobin 24.5 pg (27-33); Mean Corpuscular Volume 87.6 fl (85-98); Nucleated Red Blood Cells % 0 %; Platelet Count 100 10^3/cmm (157-399); Red Blood Count 2.98 10^6/uL (3.85-5.65); White Blood Count 3.42 10^3/uL (3.29-11.43)
[2025-01-04 13:52] LABS: Alanine Aminotransferase 16 U/L (0-33); Albumin Level 3.8 g/dL (3.5-5.2); Alkaline Phosphatase 46 U/L (35-105); Anion Gap 13.1 (5-19); Aspartate Amino Transferase 25 U/L (0-32); Blood Urea Nitrogen 18 mg/dL (8-23); Calcium 8.8 mg/dL (8.5-10.5); Carbon Dioxide 29 mmol/L (22-29); Chloride 103 mmol/L (98-107); Ferritin 8 ng/mL (15-150); Globulin 3.5 g/dL (1.3-4.6); Glucose 190 mg/dL (65-115); Iron 35 ug/dL (37-145); Osmolality Calculated 299 mOsm/kg (285-295); Potassium 4.1 mmol/L (3.5-5.1); Sodium 141 mmol/L (136-145); Total Iron Binding Capacity 400 mcg/dl; Total Protein 7.3 g/dL (6.6-8.7); Unsaturated Iron Binding 365 ug/dL (112-347)
[2025-01-04 13:57] LABS: Slide Review Slide Review Perform
[2025-01-04 14:07] LABS: Vitamin B12 678 pg/mL (232-1245)
[2025-01-07] VITALS (10 sets, daily range): BP systolic 104–147; BP diastolic 66–84; PULSE 65–90; RESP 17–18; TEMP 35.7–37.3; O2SAT 92–97
[2025-01-07 09:58] LABS: Hematocrit 27.7 % (36-47); Hemoglobin 7.60 g/dL (11.27-16.99); Mean Corpuscular HGB Conc 27.4 g/dL (30-55); Mean Corpuscular Hemoglobin 23.9 pg (27-33); Mean Corpuscular Volume 87.1 fl (85-98); Nucleated Red Blood Cells % 0 %; Platelet Count 109 10^3/cmm (157-399); Red Blood Count 3.18 10^6/uL (3.85-5.65); White Blood Count 3.07 10^3/uL (3.29-11.43)
[2025-01-07 10:38] LABS: Slide Review Slide Review Perform
== END 2025-01-17 23:59 | disposition home or self-care (01) ==
PROVIDERS: PCP Family Medicine; Visit Provider Internal Medicine Medical Oncology
DX: Z53.9 Procedure and treatment not carried out, unspecified reason; D50.0 Iron deficiency anemia secondary to blood loss (chronic)
CPT/HCPCS: 36415; 36430; 80053; 82607; 82728; 82746; 83540; 83550; 85025; 86850; 86900; 86920; 99214; J9999; P9016